=== PATIENT | female | born 1965 | race Two or more races ===

== ENCOUNTER 2016-05-13 09:02 | Emergency (ER) | payer OTHER, MEDICARE ==
[2016-05-13 09:14] VITALS: RESP 20; TEMP 97.5
[2016-05-13] MEDS ORDERED: diphenhydrAMINE 50 MG/ML 1 ML VIAL IVP STA (09:29)
[2016-05-13] MEDS ORDERED: PROMETHAZINE INJ 25 MG in SODIUM CHLORIDE 0.9% 50 ML IVPB STA (09:29)
[2016-05-13] MEDS ORDERED: HYDROmorphone 1 MG/ML 1 ML SYRINGE IVP STA ×2 (09:30→11:10)
--- NOTE | 2016-05-13 09:34 | ED ---
General Adult HPI - General Chief complaint: Headache Stated complaint: headache Time Seen by Provider: 05/13/16 09:16 Source: patient, RN notes reviewed Mode of arrival: ambulatory Limitations: no limitations - History of Present Illness Initial comments: 50-year-old female presents emergency Department chief complaint of bilateral flank pain, headache. Patient states that she started yesterday with some flank pain no chest progressed and does radiate into her abdomen. Patient states she originally thought she had a kidney stone so she started drinking more water. Patient states that now she feels that she cannot urinate. She did admit to being admitted over one week ago at [facility] or her neurologist is for MS. Patient states she was admitted for MS exacerbation. Patient states during her stay there she had to be cathed 3 times because of urinary retention. Her neurologist told her was secondary to her MS. Patient states she now has a headache and which she has chronic headaches secondary to her MS. Patient states her pain medication is not helping. Patient takes oxycodone. Patient states it's a diffuse headache with some photophobia. Patient denies any focal weakness. Patient denies any blurred vision, confusion. Patient states she's had headaches like this in the past. Patient denies any fever, chills, neck stiffness. - Related Data Home Medications Medication Instructions Recorded Confirmed Citalopram Hydrobromide [CeleXA] 60 mg PO HS 09/19/13 12/19/15 Gabapentin [Neurontin] 600 mg PO TID 09/19/13 12/19/15 Topiramate [Topamax] 100 mg PO TID 09/19/13 12/19/15 Diazepam [Valium] 10 mg PO HS 12/19/15 12/19/15 INSULIN LISPRO (HumaLOG) [HumaLOG] 1.7 units SQ CONTINUOUS 12/19/15 12/19/15 Ondansetron [Zofran] 4 mg PO Q8HR PRN 12/19/15 12/19/15 clonazePAM [KlonoPIN] 1 mg PO TID 12/19/15 12/19/15 oxyCODONE HCL [Oxyir] 5 mg PO Q4HR PRN 12/19/15 12/19/15 Previous Rx's Medication Instructions Recorded Ketorolac [Toradol] 10 mg PO Q6HR #6 tab 12/19/15 Allergies Allergy/AdvReac Type Severity Reaction Status Date / Time divalproex sodium Allergy Unknown Verified 05/13/16 09:14 [From Depakote] prochlorperazine edisylate Allergy Unknown Verified 05/13/16 09:14 [From Compazine] prochlorperazine maleate Allergy Unknown Verified 05/13/16 09:14 [From Compazine] vancomycin Allergy Unknown Verified 05/13/16 09:14 steroids AdvReac Confusion Uncoded 05/13/16 09:14 Review of Systems ROS Statement: Those systems with pertinent positive or pertinent negative responses have been documented in the HPI. ROS Other: All systems not noted in ROS Statement are negative. Past Medical History Past Medical History: Diabetes Mellitus, Seizure Disorder Additional Past Medical History / Comment(s): MS, uterine cancer, headaches History of Any Multi-Drug Resistant Organisms: None Reported Past Surgical History: Appendectomy, Cholecystectomy, Hysterectomy, Orthopedic Surgery Additional Past Surgical History / Comment(s): cervical surgery, right ear reconstruction from defect Past Anesthesia/Blood Transfusion Reactions: No Reported Reaction Past Psychological History: Depression Additional Psychological History / Comment(s): IN PAST HAVE HAD STEROID INDUCED PSYCHOSIS Smoking Status: Current every day smoker Past Alcohol Use History: None Reported Past Drug Use History: None Reported - Past Family History Mother Family Medical History: Diabetes Mellitus Brother(s) Family Medical History: Diabetes Mellitus General Exam Limitations: no limitations General appearance: alert, in no apparent distress Head exam: Present: atraumatic, normocephalic, normal inspection Eye exam: Present: normal appearance, PERRL, EOMI. Absent: scleral icterus, conjunctival injection, periorbital swelling Neck exam: Present: normal inspection, full ROM. Absent: tenderness, meningismus, lymphadenopathy Respiratory exam: Present: normal lung sounds bilaterally. Absent: respiratory distress, wheezes, rales, rhonchi, stridor Cardiovascular Exam: Present: regular rate, normal rhythm, normal heart sounds. Absent: systolic murmur, diastolic murmur, rubs, gallop, clicks GI/Abdominal exam: Present: soft, tenderness (Mild diffuse greatest in the suprapubic region), normal bowel sounds. Absent: distended, guarding, rebound, rigid Extremities exam: Present: normal inspection, full ROM, normal capillary refill. Absent: tenderness, pedal edema, joint swelling, calf tenderness Back exam: Present: full ROM, CVA tenderness (R), CVA tenderness (L). Absent: tenderness Neurological exam: Present: alert, oriented X3, CN II-XII intact, reflexes normal. Absent: motor sensory deficit Skin exam: Present: warm, dry, intact, normal color. Absent: rash Course Vital Signs 05/13/16 09:11 Temperature 97.5 F L Pulse Rate 90 Respiratory 20 Rate Blood Pressure 124/83 O2 Sat by Pulse 99 Oximetry Medical Decision Making - Medical Decision Making 50-year-old female presented emergency from for headache, flank pain. Patient' s urinalysis, all within normals. Patient states her headache is improving though she is requesting further medications. Patient we given additional medications and discharge. Patient headache consistent with her normal migraine headaches. Patient has no neurological deficits. Patient will be discharged with follow-up with her neurologist. Return parameters were discussed. Patient agrees plant AND answered. - Lab Data Result diagrams: 05/13/16 09:45 05/13/16 09:45 Lab Results 05/13/16 05/13/16 05/13/16 Range/Units 09:45 09:45 09:45 WBC 10.4 (3.8-10.6) k/uL RBC 4.30 (3.80-5.40) m/uL Hgb 12.5 (11.4-16.0) gm/dL Hct 38.7 (34.0-46.0) % MCV 90.0 (80.0-100.0) fL MCH 29.1 (25.0-35.0) pg MCHC 32.4 (31.0-37.0) g/dL RDW 14.1 (11.5-15.5) % Plt Count 232 (150-450) k/uL Neutrophils % 57 % Lymphocytes % 32 % Monocytes % 5 % Eosinophils % 2 % Basophils % 0 % Neutrophils # 6.0 (1.3-7.7) k/uL Lymphocytes # 3.3 (1.0-4.8) k/uL Monocytes # 0.6 (0-1.0) k/uL Eosinophils # 0.2 (0-0.7) k/uL Basophils # 0.0 (0-0.2) k/uL Sodium 136 L (137-145) mmol/L Potassium 4.9 (3.5-5.1) mmol/L Chloride 104 (98-107) mmol/L Carbon Dioxide 20 L (22-30) mmol/L Anion Gap 12 mmol/L BUN 20 H (7-17) mg/dL Creatinine 1.35 H (0.52-1.04) mg/dL Est GFR (MDRD) Af Amer 50 (>60 ml/min/1.73 sqM) Est GFR (MDRD) Non-Af 42 (>60 ml/min/1.73 sqM) Glucose 231 H (74-99) mg/dL Calcium 10.0 (8.4-10.2) mg/dL Total Bilirubin 0.4 (0.2-1.3) mg/dL AST 48 H (14-36) U/L ALT 78 H (9-52) U/L Alkaline Phosphatase 84 (38-126) U/L Total Protein 7.2 (6.3-8.2) g/dL Albumin 4.4 (3.5-5.0) g/dL Urine Color Light Yellow Urine Appearance Cloudy H (Clear) Urine pH 5.5 (5.0-8.0) Ur Specific [place] 1.004 (1.001-1.035) Urine Protein Negative (Negative) Urine Glucose (UA) Negative (Negative) Urine Ketones Negative (Negative) Urine Blood Negative (Negative) Urine Nitrate Negative (Negative) Urine Bilirubin Negative (Negative) Urine Urobilinogen <2.0 (<2.0) mg/dL Ur Leukocyte Esterase Moderate H (Negative) Urine RBC 2 (0-5) /hpf Urine WBC 7 H (0-5) /hpf Ur Squamous Epith Cells 10 H (0-4) /hpf Urine Bacteria Occasional H (None) /hpf Urine Mucus Rare H (None) /hpf Disposition Clinical Impression: Migraine, Flank pain Disposition: HOME SELF-CARE Condition: Stable Instructions: Acute Headache (ED) Additional Instructions: Please return to the Emergency Department if symptoms worsen or any other concerns. Time of Disposition: 11:11
[2016-05-13] MEDS ORDERED: ONDANSETRON 4 MG/2 ML VIAL IVP STA (09:44)
[2016-05-13 10:14] LABS: Basophils % (A) 0 %; CH 29.2; CHCM 32.6; Eosinophils # (A) 0.2 k/uL (0-0.7); Eosinophils % (A) 2 %; HCT 38.7 % (34.0-46.0); HDW 2.79; HGB 12.5 gm/dL (11.4-16.0); Luc # (Auto) 0.28; Luc % (Auto) 3; Lymphocytes # (A) 3.3 k/uL (1.0-4.8); Lymphocytes % (A) 32 %; MCH 29.1 pg (25.0-35.0); MCHC 32.4 g/dL (31.0-37.0); Mean Platelet Volume 7.4; Monocytes # (A) 0.6 k/uL (0-1.0); Monocytes % (A) 5 %; Neutrophils % (A) 57 %; RDW 14.1 % (11.5-15.5); WBC 10.4 k/uL (3.8-10.6); WBC (Perox) 11.17
[2016-05-13 10:25] LABS: Appearance,Urine Cloudy (Clear); Bacteria,Urine Occasional /hpf; Bilirubin,Urine Negative (Negative); Glucose,Urine (UA) Negative (Negative); Ketones,Urine Negative (Negative); Leukocyte Esterase,Urine Moderate (Negative); Mucus,Urine Rare /hpf; Nitrite,Urine Negative (Negative); PH, Urine 5.5 (5.0-8.0); Particle Count 3026; Protein,Urine Negative (Negative); RBC,Urine 2 /hpf (0-5); Specific Gravity,Urine 1.004 (1.001-1.035); Squamous Epithelial Cell,Urine 10 /hpf (0-4); UA Billing (MACRO vs. MICRO) MICRO; Urobilinogen,Urine <2.0 mg/dL (<2.0); WBC,Urine 7 /hpf (0-5)
[2016-05-13 10:28] LABS: Potassium 4.9 mmol/L (3.5-5.1); Total Bilirubin 0.4 mg/dL (0.2-1.3); Total Protein 7.2 g/dL (6.3-8.2)
[2016-05-13] MEDS ORDERED: KETOROLAC 30 MG/ML 1 ML VIAL IVP STA (10:35)
[2016-05-13 11:49] VITALS: BP 122/83; PULSE 100
== END 2016-05-13 11:49 | disposition home or self-care (01) ==
LOC: EC 09:02
DX: G43.909 Migraine, unspecified, not intractable, without status migrainosus (principal); R10.9 Unspecified abdominal pain; G35 Multiple sclerosis; G40.909 Epilepsy, unspecified, not intractable, without status epilepticus; E11.9 Type 2 diabetes mellitus without complications; Z85.42 Personal history of malignant neoplasm of other parts of uterus; F32.9 Major depressive disorder, single episode, unspecified; F17.200 Nicotine dependence, unspecified, uncomplicated; Z88.8 Allergy status to other drugs, medicaments and biological substances; Z79.4 Long term (current) use of insulin; Z79.899 Other long term (current) drug therapy; Z88.1 Allergy status to other antibiotic agents
CPT/HCPCS: 36415; 80053; 85025; 81001; 87040; 96374; 96375; 96376; 99284; J1200; J2405; J1885; J1170

== ENCOUNTER → 2017-04-08 | Outpatient (CLI) | payer OTHER, MEDICARE ==
[2017-04-08 12:30] LABS: ALT 36 U/L (9-52); AST 23 U/L (14-36); Albumin 4.1 g/dL (3.5-5.0); Alkaline Phosphatase 93 U/L (38-126); Anion Gap 10 mmol/L; Blood Urea Nitrogen 20 mg/dL (7-17); Calcium 9.4 mg/dL (8.4-10.2); Carbon Dioxide 28 mmol/L (22-30); Chloride 108 mmol/L (98-107); Glucose 139 mg/dL (74-99); Sodium 146 mmol/L (137-145); Total Bilirubin 0.3 mg/dL (0.2-1.3); Total Protein 7.2 g/dL (6.3-8.2)
[2017-04-08 12:35] LABS: Potassium 4.1 mmol/L (3.5-5.1)
--- NOTE | 2017-04-09 13:38 | MR ---
EXAMINATION TYPE: MR brain wo/w con DATE OF EXAM: 04/08/2017 COMPARISON: Prior MRI brain October 25, 2010. HISTORY: MS per order. Right-sided hearing loss with bilateral weakness and numbness per patient. TECHNIQUE: Multiplanar, multisequence images of the brain and brainstem is performed without and with IV contras t, utilizing 7.5 mL intravenous Gadavist gadolinium contrast is administered intravenously. Demyelin ating disease protocol with additional Sagittal Flair sequence performed. FINDINGS: Exam is suboptimal as there is significant motion artifact degradation T2 Lesions Present : Yes Approximate Number of Lesions: 1 Single left frontal 4 x 3 x 3 mm lesion axial image 21 and sagittal image 13 Enhancing Lesion(s) Present: No Change from Prior: Stable Diffusion weighted images demonstrate no evidence of a recent infarct or other diffusion abnormality. There is no worrisome extra-axial fluid collection. The ventricular system and cisternal spaces ar e normal in size and appearance. The brain volume is age appropriate. Midline structures demonstrate normal morphology. The craniocervical junction appears within normal limits. Post contrast images demonstrate no abnormal enhancement. Dominant left vertebral artery inc identally noted. The dural venous sinuses appear patent. The visualized sinuses are clear and the gl obes are intact. IMPRESSION: Suboptimal study. Single stable 3 mm left frontal white matter lesion. No new or enhancin g lesions are seen. No significant change from prior.
== END | disposition home or self-care (01) ==
LOC: RADMRIMAIN 11:47
PROVIDERS: ATTEND Psychiatry & Neurology Neurology with Special Qualifications in Child Neurology
DX: R90.82 White matter disease, unspecified (principal); G35 Multiple sclerosis
CPT/HCPCS: 80053; 70553; 36415; A9581

== ENCOUNTER 2017-05-27 17:15 | Emergency (ER) | payer OTHER, MEDICARE ==
[2017-05-27] MEDS ORDERED: ONDANSETRON 4 MG/2 ML VIAL IVP STA (17:37)
[2017-05-27] MEDS ORDERED: HYDROmorphone 0.5 MG/0.5 ML SYRINGE IVP STA ×2 (17:37→19:15)
[2017-05-27] MEDS ORDERED: SODIUM CHLORIDE 0.9% 1,000 ML IV STA (17:37)
[2017-05-27] MEDS ORDERED: KETOROLAC 30 MG/ML 1 ML VIAL IVP STA (17:37)
--- NOTE | 2017-05-27 18:03 | ED ---
Headache HPI - General Chief Complaint: Headache Stated Complaint: severe migraine; MS exacerbation Time Seen by Provider: 05/27/17 17:24 Source: RN notes reviewed Mode of arrival: wheelchair Limitations: no limitations - History of Present Illness Initial Comments: This is a 51-year-old female who presents to the emergency department with chief complaint of migraine. Patient states that this morning she developed a headache. At that time, she believed that it was a sinus headache so took Sudafed and nasal flushes. Patient states as the day progressed, her headache increased in intensity. She states that the headache is right-sided and is sharp and throbbing. She admits to associated nausea. She states she threw up 2 times today. Patient also reports photophobia. She states that she has a history of migraines and that this feels the same as her normal. She denies any recent injuries, falls or head trauma. She states she has a history of MS and believes that she may be having an MS exacerbation. She states that since Monday she has been experiencing insomnia and she is off balance. She states she sees Dr. Parrish out of [place]. She states her last flareup was 1 year ago. She states that she was diagnosed with MS in 9 years ago. She states she has a progressive type. Denies fever, chills, chest pain, shortness of breath, abdominal pain, nausea or vomiting, constipation or diarrhea, dysuria or hematuria, numbness or tingling, headache or vision changes. - Related Data Home Medications Medication Instructions Recorded Confirmed Citalopram Hydrobromide [CeleXA] 60 mg PO HS 09/19/13 05/27/17 Gabapentin [Neurontin] 600 mg PO Q6H 09/19/13 05/27/17 Topiramate [Topamax] 100 mg PO TID 09/19/13 05/27/17 Diazepam [Valium] 10 mg PO Q8H 12/19/15 05/27/17 INSULIN LISPRO (HumaLOG) [HumaLOG] See Protocol SQ CONTINUOUS 12/19/15 05/27/17 Ondansetron [Zofran] 4 mg PO Q6H PRN 12/19/15 05/27/17 clonazePAM [KlonoPIN] 1 mg PO HS 12/19/15 05/27/17 Amitriptyline HCl [Elavil] 25 mg PO HS 05/27/17 05/27/17 Baclofen 10 mg PO TID 05/27/17 05/27/17 Cholecalciferol [Vitamin D3] 5,000 unit PO DAILY 05/27/17 05/27/17 Dimethyl Fumarate [Tecfidera] 240 mg PO BID 05/27/17 05/27/17 Estrogens,Esterified [Menest] 1.25 mg PO DAILY 05/27/17 05/27/17 Modafinil [Provigil] 200 mg PO DAILY 05/27/17 05/27/17 Morphine Sulfate ER [Ms Contin 100 mg PO DAILY 05/27/17 05/27/17 100Mg] Omeprazole [PriLOSEC] 20 mg PO AC-BID 05/27/17 05/27/17 Allergies Allergy/AdvReac Type Severity Reaction Status Date / Time divalproex sodium Allergy Unknown Verified 05/27/17 17:38 [From Depakote] prochlorperazine edisylate Allergy Unknown Verified 05/27/17 17:38 [From Compazine] prochlorperazine maleate Allergy Unknown Verified 05/27/17 17:38 [From Compazine] vancomycin Allergy Unknown Verified 05/27/17 17:38 steroids AdvReac Confusion Uncoded 05/27/17 17:21 Review of Systems ROS Statement: Those systems with pertinent positive or pertinent negative responses have been documented in the HPI. ROS Other: All systems not noted in ROS Statement are negative. Past Medical History Past Medical History: Diabetes Mellitus, Seizure Disorder Additional Past Medical History / Comment(s): MS, uterine cancer, migraine headaches History of Any Multi-Drug Resistant Organisms: None Reported Past Surgical History: Appendectomy, Cholecystectomy, Hysterectomy, Orthopedic Surgery Additional Past Surgical History / Comment(s): cervical surgery, right ear reconstruction from defect Past Anesthesia/Blood Transfusion Reactions: No Reported Reaction Past Psychological History: Depression Smoking Status: Current every day smoker Past Alcohol Use History: None Reported Past Drug Use History: None Reported - Past Family History Mother Family Medical History: Diabetes Mellitus Brother(s) Family Medical History: Diabetes Mellitus General Exam - General Exam Comments Initial Comments: General: Awake and alert, well-developed; in no apparent distress. Patient sitting comfortably on ED stretcher, wearing sunglasses. HEENT: Head atraumatic, normocephalic. Pupils are equal, round and reactive to light. Extraocular movements intact. Oropharynx moist without erythema or exudate. Neck: Supple. Normal ROM. Cardiovascular: Regular rate and rhythm. No murmurs, rubs or gallops. Chest symmetrical. Respiratory: Lungs clear to auscultation bilaterally. No wheezes, rales or rhonchi. Normal respiratory effort with no use of accessory muscles. Musculoskeletal: Normal ROM, no tenderness bilateral upper and lower extremities. Ambulating normally. Skin: [place], warm and dry without rashes or lesions. Neurological: Alert and oriented x3. CN II-XII grossly intact. Speech is slow and slurred. Stutters occasionally. Symmetrical weakness, patient states that this is chronic and baseline for her. Psychiatric: Normal mood and affect. No overt signs of depression or anxiety noted. Limitations: no limitations Course Vital Signs 05/27/17 05/27/17 17:19 19:07 Temperature 97.3 F L Pulse Rate 108 H 87 Respiratory 20 18 Rate Blood Pressure 139/99 140/80 O2 Sat by Pulse 99 96 Oximetry - Reevaluation(s) Reevaluation #1: On reevaluation of patient, she states that her nausea has subsided and that her headache has improved. Patient requests a dose of Ativan to "take the edge off." I discussed discharge home and following up with her neurologist. Patient states that she is comfortable with this and is agreeable. 05/27/17 19:56 Medical Decision Making - Medical Decision Making This is a 51-year-old female who presents to the emergency department with chief complaint of migraine. Patient states migraine is right-sided and sharp and stabbing. She states this is like her normal migraines. Patient states she feels like she may be having a flareup of her MS. She states she feels off balance, her speech has changed and she has been suffering from insomnia. Patient was given medication in the emergency department. She states that her nausea has subsided and her migraine has improved. She states because of the pain she feels very worked up. She requested to have some Ativan. Patient was given 1 mg. Patient is in agreement for follow-up with her neurologist outpatient. Her vital signs are stable and she is in no acute distress. She will be discharged home at this time. She is in agreement and voices understanding. All questions were answered. Disposition Clinical Impression: Migraine Disposition: HOME SELF-CARE Condition: Good Instructions: Migraine Headache (ED) Additional Instructions: Please follow-up with your neurologist as soon as possible. Please follow up with primary care provider within 1-2 days. Return to emergency department if symptoms should worsen or any concerns arise. Referrals: Jm Torres MD [Primary Care Provider] - 1-2 days Time of Disposition: 20:10
[2017-05-27 19:09] VITALS: RESP 18
[2017-05-27] MEDS ORDERED: diphenhydrAMINE 50 MG/ML 1 ML VIAL IVP STA (19:15)
[2017-05-27] MEDS ORDERED: LORazepam 2 MG/ML INJ IV STA (20:07)
[2017-05-27 20:31] VITALS: BP 136/79; PULSE 93; TEMP 98
== END 2017-05-27 20:35 | disposition home or self-care (01) ==
LOC: EC 17:15
DX: G43.909 Migraine, unspecified, not intractable, without status migrainosus (principal); E11.9 Type 2 diabetes mellitus without complications; F32.9 Major depressive disorder, single episode, unspecified; G47.00 Insomnia, unspecified; F17.200 Nicotine dependence, unspecified, uncomplicated; Z86.69 Personal history of other diseases of the nervous system and sense organs; Z85.42 Personal history of malignant neoplasm of other parts of uterus; Z79.4 Long term (current) use of insulin; Z79.891 Long term (current) use of opiate analgesic; Z79.818 Long term (current) use of other agents affecting estrogen receptors and estrogen levels; Z79.899 Other long term (current) drug therapy; Z88.8 Allergy status to other drugs, medicaments and biological substances; Z88.1 Allergy status to other antibiotic agents
CPT/HCPCS: 99283; 96374; 96375 ×4; 96376; 96361 ×2; J2060; J1200; J2405; J1885; J1170

== ENCOUNTER 2017-06-22 03:03 | Inpatient (IN) | payer OTHER, MEDICARE ==
[2017-06-22] MEDS ORDERED: NALOXONE 0.4 MG/ML 1 ML VIAL IV STA (03:08)
[2017-06-22 03:13] LABS: Glucose,Whole Blood 139 mg/dL (75-99)
[2017-06-22 03:20] LABS: ABG Base Excess -9.8 mmol/L; ABG HCO3 18 mmol/L (21-25); ABG Oxygen Saturation 98.1 % (94-97); ABG PCO2 41 mmHg (35-45); ABG PH 7.24 (7.35-7.45); ABG PO2 96 mmHg (83-108); ABG TCO2 19 mmol/L (19-24)
[2017-06-22] MEDS ORDERED: SODIUM CHLORIDE 0.9% 1,000 ML IV STA ×2 (03:20→05:05)
[2017-06-22] MEDS ORDERED: MIDAZOLAM (PF) 1 MG/ML 5 ML VIAL IV STA (03:23)
[2017-06-22] MEDS ORDERED: SUCCINYLCHOLINE CHLORIDE VIAL 200 MG/10 ML VIAL IV STA (03:24)
[2017-06-22] MEDS ORDERED: fentaNYL (PF) 2,500 MCG in SODIUM CHLORIDE 0.9% 200 ML IV SCH (03:30)
[2017-06-22 03:38] LABS: Basophils # (A) 0.1 k/uL (0-0.2); Basophils % (A) 0 %; Eosinophils # (A) 0.1 k/uL (0-0.7); Eosinophils % (A) 1 %; HCT 40.5 % (34.0-46.0); HGB 13.1 gm/dL (11.4-16.0); Lymphocytes # (A) 1.8 k/uL (1.0-4.8); Lymphocytes % (A) 12 %; MCH 28.9 pg (25.0-35.0); MCHC 32.4 g/dL (31.0-37.0); MCV 89.1 fL (80.0-100.0); Mean Platelet Volume 8.5; Monocytes # (A) 0.4 k/uL (0-1.0); Monocytes % (A) 3 %; Neutrophils # (A) 12.2 k/uL (1.3-7.7); Neutrophils % (A) 82 %; Platelet Count 191 k/uL (150-450); RBC 4.54 m/uL (3.80-5.40); RDW 14.4 % (11.5-15.5); WBC 14.8 k/uL (3.8-10.6)
[2017-06-22] MEDS ORDERED: PROPOFOL 1,000 MG in EMPTY BAG 1 BAG IV ONE (03:41)
--- NOTE | 2017-06-22 03:48 | ED ---
General Adult HPI - General Chief complaint: Overdose Stated complaint: Overdose Time Seen by Provider: 06/22/17 03:28 Source: EMS Mode of arrival: EMS Limitations: altered mental status - History of Present Illness Initial comments: This is a 51-year-old female with a history of MS who presents emergency department for being unresponsive. Her reportedly found her in bed foaming at the mouth and not breathing very well. When he called an ambulance when they arrived she was noted to have agonal respirations. They assisted ventilation she did still have pulses when they arrived. They gave her a total of 6 mg of Narcan in route with minimal improvement in her status. They stated that her respirations seemed to improve however. The reportedly told EMS that this patient when she gets a lot of pain will take a lot of her medications and go lay down in bed until the pain subsides. He states is not uncommon for her to go lay down for multiple hours thus he did not suspect anything was wrong. Unfortunately the patient is unresponsive and unable to provide any history. is not currently at bedside. The patient has a GCS of 4 to 5 at this time. Was intubated on arrival for airway protection after a trial of 1 mg of Narcan IV.. - Related Data Home Medications Medication Instructions Recorded Confirmed Citalopram Hydrobromide [CeleXA] 60 mg PO HS 09/19/13 05/27/17 Gabapentin [Neurontin] 600 mg PO Q6H 09/19/13 05/27/17 Topiramate [Topamax] 100 mg PO TID 09/19/13 05/27/17 Diazepam [Valium] 10 mg PO Q8H 12/19/15 05/27/17 INSULIN LISPRO (HumaLOG) [HumaLOG] See Protocol SQ CONTINUOUS 12/19/15 05/27/17 Ondansetron [Zofran] 4 mg PO Q6H PRN 12/19/15 05/27/17 clonazePAM [KlonoPIN] 1 mg PO HS 12/19/15 05/27/17 Amitriptyline HCl [Elavil] 25 mg PO HS 05/27/17 05/27/17 Baclofen 10 mg PO TID 05/27/17 05/27/17 Cholecalciferol [Vitamin D3] 5,000 unit PO DAILY 05/27/17 05/27/17 Dimethyl Fumarate [Tecfidera] 240 mg PO BID 05/27/17 05/27/17 Estrogens,Esterified [Menest] 1.25 mg PO DAILY 05/27/17 05/27/17 Modafinil [Provigil] 200 mg PO DAILY 05/27/17 05/27/17 Morphine Sulfate ER [Ms Contin 100 mg PO DAILY 05/27/17 05/27/17 100Mg] Omeprazole [PriLOSEC] 20 mg PO AC-BID 05/27/17 05/27/17 Allergies Allergy/AdvReac Type Severity Reaction Status Date / Time divalproex sodium Allergy Unknown Verified 05/27/17 17:38 [From Depakote] prochlorperazine edisylate Allergy Unknown Verified 05/27/17 17:38 [From Compazine] prochlorperazine maleate Allergy Unknown Verified 05/27/17 17:38 [From Compazine] vancomycin Allergy Unknown Verified 05/27/17 17:38 steroids AdvReac Confusion Uncoded 05/27/17 17:21 Review of Systems ROS Statement: Those systems with pertinent positive or pertinent negative responses have been documented in the HPI. ROS Other: All systems not noted in ROS Statement are negative. Past Medical History Past Medical History: Diabetes Mellitus, Seizure Disorder Additional Past Medical History / Comment(s): MS, uterine cancer, migraine headaches History of Any Multi-Drug Resistant Organisms: None Reported Past Surgical History: Appendectomy, Cholecystectomy, Hysterectomy, Orthopedic Surgery Additional Past Surgical History / Comment(s): cervical surgery, right ear reconstruction from defect Past Anesthesia/Blood Transfusion Reactions: No Reported Reaction Past Psychological History: Depression Smoking Status: Current every day smoker Past Alcohol Use History: None Reported Past Drug Use History: None Reported - Past Family History Mother Family Medical History: Diabetes Mellitus Brother(s) Family Medical History: Diabetes Mellitus General Exam - General Exam Comments Initial Comments: Constitutional: Patient is somnolent and unresponsive, GCS of 4-5 Appears comfortable Head: Normocephalic atraumatic Eyes: no conjunctival injection No scleral icterus EOMI, pupils are 3 mm bilaterally. Right pupil is responsive, left pupil is sluggish Neck: No JVD Supple Heart: Tachycardia with regular rhythm normal S1-S2 no murmurs Lungs: Clear to auscultation bilaterally No wheezing No rales Abdomen: Soft nondistended nontender Extremities: Non edematous DP pulses intact Radial pulses intact Neuro: Patient is stuporous and unresponsive to painful stimuli or verbal stimuli. Did respond slightly when and nasopharyngeal airway was placed however did not wake up or respond No focal neurologic deficits Psych: Appropriate mood and affect Limitations: altered mental status Course Vital Signs 06/22/17 06/22/17 06/22/17 03:08 03:27 03:32 Temperature 99.4 F Pulse Rate 126 H 128 H 134 H Respiratory 20 Rate Blood Pressure 98/58 147/74 144/71 O2 Sat by Pulse 100 Oximetry 06/22/17 06/22/17 06/22/17 03:37 03:47 03:52 Temperature Pulse Rate 126 H 122 H 122 H Respiratory 20 Rate Blood Pressure 148/76 105/57 104/65 O2 Sat by Pulse 100 100 Oximetry 06/22/17 06/22/17 06/22/17 04:00 04:08 04:11 Temperature Pulse Rate 122 H 118 H 120 H Respiratory 20 20 20 Rate Blood Pressure 106/56 91/54 83/51 O2 Sat by Pulse 100 100 100 Oximetry 06/22/17 06/22/17 06/22/17 04:18 04:28 04:38 Temperature Pulse Rate 119 H 117 H 116 H Respiratory 20 20 20 Rate Blood Pressure 86/52 82/53 81/51 O2 Sat by Pulse 100 100 100 Oximetry 06/22/17 04:39 Temperature Pulse Rate Respiratory 20 Rate Blood Pressure O2 Sat by Pulse Oximetry EKG Findings - EKG Comments: EKG Findings:: EKG showing sinus tachycardia with a rate of 125. No abnormal ST segment changes or T-wave inversion. QTC is 496. Other intervals normal. No ectopy. Medical Decision Making - Medical Decision Making Physical 51-year-old female who came in for mental status changes and respiratory failure. Patient was intubated for airway protection on arrival. She did get proximally 6mg of Narcan in route without any change in mental status. Computed tomography scan of the brain was negative. Her blood work was reviewed and showed a significant acute kidney injury. UDS was positive for opiates and benzodiazepines. My suspicion is that patient took too much of her pain medications and that combined with her acute kidney injury lead to severe overdose. Of note her blood pressure has been on the lower side however I suspect this is from dehydration. We'll continue with IV fluids at this time. Lactic acid was unremarkable. Patient will be going to ICU. Dr. Huggins and Dr. Chavarria updated. - Lab Data Result diagrams: 06/22/17 03:14 06/22/17 03:14 Lab Results 06/22/17 06/22/17 06/22/17 Range/Units 03:11 03:14 03:14 WBC (3.8-10.6) k/uL RBC (3.80-5.40) m/uL Hgb (11.4-16.0) gm/dL Hct (34.0-46.0) % MCV (80.0-100.0) fL MCH (25.0-35.0) pg MCHC (31.0-37.0) g/dL RDW (11.5-15.5) % Plt Count (150-450) k/uL Neutrophils % % Lymphocytes % % Monocytes % % Eosinophils % % Basophils % % Neutrophils # (1.3-7.7) k/uL Lymphocytes # (1.0-4.8) k/uL Monocytes # (0-1.0) k/uL Eosinophils # (0-0.7) k/uL Basophils # (0-0.2) k/uL Sodium 143 (137-145) mmol/L Potassium 5.1 (3.5-5.1) mmol/L Chloride 112 H (98-107) mmol/L Carbon Dioxide 19 L (22-30) mmol/L Anion Gap 12 mmol/L BUN 48 H (7-17) mg/dL Creatinine 4.80 H (0.52-1.04) mg/dL Est GFR (CKD-EPI)AfAm 11 (>60 ml/min/1.73 sqM) Est GFR (CKD-EPI)NonAf 10 (>60 ml/min/1.73 sqM) Glucose 131 H (74-99) mg/dL POC Glucose (mg/dL) 139 H (75-99) mg/dL POC Glu Glazing Department Supervisor ID Ekaterina Solorzano Plasma Lactic Acid Arturo (0.7-2.0) mmol/L Calcium 8.4 (8.4-10.2) mg/dL Total Bilirubin 0.8 (0.2-1.3) mg/dL AST 136 H (14-36) U/L ALT 102 H (9-52) U/L Alkaline Phosphatase 118 (38-126) U/L Total Creatine Kinase 1106 H (30-135) U/L CK-MB (CK-2) 8.9 H* (0.0-2.4) ng/mL CK-MB (CK-2) Rel Index 0.8 Troponin I 0.081 H* (0.000-0.034) ng/mL Total Protein 6.1 L (6.3-8.2) g/dL Albumin 3.6 (3.5-5.0) g/dL Urine Color Urine Appearance (Clear) Urine pH (5.0-8.0) Ur Specific [place] (1.001-1.035) Urine Protein (Negative) Urine Glucose (UA) (Negative) Urine Ketones (Negative) Urine Blood (Negative) Urine Nitrite (Negative) Urine Bilirubin (Negative) Urine Urobilinogen (<2.0) mg/dL Ur Leukocyte Esterase (Negative) Urine RBC (0-5) /hpf Urine WBC (0-5) /hpf Ur Squamous Epith Cells (0-4) /hpf Urine Bacteria (None) /hpf Cellular Casts (0) /lpf Hyaline Casts (0-2) /lpf Urine Mucus (None) /hpf Urine HCG, Qual (Not Detectd) Salicylates <1.0 mg/dL Urine Opiates Screen (NotDetected) Ur Oxycodone Screen (NotDetected) Urine Methadone Screen (NotDetected) Ur Propoxyphene Screen (NotDetected) Acetaminophen <10.0 ug/mL Ur Barbiturates Screen (NotDetected) U Tricyclic Antidepress (NotDetected) Ur Phencyclidine Scrn (NotDetected) Ur Amphetamines Screen (NotDetected) U Methamphetamines Scrn (NotDetected) U Benzodiazepines Scrn (NotDetected) Urine Cocaine Screen (NotDetected) U Marijuana (THC) Screen (NotDetected) Serum Alcohol <10 mg/dL 06/22/17 06/22/17 06/22/17 Range/Units 03:14 03:14 03:44 WBC 14.8 H (3.8-10.6) k/uL RBC 4.54 (3.80-5.40) m/uL Hgb 13.1 (11.4-16.0) gm/dL Hct 40.5 (34.0-46.0) % MCV 89.1 (80.0-100.0) fL MCH 28.9 (25.0-35.0) pg MCHC 32.4 (31.0-37.0) g/dL RDW 14.4 (11.5-15.5) % Plt Count 191 (150-450) k/uL Neutrophils % 82 % Lymphocytes % 12 % Monocytes % 3 % Eosinophils % 1 % Basophils % 0 % Neutrophils # 12.2 H (1.3-7.7) k/uL Lymphocytes # 1.8 (1.0-4.8) k/uL Monocytes # 0.4 (0-1.0) k/uL Eosinophils # 0.1 (0-0.7) k/uL Basophils # 0.1 (0-0.2) k/uL Sodium (137-145) mmol/L Potassium (3.5-5.1) mmol/L Chloride (98-107) mmol/L Carbon Dioxide (22-30) mmol/L Anion Gap mmol/L BUN (7-17) mg/dL Creatinine (0.52-1.04) mg/dL Est GFR (CKD-EPI)AfAm (>60 ml/min/1.73 sqM) Est GFR (CKD-EPI)NonAf (>60 ml/min/1.73 sqM) Glucose (74-99) mg/dL POC Glucose (mg/dL) (75-99) mg/dL POC Glu Glazing Department Supervisor ID Plasma Lactic Acid Arturo 1.9 (0.7-2.0) mmol/L Calcium (8.4-10.2) mg/dL Total Bilirubin (0.2-1.3) mg/dL AST (14-36) U/L ALT (9-52) U/L Alkaline Phosphatase (38-126) U/L Total Creatine Kinase (30-135) U/L CK-MB (CK-2) (0.0-2.4) ng/mL CK-MB (CK-2) Rel Index Troponin I (0.000-0.034) ng/mL Total Protein (6.3-8.2) g/dL Albumin (3.5-5.0) g/dL Urine Color Yellow Urine Appearance Cloudy H (Clear) Urine pH 6.0 (5.0-8.0) Ur Specific [place] 1.011 (1.001-1.035) Urine Protein 1+ H (Negative) Urine Glucose (UA) 3+ H (Negative) Urine Ketones Negative (Negative) Urine Blood Moderate H (Negative) Urine Nitrite Negative (Negative) Urine Bilirubin Negative (Negative) Urine Urobilinogen <2.0 (<2.0) mg/dL Ur Leukocyte Esterase Small H (Negative) Urine RBC 3 (0-5) /hpf Urine WBC 6 H (0-5) /hpf Ur Squamous Epith Cells 1 (0-4) /hpf Urine Bacteria Occasional H (None) /hpf Cellular Casts 2 (0) /lpf Hyaline Casts 10 H (0-2) /lpf Urine Mucus Occasional H (None) /hpf Urine HCG, Qual (Not Detectd) Salicylates mg/dL Urine Opiates Screen (NotDetected) Ur Oxycodone Screen (NotDetected) Urine Methadone Screen (NotDetected) Ur Propoxyphene Screen (NotDetected) Acetaminophen ug/mL Ur Barbiturates Screen (NotDetected) U Tricyclic Antidepress (NotDetected) Ur Phencyclidine Scrn (NotDetected) Ur Amphetamines Screen (NotDetected) U Methamphetamines Scrn (NotDetected) U Benzodiazepines Scrn (NotDetected) Urine Cocaine Screen (NotDetected) U Marijuana (THC) Screen (NotDetected) Serum Alcohol mg/dL 06/22/17 06/22/17 Range/Units 03:44 03:44 WBC (3.8-10.6) k/uL RBC (3.80-5.40) m/uL Hgb (11.4-16.0) gm/dL Hct (34.0-46.0) % MCV (80.0-100.0) fL MCH (25.0-35.0) pg MCHC (31.0-37.0) g/dL RDW (11.5-15.5) % Plt Count (150-450) k/uL Neutrophils % % Lymphocytes % % Monocytes % % Eosinophils % % Basophils % % Neutrophils # (1.3-7.7) k/uL Lymphocytes # (1.0-4.8) k/uL Monocytes # (0-1.0) k/uL Eosinophils # (0-0.7) k/uL Basophils # (0-0.2) k/uL Sodium (137-145) mmol/L Potassium (3.5-5.1) mmol/L Chloride (98-107) mmol/L Carbon Dioxide (22-30) mmol/L Anion Gap mmol/L BUN (7-17) mg/dL Creatinine (0.52-1.04) mg/dL Est GFR (CKD-EPI)AfAm (>60 ml/min/1.73 sqM) Est GFR (CKD-EPI)NonAf (>60 ml/min/1.73 sqM) Glucose (74-99) mg/dL POC Glucose (mg/dL) (75-99) mg/dL POC Glu Glazing Department Supervisor ID Plasma Lactic Acid Arturo (0.7-2.0) mmol/L Calcium (8.4-10.2) mg/dL Total Bilirubin (0.2-1.3) mg/dL AST (14-36) U/L ALT (9-52) U/L Alkaline Phosphatase (38-126) U/L Total Creatine Kinase (30-135) U/L CK-MB (CK-2) (0.0-2.4) ng/mL CK-MB (CK-2) Rel Index Troponin I (0.000-0.034) ng/mL Total Protein (6.3-8.2) g/dL Albumin (3.5-5.0) g/dL Urine Color Urine Appearance (Clear) Urine pH (5.0-8.0) Ur Specific [place] (1.001-1.035) Urine Protein (Negative) Urine Glucose (UA) (Negative) Urine Ketones (Negative) Urine Blood (Negative) Urine Nitrite (Negative) Urine Bilirubin (Negative) Urine Urobilinogen (<2.0) mg/dL Ur Leukocyte Esterase (Negative) Urine RBC (0-5) /hpf Urine WBC (0-5) /hpf Ur Squamous Epith Cells (0-4) /hpf Urine Bacteria (None) /hpf Cellular Casts (0) /lpf Hyaline Casts (0-2) /lpf Urine Mucus (None) /hpf Urine HCG, Qual Not Detected (Not Detectd) Salicylates mg/dL Urine Opiates Screen Detected H (NotDetected) Ur Oxycodone Screen Detected H (NotDetected) Urine Methadone Screen Not Detected (NotDetected) Ur Propoxyphene Screen Not Detected (NotDetected) Acetaminophen ug/mL Ur Barbiturates Screen Not Detected (NotDetected) U Tricyclic Antidepress Not Detected (NotDetected) Ur Phencyclidine Scrn Not Detected (NotDetected) Ur Amphetamines Screen Not Detected (NotDetected) U Methamphetamines Scrn Not Detected (NotDetected) U Benzodiazepines Scrn Detected H (NotDetected) Urine Cocaine Screen Not Detected (NotDetected) U Marijuana (THC) Screen Not Detected (NotDetected) Serum Alcohol mg/dL Critical Care Time Critical Care Time: Yes Total Critical Care Time: 35 Critical Care Time: Critical care time spent obtaining history from someone other than the patient including EMS and the . Performing physical exam. Monitoring the patient's airway. Attempted tries at treatment to reverse her condition. Intubating the patient and managing her ventilator. Managing her sedation. Ordering lab tests and radiological studies. Interpreting those labs and radiologic studies. Review of the patient's charts. Disposition Clinical Impression: MACKENZIE (acute kidney injury), Respiratory failure, Encephalopathy Disposition: ADMITTED IP TO THIS [facility] Condition: Critical
[2017-06-22 03:49] LABS: ALT 102 U/L (9-52); AST 136 U/L (14-36); Acetaminophen <10.0 ug/mL; Albumin 3.6 g/dL (3.5-5.0); Alcohol <10 mg/dL; Alkaline Phosphatase 118 U/L (38-126); Anion Gap 12 mmol/L; Blood Urea Nitrogen 48 mg/dL (7-17); Calcium 8.4 mg/dL (8.4-10.2); Carbon Dioxide 19 mmol/L (22-30); Chloride 112 mmol/L (98-107); Glucose 131 mg/dL (74-99); Potassium 5.1 mmol/L (3.5-5.1); Salicylate <1.0 mg/dL; Sodium 143 mmol/L (137-145); Total Bilirubin 0.8 mg/dL (0.2-1.3); Total Protein 6.1 g/dL (6.3-8.2)
[2017-06-22 04:02] LABS: Appearance,Urine Cloudy (Clear); Bacteria,Urine Occasional /hpf; Bilirubin,Urine Negative (Negative); Blood,Urine Moderate (Negative); Cellular Casts,Urine 2 /lpf (0); Color,Urine Yellow; Glucose,Urine (UA) 3+ (Negative); Hyaline Casts,Urine 10 /lpf (0-2); Ketones,Urine Negative (Negative); Leukocyte Esterase,Urine Small (Negative); Mucus,Urine Occasional /hpf; Nitrite,Urine Negative (Negative); Protein,Urine 1+ (Negative); RBC,Urine 3 /hpf (0-5); Specific Gravity,Urine 1.011 (1.001-1.035); Squamous Epithelial Cell,Urine 1 /hpf (0-4); Urobilinogen,Urine <2.0 mg/dL (<2.0); WBC,Urine 6 /hpf (0-5)
--- NOTE | 2017-06-22 04:02 | XR ---
EXAM: XR Chest, 1 View CLINICAL HISTORY: XR Reason: overdose TECHNIQUE: Frontal view of the chest. COMPARISON: No relevant prior studies available. FINDINGS: Lungs: There are patchy to confluent opacities predominantly in the perihilar and midlung regions. Pleural space: Unremarkable. No pneumothorax. Heart: There is new cardiomegaly. Mediastinum: See above. The pulmonary vasculature is indistinct. Bones/joints: Unremarkable. Tubes, lines and devices: The endotracheal tube is identified with the tip approximately 3.2 cm from the tanika. Nasogastric tube traverses the mediastinum and extends into the superior abdomen. IMPRESSION: There are patchy to confluent opacities predominantly in the perihilar and midlung regions. This may represent aspiration or pulmonary edema. Please correlate clinically
[2017-06-22] MEDS ORDERED: PIPERACILLIN-TAZOBACTAM 3.375 GM in DEXTROSE/WATER 1 50ML.BAG IVPB STA (04:05)
[2017-06-22 04:14] LABS: Amphetamine Screen,Urine Not Detected (NotDetected); Barbiturate Screen,Urine Not Detected (NotDetected); Benzodiazepines Screen,Urine Detected (NotDetected); Cocaine Screen,Urine Not Detected (NotDetected); Methadone Screen, Urine Not Detected (NotDetected); Opiate Screen,Urine Detected (NotDetected); Oxycodone Screen, Urine Detected (NotDetected); Phencyclidine Screen,Urine Not Detected (NotDetected); Tricyclic Antidepressant,Urine Not Detected (NotDetected); Urn Cannabinoid Scrn Not Detected (NotDetected)
[2017-06-22] MEDS: SODIUM CHLORIDE 0.9% 1,000 ML IV ONE ×2 (04:17→04:21)
[2017-06-22 04:33] LABS: Creatine Kinase MB 8.9 ng/mL (0.0-2.4); Troponin I 0.081 ng/mL (0.000-0.034)
--- NOTE | 2017-06-22 04:40 | CT ---
EXAM: CT Head Without Intravenous Contrast CLINICAL HISTORY: CT Reason: MS change TECHNIQUE: Axial computed tomography images of the head/brain without intravenous contrast. CTDI is 57.4 mGy and DLP is 1040.40 mGy-cm. This CT exam was performed using one or more of the following dose reduction techniques: automated exposure control, adjustment of the mA and/or kV according to patient size, and/or use of iterative reconstruction technique. COMPARISON: 12/19/2015 FINDINGS: Brain: Unremarkable. No hemorrhage. No significant white matter disease. No edema. Ventricles: Unremarkable. No ventriculomegaly. Bones/joints: Unremarkable. No acute fracture. Soft tissues: Unremarkable. Sinuses: Unremarkable as visualized. No acute sinusitis. Mastoid air cells: Unremarkable as visualized. No mastoid effusion. Auditory system: Stable cerumen in the right external auditory canal. IMPRESSION: No acute intracranial process identified.
[2017-06-22] MEDS ORDERED: ACETAMINOPHEN SUPPOSITORY 650 MG SUPP RECTAL PRN (04:56)
[2017-06-22] MEDS ORDERED: NALOXONE 0.4 MG/ML 1 ML VIAL IV PRN (04:56)
[2017-06-22 05:04] LABS: ABG Base Excess -11.2 mmol/L; ABG HCO3 17 mmol/L (21-25); ABG Oxygen Saturation 99.5 % (94-97); ABG PCO2 44 mmHg (35-45); ABG PO2 185 mmHg (83-108); ABG TCO2 18 mmol/L (19-24)
[2017-06-22 05:11] LABS: ABG PH 7.19 (7.35-7.45)
[2017-06-22] MEDS ORDERED: NOREPINEPHRIN 4 MG-0.9% NS PMX 4 MG/250 ML ML IV SCH (05:30)
[2017-06-22 08:11] LABS: Glucose,Whole Blood 214 mg/dL (75-99)
[2017-06-22] MEDS ORDERED: SODIUM BICARB 8.4% 50 ML SYR (1 MEQ/ML) IV STA ×2 (09:27→10:31)
[2017-06-22] MEDS ORDERED: LACTATED RINGERS 1,000 ML IV ONE (09:30)
[2017-06-22] MEDS: DEXTROSE 5% IN WATER 1,000 ML with SODIUM BICARB (1 MEQ/ML) 50 ML IV SCH (10:20)
--- NOTE | 2017-06-22 10:46 | P.CNPUL ---
History of Present Illness Consult date: 06/22/17 Requesting physician: Joy Chavarria Reason for consult: other (Critical care management) Chief complaint: Altered mental status History of present illness: This is a 51-year-old female patient who follows with Dr. Torres as her primary care physician. She has a history of diabetes mellitus, seizure disorder, multiple sclerosis, uterine cancer status post surgery, migraines. He reported that she does have a lot of pain and takes pain medications and then goes and lays down. She was laying down for several hours prior to him checking on her. Yesterday she was found by her foaming at the mouth and not breathing well. EMS was called and upon their arrival she was having agonal respirations and was unresponsive. They did utilize Narcan with minimal improvement. Once brought here she was intubated in the emergency room. Urine drug screen was positive for opiates, oxycodone and benzodiazepines. Acetaminophen level less than 10, salicylates less than 1, serum alcohol less than 10. White count 14.8. Hemoglobin 13.1. Platelet count 191,000. Current vent settings are assist-control mode of 25, tidal volume 500, FiO2 65% and a PEEP of 5. Morning blood gases reveal a P O2 of 185, pCO2 44, pH 7.19. She is currently on a levophed drip at 5 mcg/m. 0.9 normal saline at 100 mL's per hour. Propofol has been off for approximately 1 hour without any significant response. She is grimacing. Not opening her eyes. Not following simple commands. Computed tomography scan of the brain was negative for acute abnormalities. Her chest x-ray does show patchy confluent opacities in the perihilar and mid lung regions. Most likely representing aspiration. Review of Systems ROS unobtainable: due to endotracheal tube Past Medical History Past Medical History: Diabetes Mellitus, Seizure Disorder Additional Past Medical History / Comment(s): MS, uterine cancer, migraine headaches History of Any Multi-Drug Resistant Organisms: None Reported Past Surgical History: Appendectomy, Cholecystectomy, Hysterectomy, Orthopedic Surgery Additional Past Surgical History / Comment(s): cervical surgery, right ear reconstruction from defect Past Anesthesia/Blood Transfusion Reactions: No Reported Reaction Past Psychological History: Depression Smoking Status: Current every day smoker Past Alcohol Use History: None Reported Past Drug Use History: None Reported - Past Family History Mother Family Medical History: Diabetes Mellitus Brother(s) Family Medical History: Diabetes Mellitus Medications and Allergies Home Medications Medication Instructions Recorded Confirmed Type Citalopram Hydrobromide [CeleXA] 60 mg PO HS 09/19/13 06/22/17 History Gabapentin [Neurontin] 600 mg PO Q6H 09/19/13 06/22/17 History Topiramate [Topamax] 100 mg PO TID 09/19/13 06/22/17 History Diazepam [Valium] 10 mg PO Q8H 12/19/15 06/22/17 History INSULIN LISPRO (HumaLOG) [HumaLOG] See Protocol SQ CONTINUOUS 12/19/15 06/22/17 History Ondansetron [Zofran] 4 mg PO Q6H PRN 12/19/15 06/22/17 History clonazePAM [KlonoPIN] 1 mg PO HS 12/19/15 06/22/17 History Baclofen 10 mg PO TID 05/27/17 06/22/17 History Cholecalciferol [Vitamin D3] 5,000 unit PO DAILY 05/27/17 06/22/17 History Dimethyl Fumarate [Tecfidera] 240 mg PO BID 05/27/17 06/22/17 History Modafinil [Provigil] 200 mg PO DAILY 05/27/17 06/22/17 History Omeprazole [PriLOSEC] 20 mg PO AC-BID 05/27/17 06/22/17 History Amitriptyline HCl [Elavil] 10 mg PO HS 06/22/17 06/22/17 History Estrogen,Becky/Me-Testosterone 1 tab PO DAILY 06/22/17 06/22/17 History [Estrogen-Methyltestos F.s. Tab] Morphine Sulfate ER [Ms Contin 60 mg PO Q8H 06/22/17 06/22/17 History 60Mg] Allergies Allergy/AdvReac Type Severity Reaction Status Date / Time divalproex sodium Allergy Unknown Verified 06/22/17 07:11 [From Depakote] prochlorperazine edisylate Allergy Unknown Verified 06/22/17 07:11 [From Compazine] prochlorperazine maleate Allergy Unknown Verified 06/22/17 07:11 [From Compazine] vancomycin Allergy Unknown Verified 06/22/17 07:11 steroids AdvReac Confusion Uncoded 05/27/17 17:21 Physical Exam Vitals: Vital Signs Temp Pulse Resp BP Pulse Ox 06/22/17 09:30 114 H 30 H 95/56 97 06/22/17 09:00 109 H 29 H 95/56 98 06/22/17 08:30 100.2 F H 110 H 25 H 91/52 99 06/22/17 07:28 110 H 20 95/63 100 06/22/17 07:16 111 H 20 92/66 100 06/22/17 06:40 112 H 20 88/66 99 06/22/17 06:23 110 H 20 91/66 99 06/22/17 06:13 111 H 20 88/66 99 06/22/17 06:03 112 H 20 89/65 98 06/22/17 05:48 112 H 20 96/63 98 06/22/17 05:38 113 H 20 94/61 99 06/22/17 05:23 112 H 20 81/59 99 06/22/17 05:13 111 H 20 76/52 100 06/22/17 04:58 113 H 20 81/51 100 06/22/17 04:48 114 H 20 82/52 100 06/22/17 04:39 20 06/22/17 04:38 116 H 20 81/51 100 06/22/17 04:28 117 H 20 82/53 100 06/22/17 04:18 119 H 20 86/52 100 06/22/17 04:11 120 H 20 83/51 100 06/22/17 04:08 118 H 20 91/54 100 06/22/17 04:00 122 H 20 106/56 100 06/22/17 03:52 122 H 20 104/65 100 06/22/17 03:47 122 H 105/57 100 06/22/17 03:37 126 H 148/76 06/22/17 03:32 134 H 144/71 06/22/17 03:27 128 H 147/74 06/22/17 03:08 99.4 F 126 H 20 98/58 100 Intake and Output 06/21/17 06/22/17 06/22/17 22:59 06:59 14:59 Intake Total 2.0 200 Output Total 250 90 Balance -248.0 110 Intake: IV 200 Lactated Ringers 1,000 ml 100 @ 100 mls/hr IV .Q10H ANIKA Rx#:[id number] Sodium Chloride 0.9% 1, 100 000 ml @ 100 mls/hr IV . Q10H STA Rx#:[id number] Intake, IV Titration 2.0 Amount Propofol 1,000 mg In 2.0 Empty Bag 1 bag @ Titrate IV .Q0M ONE Rx#: [id number] Output: Urine 250 90 Uretheral (Christy) 250 Other: Weight 90.083 kg GENERAL EXAM: Intubated, sedated, in no apparent distress. HEAD: Normocephalic. EYES: Normal reaction of pupils, equal size. NOSE: Clear with pink turbinates. THROAT: Oral endotracheal and gastric tube secured in place. No erythema or exudates. NECK: No masses, no JVD. CHEST: No chest wall deformity. LUNGS: Equal air entry with scattered rhonchi bilaterally.. CVS: S1 and S2 normal with no audible murmur, regular rhythm. ABDOMEN: No hepatosplenomegaly, normal bowel sounds, no guarding or rigidity. SPINE: No scoliosis or deformity SKIN: No rashes CENTRAL NERVOUS SYSTEM: Currently off sedation. Grimacing to painful stimuli. No response to verbal commands. Not opening her eyes. EXTREMITIES: There is no peripheral edema. No clubbing, no cyanosis. Peripheral pulses are intact. Results - Laboratory Findings CBC and BMP: 06/22/17 03:14 06/22/17 03:14 ABG ABG pH 7.19 (7.35-7.45) L* 06/22/17 04:57 ABG pCO2 44 mmHg (35-45) 06/22/17 04:57 ABG pO2 185 mmHg (83-108) H 06/22/17 04:57 ABG O2 Saturation 99.5 % (94-97) H 06/22/17 04:57 Abnormal lab findings: Abnormal Labs 06/22/17 06/22/17 06/22/17 03:11 03:14 03:14 WBC Neutrophils # ABG pH 7.24 L ABG pO2 ABG HCO3 18 L ABG Total CO2 ABG O2 Saturation 98.1 H Chloride 112 H Carbon Dioxide 19 L BUN 48 H Creatinine 4.80 H Glucose 131 H POC Glucose (mg/dL) 139 H AST 136 H ALT 102 H Total Creatine Kinase CK-MB (CK-2) Troponin I Total Protein 6.1 L Urine Appearance Urine Protein Urine Glucose (UA) Urine Blood Ur Leukocyte Esterase Urine WBC Urine Bacteria Hyaline Casts Urine Mucus Urine Opiates Screen Ur Oxycodone Screen U Benzodiazepines Scrn 06/22/17 06/22/17 06/22/17 03:14 03:14 03:44 WBC 14.8 H Neutrophils # 12.2 H ABG pH ABG pO2 ABG HCO3 ABG Total CO2 ABG O2 Saturation Chloride Carbon Dioxide BUN Creatinine Glucose POC Glucose (mg/dL) AST ALT Total Creatine Kinase 1106 H CK-MB (CK-2) 8.9 H* Troponin I 0.081 H* Total Protein Urine Appearance Cloudy H Urine Protein 1+ H Urine Glucose (UA) 3+ H Urine Blood Moderate H Ur Leukocyte Esterase Small H Urine WBC 6 H Urine Bacteria Occasional H Hyaline Casts 10 H Urine Mucus Occasional H Urine Opiates Screen Ur Oxycodone Screen U Benzodiazepines Scrn 06/22/17 06/22/17 06/22/17 03:44 04:57 08:05 WBC Neutrophils # ABG pH 7.19 L* ABG pO2 185 H ABG HCO3 17 L ABG Total CO2 18 L ABG O2 Saturation 99.5 H Chloride Carbon Dioxide BUN Creatinine Glucose POC Glucose (mg/dL) 214 H AST ALT Total Creatine Kinase CK-MB (CK-2) Troponin I Total Protein Urine Appearance Urine Protein Urine Glucose (UA) Urine Blood Ur Leukocyte Esterase Urine WBC Urine Bacteria Hyaline Casts Urine Mucus Urine Opiates Screen Detected H Ur Oxycodone Screen Detected H U Benzodiazepines Scrn Detected H - Diagnostic Findings Chest x-ray: image reviewed Assessment and Plan Assessment: Impression: #1 Acute hypoxic respiratory failure requiring intubation and mechanical ventilatory support secondary to multiple drug overdose. Urine drug screen positive for opiates, oxycodone, benzodiazepines. Suspect aspiration. #2 Acute renal failure, current creatinine 4.80. #3 Elevated liver enzymes. #4 Acute acidosis. #5 Hypotension. #6 Multiple sclerosis. #7 Diabetes mellitus. #8 History of seizure disorder. #9 History of migraine headaches. #10 History of uterine cancer with previous surgery. #11 Chronic and ongoing tobacco dependence. Plan: The patient was seen and evaluated by Dr. Burns. Her chest x-ray, ABGs and labs were all reviewed. We will add Zosyn for suspected aspiration. We have increased her assist-control rate to 30, decrease it had around 400, decrease the FiO2 to 45%. We'll add sodium bicarbonate. Give 1 L of fluid. Repeat ABGs in 2 hours. If the patient does not wake up in the next several hours off her sedation we will put in for a neurology consult and EEG. There is currently no family members present to obtain further information. We'll continue to follow make further recommendations based on her clinical status. I, the cosigning physician, performed a history & physical examination of the patient. Lungs sounds have bilateral rhonchi. Maintaining good O2 saturations in the 90s on 45% FiO2. I discussed the assessment and plan of care with my nurse practitioner, Flora Overton. I attest to the above note as dictated by her. Time with Patient: Greater than 30
[2017-06-22 11:00] LABS: ABG Base Excess -14.8 mmol/L; ABG HCO3 13 mmol/L (21-25); ABG Oxygen Saturation 98.3 % (94-97); ABG PCO2 31 mmHg (35-45); ABG PH 7.22 (7.35-7.45); ABG PO2 102 mmHg (83-108); ABG TCO2 14 mmol/L (19-24)
[2017-06-22] MEDS ORDERED: SODIUM BICARB 8.4% 50 ML SYR (1 MEQ/ML) ONE (11:30)
[2017-06-22] MEDS: LACTATED RINGERS 1,000 ML IV SCH ×2 (11:59→19:22)
[2017-06-22 13:11] LABS: Glucose,Whole Blood 271 mg/dL (75-99)
[2017-06-22] MEDS: INSULIN ASPART 100 UNIT/ML 1 ML 10 ML VIAL SQ SCH ×3 (13:12→23:54)
[2017-06-22 13:16] LABS: Potassium 4.3 mmol/L (3.5-5.1)
[2017-06-22] MEDS: IPRATROPIUM-ALBUTEROL 3 ML NEB INHALATION SCH ×4 (13:25→23:42)
[2017-06-22 15:54] LABS: Appearance,Urine Cloudy (Clear); Bacteria,Urine Rare /hpf; Bilirubin,Urine Negative (Negative); Blood,Urine Moderate (Negative); Budding Yeast,Urine Many /hpf; Color,Urine Yellow; Glucose,Urine (UA) 2+ (Negative); Granular Casts,Urine 24 /lpf (0); Ketones,Urine Negative (Negative); Leukocyte Esterase,Urine Trace (Negative); Mucus,Urine Rare /hpf; Nitrite,Urine Negative (Negative); PH, Urine 6.5 (5.0-8.0); Protein,Urine 1+ (Negative); RBC,Urine 5 /hpf (0-5); Specific Gravity,Urine 1.015 (1.001-1.035); Squamous Epithelial Cell,Urine 1 /hpf (0-4); Urobilinogen,Urine <2.0 mg/dL (<2.0); WBC,Urine 12 /hpf (0-5)
[2017-06-22] MEDS: HEPARIN SODIUM,PORCINE 5,000 UNIT/ML 1 ML VIAL SQ SCH ×2 (16:38→23:55)
[2017-06-22] MEDS: PIPERACILLIN-TAZOBACTAM 3.375 GM in DEXTROSE/WATER 1 50ML.BAG IVPB SCH (16:38)
[2017-06-22] MEDS: NICOTINE 21MG/24HR PATCH TRANSDERM SCH (18:11)
[2017-06-22 18:17] LABS: Glucose,Whole Blood 304 mg/dL (75-99)
[2017-06-22 18:17] LABS: Glucose,Whole Blood 284 mg/dL (75-99)
--- NOTE | 2017-06-22 18:22 | HP ---
HISTORY AND PHYSICAL DATE OF ADMISSION: 06/22/2017 PRESENT COMPLAINT: Decreased responsiveness. HISTORY OF PRESENTING COMPLAINT: This is a 51-year-old patient of Dr. Torres whose chronic stable medical conditions include depression, diabetes, chronic pain, multiple sclerosis, seizure disorders and has had a hysterectomy for uterine cancer. The patient is currently intubated in the ICU. History from the nurse and from the ER obtained is that the patient's found her in the bed, foaming at the mouth, not breathing well. He called the ambulance. They found her to have agonal respirations. She did have a pulse and they gave her a total of 6 mg of Narcan and had minimal response from her. The slight improvement in her respiration is stated. had told EMS that when the patient gets a lot of pain, she will take a lot of her medications and go lie down until the pain subsides and it is not uncommon for her to lie down for several hours; hence, he did not suspect anything was wrong. The patient had a Shirley Coma Scale of 4-5 per the ER documentation. The patient was intubated in the ER and given the 1 mg of Narcan. The patient is currently in the ICU. FiO2 45 and a PEEP of 5. The patient is getting lactated Ringer's IV and also did get Levophed and IV Zosyn. REVIEW OF SYSTEMS: Cannot be obtained. Patient is intubated. PAST MEDICAL HISTORY: Diabetes, depression, chronic pain syndrome, multiple sclerosis, seizure disorder, uterine cancer, hysterectomy. PAST SURGICAL HISTORY: Appendectomy, cholecystectomy, hysterectomy, cervical surgery, right ear reconstruction. SOCIAL HISTORY: Patient is a smoker, lives with her . FAMILY HISTORY: Diabetes. HOME MEDICATIONS: 1. Klonopin 1 mg p.o. q.h.s. 2. Topamax 100 mg p.o. t.i.d. 3. Zofran 4 mg every 6 hours p.r.n. 4. Prilosec 20 mg p.o. b.i.d. 5. MS Contin 60 mg q.8. 6. Provigil 200 mg p.o. daily. 7. Humalog, possibly pump. 8. Neurontin 600 mg every 6 hours. 9. Estrogen/testosterone tablet 1 tablet p.o. daily. 10.Tecfidera 240 mg p.o. b.i.d. 11.Valium 10 mg q.8. 12.Celexa 50 mg q.h.s. 13.Vitamin D3 5000 units p.o. daily. 14.Baclofen 10 mg p.o. t.i.d. 15.Elavil 10 mg p.o. q.h.s. ALLERGIES: DEPAKOTE, COMPAZINE VANCOMYCIN, STEROIDS. EXAMINATION: VITAL SIGNS: Initially ER was temperature 99.4, pulse 126, respiration 20, blood pressure 98/58, pulse ox 100% on 15L. Later, the patient did have a low-grade temperature of 100.2. GENERAL APPEARANCE: Well-built, BMI 31. Lying in bed, intubated. EYES: Pupil equal. Conjunctivae normal. HEENT: External nose and ears normal. Endotracheal tube in place. NECK: JVD unable to assess. Mass not palpable. RESPIRATORY: Effort normal. LUNGS: Slightly decreased breath sounds. CARDIOVASCULAR: First and second sounds normal. No edema. ABDOMEN: Soft, nontender. Liver and spleen not palpable. LYMPHATIC: No lymph node palpable in neck or axillae. PSYCHIATRY: Unable to assess. NEUROLOGICAL: Pupils are equal, reactive. Plantars are equivocal. No rigidity in the limbs. INVESTIGATIONS: White count 14.8, hemoglobin 19.1. Initial blood gas showed a pH of 7.24 and last set of blood gas showed a pH of 7.22, potassium 5.1, BUN 48, creatinine 4.80. Urine drug screen positive for oxycodone, opiates, benzodiazepine. Serum alcohol less than 10. Chest x-ray shows patchy infiltrate in the perihilar and mid lung regions. CT scan of the brain nil acute. ASSESSMENT: 1. This is a patient who was found rather unresponsive, though with a pulse and low breathing, respiratory compromise. The patient takes rather hefty pain medications and other antispasmodic that well could have compromised the patient's respiratory status, thereby resulting in acute respiratory failure and aspiration pneumonia. 2. Bilateral aspiration pneumonia from decreased responsiveness. 3. Acute metabolic encephalopathy, probably from multiple medications. 4. Depression, not otherwise specified. 5. Chronic pain syndrome. 6. Multiple sclerosis. 7. Acute respiratory failure secondary to aspiration pneumonia and also probably sedative effect from medications requiring ventilator assistance. 8. Acute renal failure. The patient's creatinine was 1 back on April of this year and Neurontin will definitely build up in the setting of acute renal failure. 9. Critical Care Dr. Burns was consulted, so will be Neurology. 10.Suspect both metabolic and respiratory acidosis. PLAN: At this point, patient's all sedative medications have been held. The patient is on IV Zosyn. The patient will be hydrated if possible. Patient could have also had a seizure. We will order EEG. Prognosis is guarded. No family is present. MMODL / IJN: [id number] /
[2017-06-22] MEDS ORDERED: levETIRAcetam IV 1,000 MG in SALINE 1 100ML.BAG IVPB STA (18:50)
--- NOTE | 2017-06-22 19:52 | EEG ---
ELECTROENCEPHALOGRAM REPORT DATE OF SERVICE: 06/22/2017 REASON FOR TESTING: Altered mental status, medication overdose. DESCRIPTION OF THE PROCEDURE: This EEG was performed using a 21-channel digital electroencephalograph, following international 10-20 system. DESCRIPTION OF THE RECORDING: From the beginning of the tracing, and with patient's eyes closed, the background rhythm was mostly consisting of 5 to 6 Hz theta frequency in the posterior occipital leads. No obvious asymmetry is seen. Recurrent dysregulation is seen with rare sharp and slow wave activity noticed, consistent with epileptiform discharges. Photic stimulation was performed with no driving response seen. Hyperventilation was not performed. Her EKG lead showed a regular rate and rhythm. INTERPRETATION: This EEG is abnormal due to the presence of recurrent dysregulation seen and occasional epileptic discharges noticed. Clinical correlation is recommended. TAYA / JACOB: [id number] /
--- NOTE | 2017-06-22 20:27 | CONS ---
CONSULTATION DATE OF CONSULTATION: 06/22/2017. CHIEF COMPLAINT: Overdose. HISTORY OF PRESENT ILLNESS: The patient is a 51-year-old female who is being evaluated by the neurology service per the request of Dr. Chavarria for an overdose. The patient was brought into [facility] Emergency Room after her found her unresponsive at home. The patient's breathing was very slow, according to him. The patient has history of chronic pain syndrome, but according to the , she had been out of her MS Contin for a couple of weeks due to a prior authorization not being completed for her insurance company. He states that she has chronic generalized pain. She also has history of seizure disorder and in reviewing her home medications, she is only on Topamax 100 mg b.i.d. for this. Her informs me that her last seizure was approximately 6 months ago. In the emergency room, the patient was found to have a very slow respiratory rate and she was intubated and sedated. According to the chart, the patient was given Narcan by EMS with minimal improvement in her mental status. A stat CT scan of the brain was done which showed no acute abnormalities. Her chest x-ray showed changes consistent with possible aspiration pneumonia. Her CBC showed leukocytosis at 14.8. Her comprehensive metabolic profile showed renal insufficiency with a BUN of 48 and creatinine of 4.8 and her liver enzymes were elevated with an AST of 136 and ALT of 102. Her cardiac enzymes showed significantly elevated CPK at 1106 and CK-MB at 8.9. Her troponin was slightly elevated at 0.081. Her urinalysis showed 6 WBCs with small leukocyte esterase. Her urine drug screen was positive for opiates, oxycodone and benzodiazepine. When discussed the urine drug screen results with her , he states that she may have gotten into his Percocet bottle, but he does not know where she had opiates from. At the time of my evaluation, to be unresponsive on mechanical ventilator. Her sedations have been held since this morning. I did review her EEG which showed occasional sharp wave activity and recurrent dysregulation. PAST MEDICAL HISTORY: Multiple sclerosis on Tecfidera, seizure disorder, chronic pain syndrome, diabetes, history of uterine cancer, migraine headaches, history of appendectomy, cholecystectomy, hysterectomy, orthopedic surgeries, spinal surgery, right ear surgery, history of depression. SOCIAL HISTORY: The patient is a current every day smoker. There is no history of any alcohol or IV drug use. FAMILY HISTORY: Positive for diabetes. HOME MEDICATIONS: Reviewed in the chart. ALLERGIES: DEPAKOTE, STEROIDS, VANCOMYCIN, COMPAZINE. REVIEW OF SYSTEMS: Unable to obtain, as the patient is intubated and unresponsive. PHYSICAL EXAM: Vital signs show a temperature of 98.1, pulse 86, respirations 30, blood pressure 96/56. GENERAL APPEARANCE: The patient is a well-developed female who is intubated. HEENT: Normocephalic, atraumatic. No obvious facial asymmetry is seen. Recurrent facial twitches are noticed. Neck is supple with no masses felt. CARDIOVASCULAR: Regular rate and rhythm. ABDOMEN: Nondistended. Extremities showed no edema or clubbing. NEUROLOGICAL: The patient is intubated. She does open her eyes with name calling. She does withdraw from painful stimuli. Recurrent facial twitches are seen. No obvious facial asymmetry is noticed. Brainstem reflexes are intact. IMPRESSION: 1. Altered mental status. 2. Multifactorial encephalopathy. 3. Medication overdose. 4. Seizure disorder. 5. Aspiration pneumonia. 6. Renal insufficiency. 7. Hepatic insufficiency. 8. Leukocytosis. 9. Urinary tract infection. 10.Rhabdomyolysis. RECOMMENDATION: The patient is felt to have a medication overdose, given her above-mentioned history and urine drug screen findings. She does have history of seizure disorder and likely has not taken her Topamax in awhile. Her EEG did show epileptic activity. I did give her a bolus of Keppra 1000 mg IV. I will keep her on Keppra 750 mg IV twice daily. Her CT scan of the brain showed no evidence of any acute abnormalities. Other than the toxic etiology for her encephalopathy, she likely has infectious encephalopathy given the pneumonia and metabolic encephalopathy given her hepatic and renal states. Continue your current management for this. I had a lengthy discussion with the patient's regarding the prognosis. If she remains off sedation and continues to be unresponsive and her renal function improves, there will be more concerns for anoxic brain injury. Prognosis is guarded. Continue antibiotic therapy. I will continue to follow with you. Further recommendations to follow. Thank you for allowing me to participate in the care of your patient. If you have any questions, please feel free to contact me. TAYA / MICHELEN: [id number] /
[2017-06-22 23:28] LABS: Glucose,Whole Blood 398 mg/dL (75-99)
[2017-06-23] MEDS: IPRATROPIUM-ALBUTEROL 3 ML NEB INHALATION SCH ×5 (03:36→19:06)
[2017-06-23] MEDS: PIPERACILLIN-TAZOBACTAM 3.375 GM in DEXTROSE/WATER 1 50ML.BAG IVPB SCH ×3 (04:09→23:38)
[2017-06-23 04:59] LABS: ABG Base Excess -4.2 mmol/L; ABG HCO3 21 mmol/L (21-25); ABG Oxygen Saturation 95.8 % (94-97); ABG PCO2 36 mmHg (35-45); ABG PH 7.37 (7.35-7.45); ABG PO2 79 mmHg (83-108); ABG TCO2 22 mmol/L (19-24)
[2017-06-23 05:11] LABS: Basophils % (A) 0 %; Eosinophils # (A) 0.1 k/uL (0-0.7); Eosinophils % (A) 1 %; HCT 34.1 % (34.0-46.0); HGB 10.7 gm/dL (11.4-16.0); Lymphocytes # (A) 1.4 k/uL (1.0-4.8); Lymphocytes % (A) 18 %; MCH 27.6 pg (25.0-35.0); MCHC 31.2 g/dL (31.0-37.0); MCV 88.5 fL (80.0-100.0); Mean Platelet Volume 8.4; Monocytes # (A) 0.3 k/uL (0-1.0); Monocytes % (A) 4 %; Neutrophils # (A) 5.5 k/uL (1.3-7.7); Neutrophils % (A) 74 %; Platelet Count 161 k/uL (150-450); RBC 3.86 m/uL (3.80-5.40); RDW 14.4 % (11.5-15.5); WBC 7.4 k/uL (3.8-10.6)
[2017-06-23 05:22] LABS: Albumin 2.5 g/dL (3.5-5.0); Calcium 7.9 mg/dL (8.4-10.2); Magnesium 1.9 mg/dL (1.6-2.3); Phosphorus 2.7 mg/dL (2.5-4.5); Potassium 3.6 mmol/L (3.5-5.1); Total Bilirubin 0.4 mg/dL (0.2-1.3); Total Protein 4.7 g/dL (6.3-8.2)
[2017-06-23] MEDS: INSULIN ASPART 100 UNIT/ML 1 ML 10 ML VIAL SQ SCH ×4 (05:32→23:39)
[2017-06-23 05:33] LABS: Glucose,Whole Blood 275 mg/dL (75-99)
[2017-06-23] MEDS ORDERED: POTASSIUM BICARBONATE/CIT AC 20 MEQ TABLET.EFF NG-TUBE SCH (06:00)
[2017-06-23] MEDS: MAGNESIUM SULFATE-D5W PMX 1 GM in DEXTROSE/WATER 1 100ML.BAG IVPB SCH ×2 (06:34→07:55)
[2017-06-23] MEDS: LACTATED RINGERS 1,000 ML IV SCH ×2 (06:47→17:00)
[2017-06-23] MEDS: DEXTROSE 5% IN WATER 1,000 ML with SODIUM BICARB (1 MEQ/ML) 50 ML IV SCH (07:55)
--- NOTE | 2017-06-23 08:05 | XR ---
EXAMINATION TYPE: XR chest 1V DATE OF EXAM: 06/23/2017 COMPARISON: Prior chest x-ray 06/22/2017 HISTORY: Intubated TECHNIQUE: Single frontal view of the chest is obtained. FINDINGS: Endotracheal and NG tube are overlying appropriate positions. Bilateral airspace disease i s present but may be improved. No pneumothorax or pleural effusion. Heart size is stable. Postop polanco ge noted to the cervical spine. There are overlying cardiac leads. IMPRESSION: Improvement in patient's airspace disease. Additional follow-up recommended.
--- NOTE | 2017-06-23 08:48 | P.PN ---
Subjective Progress Note Date: 06/23/17 Principal diagnosis: Hypoxemic respiratory failure with mental status changes Progress note dated 06/23/2017 This is a 51-year-old female sees with the family doctors in [place]. She has a history of diabetes seizure disorder multiple sclerosis uterine cancer status post surgery and migraine cephalgia. She takes a lot of pain medication for chronic pain. She apparently was brought into the emergency room after being found down by her foaming at the mouth and unresponsive. EMS was called. The patient agonal respirations and was unresponsive. They attempted to utilize Narcan to reverse the effects of narcotics but it only helped a bit. She was intubated in the emergency room by the ER doctor. Her drug screen was positive for opiates oxycodone benzodiazepines. Tylenol level was less than 10. Salicylates were less than 1 serum alcohol less than 10. She currently is on the ventilator here in the ICU. Yesterday his her mental status was poor. A computed tomography scan of the brain showed no acute abnormality. EEG was ordered. Those results are pending. Currently, she is on the assist control mode rate of 30 tidal volume of 400 FiO2 45% with a PEEP of 5. Arterial blood gases show a PaO2 of 78 PaCO2 36 and a pH of 7.37. She's getting lactated Ringer's at 100 mL an hour a D5W IV with 3 A of sodium bicarbonate at 50 mL an hour and norepinephrine at 1 jaxson per minute. She is also getting vital high protein at 46 with a goal of 46. We will attempt a spontaneous breathing trial on her today. She seems to be a bit more awake today. She may have sustained some anoxic or metabolic brain injury. Objective - Vital Signs Vital signs: Vital Signs Temp 98.3 F 06/23/17 04:00 Pulse 104 H 06/23/17 07:45 Resp 29 H 06/23/17 07:00 BP 118/64 06/23/17 07:00 Pulse Ox 96 06/23/17 07:00 Intake & Output 06/22/17 06/23/17 06/23/17 18:59 06:59 18:59 Intake Total 2625.938 2337.0 246 Output Total 590 1500 150 Balance 2035.938 837.0 96 Weight 84.6 kg Intake: IV 2350 1725.0 200 Dextrose 5% in Water 1, 450 600 50 000 ml @ 50 mls/hr IV . Q21H ANIKA with Sodium Bicarb (1 Meq/ml) 50 ml Rx#:[id number] Lactated Ringers 1,000 ml 800 1100 50 @ 100 mls/hr IV .Q10H ANIKA Rx#:[id number] Lactated Ringers 1,000 ml 1000 @ 999 mls/hr IV .Q1H1M ONE Rx#:[id number] Magnesium Sulfate-D5w Pmx 100 1 gm In Dextrose/Water 1 100ml.bag @ 100 mls/hr IVPB Q1H ANIKA Rx#: [id number] Piperacillin-Tazobactam 3 25.0 .375 gm In Dextrose/Water 1 50ml.bag @ 12.5 mls/hr IVPB ONCE STA Rx#: [id number] Sodium Chloride 0.9% 1, 100 000 ml @ 100 mls/hr IV . Q10H STA Rx#:[id number] Intake, IV Titration 105.938 0 Amount Norepinephrin 4 mg-0.9% 105.938 0 Ns Pmx 4 mg In 250 ml @ Titrate IV .Q0M ANIKA Rx#: [id number] Tube Feeding 140 522 46 Other 30 90 Output: Urine 590 1500 150 Other: Voiding Method Indwelling Catheter Indwelling Catheter - Exam No acute distress, the patient has a orally placed endotracheal tube and NG tube. She still responds poorly to verbal stimuli. HEENT examination is grossly unremarkable. Mucous membranes are moist. Neck supple. Full range of motion. No adenopathy thyromegaly or neck vein distention. Cardiovascular examination reveals regular rhythm rate. S1-S2 normal. No S3 or S4. No discernible murmur noted. Lungs reveal diffuse bilateral rhonchi. Breath sounds are equal. No wheezes or crackles. Abdomen soft bowel sounds are heard. No masses or tenderness. Extremities are intact. No cyanosis clubbing or edema. Skin is without rash or lesion. Neurologic examination could not be properly assessed. - Labs CBC & Chem 7: 06/23/17 04:44 06/23/17 04:44 Labs: Abnormal Lab Results - Last 24 Hours (Table) 06/22/17 06/22/17 06/22/17 Range/Units 10:51 12:41 13:10 Hgb (11.4-16.0) gm/dL ABG pH 7.22 L (7.35-7.45) ABG pCO2 31 L (35-45) mmHg ABG pO2 (83-108) mmHg ABG HCO3 13 L (21-25) mmol/L ABG Total CO2 14 L (19-24) mmol/L ABG O2 Saturation 98.3 H (94-97) % Chloride (98-107) mmol/L Carbon Dioxide (22-30) mmol/L BUN (7-17) mg/dL Creatinine (0.52-1.04) mg/dL Glucose (74-99) mg/dL POC Glucose (mg/dL) 271 H (75-99) mg/dL Calcium (8.4-10.2) mg/dL AST (14-36) U/L ALT (9-52) U/L Creatine Kinase 875 H (30-135) U/L Total Protein (6.3-8.2) g/dL Albumin (3.5-5.0) g/dL Urine Appearance (Clear) Urine Protein (Negative) Urine Glucose (UA) (Negative) Urine Blood (Negative) Ur Leukocyte Esterase (Negative) Urine WBC (0-5) /hpf Urine Bacteria (None) /hpf Urine Mucus (None) /hpf Urine Yeast (Budding) (None) /hpf 06/22/17 06/22/17 06/22/17 Range/Units 15:10 18:13 18:14 Hgb (11.4-16.0) gm/dL ABG pH (7.35-7.45) ABG pCO2 (35-45) mmHg ABG pO2 (83-108) mmHg ABG HCO3 (21-25) mmol/L ABG Total CO2 (19-24) mmol/L ABG O2 Saturation (94-97) % Chloride (98-107) mmol/L Carbon Dioxide (22-30) mmol/L BUN (7-17) mg/dL Creatinine (0.52-1.04) mg/dL Glucose (74-99) mg/dL POC Glucose (mg/dL) 304 H 284 H (75-99) mg/dL Calcium (8.4-10.2) mg/dL AST (14-36) U/L ALT (9-52) U/L Creatine Kinase (30-135) U/L Total Protein (6.3-8.2) g/dL Albumin (3.5-5.0) g/dL Urine Appearance Cloudy H (Clear) Urine Protein 1+ H (Negative) Urine Glucose (UA) 2+ H (Negative) Urine Blood Moderate H (Negative) Ur Leukocyte Esterase Trace H (Negative) Urine WBC 12 H (0-5) /hpf Urine Bacteria Rare H (None) /hpf Urine Mucus Rare H (None) /hpf Urine Yeast (Budding) Many H (None) /hpf 06/22/17 06/23/17 06/23/17 Range/Units 23:26 04:44 04:44 Hgb 10.7 L (11.4-16.0) gm/dL ABG pH (7.35-7.45) ABG pCO2 (35-45) mmHg ABG pO2 (83-108) mmHg ABG HCO3 (21-25) mmol/L ABG Total CO2 (19-24) mmol/L ABG O2 Saturation (94-97) % Chloride 112 H (98-107) mmol/L Carbon Dioxide 19 L (22-30) mmol/L BUN 44 H (7-17) mg/dL Creatinine 1.60 H (0.52-1.04) mg/dL Glucose 270 H (74-99) mg/dL POC Glucose (mg/dL) 398 H (75-99) mg/dL Calcium 7.9 L (8.4-10.2) mg/dL AST 45 H (14-36) U/L ALT 93 H (9-52) U/L Creatine Kinase (30-135) U/L Total Protein 4.7 L (6.3-8.2) g/dL Albumin 2.5 L (3.5-5.0) g/dL Urine Appearance (Clear) Urine Protein (Negative) Urine Glucose (UA) (Negative) Urine Blood (Negative) Ur Leukocyte Esterase (Negative) Urine WBC (0-5) /hpf Urine Bacteria (None) /hpf Urine Mucus (None) /hpf Urine Yeast (Budding) (None) /hpf 06/23/17 06/23/17 Range/Units 04:54 05:31 Hgb (11.4-16.0) gm/dL ABG pH (7.35-7.45) ABG pCO2 (35-45) mmHg ABG pO2 79 L (83-108) mmHg ABG HCO3 (21-25) mmol/L ABG Total CO2 (19-24) mmol/L ABG O2 Saturation (94-97) % Chloride (98-107) mmol/L Carbon Dioxide (22-30) mmol/L BUN (7-17) mg/dL Creatinine (0.52-1.04) mg/dL Glucose (74-99) mg/dL POC Glucose (mg/dL) 275 H (75-99) mg/dL Calcium (8.4-10.2) mg/dL AST (14-36) U/L ALT (9-52) U/L Creatine Kinase (30-135) U/L Total Protein (6.3-8.2) g/dL Albumin (3.5-5.0) g/dL Urine Appearance (Clear) Urine Protein (Negative) Urine Glucose (UA) (Negative) Urine Blood (Negative) Ur Leukocyte Esterase (Negative) Urine WBC (0-5) /hpf Urine Bacteria (None) /hpf Urine Mucus (None) /hpf Urine Yeast (Budding) (None) /hpf Microbiology - Last 24 Hours (Table) 06/22/17 03:14 Blood Culture - Preliminary Blood No Growth after 24 hours 06/22/17 03:40 Gram Stain - Preliminary Sputum Sputum Culture - Preliminary 06/22/17 15:10 Urine Culture - Preliminary Urine,Catheterized Assessment and Plan Assessment: Assessment Acute hypoxemic respiratory failure secondary to narcotic drug overdose. The patient required intubation and mechanical ventilation as her drug screen was positive for opiates oxycodone and benzodiazepines. Suspect aspiration pneumonia Acute kidney injury Shock liver. Metabolic acidosis Hypotension Multiple sclerosis Chronic pain syndrome Diabetes mellitus Brooke chronic seizure disorder History of migraine cephalgia History of uterine cancer with previous surgery. History of chronic and ongoing tobacco dependence Plan: Plan dated 06/23/2017 We will try a spontaneous breathing trial on her today. Computed tomography scan of the brain was negative. I suspect anoxic/metabolic encephalopathy. Await EEG results. Labs x-rays and medications are all reviewed. Additional recommendations and suggestions are forthcoming. Hopefully she'll show improvement in her neurologic status which is to be able to be successful with weaning and extubation. Critical care time 33 minutes Time with Patient: Greater than 30
[2017-06-23] MEDS: PANTOPRAZOLE 40 MG/10 ML VIAL IV SCH (09:03)
[2017-06-23] MEDS: levETIRAcetam IV 750 MG in SODIUM CHLORIDE 0.9% 100 ML IVPB SCH ×2 (09:04→21:45)
[2017-06-23] MEDS: NICOTINE 21MG/24HR PATCH TRANSDERM SCH (09:04)
[2017-06-23] MEDS: HEPARIN SODIUM,PORCINE 5,000 UNIT/ML 1 ML VIAL SQ SCH ×3 (09:04→23:38)
[2017-06-23 11:58] LABS: Glucose,Whole Blood 260 mg/dL (75-99)
[2017-06-23 14:34] LABS: Hemoglobin A1C 7.5 % (4.0-6.0)
--- NOTE | 2017-06-23 15:16 | P.PN ---
Subjective Progress Note Date: 06/23/17 Principal diagnosis: Unresponsiveness Is a 51-year-old female is continuing to be evaluated by the neurology service. She is currently in the ICU and was on a ventilator due to unresponsiveness from drug overdose. She has a history of chronic pain for which she takes narcotic pain medication. She also has a history of seizure disorder and had been out of her home medications reportedly. Initial CT of the brain showed no acute intracranial abnormalities. Chest x-ray showed possible aspiration pneumonia. Urine drug screen was positive for opiates, oxycodone and benzodiazepines. At the time my exam she is on mechanical ventilation. He will not open her eyes slightly 100 and was called. Otherwise I am unable to awaken her Christy. Her EEG did show occasional sharp wave activity and recurrent dysregulation. There have been no reported seizures since her admission. Objective - Vital Signs Vital signs: Vital Signs Temp 98.1 F 06/23/17 12:00 Pulse 110 H 06/23/17 14:00 Resp 16 06/23/17 14:00 BP 151/73 06/23/17 14:00 Pulse Ox 93 L 06/23/17 14:00 Intake & Output 06/22/17 06/23/17 06/23/17 18:59 06:59 18:59 Intake Total 2625.938 2337.0 1653.75 Output Total 590 1500 1205 Balance 2035.938 837.0 448.75 Weight 84.6 kg 84.6 kg Intake: IV 2350 1725.0 1300 Dextrose 5% in Water 1, 450 600 400 000 ml @ 50 mls/hr IV . Q21H ANIKA with Sodium Bicarb (1 Meq/ml) 50 ml Rx#:[id number] Lactated Ringers 1,000 ml 800 1100 700 @ 100 mls/hr IV .Q10H ANIKA Rx#:[id number] Lactated Ringers 1,000 ml 1000 @ 999 mls/hr IV .Q1H1M ONE Rx#:[id number] Magnesium Sulfate-D5w Pmx 200 1 gm In Dextrose/Water 1 100ml.bag @ 100 mls/hr IVPB Q1H ANIKA Rx#: [id number] Piperacillin-Tazobactam 3 25.0 .375 gm In Dextrose/Water 1 50ml.bag @ 12.5 mls/hr IVPB ONCE STA Rx#: [id number] Sodium Chloride 0.9% 1, 100 000 ml @ 100 mls/hr IV . Q10H STA Rx#:[id number] Intake, IV Titration 105.938 0 93.75 Amount Norepinephrin 4 mg-0.9% 105.938 0 93.75 Ns Pmx 4 mg In 250 ml @ Titrate IV .Q0M ANIKA Rx#: [id number] Tube Feeding 140 522 230 Other 30 90 30 Output: Urine 590 1500 1205 Other: Voiding Method Indwelling Catheter Indwelling Catheter Indwelling Catheter - Constitutional General appearance: Present: no acute distress - EENT Eyes: Present: PERRLA. Absent: abnormal pupil, ptosis - Neck Neck: Present: normal ROM. Absent: rigidity - Respiratory Respiratory: negative: prolonged expiration, prolonged inspiration - Cardiovascular Rhythm: regular - Gastrointestinal General gastrointestinal: Absent: distended, tenderness - Neurologic Neurologic Comment(s): The patient opens her eyes to call her name but no verbal response. There is no facial asymmetry. There is no lateralizing weakness seen. She responds to painful stimuli. Toes are downgoing bilaterally - Labs CBC & Chem 7: 06/23/17 04:44 06/23/17 04:44 Labs: Abnormal Lab Results - Last 24 Hours (Table) 06/22/17 06/22/17 06/22/17 Range/Units 15:10 18:13 18:14 Hgb (11.4-16.0) gm/dL ABG pO2 (83-108) mmHg Chloride (98-107) mmol/L Carbon Dioxide (22-30) mmol/L BUN (7-17) mg/dL Creatinine (0.52-1.04) mg/dL Glucose (74-99) mg/dL POC Glucose (mg/dL) 304 H 284 H (75-99) mg/dL Hemoglobin A1c (4.0-6.0) % Calcium (8.4-10.2) mg/dL AST (14-36) U/L ALT (9-52) U/L Total Protein (6.3-8.2) g/dL Albumin (3.5-5.0) g/dL Urine Appearance Cloudy H (Clear) Urine Protein 1+ H (Negative) Urine Glucose (UA) 2+ H (Negative) Urine Blood Moderate H (Negative) Ur Leukocyte Esterase Trace H (Negative) Urine WBC 12 H (0-5) /hpf Urine Bacteria Rare H (None) /hpf Urine Mucus Rare H (None) /hpf Urine Yeast (Budding) Many H (None) /hpf 06/22/17 06/23/17 06/23/17 Range/Units 23:26 04:44 04:44 Hgb 10.7 L (11.4-16.0) gm/dL ABG pO2 (83-108) mmHg Chloride 112 H (98-107) mmol/L Carbon Dioxide 19 L (22-30) mmol/L BUN 44 H (7-17) mg/dL Creatinine 1.60 H (0.52-1.04) mg/dL Glucose 270 H (74-99) mg/dL POC Glucose (mg/dL) 398 H (75-99) mg/dL Hemoglobin A1c (4.0-6.0) % Calcium 7.9 L (8.4-10.2) mg/dL AST 45 H (14-36) U/L ALT 93 H (9-52) U/L Total Protein 4.7 L (6.3-8.2) g/dL Albumin 2.5 L (3.5-5.0) g/dL Urine Appearance (Clear) Urine Protein (Negative) Urine Glucose (UA) (Negative) Urine Blood (Negative) Ur Leukocyte Esterase (Negative) Urine WBC (0-5) /hpf Urine Bacteria (None) /hpf Urine Mucus (None) /hpf Urine Yeast (Budding) (None) /hpf 06/23/17 06/23/17 06/23/17 Range/Units 04:44 04:54 05:31 Hgb (11.4-16.0) gm/dL ABG pO2 79 L (83-108) mmHg Chloride (98-107) mmol/L Carbon Dioxide (22-30) mmol/L BUN (7-17) mg/dL Creatinine (0.52-1.04) mg/dL Glucose (74-99) mg/dL POC Glucose (mg/dL) 275 H (75-99) mg/dL Hemoglobin A1c 7.5 H (4.0-6.0) % Calcium (8.4-10.2) mg/dL AST (14-36) U/L ALT (9-52) U/L Total Protein (6.3-8.2) g/dL Albumin (3.5-5.0) g/dL Urine Appearance (Clear) Urine Protein (Negative) Urine Glucose (UA) (Negative) Urine Blood (Negative) Ur Leukocyte Esterase (Negative) Urine WBC (0-5) /hpf Urine Bacteria (None) /hpf Urine Mucus (None) /hpf Urine Yeast (Budding) (None) /hpf 06/23/17 Range/Units 11:56 Hgb (11.4-16.0) gm/dL ABG pO2 (83-108) mmHg Chloride (98-107) mmol/L Carbon Dioxide (22-30) mmol/L BUN (7-17) mg/dL Creatinine (0.52-1.04) mg/dL Glucose (74-99) mg/dL POC Glucose (mg/dL) 260 H (75-99) mg/dL Hemoglobin A1c (4.0-6.0) % Calcium (8.4-10.2) mg/dL AST (14-36) U/L ALT (9-52) U/L Total Protein (6.3-8.2) g/dL Albumin (3.5-5.0) g/dL Urine Appearance (Clear) Urine Protein (Negative) Urine Glucose (UA) (Negative) Urine Blood (Negative) Ur Leukocyte Esterase (Negative) Urine WBC (0-5) /hpf Urine Bacteria (None) /hpf Urine Mucus (None) /hpf Urine Yeast (Budding) (None) /hpf Microbiology - Last 24 Hours (Table) 06/22/17 03:14 Blood Culture - Preliminary Blood No Growth after 24 hours 06/22/17 03:40 Gram Stain - Preliminary Sputum Sputum Culture - Preliminary 06/22/17 15:10 Urine Culture - Preliminary Urine,Catheterized Assessment and Plan (1) Medication overdose Current Visit: Yes Status: Suspected Code(s): T50.901A - POISONING BY UNSP DRUG/MEDS/BIOL SUBST, ACCIDENTAL, INIT SNOMED Code(s): 98089560 (2) Renal insufficiency Current Visit: Yes Status: Acute Code(s): N28.9 - DISORDER OF KIDNEY AND URETER, UNSPECIFIED SNOMED Code(s): 954076340 (3) Hepatic insufficiency Current Visit: Yes Status: Acute Code(s): K72.90 - HEPATIC FAILURE, UNSPECIFIED WITHOUT COMA SNOMED Code(s): 25524859 (4) UTI (urinary tract infection) Current Visit: Yes Status: Acute Code(s): N39.0 - URINARY TRACT INFECTION, SITE NOT SPECIFIED SNOMED Code(s): 64967221 (5) Rhabdomyolysis Current Visit: Yes Status: Acute Code(s): M62.82 - RHABDOMYOLYSIS SNOMED Code(s): 307488974 (6) Encephalopathy Current Visit: Yes Status: Acute Code(s): G93.40 - ENCEPHALOPATHY, UNSPECIFIED SNOMED Code(s): 91557546 (7) Respiratory failure Current Visit: Yes Status: Acute Code(s): J96.90 - RESPIRATORY FAILURE, UNSP , UNSP W HYPOXIA OR HYPERCAPNIA SNOMED Code(s): 553320397 (8) Altered mental status Current Visit: No Status: Acute Code(s): R41.82 - ALTERED MENTAL STATUS, UNSPECIFIED SNOMED Code(s): 274103667 (9) Seizure Current Visit: No Status: Chronic Code(s): R56.9 - UNSPECIFIED CONVULSIONS SNOMED Code(s): 30298103 (10) Multiple sclerosis Current Visit: Yes Status: Chronic Code(s): G35 - MULTIPLE SCLEROSIS SNOMED Code(s): 23173870 Plan: She will continue Keppra 750 mg IV twice daily. Continue supportive care in the ER. Continue seizure precautions. She likely has multifactorial encephalopathy. Continue to treat her infectious processes. Continue therapies to improve her hepatic and renal status. There are still concerns for anoxic brain injury. We will continue to follow and monitor her neurological status. I have performed a history and physical on the above patient. I have reviewed the above note, and agree.
[2017-06-23 15:46] LABS: Calcium 8.9 mg/dL (8.4-10.2)
[2017-06-23] MEDS ORDERED: cloNIDine 0.1 MG/24HR PATCH 1 PATCH PATCH TRANSDERM SCH (17:00)
[2017-06-23 18:20] LABS: Glucose,Whole Blood 365 mg/dL (75-99)
--- NOTE | 2017-06-23 18:32 | PN ---
PROGRESS NOTE DATE OF SERVICE: 06/23/17. PRESENTING COMPLAINT: Decreased responsiveness. INTERVAL HISTORY: This patient presented with being unresponsive, had to be intubated and extubated earlier today. Remains barely arousable. EEG did show seizure activity. The patient is given Keppra. The patient is not following commands, just barely arousable. REVIEW OF SYSTEMS: Cannot be obtained. CURRENT MEDICATIONS: Reviewed that include IV Keppra, IV Zosyn, DuoNeb. PHYSICAL EXAMINATION: Temperature 97.8 pulse 107, respiration 30, blood pressure 149/82, pulse ox 97% on 6 L. GENERAL APPEARANCE: Propped up, lethargic but arousable. EYES: Pupils equal. Conjunctivae normal. HEENT: External nose and ears normal. Oral cavity dry. NECK: JVD unable to assess. Mass not palpable. RESPIRATORY: Effort increased. Lungs, decreased breath sounds. CARDIOVASCULAR: First and second sounds normal. No edema. ABDOMEN: Soft, nontender. Liver and spleen not palpable. NEUROLOGICAL: Plantars are downgoing. Pupils are equal, reactive. The patient is lethargic, not answering questions. INVESTIGATIONS: White count 7.4, hemoglobin 10.7 potassium 3.6, BUN 44, creatinine 1.60, bicarb 19. EEG: Seizure activity. ASSESSMENT: 1. Aspiration pneumonia from decreased responsiveness causing acute respiratory failure status post ventilator assistance, still currently on high-flow, requiring 6 L of oxygen. 2. Bilateral aspiration pneumonia, decreased responsiveness. 3. Acute metabolic encephalopathy from multiple pain medications and sedatives. 4. Seizure disorder probably from not taking medication and also patient also taking multiple other medications. 5. Depression, not otherwise specified. 6. Chronic pain syndrome. 7. Multiple sclerosis. 8. Acute renal failure, prerenal, with significant improvement. 9. Metabolic and respiratory acidosis. PLAN: Continue patient on IV fluids, IV Keppra. Hold off all pain medications as before. Later, the nurse called me that patient's blood pressure had climbed up. This could be withdrawal likely from his medications. At this point, we will put the patient on a Catapres patch 0.1 mg. Blood pressure has been hovering around 160-170 systolic. Prognosis is guarded. MMODL / IJN: [id number] /
[2017-06-23 23:40] LABS: Glucose,Whole Blood 350 mg/dL (75-99)
[2017-06-24] MEDS: IPRATROPIUM-ALBUTEROL 3 ML NEB INHALATION SCH ×7 (00:07→23:41)
[2017-06-24 04:58] LABS: Basophils % (A) 0 %; Eosinophils % (A) 0 %; HGB 12.7 gm/dL (11.4-16.0); Lymphocytes # (A) 0.7 k/uL (1.0-4.8); Lymphocytes % (A) 7 %; MCH 28.9 pg (25.0-35.0); MCHC 33.5 g/dL (31.0-37.0); MCV 86.1 fL (80.0-100.0); Mean Platelet Volume 7.7; Monocytes # (A) 0.3 k/uL (0-1.0); Monocytes % (A) 3 %; Neutrophils # (A) 8.8 k/uL (1.3-7.7); Neutrophils % (A) 88 %; Platelet Count 187 k/uL (150-450); RBC 4.41 m/uL (3.80-5.40); RDW 13.9 % (11.5-15.5)
[2017-06-24] MEDS: DEXTROSE 5% IN WATER 1,000 ML with SODIUM BICARB (1 MEQ/ML) 50 ML IV SCH (05:25)
[2017-06-24] MEDS: LACTATED RINGERS 1,000 ML IV SCH ×2 (05:26→21:04)
[2017-06-24] MEDS: INSULIN ASPART 100 UNIT/ML 1 ML 10 ML VIAL SQ SCH ×3 (05:26→17:54)
[2017-06-24 05:27] LABS: Glucose,Whole Blood 336 mg/dL (75-99)
[2017-06-24 05:29] LABS: Calcium 9.5 mg/dL (8.4-10.2); Magnesium 1.7 mg/dL (1.6-2.3); Phosphorus 2.2 mg/dL (2.5-4.5); Potassium 3.6 mmol/L (3.5-5.1)
--- NOTE | 2017-06-24 06:49 | XR ---
EXAMINATION TYPE: XR chest 1V DATE OF EXAM: 06/24/2017 HISTORY: Chest congestions . REFERENCE: Previous study dated 06/23/2017. FINDINGS: There has been a previous ACDF of the lower cervical spine. The patient is ET tube and NG tube have been removed. There is worsening alveolar airspace disease pr esent bilaterally. Heart size upper limits of normal. Pulmonary vasculature is obscured. No definite pleural fluid is seen. IMPRESSION: FAIRLY MARKED WORSENING IN THE DEGREE OF ALVEOLAR AIRSPACE DISEASE. THIS MAY REPRESENT PULMONARY ANIVAL A OR WORSENING PNEUMONIA.
[2017-06-24] MEDS: MAGNESIUM SULFATE-D5W PMX 1 GM in DEXTROSE/WATER 1 100ML.BAG IVPB SCH ×2 (06:51→08:05)
[2017-06-24] MEDS: POTASSIUM CHLORIDE 10 MEQ in WATER FOR INJECTION 1 100ML.BAG IVPB SCH ×2 (06:51→08:05)
[2017-06-24] MEDS: PIPERACILLIN-TAZOBACTAM 3.375 GM in DEXTROSE/WATER 1 50ML.BAG IVPB SCH ×3 (08:59→23:12)
[2017-06-24] MEDS: HEPARIN SODIUM,PORCINE 5,000 UNIT/ML 1 ML VIAL SQ SCH ×3 (08:59→23:12)
[2017-06-24] MEDS: PANTOPRAZOLE 40 MG/10 ML VIAL IV SCH (08:59)
[2017-06-24] MEDS: NICOTINE 21MG/24HR PATCH TRANSDERM SCH (08:59)
[2017-06-24] MEDS ORDERED: FUROSEMIDE 10 MG/ML 4 ML VIAL IV STA (09:14)
--- NOTE | 2017-06-24 10:01 | P.PN ---
Subjective Progress Note Date: 06/24/17 Principal diagnosis: Acute hypoxic respiratory failure with mental status changes secondary to drug overdose. This is a 51-year-old female patient who follows with Dr. Torres as her primary care physician. She has a history of diabetes mellitus, seizure disorder, multiple sclerosis, uterine cancer status post surgery, migraines. He reported that she does have a lot of pain and takes pain medications and then goes and lays down. She was laying down for several hours prior to him checking on her. Yesterday she was found by her foaming at the mouth and not breathing well. EMS was called and upon their arrival she was having agonal respirations and was unresponsive. They did utilize Narcan with minimal improvement. Once brought here she was intubated in the emergency room. Urine drug screen was positive for opiates, oxycodone and benzodiazepines. Acetaminophen level less than 10, salicylates less than 1, serum alcohol less than 10. White count 14.8. Hemoglobin 13.1. Platelet count 191,000. Current vent settings are assist-control mode of 25, tidal volume 500, FiO2 65% and a PEEP of 5. Morning blood gases reveal a P O2 of 185, pCO2 44, pH 7.19. She is currently on a levophed drip at 5 mcg/m. 0.9 normal saline at 100 mL's per hour. Propofol has been off for approximately 1 hour without any significant response. She is grimacing. Not opening her eyes. Not following simple commands. Computed tomography scan of the brain was negative for acute abnormalities. Her chest x-ray does show patchy confluent opacities in the perihilar and mid lung regions. Most likely representing aspiration. The patient is seen again today 06/24/2017 in follow-up in the intensive care unit. She was successfully extubated yesterday. Unfortunately she is minimally responsive. She opens her eyes very slowly on command no eye contact. No following of simple commands. Neurology has been consulted. EEG did reveal some seizure activity and slowing. Computed tomography scan of the brain was negative. Chest x-ray shows diffuse bilateral infiltrates. She is continued on bronchodilators and Zosyn. Blood, urine and sputum cultures were negative. She is maintaining O2 saturations in the 90s on 12 L high flow nasal cannula. She has a lactated Ringer's at 100 mL per hour. D5W with 3 A of bicarb at 50 mL per hour. Current temp 99.1. She sinus tachycardic at 110. Not requiring any pressors. White count 10.0. Hemoglobin 12.7. Creatinine 1.00. Objective - Vital Signs Vital signs: Vital Signs Temp 99.1 F 06/24/17 08:00 Pulse 111 H 06/24/17 08:01 Resp 22 06/24/17 08:00 BP 145/85 06/24/17 08:00 Pulse Ox 100 06/24/17 08:00 Intake & Output 06/23/17 06/24/17 06/24/17 18:59 06:59 18:59 Intake Total 2403.75 1787.5 362.5 Output Total 2205 4290 350 Balance 198.75 -2502.5 12.5 Weight 85 kg Intake: IV 2050 1787.5 262.5 Dextrose 5% in Water 1, 650 600 50 000 ml @ 50 mls/hr IV . Q21H [facility] with Sodium Bicarb (1 Meq/ml) 50 ml Rx#:[id number] Lactated Ringers 1,000 ml 1200 950 100 @ 100 mls/hr IV .Q10H [facility] Rx#:[id number] Magnesium Sulfate-D5w Pmx 200 100 1 gm In Dextrose/Water 1 100ml.bag @ 100 mls/hr IVPB Q1H [facility] Rx#: [id number] Piperacillin-Tazobactam 3 37.5 12.5 .375 gm In Dextrose/Water 1 50ml.bag @ 12.5 mls/hr IVPB Q12H [facility] Rx#: [id number] Potassium Chloride 10 meq 100 100 In Water For Injection 1 100ml.bag @ 100 mls/hr IVPB Q1H [facility] Rx#: [id number] Intake, IV Titration 93.75 100 Amount Magnesium Sulfate-D5w Pmx 100 1 gm In Dextrose/Water 1 100ml.bag @ 100 mls/hr IVPB Q1H [facility] Rx#: [id number] Norepinephrin 4 mg-0.9% 93.75 Ns Pmx 4 mg In 250 ml @ Titrate IV .Q0M [facility] Rx#: [id number] Tube Feeding 230 Other 30 Output: Urine 2205 4290 350 Other: Voiding Method Indwelling Catheter Indwelling Catheter - Exam No acute distress, She still responds poorly to verbal stimuli. HEENT examination is grossly unremarkable. Mucous membranes are moist. Neck supple. Full range of motion. No adenopathy thyromegaly or neck vein distention. Cardiovascular examination reveals regular rhythm rate. S1-S2 normal. No S3 or S4. No discernible murmur noted. Lungs reveal diffuse bilateral rhonchi. Breath sounds are equal. No wheezes or crackles. Abdomen soft bowel sounds are heard. No masses or tenderness. Extremities are intact. No cyanosis clubbing or edema. Skin is without rash or lesion. Neurologic examination could not be properly assessed. - Labs CBC & Chem 7: 06/24/17 04:19 06/24/17 04:19 Labs: Abnormal Lab Results - Last 24 Hours (Table) 06/23/17 06/23/17 06/23/17 Range/Units 04:44 11:56 15:12 Neutrophils # (1.3-7.7) k/uL Lymphocytes # (1.0-4.8) k/uL Sodium 146 H (137-145) mmol/L Chloride 112 H (98-107) mmol/L BUN 34 H (7-17) mg/dL Creatinine 1.13 H (0.52-1.04) mg/dL Glucose 340 H (74-99) mg/dL POC Glucose (mg/dL) 260 H (75-99) mg/dL Hemoglobin A1c 7.5 H (4.0-6.0) % Phosphorus (2.5-4.5) mg/dL 06/23/17 06/23/17 06/24/17 Range/Units 18:08 23:39 04:19 Neutrophils # 8.8 H (1.3-7.7) k/uL Lymphocytes # 0.7 L (1.0-4.8) k/uL Sodium (137-145) mmol/L Chloride (98-107) mmol/L BUN (7-17) mg/dL Creatinine (0.52-1.04) mg/dL Glucose (74-99) mg/dL POC Glucose (mg/dL) 365 H 350 H (75-99) mg/dL Hemoglobin A1c (4.0-6.0) % Phosphorus (2.5-4.5) mg/dL 06/24/17 06/24/17 Range/Units 04:19 05:25 Neutrophils # (1.3-7.7) k/uL Lymphocytes # (1.0-4.8) k/uL Sodium (137-145) mmol/L Chloride 109 H (98-107) mmol/L BUN 26 H (7-17) mg/dL Creatinine (0.52-1.04) mg/dL Glucose 329 H (74-99) mg/dL POC Glucose (mg/dL) 336 H (75-99) mg/dL Hemoglobin A1c (4.0-6.0) % Phosphorus 2.2 L (2.5-4.5) mg/dL Microbiology - Last 24 Hours (Table) 06/22/17 03:40 Gram Stain - Final Sputum Sputum Culture - Final 06/22/17 03:14 Blood Culture - Preliminary Blood No Growth after 48 hours 06/22/17 15:10 Urine Culture - Final Urine,Catheterized 06/22/17 12:41 Blood Culture - Preliminary Blood No Growth after 24 hours Assessment and Plan Assessment: Impression: #1 Acute hypoxic respiratory failure requiring intubation and mechanical ventilatory support secondary to multiple drug overdose. Urine drug screen positive for opiates, oxycodone, benzodiazepines. Suspect aspiration. #2 Acute renal failure, recovered, current creatinine 1.00. #3 Elevated liver enzymes. #4 Acute acidosis. #5 Hypotension. #6 Multiple sclerosis. #7 Diabetes mellitus. #8 History of seizure disorder. #9 History of migraine headaches. #10 History of uterine cancer with previous surgery. #11 Chronic and ongoing tobacco dependence. Plan: The patient was seen and evaluated by Dr. Burns. Her chest x-ray and labs were all reviewed. Continue Zosyn for suspected aspiration. We'll give Lasix 40 mg IV push 1. Decreased lactated Ringer's to 50 mL per hour. Discontinue bicarbonate drip. Neurology is on the case. We'll continue to follow and make further recommendations based on her clinical status. Critical care time 38 minutes. I, the cosigning physician, performed a history & physical examination of the patient. Lungs sounds have bilateral rhonchi. Maintaining good O2 saturations in the 90s on 12 L high flow nasal cannula. I discussed the assessment and plan of care with my nurse practitioner, Flora Overton. I attest to the above note as dictated by her.
[2017-06-24] MEDS: levETIRAcetam IV 750 MG in SODIUM CHLORIDE 0.9% 100 ML IVPB SCH ×2 (10:25→21:03)
[2017-06-24 12:00] LABS: Glucose,Whole Blood 325 mg/dL (75-99)
--- NOTE | 2017-06-24 14:15 | P.PN ---
Subjective Progress Note Date: 06/24/17 Principal diagnosis: Unresponsiveness, seizures Is a 51-year-old female is continuing to be evaluated by the neurology service. She is currently in the ICU and was on a ventilator due to unresponsiveness from drug overdose. She has a history of chronic pain for which she takes narcotic pain medication. She also has a history of seizure disorder and had been out of her home medications reportedly. Initial CT of the brain showed no acute intracranial abnormalities. Chest x-ray showed possible aspiration pneumonia. Urine drug screen was positive for opiates, oxycodone and benzodiazepines. At the time my exam she is off mechanical ventilation. She is more awake and alert today. She responds verbally to simple questions. She follows simple commands. Her EEG did show occasional sharp wave activity and recurrent dysregulation. There have been no reported seizures since her admission. Objective - Vital Signs Vital signs: Vital Signs Temp 99.1 F 06/24/17 08:00 Pulse 112 H 06/24/17 11:31 Resp 21 06/24/17 11:00 BP 151/82 06/24/17 11:00 Pulse Ox 98 06/24/17 11:00 Intake & Output 06/23/17 06/24/17 06/24/17 18:59 06:59 18:59 Intake Total 2403.75 1787.5 650.0 Output Total 2205 4290 2450 Balance 198.75 -2502.5 -1800.0 Weight 85 kg Intake: IV 0 1787.5 450.0 Dextrose 5% in Water 1, 650 600 50 000 ml @ 50 mls/hr IV . Q21H [facility] with Sodium Bicarb (1 Meq/ml) 50 ml Rx#:[id number] Lactated Ringers 1,000 ml 1200 950 250 @ 50 mls/hr IV .Q20H [facility] Rx#:[id number] Magnesium Sulfate-D5w Pmx 200 100 1 gm In Dextrose/Water 1 100ml.bag @ 100 mls/hr IVPB Q1H [facility] Rx#: [id number] Piperacillin-Tazobactam 3 37.5 50.0 .375 gm In Dextrose/Water 1 50ml.bag @ 12.5 mls/hr IVPB Q12H [facility] Rx#: [id number] Potassium Chloride 10 meq 100 100 In Water For Injection 1 100ml.bag @ 100 mls/hr IVPB Q1H [facility] Rx#: [id number] Intake, IV Titration 93.75 200 Amount Magnesium Sulfate-D5w Pmx 100 1 gm In Dextrose/Water 1 100ml.bag @ 100 mls/hr IVPB Q1H [facility] Rx#: [id number] Norepinephrin 4 mg-0.9% 93.75 Ns Pmx 4 mg In 250 ml @ Titrate IV .Q0M [facility] Rx#: [id number] levETIRAcetam IV 750 mg 100 In Sodium Chloride 0.9% 100 ml @ 400 mls/hr IVPB Q12HR [facility] Rx#:[id number] Tube Feeding 230 Other 30 Output: Urine 2205 4290 2450 Other: Voiding Method Indwelling Catheter Indwelling Catheter Indwelling Catheter - Constitutional General appearance: Present: mild distress, obese - EENT Eyes: Present: EOMI, PERRLA. Absent: abnormal pupil, ptosis ENT: Present: hearing grossly normal - Neck Neck: Present: normal ROM. Absent: rigidity - Respiratory Respiratory: negative: prolonged expiration, prolonged inspiration - Cardiovascular Rhythm: regular - Gastrointestinal General gastrointestinal: Absent: distended, tenderness - Neurologic Neurologic Comment(s): The patient is asleep but able to be awoken. She responds to simple commands. Speech seems normal. There is no lateralizing weakness seen. She will squeeze hands bilaterally and move feet bilaterally. She responds to light touch in all 4 extremities. - Labs CBC & Chem 7: 06/24/17 04:19 06/24/17 04:19 Labs: Abnormal Lab Results - Last 24 Hours (Table) 06/23/17 06/23/17 06/23/17 Range/Units 04:44 15:12 18:08 Neutrophils # (1.3-7.7) k/uL Lymphocytes # (1.0-4.8) k/uL Sodium 146 H (137-145) mmol/L Chloride 112 H (98-107) mmol/L BUN 34 H (7-17) mg/dL Creatinine 1.13 H (0.52-1.04) mg/dL Glucose 340 H (74-99) mg/dL POC Glucose (mg/dL) 365 H (75-99) mg/dL Hemoglobin A1c 7.5 H (4.0-6.0) % Phosphorus (2.5-4.5) mg/dL 03/06/24/17 06/24/17 Range/Units 23:39 04:19 04:19 Neutrophils # 8.8 H (1.3-7.7) k/uL Lymphocytes # 0.7 L (1.0-4.8) k/uL Sodium (137-145) mmol/L Chloride 109 H (98-107) mmol/L BUN 26 H (7-17) mg/dL Creatinine (0.52-1.04) mg/dL Glucose 329 H (74-99) mg/dL POC Glucose (mg/dL) 350 H (75-99) mg/dL Hemoglobin A1c (4.0-6.0) % Phosphorus 2.2 L (2.5-4.5) mg/dL 06/24/17 06/24/17 Range/Units 05:25 11:58 Neutrophils # (1.3-7.7) k/uL Lymphocytes # (1.0-4.8) k/uL Sodium (137-145) mmol/L Chloride (98-107) mmol/L BUN (7-17) mg/dL Creatinine (0.52-1.04) mg/dL Glucose (74-99) mg/dL POC Glucose (mg/dL) 336 H 325 H (75-99) mg/dL Hemoglobin A1c (4.0-6.0) % Phosphorus (2.5-4.5) mg/dL Microbiology - Last 24 Hours (Table) 06/22/17 03:40 Gram Stain - Final Sputum Sputum Culture - Final 06/22/17 03:14 Blood Culture - Preliminary Blood No Growth after 48 hours 06/22/17 15:10 Urine Culture - Final Urine,Catheterized 06/22/17 12:41 Blood Culture - Preliminary Blood No Growth after 24 hours Assessment and Plan (1) Medication overdose Current Visit: Yes Status: Suspected Code(s): T50.901A - POISONING BY UNSP DRUG/MEDS/BIOL SUBST, ACCIDENTAL, INIT SNOMED Code(s): 08175948 (2) Renal insufficiency Current Visit: Yes Status: Acute Code(s): N28.9 - DISORDER OF KIDNEY AND URETER, UNSPECIFIED SNOMED Code(s): 307849146 (3) Hepatic insufficiency Current Visit: Yes Status: Acute Code(s): K72.90 - HEPATIC FAILURE, UNSPECIFIED WITHOUT COMA SNOMED Code(s): 65613173 (4) UTI (urinary tract infection) Current Visit: Yes Status: Acute Code(s): N39.0 - URINARY TRACT INFECTION, SITE NOT SPECIFIED SNOMED Code(s): 83906195 (5) Rhabdomyolysis Current Visit: Yes Status: Acute Code(s): M62.82 - RHABDOMYOLYSIS SNOMED Code(s): 266801657 (6) Encephalopathy Current Visit: Yes Status: Acute Code(s): G93.40 - ENCEPHALOPATHY, UNSPECIFIED SNOMED Code(s): 39281453 (7) Respiratory failure Current Visit: Yes Status: Acute Code(s): J96.90 - RESPIRATORY FAILURE, UNSP , UNSP W HYPOXIA OR HYPERCAPNIA SNOMED Code(s): 220588299 (8) Altered mental status Current Visit: No Status: Acute Code(s): R41.82 - ALTERED MENTAL STATUS, UNSPECIFIED SNOMED Code(s): 480650989 (9) Seizure Current Visit: No Status: Chronic Code(s): R56.9 - UNSPECIFIED CONVULSIONS SNOMED Code(s): 70352396 (10) Multiple sclerosis Current Visit: Yes Status: Chronic Code(s): G35 - MULTIPLE SCLEROSIS SNOMED Code(s): 47574429 Plan: She will continue Keppra 750 mg IV twice daily. Continue supportive care in the ER. Continue seizure precautions. She likely has multifactorial encephalopathy. Continue to treat her infectious processes. Continue therapies to improve her hepatic and renal status. There are still concerns for some degree of anoxic brain injury. We will continue to follow and monitor her neurological status. I have performed a history and physical on the above patient. I have reviewed the above note, and agree.
[2017-06-24 17:35] LABS: Glucose,Whole Blood 276 mg/dL (75-99)
[2017-06-24] MEDS ORDERED: INSULIN REGULAR BOLUS (FROM DRIP BAG) IV PRN (17:55)
[2017-06-24] MEDS ORDERED: Phosphorus Replacement Protoco 1 EACH MISC MISCELLANE PRN (17:57)
--- NOTE | 2017-06-24 18:00 | PN ---
PROGRESS NOTE DATE OF SERVICE: 06/24/2017 PRESENTING COMPLAINT: Decreased responsive. INTERVAL HISTORY: This patient presented with unresponsiveness from being on multiple medications and also having seizures. Patient was intubated. Patient is a bit more awake. I saw this morning, mumbling words, not opening her eyes to pain but sometimes moving ahead. Telemetry shows sinus rhythm. REVIEW OF SYSTEMS: Patient is not answering questions. CURRENT MEDICATIONS: Reviewed that include DuoNeb, Catapres patch, lactated Ringer's, IV Keppra, IV Zosyn. PHYSICAL EXAMINATION: Temperature 99.8, pulse 104, respiration 22, blood pressure 157/85, pulse ox 95% on oxygen. GENERAL APPEARANCE: Still lethargic, barely arousable. EYES: Pupils equal. Conjunctivae normal. HEENT: External appearance of nose and ears normal, oral cavity dry. NECK: JVD unable to assess. Mass not palpable. Respiratory effort increased. Lungs decreased breath sounds. CARDIOVASCULAR: First and second sounds normal, no edema. ABDOMEN: Soft, nontender. Liver and spleen not palpable. NEUROLOGICAL: Plantars are downgoing. Pupils are equal, reactive. Patient does not open her eyes to command, though slight response to painful stimuli. INVESTIGATIONS: White count 10, hemoglobin 12.7, potassium 3.6, BUN 26, creatinine 1.0. Accu-Cheks 336, 325, 325. ASSESSMENT: 1. Aspiration pneumonia from decreased responsiveness causing acute respiratory failure, status post ventilator assistance. Currently patient is on nasal cannula. 2. Bilateral aspiration pneumonia. 3. Acute metabolic encephalopathy from multiple pain medications, seizures, slow to respond. 4. Seizure disorder from patient's probably withdrawing from pain medications. 5. Depression, not otherwise specified. 6. Chronic pain syndrome. 7. Multiple sclerosis. 8. Acute renal failure, prerenal with significant improvement. 9. Metabolic and respiratory acidosis, improved. 10.Hyperglycemia, uncontrolled. 11.Hypophosphatemia. 12.Hyperglycemia, uncontrolled. PLAN: At this point, will start the patient on insulin drip. Replace the phosphorus for blood pressure. Yesterday, patient was started on Catapres patch to which patient is responding. Overall prognosis is guarded. Will follow. MMODL / IJN: [id number] /
[2017-06-24] MEDS: INSULIN REGULAR 100 UNIT in SODIUM CHLORIDE 0.9% 100 ML IV SCH (18:39)
[2017-06-24 18:40] LABS: Glucose,Whole Blood 252 mg/dL (75-99)
[2017-06-24] MEDS ORDERED: POTASSIUM PHOSPHATE 10 MMOL in SODIUM CHLORIDE 0.9% 250 ML IV ONE (19:00)
[2017-06-24 19:07] LABS: Glucose,Whole Blood 218 mg/dL (75-99)
[2017-06-24 19:52] LABS: Glucose,Whole Blood 199 mg/dL (75-99)
[2017-06-24 21:03] LABS: Glucose,Whole Blood 144 mg/dL (75-99)
[2017-06-24 21:55] LABS: Glucose,Whole Blood 158 mg/dL (75-99)
[2017-06-24 22:55] LABS: Glucose,Whole Blood 157 mg/dL (75-99)
[2017-06-24 23:56] LABS: Glucose,Whole Blood 191 mg/dL (75-99)
[2017-06-25 00:44] LABS: Glucose,Whole Blood 207 mg/dL (75-99)
[2017-06-25 01:58] LABS: Glucose,Whole Blood 188 mg/dL (75-99)
[2017-06-25 03:26] LABS: Glucose,Whole Blood 150 mg/dL (75-99)
[2017-06-25] MEDS: IPRATROPIUM-ALBUTEROL 3 ML NEB INHALATION SCH ×5 (03:48→20:06)
[2017-06-25 03:56] LABS: Glucose,Whole Blood 130 mg/dL (75-99)
[2017-06-25 05:10] LABS: Basophils % (A) 0 %; Eosinophils # (A) 0.2 k/uL (0-0.7); Eosinophils % (A) 2 %; HCT 33.7 % (34.0-46.0); HGB 11.1 gm/dL (11.4-16.0); Lymphocytes # (A) 1.3 k/uL (1.0-4.8); Lymphocytes % (A) 13 %; MCHC 32.9 g/dL (31.0-37.0); MCV 85.2 fL (80.0-100.0); Mean Platelet Volume 8.4; Monocytes # (A) 0.5 k/uL (0-1.0); Monocytes % (A) 5 %; Neutrophils # (A) 7.9 k/uL (1.3-7.7); Neutrophils % (A) 79 %; Platelet Count 130 k/uL (150-450); RBC 3.95 m/uL (3.80-5.40)
[2017-06-25 05:19] LABS: Glucose,Whole Blood 128 mg/dL (75-99)
[2017-06-25 05:35] LABS: Calcium 9.6 mg/dL (8.4-10.2); Magnesium 1.9 mg/dL (1.6-2.3); Phosphorus 2.7 mg/dL (2.5-4.5); Potassium 4.9 mmol/L (3.5-5.1)
[2017-06-25 06:03] LABS: Glucose,Whole Blood 136 mg/dL (75-99)
[2017-06-25 06:55] LABS: Glucose,Whole Blood 151 mg/dL (75-99)
--- NOTE | 2017-06-25 06:56 | XR ---
EXAMINATION TYPE: XR chest 1V DATE OF EXAM: 06/25/2017 HISTORY: Chest congestions . REFERENCE: Previous study dated 06/24/2017. FINDINGS: There has been a previous ACDF in the lower cervical spine. There continues to be diffuse, bilateral alveolar airspace disease. This is very similar in appearanc e to the previous study. The heart is mildly enlarged. No definite pleural fluid is seen. IMPRESSION: NO SIGNIFICANT INTERVAL CHANGE IN THE APPEARANCE OF THE CHEST.
--- NOTE | 2017-06-25 07:02 | P.PN ---
Subjective Progress Note Date: 06/25/17 Principal diagnosis: Hypoxemic respiratory failure with mental status changes Progress note dated 06/23/2017 This is a 51-year-old female sees with the family doctors in [place]. She has a history of diabetes seizure disorder multiple sclerosis uterine cancer status post surgery and migraine cephalgia. She takes a lot of pain medication for chronic pain. She apparently was brought into the emergency room after being found down by her foaming at the mouth and unresponsive. EMS was called. The patient agonal respirations and was unresponsive. They attempted to utilize Narcan to reverse the effects of narcotics but it only helped a bit. She was intubated in the emergency room by the ER doctor. Her drug screen was positive for opiates oxycodone benzodiazepines. Tylenol level was less than 10. Salicylates were less than 1 serum alcohol less than 10. She currently is on the ventilator here in the ICU. Yesterday his her mental status was poor. A computed tomography scan of the brain showed no acute abnormality. EEG was ordered. Those results are pending. Currently, she is on the assist control mode rate of 30 tidal volume of 400 FiO2 45% with a PEEP of 5. Arterial blood gases show a PaO2 of 78 PaCO2 36 and a pH of 7.37. She's getting lactated Ringer's at 100 mL an hour a D5W IV with 3 A of sodium bicarbonate at 50 mL an hour and norepinephrine at 1 jaxson per minute. She is also getting vital high protein at 46 with a goal of 46. We will attempt a spontaneous breathing trial on her today. She seems to be a bit more awake today. She may have sustained some anoxic or metabolic brain injury. Progress note dated 06/25/2017 51-year-old female with a history of acute hypoxemic respiratory failure. Patient has a history of diabetes seizure disorder multiple sclerosis uterine cancer status post surgery and migraine cephalgia. The patient takes a lot of pain medication for chronic pain and apparently was brought into the emergency room after being found by her foaming at the mouth and unresponsive. EMS was called. The patient was agonal and had a very poor respirations and was unresponsive. They attempted Narcan for reversal but it did not seem to really help. He ended up being intubated in the emergency room by the ER doctor. She was positive for opiates oxycodone benzodiazepines. Tylenol was less than 10 salicylates were less than 1. Serum alcohol was less than 10. Her mental status has been very poor but today she really doesn't quite wide awake. She is alert and oriented. She knows where she is at. She feeling much better. The patient's chest x-ray shows diffuse bilateral infiltrates. Yesterday we thought some of that related to fluid and may give her some diuretics. Today her chest x-ray doesn't look much better. Currently, she is on O2 at 12 L high flow, also receiving an IV of lactated Ringer's at 50 mL an hour. Insulin drip is currently off. Again chest x-ray looks about the same or slightly worse in yesterday's chest x-ray with diffuse bilateral infiltrates. Clinically, she looks good. Objective - Vital Signs Vital signs: Vital Signs Temp 98 F 06/25/17 04:00 Pulse 96 06/25/17 06:00 Resp 27 H 06/25/17 06:00 BP 150/85 06/25/17 06:00 Pulse Ox 96 06/25/17 06:00 Intake & Output 06/24/17 06/24/17 06/25/17 06:59 18:59 06:59 Intake Total 1787.5 1300.0 831.667 Output Total 4290 5500 950 Balance -2502.5 -4200.0 -118.333 Weight 83.7 kg Intake: IV 1787.5 800.0 800 Dextrose 5% in Water 1, 600 50 50 000 ml @ 50 mls/hr IV . Q21H [facility] with Sodium Bicarb (1 Meq/ml) 50 ml Rx#:[id number] Lactated Ringers 1,000 ml 950 600 500 @ 50 mls/hr IV .Q20H [facility] Rx#:[id number] Magnesium Sulfate-D5w Pmx 100 1 gm In Dextrose/Water 1 100ml.bag @ 100 mls/hr IVPB Q1H [facility] Rx#: [id number] Piperacillin-Tazobactam 3 37.5 50.0 .375 gm In Dextrose/Water 1 50ml.bag @ 12.5 mls/hr IVPB Q12H [facility] Rx#: [id number] Potassium Chloride 10 meq 100 100 In Water For Injection 1 100ml.bag @ 100 mls/hr IVPB Q1H [facility] Rx#: [id number] Potassium Phosphate 10 250 mmol In Sodium Chloride 0 .9% 250 ml @ 125 mls/hr IV ONCE ONE Rx#:[id number] Intake, IV Titration 500 31.667 Amount Insulin Regular 100 unit 31.667 In Sodium Chloride 0.9% 100 ml @ Per Protocol IV .Q0M [facility] Rx#:[id number] Magnesium Sulfate-D5w Pmx 100 1 gm In Dextrose/Water 1 100ml.bag @ 100 mls/hr IVPB Q1H [facility] Rx#: [id number] Piperacillin-Tazobactam 3 50 .375 gm In Dextrose/Water 1 50ml.bag @ 12.5 mls/hr IVPB Q8HR [facility] Rx#: [id number] Potassium Phosphate 10 250 mmol In Sodium Chloride 0 .9% 250 ml @ 125 mls/hr IV ONCE ONE Rx#:[id number] levETIRAcetam IV 750 mg 100 In Sodium Chloride 0.9% 100 ml @ 400 mls/hr IVPB Q12HR [facility] Rx#:[id number] Output: Urine 4290 5500 950 Other: Voiding Method Indwelling Catheter Indwelling Catheter Indwelling Catheter - Exam No acute distress, much more awake and alert. The patient is actually oriented to person place and time. Does not appear to have any distress at all.. HEENT examination is grossly unremarkable. Mucous membranes are moist. Neck supple. Full range of motion. No adenopathy thyromegaly or neck vein distention. Cardiovascular examination reveals regular rhythm rate. S1-S2 normal. No S3 or S4. No discernible murmur noted. Lungs reveal diffuse bilateral rhonchi. Breath sounds are equal. No wheezes or crackles. Abdomen soft bowel sounds are heard. No masses or tenderness. Extremities are intact. No cyanosis clubbing or edema. Skin is without rash or lesion. Neurologic examination is brief but nonfocal. - Labs CBC & Chem 7: 06/25/17 04:42 06/25/17 04:42 Labs: Abnormal Lab Results - Last 24 Hours (Table) 06/24/17 06/24/17 06/24/17 Range/Units 11:58 17:31 18:38 Hgb (11.4-16.0) gm/dL Hct (34.0-46.0) % Plt Count (150-450) k/uL Neutrophils # (1.3-7.7) k/uL Sodium (137-145) mmol/L Chloride (98-107) mmol/L BUN (7-17) mg/dL Glucose (74-99) mg/dL POC Glucose (mg/dL) 325 H 276 H 252 H (75-99) mg/dL 06/24/17 06/24/17 06/24/17 Range/Units 19:05 19:50 21:01 Hgb (11.4-16.0) gm/dL Hct (34.0-46.0) % Plt Count (150-450) k/uL Neutrophils # (1.3-7.7) k/uL Sodium (137-145) mmol/L Chloride (98-107) mmol/L BUN (7-17) mg/dL Glucose (74-99) mg/dL POC Glucose (mg/dL) 218 H 199 H 144 H (75-99) mg/dL 06/24/17 06/24/17 06/24/17 Range/Units 21:53 22:53 23:55 Hgb (11.4-16.0) gm/dL Hct (34.0-46.0) % Plt Count (150-450) k/uL Neutrophils # (1.3-7.7) k/uL Sodium (137-145) mmol/L Chloride (98-107) mmol/L BUN (7-17) mg/dL Glucose (74-99) mg/dL POC Glucose (mg/dL) 158 H 157 H 191 H (75-99) mg/dL 06/25/17 06/25/17 06/25/17 Range/Units 00:42 01:55 03:24 Hgb (11.4-16.0) gm/dL Hct (34.0-46.0) % Plt Count (150-450) k/uL Neutrophils # (1.3-7.7) k/uL Sodium (137-145) mmol/L Chloride (98-107) mmol/L BUN (7-17) mg/dL Glucose (74-99) mg/dL POC Glucose (mg/dL) 207 H 188 H 150 H (75-99) mg/dL 06/25/17 06/25/17 06/25/17 Range/Units 03:54 04:42 04:42 Hgb 11.1 L (11.4-16.0) gm/dL Hct 33.7 L (34.0-46.0) % Plt Count 130 L (150-450) k/uL Neutrophils # 7.9 H (1.3-7.7) k/uL Sodium 151 H (137-145) mmol/L Chloride 115 H (98-107) mmol/L BUN 30 H (7-17) mg/dL Glucose 125 H (74-99) mg/dL POC Glucose (mg/dL) 130 H (75-99) mg/dL 06/25/17 06/25/17 06/25/17 Range/Units 05:18 06:02 06:54 Hgb (11.4-16.0) gm/dL Hct (34.0-46.0) % Plt Count (150-450) k/uL Neutrophils # (1.3-7.7) k/uL Sodium (137-145) mmol/L Chloride (98-107) mmol/L BUN (7-17) mg/dL Glucose (74-99) mg/dL POC Glucose (mg/dL) 128 H 136 H 151 H (75-99) mg/dL Microbiology - Last 24 Hours (Table) 06/22/17 03:14 Blood Culture - Preliminary Blood No Growth after 72 hours 06/22/17 12:41 Blood Culture - Preliminary Blood No Growth after 48 hours 06/22/17 03:40 Gram Stain - Final Sputum Sputum Culture - Final Assessment and Plan Assessment: Assessment Acute hypoxemic respiratory failure secondary to narcotic drug overdose. The patient required intubation and mechanical ventilation as her drug screen was positive for opiates oxycodone and benzodiazepines. Suspect aspiration pneumonia Acute kidney injury Shock liver. Metabolic acidosis Hypotension Multiple sclerosis Chronic pain syndrome Diabetes mellitus Brooke chronic seizure disorder History of migraine cephalgia History of uterine cancer with previous surgery. History of chronic and ongoing tobacco dependence Plan: Plan dated 06/23/2017 We will try a spontaneous breathing trial on her today. Computed tomography scan of the brain was negative. I suspect anoxic/metabolic encephalopathy. Await EEG results. Labs x-rays and medications are all reviewed. Additional recommendations and suggestions are forthcoming. Hopefully she'll show improvement in her neurologic status which is to be able to be successful with weaning and extubation. Critical care time 33 minutes Plan dated 06/25/2009. The patient seemed to be much more awake currently. She is receiving 12 L high flow and her chest x-ray still still does show diffuse bilateral infiltrates. She's receiving lactated Ringer's at 50 mL an hour and her insulin drip is currently off. Laboratory data reviewed. White count is 10 hematoma 0.1 hematocrit 33.7 and platelet count 130,000. Sodium 151 potassium 4.9 chloride is 1:15 CO2 23 anion gap is 13. BUN and creatinine are 30 and 0.9. Chest x- ray shows diffuse bilateral infiltrates. Medications are reviewed. Microbiology currently is negative. Critical care time 32 minutes. Time with Patient: Greater than 30
[2017-06-25] MEDS ORDERED: DEXTROSE 5%-0.2% NACL 1,000 ML IV SCH (07:15)
[2017-06-25 08:06] LABS: Glucose,Whole Blood 169 mg/dL (75-99)
[2017-06-25] MEDS: ONDANSETRON 4 MG/2 ML VIAL IVP PRN ×2 (08:10→21:13)
[2017-06-25] MEDS: levETIRAcetam IV 750 MG in SODIUM CHLORIDE 0.9% 100 ML IVPB SCH ×2 (08:12→21:29)
[2017-06-25] MEDS: HEPARIN SODIUM,PORCINE 5,000 UNIT/ML 1 ML VIAL SQ SCH ×2 (08:13→16:18)
[2017-06-25] MEDS: PIPERACILLIN-TAZOBACTAM 3.375 GM in DEXTROSE/WATER 1 50ML.BAG IVPB SCH ×2 (08:13→16:19)
[2017-06-25] MEDS: NICOTINE 21MG/24HR PATCH TRANSDERM SCH (08:13)
[2017-06-25] MEDS: PANTOPRAZOLE 40 MG/10 ML VIAL IV SCH (08:14)
[2017-06-25] MEDS ORDERED: DEXTROSE 5% IN WATER 1,000 ML IV SCH (08:15)
[2017-06-25 09:06] LABS: Glucose,Whole Blood 212 mg/dL (75-99)
[2017-06-25 10:06] LABS: Glucose,Whole Blood 232 mg/dL (75-99)
[2017-06-25] MEDS ORDERED: IPRATROPIUM-ALBUTEROL 3 ML NEB INHALATION PRN (11:12)
[2017-06-25] MEDS: TECFIDERA 240 MG PO SCH ×2 (11:52→21:58)
[2017-06-25 11:55] LABS: Glucose,Whole Blood 209 mg/dL (75-99)
[2017-06-25 13:07] LABS: Glucose,Whole Blood 152 mg/dL (75-99)
--- NOTE | 2017-06-25 13:26 | P.PN ---
Subjective Progress Note Date: 06/25/17 Principal diagnosis: Unresponsiveness, seizures Is a 51-year-old female is continuing to be evaluated by the neurology service. She is currently in the ICU and was on a ventilator due to unresponsiveness from drug overdose. She has a history of chronic pain for which she takes narcotic pain medication. She also has a history of seizure disorder and had been out of her home medications reportedly. Initial CT of the brain showed no acute intracranial abnormalities. Chest x-ray showed possible aspiration pneumonia. Urine drug screen was positive for opiates, oxycodone and benzodiazepines. At the time my exam she is off mechanical ventilation. She is more awake and alert today. She responds verbally to simple questions. She follows simple commands. Her EEG did show occasional sharp wave activity and recurrent dysregulation. There have been no reported seizures since her admission. 06/25/2017 the patient is alert awake and oriented today. Again no seizure activity has been reported since her admission. She seems to be tolerating Keppra well. Recommend limited dosing after release of her opiates including oxycodone, and her benzodiazepines. When able she can switch to a by mouth dose of Keppra continued its current dosing. She will also continue Topamax at her current dose, which she takes for migraine prophylaxis. No further neurological workup is needed at this time. She will need physical and occupational therapy due to her weakness associated with known multiple sclerosis. He may be consult on as-needed basis for any changes in her neurological status. I have performed a history and physical on the above patient. I have reviewed the above note, and agree. Objective - Vital Signs Vital signs: Vital Signs Temp 98.6 F 06/25/17 12:00 Pulse 109 H 06/25/17 12:00 Resp 22 06/25/17 12:00 BP 146/80 06/25/17 12:00 Pulse Ox 95 06/25/17 12:00 Intake & Output 06/24/17 06/25/17 06/25/17 18:59 06:59 18:59 Intake Total 1300.0 831.667 645.395 Output Total 5500 950 450 Balance -4200.0 -118.333 195.395 Weight 83.7 kg Intake: IV 800.0 800 Dextrose 5% in Water 1, 50 50 000 ml @ 50 mls/hr IV . Q21H [facility] with Sodium Bicarb (1 Meq/ml) 50 ml Rx#:[id number] Lactated Ringers 1,000 ml 600 500 @ 50 mls/hr IV .Q20H [facility] Rx#:[id number] Piperacillin-Tazobactam 3 50.0 .375 gm In Dextrose/Water 1 50ml.bag @ 12.5 mls/hr IVPB Q12H [facility] Rx#: [id number] Potassium Chloride 10 meq 100 In Water For Injection 1 100ml.bag @ 100 mls/hr IVPB Q1H [facility] Rx#: [id number] Potassium Phosphate 10 250 mmol In Sodium Chloride 0 .9% 250 ml @ 125 mls/hr IV ONCE ONE Rx#:[id number] Intake, IV Titration 500 31.667 525.395 Amount Dextrose 5% in Water 1, 375 000 ml @ 75 mls/hr IV . [id number] [facility] Rx#:[id number] Insulin Regular 100 unit 31.667 25.395 In Sodium Chloride 0.9% 100 ml @ Per Protocol IV .Q0M [facility] Rx#:[id number] Magnesium Sulfate-D5w Pmx 100 1 gm In Dextrose/Water 1 100ml.bag @ 100 mls/hr IVPB Q1H [facility] Rx#: [id number] Piperacillin-Tazobactam 3 50 25.0 .375 gm In Dextrose/Water 1 50ml.bag @ 12.5 mls/hr IVPB Q8HR [facility] Rx#: [id number] Potassium Phosphate 10 250 mmol In Sodium Chloride 0 .9% 250 ml @ 125 mls/hr IV ONCE ONE Rx#:[id number] levETIRAcetam IV 750 mg 100 100 In Sodium Chloride 0.9% 100 ml @ 400 mls/hr IVPB Q12HR [facility] Rx#:[id number] Oral 120 Output: Urine 5500 950 450 Other: Voiding Method Indwelling Catheter Indwelling Catheter Indwelling Catheter - Constitutional General appearance: Present: no acute distress, obese - EENT Eyes: Present: EOMI, PERRLA. Absent: abnormal pupil, ptosis ENT: Present: hearing grossly normal - Neck Neck: Present: normal ROM. Absent: rigidity - Respiratory Respiratory: negative: prolonged expiration, prolonged inspiration - Cardiovascular Rhythm: regular - Gastrointestinal General gastrointestinal: Absent: distended, tenderness - Neurologic Neurologic Comment(s): Patient is alert awake and oriented 3. Speech and language are normal. Her right lower lip is swollen from an aphthous ulcer. This gives the appearance of some possible facial asymmetry. However, there is no lateralizing weakness of the face. she does have long-standing sensory deficit to the entire face which is been associated with her multiple sclerosis. Strength is 5 out of 5 in bilateral upper extremities 5 minus out of 5 in bilateral lower extremities sensory exam shows significant sensory deficit to bilateral lower extremities, which is not a new finding and is associated with her multiple sclerosis. No tremors or seizure-like activities are seen. - Labs CBC & Chem 7: 06/25/17 04:42 06/25/17 04:42 Labs: Abnormal Lab Results - Last 24 Hours (Table) 06/24/17 06/24/17 06/24/17 Range/Units 17:31 18:38 19:05 Hgb (11.4-16.0) gm/dL Hct (34.0-46.0) % Plt Count (150-450) k/uL Neutrophils # (1.3-7.7) k/uL Sodium (137-145) mmol/L Chloride (98-107) mmol/L BUN (7-17) mg/dL Glucose (74-99) mg/dL POC Glucose (mg/dL) 276 H 252 H 218 H (75-99) mg/dL 06/24/17 06/24/17 06/24/17 Range/Units 19:50 21:01 21:53 Hgb (11.4-16.0) gm/dL Hct (34.0-46.0) % Plt Count (150-450) k/uL Neutrophils # (1.3-7.7) k/uL Sodium (137-145) mmol/L Chloride (98-107) mmol/L BUN (7-17) mg/dL Glucose (74-99) mg/dL POC Glucose (mg/dL) 199 H 144 H 158 H (75-99) mg/dL 06/24/17 06/24/17 06/25/17 Range/Units 22:53 23:55 00:42 Hgb (11.4-16.0) gm/dL Hct (34.0-46.0) % Plt Count (150-450) k/uL Neutrophils # (1.3-7.7) k/uL Sodium (137-145) mmol/L Chloride (98-107) mmol/L BUN (7-17) mg/dL Glucose (74-99) mg/dL POC Glucose (mg/dL) 157 H 191 H 207 H (75-99) mg/dL 06/25/17 06/25/17 06/25/17 Range/Units 01:55 03:24 03:54 Hgb (11.4-16.0) gm/dL Hct (34.0-46.0) % Plt Count (150-450) k/uL Neutrophils # (1.3-7.7) k/uL Sodium (137-145) mmol/L Chloride (98-107) mmol/L BUN (7-17) mg/dL Glucose (74-99) mg/dL POC Glucose (mg/dL) 188 H 150 H 130 H (75-99) mg/dL 06/25/17 06/25/17 06/25/17 Range/Units 04:42 04:42 05:18 Hgb 11.1 L (11.4-16.0) gm/dL Hct 33.7 L (34.0-46.0) % Plt Count 130 L (150-450) k/uL Neutrophils # 7.9 H (1.3-7.7) k/uL Sodium 151 H (137-145) mmol/L Chloride 115 H (98-107) mmol/L BUN 30 H (7-17) mg/dL Glucose 125 H (74-99) mg/dL POC Glucose (mg/dL) 128 H (75-99) mg/dL 06/25/17 06/25/17 06/25/17 Range/Units 06:02 06:54 08:04 Hgb (11.4-16.0) gm/dL Hct (34.0-46.0) % Plt Count (150-450) k/uL Neutrophils # (1.3-7.7) k/uL Sodium (137-145) mmol/L Chloride (98-107) mmol/L BUN (7-17) mg/dL Glucose (74-99) mg/dL POC Glucose (mg/dL) 136 H 151 H 169 H (75-99) mg/dL 06/25/17 06/25/17 06/25/17 Range/Units 09:04 10:04 11:54 Hgb (11.4-16.0) gm/dL Hct (34.0-46.0) % Plt Count (150-450) k/uL Neutrophils # (1.3-7.7) k/uL Sodium (137-145) mmol/L Chloride (98-107) mmol/L BUN (7-17) mg/dL Glucose (74-99) mg/dL POC Glucose (mg/dL) 212 H 232 H 209 H (75-99) mg/dL 06/25/17 Range/Units 13:05 Hgb (11.4-16.0) gm/dL Hct (34.0-46.0) % Plt Count (150-450) k/uL Neutrophils # (1.3-7.7) k/uL Sodium (137-145) mmol/L Chloride (98-107) mmol/L BUN (7-17) mg/dL Glucose (74-99) mg/dL POC Glucose (mg/dL) 152 H (75-99) mg/dL Microbiology - Last 24 Hours (Table) 06/22/17 03:14 Blood Culture - Preliminary Blood No Growth after 72 hours 06/22/17 12:41 Blood Culture - Preliminary Blood No Growth after 48 hours 06/22/17 03:40 Gram Stain - Final Sputum Sputum Culture - Final Assessment and Plan (1) Medication overdose Current Visit: Yes Status: Suspected Code(s): T50.901A - POISONING BY UNSP DRUG/MEDS/BIOL SUBST, ACCIDENTAL, INIT SNOMED Code(s): 10015486 (2) Renal insufficiency Current Visit: Yes Status: Acute Code(s): N28.9 - DISORDER OF KIDNEY AND URETER, UNSPECIFIED SNOMED Code(s): 952828774 (3) Hepatic insufficiency Current Visit: Yes Status: Acute Code(s): K72.90 - HEPATIC FAILURE, UNSPECIFIED WITHOUT COMA SNOMED Code(s): 03835875 (4) UTI (urinary tract infection) Current Visit: Yes Status: Acute Code(s): N39.0 - URINARY TRACT INFECTION, SITE NOT SPECIFIED SNOMED Code(s): 19912927 (5) Rhabdomyolysis Current Visit: Yes Status: Acute Code(s): M62.82 - RHABDOMYOLYSIS SNOMED Code(s): 447301931 (6) Encephalopathy Current Visit: Yes Status: Acute Code(s): G93.40 - ENCEPHALOPATHY, UNSPECIFIED SNOMED Code(s): 20318189 (7) Respiratory failure Current Visit: Yes Status: Acute Code(s): J96.90 - RESPIRATORY FAILURE, UNSP , UNSP W HYPOXIA OR HYPERCAPNIA SNOMED Code(s): 550942241 (8) Altered mental status Current Visit: No Status: Acute Code(s): R41.82 - ALTERED MENTAL STATUS, UNSPECIFIED SNOMED Code(s): 185581753 (9) Seizure Current Visit: No Status: Chronic Code(s): R56.9 - UNSPECIFIED CONVULSIONS SNOMED Code(s): 06826542 (10) Multiple sclerosis Current Visit: Yes Status: Chronic Code(s): G35 - MULTIPLE SCLEROSIS SNOMED Code(s): 44581835 Plan: She will continue Keppra 750 mg IV twice daily. Again this can be switched to by mouth dosing when able. She will also continue Topamax 50 mg twice a day. She takes is her migraine prophylaxis but will also help for seizures. Continue seizure precautions. She has multifactorial encephalopathy, which is much improved. Continue Tecfidera for her multiple sclerosis, and follow-up with her neurologist. No further neurological workup is warranted. We can be called on as-needed basis for any changes in her neurological status . I have performed a history and physical on the above patient. I have reviewed the above note, and agree.
[2017-06-25 14:11] LABS: Glucose,Whole Blood 133 mg/dL (75-99)
[2017-06-25 15:16] LABS: Glucose,Whole Blood 191 mg/dL (75-99)
[2017-06-25] MEDS: INSULIN REGULAR 100 UNIT in SODIUM CHLORIDE 0.9% 100 ML IV SCH (16:19)
[2017-06-25 16:20] LABS: Glucose,Whole Blood 221 mg/dL (75-99)
[2017-06-25 17:10] LABS: Glucose,Whole Blood 214 mg/dL (75-99)
[2017-06-25] MEDS ORDERED: TOPIRAMATE 100 MG TAB PO SCH (17:15)
[2017-06-25] MEDS: BACLOFEN 10 MG TAB PO SCH ×2 (17:39→21:06)
[2017-06-25] MEDS: GABAPENTIN 100 MG CAP PO SCH ×2 (17:39→21:06)
[2017-06-25 18:14] LABS: Glucose,Whole Blood 154 mg/dL (75-99)
[2017-06-25 18:57] LABS: Glucose,Whole Blood 139 mg/dL (75-99)
[2017-06-25 20:01] LABS: Glucose,Whole Blood 156 mg/dL (75-99)
[2017-06-25] MEDS: SODIUM CHLORIDE 0.45% 1,000 ML IV SCH (20:37)
--- NOTE | 2017-06-25 20:43 | PN ---
PROGRESS NOTE DATE OF SERVICE: June 25, 2017. PRESENTING COMPLAINT: Tired. INTERVAL HISTORY: This is a patient presented with unresponsiveness, was on the ventilator. Also had seizures. The patient is more awake today, following commands. at the bedside, barely taking anything orally, on sinus rhythm. REVIEW OF SYSTEMS: The patient answering minimally answering questions, following commands. CURRENT MEDICATIONS: Reviewed that include DuoNeb, IV Keppra and IV Zosyn. PHYSICAL EXAMINATION: Temperature 98.6, pulse 78, respiration 20, blood pressure 132/73, pulse ox 99% on 10 L high-flow. GENERAL APPEARANCE: More awake, following commands, less lethargic. Eyes pupils are equal. Conjunctivae normal. HEENT external appearance of nose and ears normal. Oral cavity dry. Neck JVD unable to assess. Mass not palpable. Respiratory effort increased. Lungs decreased breath sounds. Cardiovascular 1st and 2nd sounds normal. No edema. ABDOMEN: Soft, nontender. Liver and spleen palpable. Psychiatry more awake, answers simple questions. Neurological awake, following commands. Generalized weakness in all the limbs though moving them. INVESTIGATIONS: White count 10, hemoglobin 11.1, sodium 151, potassium 4.9, BUN 30, creatinine 0.90. Chest x-ray, diffuse infiltrates. ASSESSMENT: 1. Severe bilateral aspiration pneumonia from decreased responsiveness causing acute respiratory failure status post ventilator assistance, slow to respond still. Patient is on 10 L of oxygen/slow to respond. 2. Acute hypoxic respiratory failure from above. 3. Acute metabolic encephalopathy from multiple pain medications, seizures, improving. 4. Seizure disorder. 5. Depression, not otherwise specified. 6. Chronic pain syndrome. 7. Multiple sclerosis. 8. Acute renal failure likely prerenal with resolution. 9. Metabolic and respiratory acidosis improved. 10.Hyperglycemia, uncontrolled. 11.Hypernatremia-new from free water deficit. The patient is on D5W. PLAN: The patient is overall doing better. We will reduce some of the patient's medications at a much lower dose, put the patient on Elavil at night, baclofen 5 mg t.i.d., Celexa, Klonopin at night, MS Contin at a much reduced dose and Tecfidera and Topamax. We will be also put on the lower dose. Care was discussed with at the bedside. Questions were answered. MMODL / IJN: [id number] /
[2017-06-25] MEDS ORDERED: Dimethyl Fumarate [Tecfidera] 240 MG PO SCH (21:00)
[2017-06-25 21:05] LABS: Glucose,Whole Blood 209 mg/dL (75-99)
[2017-06-25] MEDS: LISINOPRIL-HCTZ 10-12.5 MG 1 EACH TAB PO SCH (21:05)
[2017-06-25] MEDS: INSULIN DETEMIR 100 UNIT/ML 10 ML VIAL SQ SCH (21:05)
[2017-06-25] MEDS: CITALOPRAM HYDROBROMIDE 20 MG TAB PO SCH (21:05)
[2017-06-25] MEDS: TOPIRAMATE 25 MG TAB PO SCH (21:06)
[2017-06-25] MEDS: clonazePAM 1 MG TAB PO SCH (21:53)
[2017-06-25 22:58] LABS: Glucose,Whole Blood 214 mg/dL (75-99)
[2017-06-26] MEDS: AMITRIPTYLINE HCL 10 MG TAB PO SCH ×2 (00:05→20:59)
[2017-06-26] MEDS: HEPARIN SODIUM,PORCINE 5,000 UNIT/ML 1 ML VIAL SQ SCH ×3 (00:05→16:21)
[2017-06-26] MEDS: MORPHINE SULFATE ER 15 MG TABLET PO SCH ×3 (00:05→21:09)
[2017-06-26] MEDS: PIPERACILLIN-TAZOBACTAM 3.375 GM in DEXTROSE/WATER 1 50ML.BAG IVPB SCH ×3 (00:06→16:21)
[2017-06-26 02:14] LABS: Glucose,Whole Blood 164 mg/dL (75-99)
[2017-06-26] MEDS: INSULIN ASPART 100 UNIT/ML 1 ML 10 ML VIAL SQ SCH ×5 (03:15→21:09)
[2017-06-26 03:47] LABS: Glucose,Whole Blood 156 mg/dL (75-99)
[2017-06-26 04:45] LABS: Basophils % (A) 0 %; Eosinophils # (A) 0.4 k/uL (0-0.7); Eosinophils % (A) 3 %; HCT 36.1 % (34.0-46.0); HGB 11.4 gm/dL (11.4-16.0); Lymphocytes # (A) 2.1 k/uL (1.0-4.8); Lymphocytes % (A) 20 %; MCH 27.4 pg (25.0-35.0); MCHC 31.7 g/dL (31.0-37.0); MCV 86.6 fL (80.0-100.0); Mean Platelet Volume 7.6; Monocytes # (A) 0.5 k/uL (0-1.0); Monocytes % (A) 5 %; Neutrophils # (A) 7.7 k/uL (1.3-7.7); Neutrophils % (A) 71 %; Platelet Count 179 k/uL (150-450); RBC 4.17 m/uL (3.80-5.40); RDW 13.9 % (11.5-15.5)
[2017-06-26 05:01] LABS: Calcium 9.3 mg/dL (8.4-10.2); Magnesium 1.7 mg/dL (1.6-2.3); Phosphorus 3.1 mg/dL (2.5-4.5)
[2017-06-26 05:08] LABS: Potassium 2.9 mmol/L (3.5-5.1)
[2017-06-26] MEDS ORDERED: Potassium Replacement Protocol 1 EACH MISC MISCELLANE PRN ×2 (05:12→17:31)
[2017-06-26] MEDS ORDERED: Magnesium Replacement Protocol 1 EACH MISC MISCELLANE PRN (05:17)
[2017-06-26] MEDS: ONDANSETRON 4 MG/2 ML VIAL IVP PRN ×3 (05:46→18:21)
[2017-06-26] MEDS: POTASSIUM CHLORIDE ER 20 MEQ TAB.ER PO SCH ×7 (05:47→19:02)
[2017-06-26] MEDS: MAGNESIUM SULFATE-D5W PMX 1 GM in DEXTROSE/WATER 1 100ML.BAG IVPB SCH ×2 (05:47→07:15)
[2017-06-26] MEDS: SODIUM CHLORIDE 0.45% 1,000 ML IV SCH ×2 (07:15→21:13)
--- NOTE | 2017-06-26 07:15 | XR ---
EXAMINATION TYPE: XR chest 1V DATE OF EXAM: 06/26/2017 CLINICAL HISTORY: Difficulty breathing progress study. TECHNIQUE: Single AP portable upright view of the chest is obtained. COMPARISON: Chest x-ray from one day earlier and older studies. FINDINGS: Diffuse bilateral opacities remain present. No large pleural effusions or pneumothorax is seen bilaterally. Cardiac silhouette size is stable and mildly enlarged. Postsurgical changes lower c ervical spine is partially imaged. Metallic anchor left humeral head level is again seen. Surgical re section distal left clavicle is again seen. IMPRESSION: Mild cardiomegaly with diffuse bilateral alveolar edema and/or infiltrates all redemonstr ated. No significant change from one day earlier.
[2017-06-26] MEDS: IPRATROPIUM-ALBUTEROL 3 ML NEB INHALATION SCH ×3 (07:23→19:22)
[2017-06-26] MEDS ORDERED: INSULIN ASPART 100 UNIT/ML 1 ML 10 ML VIAL SQ SCH (07:30)
[2017-06-26 07:35] LABS: Glucose,Whole Blood 102 mg/dL (75-99)
[2017-06-26] MEDS: BACLOFEN 10 MG TAB PO SCH ×3 (08:04→21:00)
[2017-06-26] MEDS: levETIRAcetam IV 750 MG in SODIUM CHLORIDE 0.9% 100 ML IVPB SCH ×2 (08:05→21:13)
[2017-06-26] MEDS: GABAPENTIN 100 MG CAP PO SCH ×3 (08:05→20:59)
[2017-06-26] MEDS: LISINOPRIL-HCTZ 10-12.5 MG 1 EACH TAB PO SCH ×2 (08:05→21:04)
[2017-06-26] MEDS: NICOTINE 21MG/24HR PATCH TRANSDERM SCH (08:06)
[2017-06-26] MEDS: TOPIRAMATE 25 MG TAB PO SCH ×3 (08:06→20:58)
[2017-06-26] MEDS: TECFIDERA 240 MG PO SCH ×2 (08:06→21:00)
[2017-06-26] MEDS: PANTOPRAZOLE 40 MG/10 ML VIAL IV SCH (08:06)
[2017-06-26] MEDS: TESTOSTERONE PO SCH (09:18)
[2017-06-26] MEDS: ESTROGEN ESTER PO SCH (09:18)
--- NOTE | 2017-06-26 10:44 | P.PN ---
Subjective Progress Note Date: 06/26/17 A 51-year-old female patient with MS, and previous history of diabetes, seizure disorder, uterine cancer status post hysterectomy and previous history of migraine. The patient also suffers from chronic pain. The patient has presented to the hospital because of diminished level of consciousness and unresponsiveness. I talked to the states that the patient could've aspirated during this episode. In any rate the patient took a combination of pills and this was an accidental ingestion to treat her pain than a suicidal attempt. The patient categorically denies taking medication to harm herself. She has taken a combination of opiates, Percocets, Elavil and baclofen and Klonopin. She would've also taken Valium. She took some of her medication and her 's medication. She initially presented to the hospital on the 2017 and this morning she looks alert and awake and communicating and she has no specific complaints other than feeling fatigued. Her chest x-ray showed diffuse but the pulmonary infiltrate consistent with edema yet underlying noncardiogenic pulmonary edema and very much likely knowing that the patient has possibly aspirated and she could've been in acute lung injury/ARDS-type of picture. She is currently on 2 L of oxygen by nasal cannula. She is producing around 100 mL an hour of urine output. She is on IV Zosyn. She is back on her MS Contin at her routine dose of 50 mg twice a day. She is also on baclofen, clonidine, Celexa, Elavil as usual doses. She is asking for her walker to be brought in from 1. I think she is a bit weak and she will need some more physical therapy. PTOT is on the case. The potassium from this morning is a placed from a baseline of 2.9. Objective - Vital Signs Vital signs: Vital Signs Temp 98.0 F 06/26/17 08:00 Pulse 90 06/26/17 09:00 Resp 25 H 06/26/17 09:00 BP 121/63 06/26/17 09:00 Pulse Ox 95 06/26/17 09:00 Intake & Output 06/25/17 06/26/17 06/26/17 18:59 06:59 18:59 Intake Total 2848.061 5135 550 Output Total 1200 2050 360 Balance 166.120 70 190 Weight 85.1 kg Intake: IV 1325 300 Dextrose 5% in Water 1, 225 000 ml @ 75 mls/hr IV . [id number] ANIKA Rx#:[id number] Sodium Chloride 0.45% 1, 1100 300 000 ml @ 100 mls/hr IV . Q10H ANIKA Rx#:[id number] Intake, IV Titration 1046.120 75 Amount Dextrose 5% in Water 1, 825 75 000 ml @ 75 mls/hr IV . [id number] ANIKA Rx#:[id number] Insulin Regular 100 unit 46.120 In Sodium Chloride 0.9% 100 ml @ Per Protocol IV .Q0M ANIKA Rx#:[id number] Piperacillin-Tazobactam 3 75.0 .375 gm In Dextrose/Water 1 50ml.bag @ 12.5 mls/hr IVPB Q8HR ANIKA Rx#: [id number] levETIRAcetam IV 750 mg 100 In Sodium Chloride 0.9% 100 ml @ 400 mls/hr IVPB Q12HR ANIKA Rx#:[id number] Oral 320 720 250 Output: Urine 1200 2050 360 Other: Voiding Method Indwelling Catheter Indwelling Catheter Indwelling Catheter # Bowel Movements 1 - Exam No acute distress, much more awake and alert. The patient is actually oriented to person place and time. Does not appear to have any distress at all.. HEENT examination is grossly unremarkable. Mucous membranes are moist. Neck supple. Full range of motion. No adenopathy thyromegaly or neck vein distention. Cardiovascular examination reveals regular rhythm rate. S1-S2 normal. No S3 or S4. No discernible murmur noted. Lungs reveal diffuse bilateral rhonchi. Breath sounds are equal. No wheezes but there is extensive crackles in the lungs heard anteriorly and posteriorly. Abdomen soft bowel sounds are heard. No masses or tenderness. Extremities are intact. No cyanosis clubbing or edema. Skin is without rash or lesion. Neurologic examination is brief but nonfocal. The patient is following commands and answering questions. Cranial nerves are intact. She has decent cough. There is obvious motor weakness in all 4 extremities. Gait was not assessed. - Labs CBC & Chem 7: 06/26/17 04:08 06/26/17 04:08 Labs: Abnormal Lab Results - Last 24 Hours (Table) 06/25/17 06/25/17 06/25/17 Range/Units 11:54 13:05 14:10 WBC (3.8-10.6) k/uL Potassium (3.5-5.1) mmol/L BUN (7-17) mg/dL Glucose (74-99) mg/dL POC Glucose (mg/dL) 209 H 152 H 133 H (75-99) mg/dL 06/25/17 06/25/17 06/25/17 Range/Units 15:14 16:18 17:08 WBC (3.8-10.6) k/uL Potassium (3.5-5.1) mmol/L BUN (7-17) mg/dL Glucose (74-99) mg/dL POC Glucose (mg/dL) 191 H 221 H 214 H (75-99) mg/dL 06/25/17 06/25/17 06/25/17 Range/Units 18:10 18:55 19:59 WBC (3.8-10.6) k/uL Potassium (3.5-5.1) mmol/L BUN (7-17) mg/dL Glucose (74-99) mg/dL POC Glucose (mg/dL) 154 H 139 H 156 H (75-99) mg/dL 06/25/17 06/25/17 06/26/17 Range/Units 21:03 22:56 02:09 WBC (3.8-10.6) k/uL Potassium (3.5-5.1) mmol/L BUN (7-17) mg/dL Glucose (74-99) mg/dL POC Glucose (mg/dL) 209 H 214 H 164 H (75-99) mg/dL 06/26/17 06/26/17 06/26/17 Range/Units 03:14 04:08 04:08 WBC 11.0 H (3.8-10.6) k/uL Potassium 2.9 L* (3.5-5.1) mmol/L BUN 21 H (7-17) mg/dL Glucose 129 H (74-99) mg/dL POC Glucose (mg/dL) 156 H (75-99) mg/dL 06/26/17 Range/Units 07:33 WBC (3.8-10.6) k/uL Potassium (3.5-5.1) mmol/L BUN (7-17) mg/dL Glucose (74-99) mg/dL POC Glucose (mg/dL) 102 H (75-99) mg/dL Microbiology - Last 24 Hours (Table) 06/22/17 03:14 Blood Culture - Preliminary Blood No Growth after 96 hours 06/22/17 12:41 Blood Culture - Preliminary Blood No Growth after 72 hours Assessment and Plan Plan: -Acute hypoxemic respiratory failure secondary to narcotic drug overdose. The patient required intubation and mechanical ventilation as her drug screen was positive for opiates oxycodone and benzodiazepines. The patient has been extubated and currently she is on 2 L of oxygen nasal cannula. She has diffuse but the pulmonary infiltrates. Rule out aspiration-induced acute lung injury/ ARDS. Cardiogenic pulmonary edema is felt to be less likely. -Suspect aspiration pneumonia, currently on IV Zosyn -Acute kidney injury him a recovered and the patient's creatinine normalized -Shock liver, recovered -Metabolic acidosis, recovered -Hypotension, recovered -Multiple sclerosis -Chronic pain syndrome -Diabetes mellitus -chronic seizure disorder -History of migraine cephalgia -History of uterine cancer with previous surgery. -History of chronic and ongoing tobacco dependence Plan We'll transfer this patient to [facility] floor with a sitter. A sitter will be needed till the patient is cleared from psychiatric standpoint in regards to possibility of suicide. She may have an underlying depression addition. I personally don't think that she is suicidal however I think she may need better coverage on her depression treatment. Meanwhile, she has diffuse but the pulmonary infiltrates patient on 2 L of oxygen nasal cannula. Kept on IV fluids to KVO. Obtain echocardiogram. Replace the potassium. Replace the magnesium. Involve physical therapy. Continued IV Zosyn. Repeat chest x-ray in the morning. Continue the rest of the medication and the patient will be transferred to telemetry with a sitter.
[2017-06-26 11:33] LABS: Magnesium 2.1 mg/dL (1.6-2.3)
[2017-06-26 12:05] LABS: Glucose,Whole Blood 177 mg/dL (75-99)
--- NOTE | 2017-06-26 12:47 | ECHOF ---
Referral Reason:assess LV function MEASUREMENTS -------- HEIGHT: 165.1 cm WEIGHT: 84.8 kg BP: 131/64 IVSd: 1.2 cm (0.6 - 1.1) LVIDd: 3.7 cm (3.9 - 5.3) LVPWd: 1.3 cm (0.6 - 1.1) IVSs: 2.1 cm LVIDs: 1.7 cm LVPWs: 1.8 cm Ao Diam: 3.2 cm (2.0 - 3.7) AV Cusp: 1.5 cm (1.5 - 2.6) LA Diam: 2.8 cm (2.7 - 3.8) MV EXCURSION: 15.965 mm (> 18.000) MV EF SLOPE: 99 mm/s (70 - 150) EPSS: 0.5 cm MV E Porfirio: 0.91 m/s MV DecT: 201 ms MV A Porfirio: 0.85 m/s MV E/A Ratio: 1.07 RAP: 5.00 mmHg RVSP: 11.68 mmHg FINDINGS -------- Sinus rhythm. This was a technically good study. The left ventricular size is normal. There is mild concentric left ventricular hypertrophy. Overa ll left ventricular systolic function is normal with, an EF between 55 - 60 %. The right ventricle is normal in size and function. The left atrium is normal in size. The right atrium is normal in size. The aortic valve is trileaflet, and appears structurally normal. No aortic stenosis or regurgitation. The mitral valve leaflets are mildly thickened. There is trace mitral regurgitation. Trace tricuspid regurgitation present. The right ventricular systolic pressure, as measured by Dopp ler, is 11.68mmHg. Pulmonic valve appears structurally normal. The aortic root size is normal. Normal inferior vena cava with normal inspiratory collapse consistent with estimated right atrial pre ssure of 5 mmHg. The pericardium is normal. CONCLUSIONS -------- 1. Sinus rhythm. 2. This was a technically good study. 3. The left ventricular size is normal. 4. There is mild concentric left ventricular hypertrophy. 5. Overall left ventricular systolic function is normal with, an EF between 55 - 60 %. 6. The right ventricle is normal in size and function. 7. The left atrium is normal in size. 8. The right atrium is normal in size. 9. The aortic valve is trileaflet, and appears structurally normal. No aortic stenosis or regurgitati on. 10. The mitral valve leaflets are mildly thickened. 11. There is trace mitral regurgitation. 12. Trace tricuspid regurgitation present. 13. The right ventricular systolic pressure, as measured by Doppler, is 11.68mmHg. 14. Pulmonic valve appears structurally normal. 15. The aortic root size is normal. 16. Normal inferior vena cava with normal inspiratory collapse consistent with estimated right atrial pressure of 5 mmHg. 17. The pericardium is normal. [employer] WORKER: Rosita Hu RDCS
[2017-06-26 17:37] LABS: Glucose,Whole Blood 301 mg/dL (75-99)
[2017-06-26 20:10] LABS: Glucose,Whole Blood 245 mg/dL (75-99)
[2017-06-26] MEDS: CITALOPRAM HYDROBROMIDE 20 MG TAB PO SCH (20:57)
[2017-06-26] MEDS: AMOXIC-POT CLAV 875-125MG 1 EACH TAB PO SCH (20:58)
[2017-06-26] MEDS: INSULIN DETEMIR 100 UNIT/ML 10 ML VIAL SQ SCH (21:04)
[2017-06-26] MEDS: clonazePAM 1 MG TAB PO SCH (21:09)
--- NOTE | 2017-06-26 22:11 | PN ---
PROGRESS NOTE DATE OF SERVICE: 06/26/2017. PRESENTING COMPLAINT: Tired. INTERVAL HISTORY: This patient presented with unresponsive status post being on the ventilator. Also had seizures. A lot of the patient's pain medication had to be scaled back. Far more awake today, actually talking. Did eat some for breakfast. Far more communicative. REVIEW OF SYSTEMS: Done for constitutional, cardiovascular, GI, pulmonary; relevant findings as above. CURRENT MEDICATIONS: Reviewed that include DuoNeb, Elavil, baclofen, Celexa, Klonopin, Neurontin, Levemir, IV Keppra, Zestoretic, MS Contin, IV Zosyn. PHYSICAL EXAMINATION: Temperature 98.2 pulse 82, respiration 25, blood pressure 130/64, pulse ox 95% on 2 L. General appearance awake, slightly tired-appearing, answering questions. Eyes pupils are equal. Conjunctivae normal. HEENT external appearance of nose and ears normal. Oral cavity normal. Neck JVD unable to assess. Mass not palpable. Respiratory effort increased. Lungs improved air entry. Cardiovascular 1st and 2nd sounds normal. No edema. ABDOMEN: Soft, nontender. Liver and spleen not palpable. Psychiatry: Alert and oriented x3. Mood and affect slightly low appearing. Neurological: Pupils equal. No facial asymmetry. Moving all 4 limbs, though still slight weakness in the limbs. INVESTIGATIONS: White count 11, hemoglobin 11.4, potassium 2.9. Chest x-ray him improved with infiltrates. ASSESSMENT: 1. Severe bilateral aspiration pneumonia from decreased responsiveness causing acute hypoxic respiratory failure, status post being on the ventilator, clinically improving. The patient's oxygen now down to 2 L. 2. Acute hypoxic respiratory failure, improving down to 2 L of oxygen. 3. Acute metabolic encephalopathy, multiple pain medications, seizures, greatly improved. 4. Seizure disorder. 5. Depression, not otherwise specified. 6. Chronic pain syndrome. 7. Multiple sclerosis. 8. Acute renal failure prerenal with resolution. 9. Metabolic respiratory acidosis much improved. 10.Diabetes mellitus type 2, uncontrolled with hypoglycemia. 11.Hypernatremia from free water deficit improved. 12.Significant hypokalemia. PLAN: Care was discussed with the patient. Potassium is being replaced. The patient should be stable to be moved out of the ICU and encourage patient to be out of the bed with support. The patient remains on IV Zosyn. We will switch the patient over to p.o. Augmentin. MMROSENDAL / IJN: [id number] /
[2017-06-27] MEDS: HEPARIN SODIUM,PORCINE 5,000 UNIT/ML 1 ML VIAL SQ SCH ×3 (00:07→17:46)
[2017-06-27] MEDS: POTASSIUM CHLORIDE ER 20 MEQ TAB.ER PO SCH ×2 (01:09→02:39)
[2017-06-27] MEDS: ONDANSETRON 4 MG/2 ML VIAL IVP PRN ×3 (01:09→17:05)
[2017-06-27 02:13] LABS: Glucose,Whole Blood 124 mg/dL (75-99)
[2017-06-27] MEDS: INSULIN ASPART 100 UNIT/ML 1 ML 10 ML VIAL SQ SCH ×5 (02:40→21:33)
[2017-06-27 05:41] LABS: Basophils % (A) 1 %; Eosinophils # (A) 0.3 k/uL (0-0.7); Eosinophils % (A) 3 %; HGB 11.6 gm/dL (11.4-16.0); Lymphocytes # (A) 2.4 k/uL (1.0-4.8); Lymphocytes % (A) 27 %; MCH 28.6 pg (25.0-35.0); MCHC 33.1 g/dL (31.0-37.0); MCV 86.3 fL (80.0-100.0); Mean Platelet Volume 7.6; Monocytes # (A) 0.6 k/uL (0-1.0); Monocytes % (A) 6 %; Neutrophils # (A) 5.3 k/uL (1.3-7.7); Neutrophils % (A) 61 %; Platelet Count 173 k/uL (150-450); RBC 4.06 m/uL (3.80-5.40); RDW 13.9 % (11.5-15.5); WBC 8.8 k/uL (3.8-10.6)
[2017-06-27 05:52] LABS: Calcium 9.2 mg/dL (8.4-10.2); Magnesium 1.7 mg/dL (1.6-2.3); Potassium 3.6 mmol/L (3.5-5.1)
[2017-06-27] MEDS ORDERED: ACETAMINOPHEN TAB 325 MG TAB PO PRN (07:01)
[2017-06-27 07:07] LABS: Glucose,Whole Blood 104 mg/dL (75-99)
[2017-06-27] MEDS: IPRATROPIUM-ALBUTEROL 3 ML NEB INHALATION SCH ×3 (07:36→20:42)
[2017-06-27] MEDS: MAGNESIUM SULFATE-D5W PMX 1 GM in DEXTROSE/WATER 1 100ML.BAG IVPB SCH ×2 (07:45→12:01)
[2017-06-27] MEDS ORDERED: POTASSIUM CHLORIDE ER 20 MEQ TAB.ER PO SCH (08:00)
--- NOTE | 2017-06-27 08:31 | XR ---
EXAMINATION TYPE: XR chest 1V DATE OF EXAM: 06/27/2017 COMPARISON: Prior chest x-ray 06/26/2017 HISTORY: Chest congestion, abnormal chest x-ray TECHNIQUE: Single frontal view of the chest is obtained. FINDINGS: Bilateral groundglass opacities present within the lungs similar to prior exam. There may be some improvement in aeration. No pneumothorax or pleural effusion evident. Heart size is stable, t here are overlying cardiac leads. IMPRESSION: Suspect some slight interval improvement in aeration.
[2017-06-27] MEDS: AMOXIC-POT CLAV 875-125MG 1 EACH TAB PO SCH ×2 (08:36→21:30)
[2017-06-27] MEDS: BACLOFEN 10 MG TAB PO SCH ×3 (08:36→21:32)
[2017-06-27] MEDS: GABAPENTIN 100 MG CAP PO SCH ×3 (08:37→21:33)
[2017-06-27] MEDS: PANTOPRAZOLE 40 MG/10 ML VIAL IV SCH (08:37)
[2017-06-27] MEDS: NICOTINE 21MG/24HR PATCH TRANSDERM SCH (08:38)
[2017-06-27] MEDS: TOPIRAMATE 25 MG TAB PO SCH ×3 (08:38→21:33)
[2017-06-27] MEDS: TESTOSTERONE PO SCH (08:41)
[2017-06-27] MEDS: ESTROGEN ESTER PO SCH (08:41)
[2017-06-27] MEDS: MORPHINE SULFATE ER 15 MG TABLET PO SCH ×2 (08:42→21:31)
[2017-06-27] MEDS: levETIRAcetam IV 750 MG in SODIUM CHLORIDE 0.9% 100 ML IVPB SCH (08:45)
[2017-06-27] MEDS: TECFIDERA 240 MG PO SCH ×2 (08:45→21:34)
[2017-06-27] MEDS: LISINOPRIL-HCTZ 10-12.5 MG 1 EACH TAB PO SCH (08:45)
--- NOTE | 2017-06-27 09:44 | P.CN ---
Psychiatric Consult - . Consult date: 06/27/17 Consult:: 06/27/17 09:28 Patient was seen for a psych consult regarding possible intentional overdose. Patient reports that she took some of her husbands narcotics since her insurance refused to pay for her prescribed MS Contin. It is not clear how many narcotics she took. But she insists that it was only because to control the pain and had no intention of suicide and never even thought about it. She said they had just returned from [place] about hour and half before this happened, was tired and probably she took more pills than she should have. She insists that it was an accident and nothing more to it. Patient is on multiple medications some of them are in the same class, some of them are about recommended dose and some are subtherapeutic doses, some are used for the side effects of other medications yesterday of lowering the dose or changing the offending drug etc. she is on Celexa 60 mg a day and the maximum recommended dose is only 40 mg a day. She is also on Elavil which is very subtherapeutic, she is on Neurontin 100 mg a day which is also extremely subtherapeutic either for seizures or chronic pain, she is on Klonopin 1 mg at bedtime while she is still on Valium 10 mg every 8 hours, she is on modafinil 200 mg a day apparently to keep herself alert while she is on multiple medications with sedative side effects. As we all know, narcotics are not recommended for chronic pain, unless it is terminal and she is on MS Contin 100 mg a day. She is also on baclofen 5 mg 3 times a day which will have additional sedative effect on her central nervous system. Apparently she was admitted for respiratory failure and is still getting narcotics which have adverse effects on the respiratory center. This is a female who was seen in her bed. She is polite friendly and cooperative. She does not show any psychomotor agitation or retardation. Her speech is spontaneous relevant and goal-directed. Her mood is euthymic and affect is appropriate. She denies hallucinations and delusional thinking. She insists that she is not suicidal and never thought about killing herself. She denies homicidal thoughts. She said today is 06/28/2017. She knows the name of this place. Other aspects of cognitive functions are intact. Assessment: She does not appear to be in any suicide risk at this point. She insists that she did not take too many narcotics to kill herself. Suggestions: She is on major polypharmacy with quite a bit of sedative effect on central nervous system. If she takes more [employer] sedating drugs it is very likely that she will pass out, becomes unconscious and may have respiratory failure and even . Patient was advised to discuss with her primary care doctor and the neurologist to streamline her medications, discontinue drugs with the same effects, reduce the dose or change of medications instead of adding another drug for side effects and take medications only as recommended by FDA and research data to improve her health and possibly avoid accidental overdose and .
[2017-06-27 10:09] VITALS: BMI 30.7
--- NOTE | 2017-06-27 11:19 | P.PN ---
Subjective Progress Note Date: 06/27/17 A 51-year-old female patient with MS, and previous history of diabetes, seizure disorder, uterine cancer status post hysterectomy and previous history of migraine. The patient also suffers from chronic pain. The patient has presented to the hospital because of diminished level of consciousness and unresponsiveness. I talked to the states that the patient could've aspirated during this episode. In any rate the patient took a combination of pills and this was an accidental ingestion to treat her pain than a suicidal attempt. The patient categorically denies taking medication to harm herself. She has taken a combination of opiates, Percocets, Elavil and baclofen and Klonopin. She would've also taken Valium. She took some of her medication and her 's medication. She initially presented to the hospital on the 2017 and this morning she looks alert and awake and communicating and she has no specific complaints other than feeling fatigued. Her chest x-ray showed diffuse but the pulmonary infiltrate consistent with edema yet underlying noncardiogenic pulmonary edema and very much likely knowing that the patient has possibly aspirated and she could've been in acute lung injury/ARDS-type of picture. She is currently on 2 L of oxygen by nasal cannula. She is producing around 100 mL an hour of urine output. She is on IV Zosyn. She is back on her MS Contin at her routine dose of 50 mg twice a day. She is also on baclofen, clonidine, Celexa, Elavil as usual doses. She is asking for her walker to be brought in from 1. I think she is a bit weak and she will need some more physical therapy. PTOT is on the case. The potassium from this morning is a placed from a baseline of 2.9. On 06/28/2007 and I'm seeing this patient for a follow-up. The patient was seen much better compared to yesterday. She is less short of breath. Chest x- ray showing improvement in the aeration of both lungs. She is producing adequate amount of urine output and she is a negative fluid balance. She is tolerating her diet. No suicidal ideation. Psychiatry evaluated this patient and the patient is obviously not suicidal. I took her off Zosyn and put her on oral Augmentin. She is on 2 L of oxygen by nasal cannula and pulse ox 97%. The echocardiogram was done and showed a normal LV function with an ejection fraction of 60% and no evidence of any pulmonary hypertension or valvular heart disease. Objective - Vital Signs Vital signs: Vital Signs Temp 98.2 F 06/27/17 08:00 Pulse 91 06/27/17 10:00 Resp 14 06/27/17 10:00 BP 122/70 06/27/17 10:00 Pulse Ox 95 06/27/17 10:00 Intake & Output 06/26/17 06/27/17 06/27/17 18:59 06:59 18:59 Intake Total 1595.0 352.5 500 Output Total 211 1900 285 Balance -515.0 -1547.5 215 Weight 85.1 kg 83.6 kg 83.6 kg Intake: IV 520 240 60 Sodium Chloride 0.45% 1, 520 240 60 000 ml @ 20 mls/hr IV . Q24H ANIKA Rx#:[id number] Intake, IV Titration 25.0 112.5 200 Amount Magnesium Sulfate-D5w Pmx 100 1 gm In Dextrose/Water 1 100ml.bag @ 100 mls/hr IVPB Q1H ANIKA Rx#: [id number] Piperacillin-Tazobactam 3 25.0 12.5 .375 gm In Dextrose/Water 1 50ml.bag @ 12.5 mls/hr IVPB Q8HR ANIKA Rx#: [id number] levETIRAcetam IV 750 mg 100 100 In Sodium Chloride 0.9% 100 ml @ 400 mls/hr IVPB Q12HR ANIKA Rx#:[id number] Oral 1050 240 Output: Urine 2109 1899 285 Other: Voiding Method Indwelling Catheter Indwelling Catheter Indwelling Catheter # Bowel Movements 1 - Exam No acute distress, much more awake and alert. The patient is actually oriented to person place and time. Does not appear to have any distress at all.. HEENT examination is grossly unremarkable. Mucous membranes are moist. Neck supple. Full range of motion. No adenopathy thyromegaly or neck vein distention. Cardiovascular examination reveals regular rhythm rate. S1-S2 normal. No S3 or S4. No discernible murmur noted. Lungs reveal diffuse bilateral rhonchi. Breath sounds are equal. No wheezes but there is extensive crackles in the lungs heard anteriorly and posteriorly. Abdomen soft bowel sounds are heard. No masses or tenderness. Extremities are intact. No cyanosis clubbing or edema. Skin is without rash or lesion. Neurologic examination is brief but nonfocal. The patient is following commands and answering questions. Cranial nerves are intact. She has decent cough. There is obvious motor weakness in all 4 extremities. Gait was not assessed. - Labs CBC & Chem 7: 06/27/17 05:01 06/27/17 05:01 Labs: Abnormal Lab Results - Last 24 Hours (Table) 06/26/17 06/26/17 06/26/17 Range/Units 10:56 12:03 16:48 Potassium 3.0 L* 3.4 L (3.5-5.1) mmol/L Chloride (98-107) mmol/L BUN (7-17) mg/dL Glucose (74-99) mg/dL POC Glucose (mg/dL) 177 H (75-99) mg/dL 06/26/17 06/26/17 06/26/17 Range/Units 17:20 20:08 21:24 Potassium 3.4 L (3.5-5.1) mmol/L Chloride (98-107) mmol/L BUN (7-17) mg/dL Glucose (74-99) mg/dL POC Glucose (mg/dL) 301 H 245 H (75-99) mg/dL 06/27/17 06/27/17 06/27/17 Range/Units 02:11 05:01 07:05 Potassium (3.5-5.1) mmol/L Chloride 110 H (98-107) mmol/L BUN 18 H (7-17) mg/dL Glucose 102 H (74-99) mg/dL POC Glucose (mg/dL) 124 H 104 H (75-99) mg/dL Microbiology - Last 24 Hours (Table) 06/22/17 03:14 Blood Culture - Preliminary Blood No Growth after 120 hours 06/22/17 12:41 Blood Culture - Preliminary Blood No Growth after 96 hours Assessment and Plan Plan: -Acute hypoxemic respiratory failure secondary to narcotic drug overdose. The patient required intubation and mechanical ventilation as her drug screen was positive for opiates oxycodone and benzodiazepines. The patient has been extubated and currently she is on 2 L of oxygen nasal cannula. She has diffuse but the pulmonary infiltrates. Rule out aspiration-induced acute lung injury/ ARDS. Cardiogenic pulmonary edema is felt to be less likely. On 06/27/2017 the patient's chest x-ray shows improvement of the right the pulmonary infiltrates and lung examination and echocardiogram showed preserved LV function with an ejection fraction of 60%. The patient has diuresed well and she is a negative fluid balance. -Suspect aspiration pneumonia, currently on IV Zosyn -Acute kidney injury him a recovered and the patient's creatinine normalized -Shock liver, recovered -Metabolic acidosis, recovered -Hypotension, recovered -Multiple sclerosis -Chronic pain syndrome -Diabetes mellitus -chronic seizure disorder -History of migraine cephalgia -History of uterine cancer with previous surgery. -History of chronic and ongoing tobacco dependence Plan We'll transfer this patient to [facility] floor . Continue Augmentin. Repeat chest x-ray within next 24-48 hours. Psychiatry evaluation was done and the patient is nonsuicidal. The patient has polypharmacy and she needs to be followed up by psychiatry on outpatient basis.
[2017-06-27 12:41] LABS: Glucose,Whole Blood 168 mg/dL (75-99)
--- NOTE | 2017-06-27 16:04 | PN ---
PROGRESS NOTE DATE OF SERVICE: 06/27/17. PRESENT COMPLAINT: Tired. INTERVAL HISTORY: Patient presented with unresponsiveness being on multiple neuro sedative medications. The patient is on the ventilator. Patient also had seizures. The patient continues to improve. Did eat much better, did sit up in the bed. REVIEW OF SYSTEMS: Done for constitutional, cardiovascular, GI, pulmonary, neuro; relevant findings as above. The patient denies any pain. PHYSICAL EXAMINATION: Temperature 98, pulse 78, respiration 20, blood pressure 103/72, pulse ox 96% on 2 L. GENERAL APPEARANCE: Sitting up, awake. EYES: Pupils equal. Conjunctivae normal. HEENT: External appearance of nose and ears normal. Oral cavity normal. NECK: JVD not raised. Mass not palpable. RESPIRATORY: Effort, lungs decreased breath sounds. CARDIOVASCULAR: First and second sounds, no edema. ABDOMEN: Soft, nontender. Liver and spleen not palpable. PSYCHIATRY: Awake, answering questions appropriately. INVESTIGATIONS: White count 8.8, hemoglobin 11.6, potassium 3.63. Accu-Cheks 104, 168. ASSESSMENT: 1. Severe bilateral aspiration pneumonia from decreased responsiveness causing acute hypoxic respiratory failure requiring patient to be on a ventilator, now doing much better. The patient's oxygen has come down to 1-2 L. 2. Acute hypoxic respiratory failure, much improved. 3. Acute metabolic encephalopathy, multifactorial, including pain medication, seizure, greatly improved. 4. Seizure disorder. 5. Depression, not otherwise specified. 6. Chronic pain syndrome. 7. Multiple sclerosis. 8. Acute renal failure prerenal with near resolution. 9. Metabolic and respiratory acidosis greatly improved. 10.Diabetes mellitus type 2 initially uncontrolled. 11.Hypernatremia from free water deficit, improved. PLAN: As blood pressure is running on the lower side, will DC patient's Zestoretic and switch to lisinopril 10 mg in the morning and chlorthalidone in the morning. We will also cut back on patient's Levemir to 18 units at night and start the patient on metformin 500 mg twice a day. We will also patient's amitriptyline at night. We will also send off a HbA1c. MMODL / IJN: [id number] /
[2017-06-27] MEDS: metFORMIN 500 MG TAB PO SCH (17:05)
[2017-06-27 17:29] LABS: Glucose,Whole Blood 156 mg/dL (75-99)
[2017-06-27 20:37] LABS: Glucose,Whole Blood 170 mg/dL (75-99)
[2017-06-27] MEDS ORDERED: INSULIN DETEMIR 100 UNIT/ML 10 ML VIAL SQ SCH (21:00)
[2017-06-27] MEDS: clonazePAM 1 MG TAB PO SCH (21:31)
[2017-06-27] MEDS: CITALOPRAM HYDROBROMIDE 20 MG TAB PO SCH (21:32)
[2017-06-27 23:20] VITALS: RESP 16
[2017-06-28] MEDS: ONDANSETRON 4 MG/2 ML VIAL IVP PRN ×2 (00:21→09:05)
[2017-06-28] MEDS: HEPARIN SODIUM,PORCINE 5,000 UNIT/ML 1 ML VIAL SQ SCH ×2 (00:21→08:19)
[2017-06-28] MEDS: SODIUM CHLORIDE 0.45% 1,000 ML IV SCH (00:21)
[2017-06-28] MEDS: INSULIN ASPART 100 UNIT/ML 1 ML 10 ML VIAL SQ SCH ×3 (05:59→13:03)
[2017-06-28 07:04] LABS: Glucose,Whole Blood 118 mg/dL (75-99)
[2017-06-28] MEDS: IPRATROPIUM-ALBUTEROL 3 ML NEB INHALATION SCH ×2 (07:07→15:38)
[2017-06-28 07:48] VITALS: BP 96/60; TEMP 98.6
[2017-06-28] MEDS: MORPHINE SULFATE ER 15 MG TABLET PO SCH (08:17)
[2017-06-28] MEDS: metFORMIN 500 MG TAB PO SCH (08:19)
[2017-06-28] MEDS: NICOTINE 21MG/24HR PATCH TRANSDERM SCH (08:19)
[2017-06-28] MEDS: AMOXIC-POT CLAV 875-125MG 1 EACH TAB PO SCH (08:20)
[2017-06-28] MEDS: BACLOFEN 10 MG TAB PO SCH (08:20)
[2017-06-28] MEDS: TESTOSTERONE PO SCH (08:21)
[2017-06-28] MEDS: ESTROGEN ESTER PO SCH (08:21)
[2017-06-28] MEDS: GABAPENTIN 100 MG CAP PO SCH (08:22)
[2017-06-28] MEDS: TECFIDERA 240 MG PO SCH (08:23)
[2017-06-28] MEDS: TOPIRAMATE 25 MG TAB PO SCH (08:24)
[2017-06-28] MEDS ORDERED: LISINOPRIL 10 MG TAB PO SCH (09:00)
[2017-06-28] MEDS ORDERED: CHLORTHALIDONE 25 MG TAB PO SCH (09:00)
[2017-06-28 11:36] LABS: Glucose,Whole Blood 137 mg/dL (75-99)
--- NOTE | 2017-06-28 11:49 | P.CONS ---
History of Present Illness - Chief Complaint Walking difficulty - History of Present Illness I had the op to see patient for inpatient rehab consultation with regard to walking difficulty. She was admitted to [facility] June 22 with mental status change. Seen by psychiatry for possible drug overdose. Seen by Dr. Burns who notes acute hypoxic respiratory failure. Chest x-rays followed and demonstrated resolving bilateral groundglass appearance. Head CT negative. PT reports minimal assistance bed mobility, transfers, gait 40 feet with roller walker. OT prescribed. Previous functional history as elicited patient: 51-year-old right-handed female who is lives in one floor home with . 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 Note functionality related to MS 15 years duration. Independent with standing shower gait with standard cane. History smoking doesn 't smoke or drink currently. Dr. Torres is regular doctor. Family history father of NM. Review of Systems Review of systems: ENT: Denies sneezes or discharge. Eyes: Denies discharge or photophobia. Cardiac: Denies chest pain or palpitation. Pulmonary: Denies cough or shortness of breath. Breast: Denies discharge or lumps. Gastrointestinal: Denies nausea, emesis, constipation, diarrhea. Genitourinary: Denies discharge or frequency. Musculoskeletal: Chronic generalized aches. Neurologic: Weakness, especially legs. Endocrine: Denies shakes or sweats. Oncology: Denies cancers. Dermatologic: Denies rash, itching, pruritus. ALLERGY/immunology: Denies sneezes, rashes. Past Medical History Past Medical History: Diabetes Mellitus, Seizure Disorder Additional Past Medical History / Comment(s): MS, uterine cancer, migraine headaches History of Any Multi-Drug Resistant Organisms: None Reported Past Surgical History: Appendectomy, Cholecystectomy, Hysterectomy, Orthopedic Surgery Additional Past Surgical History / Comment(s): cervical surgery, right ear reconstruction from defect Past Anesthesia/Blood Transfusion Reactions: No Reported Reaction Past Psychological History: Depression Smoking Status: Current every day smoker Past Alcohol Use History: None Reported Past Drug Use History: None Reported - Past Family History Mother Family Medical History: Diabetes Mellitus Brother(s) Family Medical History: Diabetes Mellitus Medications and Allergies Home Medications Medication Instructions Recorded Confirmed Type Citalopram Hydrobromide [CeleXA] 60 mg PO HS 09/19/13 06/22/17 History Gabapentin [Neurontin] 600 mg PO Q6H 09/19/13 06/22/17 History Topiramate [Topamax] 100 mg PO TID 09/19/13 06/22/17 History Diazepam [Valium] 10 mg PO Q8H 12/19/15 06/22/17 History INSULIN LISPRO (HumaLOG) [HumaLOG] See Protocol SQ CONTINUOUS 12/19/15 06/22/17 History Ondansetron [Zofran] 4 mg PO Q6H PRN 12/19/15 06/22/17 History clonazePAM [KlonoPIN] 1 mg PO HS 12/19/15 06/22/17 History Baclofen 10 mg PO TID 05/27/17 06/22/17 History Cholecalciferol [Vitamin D3] 5,000 unit PO DAILY 05/27/17 06/22/17 History Dimethyl Fumarate [Tecfidera] 240 mg PO BID 05/27/17 06/22/17 History Modafinil [Provigil] 200 mg PO DAILY 05/27/17 06/22/17 History Omeprazole [PriLOSEC] 20 mg PO AC-BID 05/27/17 06/22/17 History Amitriptyline HCl [Elavil] 10 mg PO HS 06/22/17 06/22/17 History Estrogen,Becky/Me-Testosterone 1 tab PO DAILY 06/22/17 06/22/17 History [Estrogen-Methyltestos F.s. Tab] Morphine Sulfate ER [Ms Contin 60 mg PO Q8H 06/22/17 06/22/17 History 60Mg] Allergies Allergy/AdvReac Type Severity Reaction Status Date / Time divalproex sodium Allergy Unknown Verified 06/22/17 07:11 [From Depakote] prochlorperazine edisylate Allergy Unknown Verified 06/22/17 07:11 [From Compazine] prochlorperazine maleate Allergy Unknown Verified 06/22/17 07:11 [From Compazine] vancomycin Allergy Unknown Verified 06/22/17 07:11 steroids AdvReac Confusion Uncoded 05/27/17 17:21 Physical Exam Vitals: Vital Signs Temp Pulse Pulse Pulse Resp BP BP 06/28/17 10:07 16 06/28/17 07:19 88 06/28/17 07:10 88 06/28/17 07:00 98.6 F 89 97 16 96/60 06/27/17 23:00 98.5 F 95 16 134/74 06/27/17 20:58 90 06/27/17 20:43 89 06/27/17 15:00 98.2 F 85 18 06/27/17 14:00 72 20 107/66 06/27/17 12:00 98 F 78 20 103/72 BP Pulse Ox 06/28/17 10:07 06/28/17 07:19 06/28/17 07:10 06/28/17 07:00 97 06/27/17 23:00 92 L 06/27/17 20:58 06/27/17 20:43 06/27/17 15:00 103/70 95 06/27/17 14:00 97 06/27/17 12:00 96 Intake and Output 06/27/17 06/28/17 06/28/17 22:59 06:59 14:59 Intake Total 160 160 Output Total 2 Balance 160 158 Intake: IV 160 160 Sodium Chloride 0.45% 1, 160 160 000 ml @ 20 mls/hr IV . Q24H [facility] Rx#:[id number] Output: Urine 2 Other: Voiding Method Toilet # Voids 2 Weight 84.2 kg Skin: Good color, texture, turgor. General: Medium build and comfortable appearance. Head: Normocephalic, atraumatic. Eyes: Symmetric. Pupils equal round. Ears: Symmetric. Hearing within normal limits. Mouth: Clear. Neck: Supple. Carotid without bruit. Cardiac: Regular rate and rhythm. Lungs: Clear anteriorly and posteriorly. Abdomen: Soft active nontender. Extremities: Normal tone. Neurological: Mental status: Alert, cooperative, pleasant. Cranial nerves: Symmetric facial tone and trapezius. Motor: Active movement all 4 limbs, proximally and distally. Sensation: Intact throughout. DTRs: Symmetric and equal throughout. Mobility: Reports up in room and going to bathroom on own. Results CBC & Chem 7: 06/27/17 05:01 06/27/17 05:01 Labs: Abnormal Lab Results - Last 24 Hours (Table) 06/27/17 06/27/17 06/27/17 Range/Units 12:19 17:09 20:27 POC Glucose (mg/dL) 168 H 156 H 170 H (75-99) mg/dL 06/28/17 06/28/17 Range/Units 07:03 11:35 POC Glucose (mg/dL) 118 H 137 H (75-99) mg/dL Microbiology - Last 24 Hours (Table) 06/22/17 03:14 Blood Culture - Final Blood No Growth after 144 hours 06/22/17 12:41 Blood Culture - Preliminary Blood No Growth after 120 hours Chest x-ray: report reviewed (Chest x-rays followed for bilateral groundglass appearance which is resolving.) MRI - head: report reviewed (No active disease.) Assessment and Plan (1) Encephalopathy Current Visit: Yes Status: Acute Code(s): G93.40 - ENCEPHALOPATHY, UNSPECIFIED SNOMED Code(s): 58514886 Plan: Impression: 1. Walking going. 2. Mental status change. 3. Possible overdose. 4. MS 15 years duration. 5. Diabetes. 6. History of seizure. Comments and plan: PT ongoing and OT prescribed. Patient reports doing well and anticipate good support from . Also prefers [facility] physical therapy or rehab. I'll follow with yourself for possible need of inpatient rehab.
--- NOTE | 2017-06-28 15:28 | P.PN ---
Subjective Progress Note Date: 06/28/17 Principal diagnosis: Acute hypoxemic respiratory failure secondary to narcotic drug overdose and aspiration-induced acute lung injury/ARDS A 51-year-old female patient with MS, and previous history of diabetes, seizure disorder, uterine cancer status post hysterectomy and previous history of migraine. The patient also suffers from chronic pain. The patient has presented to the hospital because of diminished level of consciousness and unresponsiveness. I talked to the states that the patient could've aspirated during this episode. In any rate the patient took a combination of pills and this was an accidental ingestion to treat her pain than a suicidal attempt. The patient categorically denies taking medication to harm herself. She has taken a combination of opiates, Percocets, Elavil and baclofen and Klonopin. She would've also taken Valium. She took some of her medication and her 's medication. She initially presented to the hospital on the 2017 and this morning she looks alert and awake and communicating and she has no specific complaints other than feeling fatigued. Her chest x-ray showed diffuse but the pulmonary infiltrate consistent with edema yet underlying noncardiogenic pulmonary edema and very much likely knowing that the patient has possibly aspirated and she could've been in acute lung injury/ARDS-type of picture. She is currently on 2 L of oxygen by nasal cannula. She is producing around 100 mL an hour of urine output. She is on IV Zosyn. She is back on her MS Contin at her routine dose of 50 mg twice a day. She is also on baclofen, clonidine, Celexa, Elavil as usual doses. She is asking for her walker to be brought in from 1. I think she is a bit weak and she will need some more physical therapy. PTOT is on the case. The potassium from this morning is a placed from a baseline of 2.9. On 06/28/2007 and I'm seeing this patient for a follow-up. The patient was seen much better compared to yesterday. She is less short of breath. Chest x- ray showing improvement in the aeration of both lungs. She is producing adequate amount of urine output and she is a negative fluid balance. She is tolerating her diet. No suicidal ideation. Psychiatry evaluated this patient and the patient is obviously not suicidal. I took her off Zosyn and put her on oral Augmentin. She is on 2 L of oxygen by nasal cannula and pulse ox 97%. The echocardiogram was done and showed a normal LV function with an ejection fraction of 60% and no evidence of any pulmonary hypertension or valvular heart disease. On 06/28/2017 patient is seen in follow-up on medical surgical floor. She is resting in bed, on room air, denies any acute distress. Sputum, blood and urine cultures remain negative. Patient has been on oral Augmentin. Vital signs remain stable, patient has been afebrile. Patient is being evaluated for possible inpatient rehab. From pulmonary/critical care standpoint patient remained stable. No acute events overnight, continue current treatment. Objective - Vital Signs Vital signs: Vital Signs Temp 98.6 F 06/28/17 07:00 Pulse 88 06/28/17 07:19 Resp 16 06/28/17 10:07 BP 96/60 06/28/17 07:00 Pulse Ox 97 06/28/17 07:00 Intake & Output 06/27/17 06/28/17 06/28/17 18:59 06:59 18:59 Intake Total 680 320 Output Total 1035 2 Balance -355 318 Weight 83.6 kg 84.2 kg Intake: IV 140 320 Sodium Chloride 0.45% 1, 140 320 000 ml @ 20 mls/hr IV . Q24H [facility] Rx#:[id number] Intake, IV Titration 300 Amount Magnesium Sulfate-D5w Pmx 200 1 gm In Dextrose/Water 1 100ml.bag @ 100 mls/hr IVPB Q1H [facility] Rx#: [id number] levETIRAcetam IV 750 mg 100 In Sodium Chloride 0.9% 100 ml @ 400 mls/hr IVPB Q12HR [facility] Rx#:[id number] Oral 240 Output: Urine 1035 2 Other: Voiding Method Indwelling Catheter Toilet # Voids 2 - Exam No acute distress, much more awake and alert. The patient is actually oriented to person place and time. Does not appear to have any distress at all.. HEENT examination is grossly unremarkable. Mucous membranes are moist. Neck supple. Full range of motion. No adenopathy thyromegaly or neck vein distention. Cardiovascular examination reveals regular rhythm rate. S1-S2 normal. No S3 or S4. No discernible murmur noted. Lungs reveal equal air entry bilaterally. No wheezes, no rhonchi or rales noted on today's exam. Abdomen soft bowel sounds are heard. No masses or tenderness. Extremities are intact. No cyanosis clubbing or edema. Skin is without rash or lesion. Neurologic examination is brief but nonfocal. The patient is following commands and answering questions. Cranial nerves are intact. She has decent cough. There is obvious motor weakness in all 4 extremities. Gait was not assessed. - Labs CBC & Chem 7: 06/27/17 05:01 06/27/17 05:01 Labs: Abnormal Lab Results - Last 24 Hours (Table) 06/27/17 06/27/17 06/28/17 Range/Units 17:09 20:27 07:03 POC Glucose (mg/dL) 156 H 170 H 118 H (75-99) mg/dL 06/28/17 Range/Units 11:35 POC Glucose (mg/dL) 137 H (75-99) mg/dL Microbiology - Last 24 Hours (Table) 06/22/17 03:14 Blood Culture - Final Blood No Growth after 144 hours 06/22/17 12:41 Blood Culture - Preliminary Blood No Growth after 120 hours Assessment and Plan Plan: Assessment: -Acute hypoxemic respiratory failure secondary to narcotic drug overdose. The patient required intubation and mechanical ventilation as her drug screen was positive for opiates oxycodone and benzodiazepines. The patient has been extubated and currently she is on 2 L of oxygen nasal cannula. She has diffuse but the pulmonary infiltrates. Rule out aspiration-induced acute lung injury/ ARDS. Cardiogenic pulmonary edema is felt to be less likely. On 06/27/2017 the patient's chest x-ray shows improvement of the right the pulmonary infiltrates and lung examination and echocardiogram showed preserved LV function with an ejection fraction of 60%. The patient has diuresed well and she is a negative fluid balance. On 06/20/2017 patient was reevaluated on medical surgical floor. She remains stable, denies any worsening dyspnea, denies any fever, chills or chest congestion. Lung sounds are clear to auscultation, no rhonchi or rales or wheezes noted. She continues on Augmentin, sputum, urine and blood cultures remain negative so far. No febrile episodes. Increase activity as tolerated, continue current medical treatment, she is being evaluated for possible inpatient rehabilitation. -Suspect aspiration pneumonia, currently on IV Zosyn -Acute kidney injury him a recovered and the patient's creatinine normalized -Shock liver, recovered -Metabolic acidosis, recovered -Hypotension, recovered -Multiple sclerosis -Chronic pain syndrome -Diabetes mellitus -chronic seizure disorder -History of migraine cephalgia -History of uterine cancer with previous surgery. -History of chronic and ongoing tobacco dependence Plan Patient remains stable, denies any worsening dyspnea, lung sounds are clear to auscultation. Continue with oral Augmentin, continue nebulized treatments. No fever, no chills, no chest congestion. From pulmonary/critical care standpoint. Patient remains stable, and could be considered for discharge. Patient is being evaluated for possible inpatient rehab placement. I performed a history & physical examination of the patient and discussed their management with my nurse practitioner, Diana Dawkins. I reviewed the nurse practitioner's note and agree with the documented findings and plan of care. Lung sounds are clear to auscultation. The findings and the impression was discussed with the patient. I attest to the documentation by the nurse practitioner. Time with Patient: Less than 30
[2017-06-28 15:50] VITALS: PULSE 88
--- NOTE | 2017-06-29 03:59 | DS ---
DISCHARGE SUMMARY DATE OF ADMISSION: 06/22/17 DATE OF DISCHARGE: 06/28/17 FINAL DIAGNOSES: 1. Severe bilateral aspiration pneumonia from decreased responsiveness causing acute hypoxic respiratory failure requiring patient to be on ventilator support. 2. Acute severe metabolic encephalopathy multifactorial including pain medication and seizures. 3. Seizure disorder. 4. Depression not otherwise specified. 5. Chronic pain syndrome. 6. Multiple sclerosis. 7. Acute renal failure, mostly prerenal, complete resolution. 8. Metabolic and respiratory acidosis on presentation. 9. Diabetes mellitus type 2 initially uncontrolled with hyperglycemia. 10.Hypernatremia from free water deficit. 11.Suspect diabetes mellitus type 2. CONSULTATION: Dr. Burns from Critical Care, Dr. Esposito from Neurology, Dr. Ricci from Psychiatry. HOSPITAL COURSE: This is a patient who has been taking excessive pain medications, became unresponsive at home. Went into respiratory compromise and had to be intubated. The patient also had bilateral aspiration pneumonia from the same with severe metabolic encephalopathy. The patient went into acute renal failure with creatinine being up to 4.8. By the time of discharge, creatinine had come down to 0.9. The patient had severe bilateral aspiration pneumonia and by the time of discharge was pulse oxing well on room air. Today I had a lengthy discussion yet again with the patient, her and the son about multiple issues including the importance of keeping the pain medications down. The patient dose of Topamax was cut back, the dose of Neurontin was cut back. Valium was discontinued, baclofen dose was halved, the Elavil was discontinued. MS Contin dose was cut back. The patient had no pain with the Concerta medications. He was seen by Psychiatry who recommended the same. PHYSICAL EXAMINATION: On exam lungs improved air entry. Cardiovascular 1st and 2nd sounds normal. Psych AO x3. Smoking cessation counseling was done especially with the patient and the and several aspects of this was discussed. More than 3 minutes were spent on this. DISCHARGE MEDICATIONS: 1. Celexa 60 mg q.h.s. 2. Zofran 4 mg q.6h p.r.n. 3. Klonopin 1 mg p.o. q.h.s. 4. Vitamin D3 5000 units p.o. daily. 5. Tecfidera 240 mg p.o. b.i.d. 6. Provigil 200 mg p.o. daily. 7. Prilosec 20 mg b.i.d. 8. Estrogen methyltestosterone 1 tab p.o. daily. 9. Augmentin 875 1 tab q.12h 7 days. 10.Baclofen 5 mg p.o. t.i.d. p.r.n., new dose. 11.Neurontin 300 mg q.h.s. new dose. 12.DuoNeb q.i.d. p.r.n. 13.Zestril 5 mg q.h.s. new medication. 14.MS Contin 50 mg q.12 14 tablets new dose. 15.Nicotine patch 21. 16.Topamax 50 mg p.o. t.i.d. new dose. 17.Keppra 750 mg p.o. q.12 new medications. 18.Glucophage 1000 mg p.o. b.i.d. FOLLOW UP: With Dr. Burns on 07/06/17, follow Dr. Esposito in 1 week. Follow up with Dr. Torres 07/04/17. The patient told not to drive until further notice. Accu-Cheks q.a.c. and q.h.s. keep a log. Discharge planning more than [address] Torres. MMROSENDAL / MICHELEN: [id number] /
== END 2017-06-28 16:10 | disposition home or self-care (01) | DRG 917 ==
LOC: EC 03:03 → 6ICU 04:57 → 5MS5E 06-27 14:28
PROVIDERS: ADMIT Hospitalist; ATTEND Hospitalist
PROC: 5A1945Z Respiratory Ventilation, 24-96 Consecutive Hours (ICD-10-PCS; principal; 2017-06-22)
PROC: 0BH18EZ Insertion of Endotracheal Airway into Trachea, Via Natural or Artificial Opening Endoscopic (ICD-10-PCS; principal; 2017-06-22)
DX: T40.601A Poisoning by unspecified narcotics, accidental (unintentional), initial encounter (principal); J96.01 Acute respiratory failure with hypoxia; K72.00 Acute and subacute hepatic failure without coma; J69.0 Pneumonitis due to inhalation of food and vomit; G93.41 Metabolic encephalopathy; E87.4 Mixed disorder of acid-base balance; E83.39 Other disorders of phosphorus metabolism; M62.82 Rhabdomyolysis; E87.0 Hyperosmolality and hypernatremia; N17.9 Acute kidney failure, unspecified; N39.0 Urinary tract infection, site not specified; E11.65 Type 2 diabetes mellitus with hyperglycemia; E87.6 Hypokalemia; F17.200 Nicotine dependence, unspecified, uncomplicated; F32.9 Major depressive disorder, single episode, unspecified; G35 Multiple sclerosis; G40.909 Epilepsy, unspecified, not intractable, without status epilepticus; G89.4 Chronic pain syndrome; Z79.899 Other long term (current) drug therapy; Z82.49 Family history of ischemic heart disease and other diseases of the circulatory system; Z83.3 Family history of diabetes mellitus; Z85.42 Personal history of malignant neoplasm of other parts of uterus; Z90.49 Acquired absence of other specified parts of digestive tract; Z90.710 Acquired absence of both cervix and uterus; R40.2432 Glasgow coma scale score 3-8, at arrival to emergency department; Z79.4 Long term (current) use of insulin; Z79.891 Long term (current) use of opiate analgesic; Z88.1 Allergy status to other antibiotic agents; Z88.8 Allergy status to other drugs, medicaments and biological substances; Z71.6 Tobacco abuse counseling
CPT/HCPCS: 36415; 36600; 70450; 71045; 80048; 80053; 80306; 80320; 81001; 81025; 82550; 82553; 82805; 83036; 83520; 83605; 83735; 84100; 84132; 84484; 85025; 87040; 87070; 87086; 87205; 93005; 93306; 94002; 94003; 94640; 95816; 96365; 96366; 96375; 99291

== ENCOUNTER 2017-11-29 12:23 | Inpatient (IN) | payer OTHER, MEDICARE ==
[2017-11-29 12:34] LABS: Glucose,Whole Blood 125 mg/dL (75-99)
[2017-11-29] MEDS ORDERED: SODIUM CHLORIDE 0.9% 1,000 ML IV ONE ×5 (12:42→20:18)
[2017-11-29] MEDS ORDERED: ACETAMINOPHEN IV (For NPO) 1,000 MG in EMPTY BAG 1 BAG IVPB STA (12:43)
--- NOTE | 2017-11-29 12:47 | ED ---
General Adult HPI - General Chief complaint: Altered Mental Status Stated complaint: Cannot Urinate, dehydrated Time Seen by Provider: 11/29/17 12:25 Source: family, RN notes reviewed Mode of arrival: wheelchair Limitations: no limitations - History of Present Illness Initial comments: This a 52-year-old female with past medical history significant for multiple sclerosis and diabetes. According to the the patient has been having vomiting and diarrhea for the last 4 days and hasn't been drinking or eating. He states last night she was very lethargic but she was still able to sit up with assistance and did not seem to be altered mentally at that time. According to today she is barely arousable when she does open her eyes and looks at him she's not responding to his basic requests and does not even seem to recognize him at times. Patient is unable to give us any history at this time. The history comes from the . states she has had no cough she had no complaints of headache no complaints of chest pain just the diarrhea and vomiting. He now brings her in because of the altered mental status - Related Data Home Medications Medication Instructions Recorded Confirmed Citalopram Hydrobromide [CeleXA] 60 mg PO HS 09/19/13 11/29/17 Dimethyl Fumarate [Tecfidera] 240 mg PO BID 05/27/17 11/29/17 Modafinil [Provigil] 200 mg PO DAILY 05/27/17 11/29/17 Omeprazole [PriLOSEC] 20 mg PO AC-BID 05/27/17 11/29/17 Estrogen,Becky/Me-Testosterone 1 tab PO DAILY 06/22/17 11/29/17 [Estrogen-Methyltestos F.s. Tab] Baclofen [Lioresal] 10 mg PO TID 11/29/17 11/29/17 Gabapentin 600 mg PO HS 11/29/17 11/29/17 Gabapentin [Neurontin] 300 mg PO QAM 11/29/17 11/29/17 INSULIN LISPRO (For Pump) [humaLOG 0.01 units SQ-PUMP CONTINUOUS 11/29/17 (For Pump)] Lisinopril [Zestril] 5 mg PO DAILY 11/29/17 11/29/17 Magnesium Oxide [Mag-Ox] 400 mg PO BID 11/29/17 11/29/17 Morphine Sulfate [Ms Contin] 60 mg PO Q12HR 11/29/17 11/29/17 clonazePAM [Clonazepam] 1 mg PO HS 11/29/17 11/29/17 levETIRAcetam [Keppra] 1,000 mg PO BID 11/29/17 11/29/17 Previous Rx's Medication Instructions Recorded Ipratropium-Albuterol Nebulize 3 ml INHALATION QID PRN 30 Days #3 06/28/17 [Duoneb 0.5 mg-3 mg/3 ml Soln] box Topiramate [Topamax] 50 mg PO TID #60 tab 06/28/17 Allergies Allergy/AdvReac Type Severity Reaction Status Date / Time divalproex sodium Allergy Unknown Verified 11/29/17 14:11 [From Depakote] prochlorperazine edisylate Allergy Unknown Verified 11/29/17 14:11 [From Compazine] prochlorperazine maleate Allergy Unknown Verified 11/29/17 14:11 [From Compazine] vancomycin Allergy Unknown Verified 11/29/17 14:11 steroids AdvReac Confusion Uncoded 05/27/17 17:21 Review of Systems ROS Statement: Those systems with pertinent positive or pertinent negative responses have been documented in the HPI. ROS Other: All systems not noted in ROS Statement are negative. Past Medical History Past Medical History: Diabetes Mellitus, Seizure Disorder Additional Past Medical History / Comment(s): MS, uterine cancer, migraine headaches History of Any Multi-Drug Resistant Organisms: None Reported Past Surgical History: Appendectomy, Cholecystectomy, Hysterectomy, Orthopedic Surgery Additional Past Surgical History / Comment(s): cervical surgery, right ear reconstruction from defect Past Anesthesia/Blood Transfusion Reactions: No Reported Reaction Past Psychological History: Depression Smoking Status: Current every day smoker Past Alcohol Use History: None Reported Past Drug Use History: None Reported - Past Family History Mother Family Medical History: Diabetes Mellitus Brother(s) Family Medical History: Diabetes Mellitus General Exam - General Exam Comments Initial Comments: GENERAL: Patient is well-developed and well-nourished. Patient does not verbally respond to any of my commands and she is opening her eyes and looking around but not responding to her environment at all ENT: Neck is soft and supple. No significant lymphadenopathy is noted. Oropharynx is clear. Dry mucous membranes EYES: The sclera were anicteric and conjunctiva were pink and moist. Extraocular movements were intact and pupils were equal round and reactive to light. Eyelids were unremarkable. PULMONARY: Unlabored respirations. Good breath sounds bilaterally. No audible rales rhonchi or wheezing was noted. CARDIOVASCULAR: Patient is tachycardic at 120 beats a minute. ABDOMEN: Soft and nontender with normal bowel sounds. No palpable organomegaly was noted. There is no palpable pulsatile mass. SKIN: Skin is clear with no lesions or rashes and otherwise unremarkable. NEUROLOGIC: Patient is alert and oriented 0 MUSCULOSKELETAL: Unable to assess LYMPHATICS: No significant lymphadenopathy is noted PSYCHIATRIC: Unable to assess Limitations: no limitations Course Vital Signs 11/29/17 11/29/17 11/29/17 12:29 12:52 12:59 Temperature 100.4 F H Pulse Rate 120 H 108 H 104 H Respiratory 16 16 14 Rate Blood Pressure 80/50 86/52 77/48 O2 Sat by Pulse 89 L 95 Oximetry 11/29/17 11/29/17 11/29/17 13:25 13:34 14:13 Temperature Pulse Rate 117 H 113 H Respiratory 16 28 H 18 Rate Blood Pressure 114/55 121/62 O2 Sat by Pulse 100 100 Oximetry 11/29/17 11/29/17 11/29/17 15:28 15:33 15:42 Temperature Pulse Rate 105 H 120 H Respiratory 10 L 10 L 28 H Rate Blood Pressure 82/43 119/67 O2 Sat by Pulse 100 100 Oximetry Medical Decision Making - Medical Decision Making EKG shows undetermined rhythm at 120 bpm MN interval is 118 QRS is 92 QT interval 356 QTC is 503. Patient's EKG shows no ST segment elevation or depression or T wave abnormalities are noted Patient was given Narcan and her pressure came up immediately and she became more arousable but agitated I spoke with Dr. Milan he wanted the patient dialyzed I spoke with Dr. Gonzalez he will come into the hospital to put a appropriate catheter in place. I spoke with Dr. Garcia and he accepted the patient to the ICU. I started the patient on IV D5W drip with 3 A of bicarb. This was after 2 L of normal saline. - Lab Data Result diagrams: 11/29/17 12:37 11/29/17 12:37 Lab Results 08/29/18 08/29/18 08/29/18 Range/Units 12:30 12:37 12:37 WBC (3.8-10.6) k/uL RBC (3.80-5.40) m/uL Hgb (11.4-16.0) gm/dL Hct (34.0-46.0) % MCV (80.0-100.0) fL MCH (25.0-35.0) pg MCHC (31.0-37.0) g/dL RDW (11.5-15.5) % Plt Count (150-450) k/uL Neutrophils % % Lymphocytes % % Monocytes % % Eosinophils % % Basophils % % Neutrophils # (1.3-7.7) k/uL Lymphocytes # (1.0-4.8) k/uL Monocytes # (0-1.0) k/uL Eosinophils # (0-0.7) k/uL Basophils # (0-0.2) k/uL Manual Slide Review Toxic Granulation RBC Morphology PT (9.0-12.0) sec INR (<1.2) APTT (22.0-30.0) sec Sodium (137-145) mmol/L Potassium (3.5-5.1) mmol/L Chloride (98-107) mmol/L Carbon Dioxide (22-30) mmol/L Anion Gap mmol/L BUN (7-17) mg/dL Creatinine (0.52-1.04) mg/dL Est GFR (CKD-EPI)AfAm (>60 ml/min/1.73 sqM) Est GFR (CKD-EPI)NonAf (>60 ml/min/1.73 sqM) Glucose (74-99) mg/dL POC Glucose (mg/dL) 125 H (75-99) mg/dL POC Glu Billing Specialist ID Jose Sigala Plasma Lactic Acid Arturo 0.9 (0.7-2.0) mmol/L Calcium (8.4-10.2) mg/dL Total Bilirubin (0.2-1.3) mg/dL AST (14-36) U/L ALT (9-52) U/L Alkaline Phosphatase (38-126) U/L Ammonia 40 H (<30) umol/L Total Creatine Kinase 94006 H (30-135) U/L CK-MB (CK-2) 64.9 H* (0.0-2.4) ng/mL CK-MB (CK-2) Rel Index Troponin I <0.012 (0.000-0.034) ng/mL Total Protein (6.3-8.2) g/dL Albumin (3.5-5.0) g/dL Urine Color Urine Appearance (Clear) Urine pH (5.0-8.0) Ur Specific [place] (1.001-1.035) Urine Protein (Negative) Urine Glucose (UA) (Negative) Urine Ketones (Negative) Urine Blood (Negative) Urine Nitrite (Negative) Urine Bilirubin (Negative) Urine Urobilinogen (<2.0) mg/dL Ur Leukocyte Esterase (Negative) Urine RBC (0-5) /hpf Urine WBC (0-5) /hpf Urine Mucus (None) /hpf Urine Opiates Screen (NotDetected) Ur Oxycodone Screen (NotDetected) Urine Methadone Screen (NotDetected) Ur Propoxyphene Screen (NotDetected) Ur Barbiturates Screen (NotDetected) U Tricyclic Antidepress (NotDetected) Ur Phencyclidine Scrn (NotDetected) Ur Amphetamines Screen (NotDetected) U Methamphetamines Scrn (NotDetected) U Benzodiazepines Scrn (NotDetected) Urine Cocaine Screen (NotDetected) U Marijuana (THC) Screen (NotDetected) 11/29/17 11/29/17 11/29/17 Range/Units 12:37 12:37 12:37 WBC 25.3 H* (3.8-10.6) k/uL RBC 3.98 (3.80-5.40) m/uL Hgb 11.6 (11.4-16.0) gm/dL Hct 35.9 (34.0-46.0) % MCV 90.2 (80.0-100.0) fL MCH 29.1 (25.0-35.0) pg MCHC 32.3 (31.0-37.0) g/dL RDW 14.1 (11.5-15.5) % Plt Count 250 (150-450) k/uL Neutrophils % 86 % Lymphocytes % 8 % Monocytes % 3 % Eosinophils % 1 % Basophils % 0 % Neutrophils # 21.8 H (1.3-7.7) k/uL Lymphocytes # 1.9 (1.0-4.8) k/uL Monocytes # 0.8 (0-1.0) k/uL Eosinophils # 0.3 (0-0.7) k/uL Basophils # 0.1 (0-0.2) k/uL Manual Slide Review Performed Toxic Granulation Present RBC Morphology Normal PT 9.3 (9.0-12.0) sec INR 0.9 (<1.2) APTT 24.6 (22.0-30.0) sec Sodium 132 L (137-145) mmol/L Potassium 4.6 (3.5-5.1) mmol/L Chloride 94 L (98-107) mmol/L Carbon Dioxide 15 L (22-30) mmol/L Anion Gap 23 mmol/L BUN 88 H* (7-17) mg/dL Creatinine 9.75 H* (0.52-1.04) mg/dL Est GFR (CKD-EPI)AfAm 5 (>60 ml/min/1.73 sqM) Est GFR (CKD-EPI)NonAf 4 (>60 ml/min/1.73 sqM) Glucose 110 H (74-99) mg/dL POC Glucose (mg/dL) (75-99) mg/dL POC Glu Billing Specialist ID Plasma Lactic Acid Arturo (0.7-2.0) mmol/L Calcium 8.2 L (8.4-10.2) mg/dL Total Bilirubin 0.8 (0.2-1.3) mg/dL AST 205 H (14-36) U/L ALT 92 H (9-52) U/L Alkaline Phosphatase 93 (38-126) U/L Ammonia (<30) umol/L Total Creatine Kinase (30-135) U/L CK-MB (CK-2) (0.0-2.4) ng/mL CK-MB (CK-2) Rel Index Troponin I (0.000-0.034) ng/mL Total Protein 6.6 (6.3-8.2) g/dL Albumin 3.8 (3.5-5.0) g/dL Urine Color Urine Appearance (Clear) Urine pH (5.0-8.0) Ur Specific [place] (1.001-1.035) Urine Protein (Negative) Urine Glucose (UA) (Negative) Urine Ketones (Negative) Urine Blood (Negative) Urine Nitrite (Negative) Urine Bilirubin (Negative) Urine Urobilinogen (<2.0) mg/dL Ur Leukocyte Esterase (Negative) Urine RBC (0-5) /hpf Urine WBC (0-5) /hpf Urine Mucus (None) /hpf Urine Opiates Screen (NotDetected) Ur Oxycodone Screen (NotDetected) Urine Methadone Screen (NotDetected) Ur Propoxyphene Screen (NotDetected) Ur Barbiturates Screen (NotDetected) U Tricyclic Antidepress (NotDetected) Ur Phencyclidine Scrn (NotDetected) Ur Amphetamines Screen (NotDetected) U Methamphetamines Scrn (NotDetected) U Benzodiazepines Scrn (NotDetected) Urine Cocaine Screen (NotDetected) U Marijuana (THC) Screen (NotDetected) 11/29/17 Range/Units 12:56 WBC (3.8-10.6) k/uL RBC (3.80-5.40) m/uL Hgb (11.4-16.0) gm/dL Hct (34.0-46.0) % MCV (80.0-100.0) fL MCH (25.0-35.0) pg MCHC (31.0-37.0) g/dL RDW (11.5-15.5) % Plt Count (150-450) k/uL Neutrophils % % Lymphocytes % % Monocytes % % Eosinophils % % Basophils % % Neutrophils # (1.3-7.7) k/uL Lymphocytes # (1.0-4.8) k/uL Monocytes # (0-1.0) k/uL Eosinophils # (0-0.7) k/uL Basophils # (0-0.2) k/uL Manual Slide Review Toxic Granulation RBC Morphology PT (9.0-12.0) sec INR (<1.2) APTT (22.0-30.0) sec Sodium (137-145) mmol/L Potassium (3.5-5.1) mmol/L Chloride (98-107) mmol/L Carbon Dioxide (22-30) mmol/L Anion Gap mmol/L BUN (7-17) mg/dL Creatinine (0.52-1.04) mg/dL Est GFR (CKD-EPI)AfAm (>60 ml/min/1.73 sqM) Est GFR (CKD-EPI)NonAf (>60 ml/min/1.73 sqM) Glucose (74-99) mg/dL POC Glucose (mg/dL) (75-99) mg/dL POC Glu Billing Specialist ID Plasma Lactic Acid Arturo (0.7-2.0) mmol/L Calcium (8.4-10.2) mg/dL Total Bilirubin (0.2-1.3) mg/dL AST (14-36) U/L ALT (9-52) U/L Alkaline Phosphatase (38-126) U/L Ammonia (<30) umol/L Total Creatine Kinase (30-135) U/L CK-MB (CK-2) (0.0-2.4) ng/mL CK-MB (CK-2) Rel Index Troponin I (0.000-0.034) ng/mL Total Protein (6.3-8.2) g/dL Albumin (3.5-5.0) g/dL Urine Color Yellow Urine Appearance Clear (Clear) Urine pH 5.0 (5.0-8.0) Ur Specific [place] 1.014 (1.001-1.035) Urine Protein Trace H (Negative) Urine Glucose (UA) Negative (Negative) Urine Ketones Negative (Negative) Urine Blood Negative (Negative) Urine Nitrite Negative (Negative) Urine Bilirubin Negative (Negative) Urine Urobilinogen <2.0 (<2.0) mg/dL Ur Leukocyte Esterase Small H (Negative) Urine RBC <1 (0-5) /hpf Urine WBC 3 (0-5) /hpf Urine Mucus Rare H (None) /hpf Urine Opiates Screen Detected H (NotDetected) Ur Oxycodone Screen Not Detected (NotDetected) Urine Methadone Screen Not Detected (NotDetected) Ur Propoxyphene Screen Not Detected (NotDetected) Ur Barbiturates Screen Not Detected (NotDetected) U Tricyclic Antidepress Not Detected (NotDetected) Ur Phencyclidine Scrn Not Detected (NotDetected) Ur Amphetamines Screen Not Detected (NotDetected) U Methamphetamines Scrn Not Detected (NotDetected) U Benzodiazepines Scrn Detected H (NotDetected) Urine Cocaine Screen Not Detected (NotDetected) U Marijuana (THC) Screen Not Detected (NotDetected) Critical Care Time Critical Care Time: Yes Total Critical Care Time: 35 Disposition Clinical Impression: Gastroenteritis, Acute renal failure, Rhabdomyolysis, Altered mental status, Fever Disposition: ADMITTED IP TO THIS [facility] Time of Disposition: 14:27
[2017-11-29 12:59] LABS: Basophils # (A) 0.1 k/uL (0-0.2); Basophils % (A) 0 %; Eosinophils # (A) 0.3 k/uL (0-0.7); Eosinophils % (A) 1 %; HCT 35.9 % (34.0-46.0); HGB 11.6 gm/dL (11.4-16.0); Lymphocytes # (A) 1.9 k/uL (1.0-4.8); Lymphocytes % (A) 8 %; MCH 29.1 pg (25.0-35.0); MCHC 32.3 g/dL (31.0-37.0); MCV 90.2 fL (80.0-100.0); Monocytes # (A) 0.8 k/uL (0-1.0); Monocytes % (A) 3 %; Neutrophils # (A) 21.8 k/uL (1.3-7.7); Neutrophils % (A) 86 %; Platelet Count 250 k/uL (150-450); RBC 3.98 m/uL (3.80-5.40); RDW 14.1 % (11.5-15.5)
[2017-11-29 13:05] LABS: Appearance,Urine Clear (Clear); Bilirubin,Urine Negative (Negative); Blood,Urine Negative (Negative); Color,Urine Yellow; Glucose,Urine (UA) Negative (Negative); Ketones,Urine Negative (Negative); Leukocyte Esterase,Urine Small (Negative); Mucus,Urine Rare /hpf; Nitrite,Urine Negative (Negative); Protein,Urine Trace (Negative); RBC,Urine <1 /hpf (0-5); Specific Gravity,Urine 1.014 (1.001-1.035); Urobilinogen,Urine <2.0 mg/dL (<2.0); WBC,Urine 3 /hpf (0-5)
[2017-11-29 13:08] LABS: INR 0.9 (<1.2); Partial Thromboplastin Time 24.6 sec (22.0-30.0); Prothrombin Time 9.3 sec (9.0-12.0)
[2017-11-29 13:10] LABS: Lactic Acid, Venous 0.9 mmol/L (0.7-2.0)
[2017-11-29 13:12] LABS: Albumin 3.8 g/dL (3.5-5.0); Calcium 8.2 mg/dL (8.4-10.2); Potassium 4.6 mmol/L (3.5-5.1); Total Bilirubin 0.8 mg/dL (0.2-1.3); Total Protein 6.6 g/dL (6.3-8.2)
[2017-11-29 13:14] LABS: Amphetamine Screen,Urine Not Detected (NotDetected); Barbiturate Screen,Urine Not Detected (NotDetected); Benzodiazepines Screen,Urine Detected (NotDetected); Cocaine Screen,Urine Not Detected (NotDetected); Methadone Screen, Urine Not Detected (NotDetected); Opiate Screen,Urine Detected (NotDetected); Oxycodone Screen, Urine Not Detected (NotDetected); Phencyclidine Screen,Urine Not Detected (NotDetected); Tricyclic Antidepressant,Urine Not Detected (NotDetected); Urn Cannabinoid Scrn Not Detected (NotDetected)
[2017-11-29 13:22] LABS: Toxic Granulation Present
[2017-11-29 13:25] LABS: WBC 25.3 k/uL (3.8-10.6)
[2017-11-29] MEDS: NALOXONE 0.4 MG/ML 10 ML VIAL IVP STA ×2 (13:25→15:32)
--- NOTE | 2017-11-29 13:29 | XR ---
EXAMINATION TYPE: XR chest 1V portable DATE OF EXAM: 11/29/2017 HISTORY: Shortness of breath. COMPARISON: 06/27/2017 TECHNIQUE: Single view of the chest is submitted. FINDINGS: Demonstrated are scattered senescent parenchymal change. There appears to be chronic pulmonary venous decompensation without overt failure. The heart is stable. Hilar and mediastinal structures are within normal limits. Degenerative changes are seen of the dorsal spine. IMPRESSION: 1. There appears to be chronic pulmonary venous decompensation without overt failure.
[2017-11-29 13:32] LABS: Troponin I <0.012 ng/mL (0.000-0.034)
[2017-11-29] MEDS ORDERED: cefTRIAXone 2,000 MG in SODIUM CHLORIDE 0.9% 100 ML IVPB STA (13:40)
[2017-11-29] MEDS ORDERED: cefTRIAXone IN SWFI 2,000 MG/20 ML SYRINGE IVP STA (13:43)
[2017-11-29 13:59] LABS: Creatine Kinase 10512 U/L (30-135)
[2017-11-29 14:07] LABS: Creatine Kinase MB 64.9 ng/mL (0.0-2.4)
[2017-11-29] MEDS ORDERED: SODIUM BICARB IV ONE (14:20)
[2017-11-29] MEDS ORDERED: DEXTROSE 5% IV ONE (14:20)
[2017-11-29] MEDS ORDERED: WATER IV ONE (14:20)
--- NOTE | 2017-11-29 14:28 | CT ---
EXAMINATION TYPE: CT brain wo con DATE OF EXAM: 11/29/2017 COMPARISON: 06/22/2017 HISTORY: Altered mental status. CT DLP: [address] of the brain was performed. The ventricles, basal cisterns and sulci overlying the cerebral convexities demonstrate mild enlargem ent. There is no evidence for intracranial hemorrhage or sulcal effacement. There is decreased attenuation about the periventricular white matter and deep white matter of both c erebral hemispheres, compatible with chronic small vessel ischemia. Differential diagnosis does inclu de demyelination. No mass effects are seen.No midline shift. Osseous calvarium is intact. If symptoms persist consider MRI. IMPRESSION: 1. Age related atrophic and chronic small vessel ischemic change without acute intracranial process s een at this time.
[2017-11-29] MEDS ORDERED: NALOXONE 0.4 MG/ML 1 ML VIAL IV PRN (14:31)
[2017-11-29] MEDS ORDERED: NALOXONE 0.4 MG/ML 10 ML VIAL IVP STA (15:45)
[2017-11-29 16:11] LABS: Glucose,Whole Blood 173 mg/dL (75-99)
[2017-11-29 16:34] LABS: ABG Base Excess -8.5 mmol/L; ABG HCO3 19 mmol/L (21-25); ABG Oxygen Saturation 99.6 % (94-97); ABG PCO2 43 mmHg (35-45); ABG PH 7.25 (7.35-7.45); ABG PO2 165 mmHg (83-108); ABG TCO2 20 mmol/L (19-24)
--- NOTE | 2017-11-29 16:38 | P.CNPUL ---
History of Present Illness Consult date: 11/29/17 Requesting physician: Ant Lacey Reason for consult: other (Critical care management) Chief complaint: Altered mental status History of present illness: This is a 52-year-old female patient who follows with Dr. Torres as her primary care physician. She has a history of diabetes mellitus, seizure disorder, multiple sclerosis, uterine cancer status post surgery, migraines. She also has a history of acute hypoxic respiratory failure requiring intubation and mechanical ventilatory support secondary to drug overdose. At that time her urine was positive for opiates, oxycodone and benzodiazepines. She was seen by our group at that time in June 2017. The last 3 or 4 days the patient's states she had been having vomiting and diarrhea and poor appetite. This morning her found her to be barely arousable, opening her eyes but not looking directly at him and not responding to his questions. She was brought here to the emergency room for the same. Computed tomography scan of the brain revealed age-related atrophic and chronic vessel ischemic changes without acute intracranial process. Chest x-ray reveals some chronic pulmonary venous decompensation without acute failure. Lab results reveal a white count of 25.3. Hemoglobin 11.6. Sodium 132, potassium 4.6, chloride 94, bicarb 15. BUN of 88 and a creatinine of 9.75. CPK level 10,512, MB 64.9, ammonia 40. Urine drug screen positive for opiates and benzodiazepines. She is seen on arrival to the intensive care unit. She is currently awake and alert. Answering questions appropriately. Somewhat slow to respond. She is denying any pain currently. No shortness of breath. She is maintaining good O2 saturations up to 100% on 2 L/m per nasal cannula. He did have 2 L of fluid resuscitation. Currently receiving a bicarb drip at 100 ML's per hour. Somewhat tachycardic. A Christy catheter was inserted with immediate 900 mL returned. Review of Systems Constitutional: Reports malaise, Reports poor appetite, Reports weakness Eyes: denies blurred vision, denies decreased vision Ears: deny: decreased hearing Ears, nose, mouth and throat: Denies headache, Denies sore throat Cardiovascular: Denies chest pain, Denies shortness of breath Respiratory: Denies cough Gastrointestinal: Denies abdominal pain, Denies diarrhea, Denies nausea, Denies vomiting Genitourinary: Reports difficulty voiding Musculoskeletal: Denies myalgias Integumentary: Denies pruritus, Denies rash Neurological: Denies numbness, Denies weakness Psychiatric: Reports anxiety Endocrine: Denies fatigue, Denies weight change Hematologic/Lymphatic: Reports as per HPI Allergic/Immunologic: Reports as per HPI Past Medical History Past Medical History: Diabetes Mellitus, Seizure Disorder Additional Past Medical History / Comment(s): MS, uterine cancer, migraine headaches History of Any Multi-Drug Resistant Organisms: None Reported Past Surgical History: Appendectomy, Cholecystectomy, Hysterectomy, Orthopedic Surgery Additional Past Surgical History / Comment(s): cervical surgery, right ear reconstruction from defect Past Anesthesia/Blood Transfusion Reactions: No Reported Reaction Past Psychological History: Depression Smoking Status: Current every day smoker Past Alcohol Use History: None Reported Past Drug Use History: None Reported - Past Family History Mother Family Medical History: Diabetes Mellitus Brother(s) Family Medical History: Diabetes Mellitus Medications and Allergies Home Medications Medication Instructions Recorded Confirmed Type Citalopram Hydrobromide [CeleXA] 60 mg PO HS 09/19/13 11/29/17 History Dimethyl Fumarate [Tecfidera] 240 mg PO BID 05/27/17 11/29/17 History Modafinil [Provigil] 200 mg PO DAILY 05/27/17 11/29/17 History Omeprazole [PriLOSEC] 20 mg PO AC-BID 05/27/17 11/29/17 History Estrogen,Becky/Me-Testosterone 1 tab PO DAILY 06/22/17 11/29/17 History [Estrogen-Methyltestos F.s. Tab] Ipratropium-Albuterol Nebulize 3 ml INHALATION QID PRN 30 Days #3 06/28/1711/29 Rx [Duoneb 0.5 mg-3 mg/3 ml Soln] box Topiramate [Topamax] 50 mg PO TID #60 tab 06/28/17 11/29/17 Rx Baclofen [Lioresal] 10 mg PO TID 11/29/17 11/29/17 History Gabapentin 600 mg PO HS 11/29/17 11/29/17 History Gabapentin [Neurontin] 300 mg PO QAM 11/29/17 11/29/17 History INSULIN LISPRO (For Pump) [humaLOG 0.01 units SQ-PUMP CONTINUOUS 11/29/17 History (For Pump)] Lisinopril [Zestril] 5 mg PO DAILY 11/29/17 11/29/17 History Magnesium Oxide [Mag-Ox] 400 mg PO BID 11/29/17 11/29/17 History Morphine Sulfate [Ms Contin] 60 mg PO Q12HR 11/29/17 11/29/17 History clonazePAM [Clonazepam] 1 mg PO HS 11/29/17 11/29/17 History levETIRAcetam [Keppra] 1,000 mg PO BID 11/29/17 11/29/17 History Allergies Allergy/AdvReac Type Severity Reaction Status Date / Time divalproex sodium Allergy Unknown Verified 11/29/17 14:11 [From Depakote] prochlorperazine edisylate Allergy Unknown Verified 11/29/17 14:11 [From Compazine] prochlorperazine maleate Allergy Unknown Verified 11/29/17 14:11 [From Compazine] vancomycin Allergy Unknown Verified 11/29/17 14:11 steroids AdvReac Confusion Uncoded 05/27/17 17:21 Physical Exam Vitals: Vital Signs Temp Pulse Resp BP Pulse Ox 11/29/17 15:42 120 H 28 H 119/67 100 11/29/17 15:33 10 L 11/29/17 15:28 105 H 10 L 82/43 100 11/29/17 14:13 113 H 18 121/62 100 11/29/17 13:34 117 H 28 H 114/55 100 11/29/17 13:25 16 11/29/17 12:59 104 H 14 77/48 95 11/29/17 12:52 108 H 16 86/52 89 L 11/29/17 12:29 100.4 F H 120 H 16 80/50 Intake and Output 11/29/17 11/29/17 11/29/17 06:59 14:59 22:59 Other: Weight 99.79 kg 87 kg Results - Laboratory Findings CBC and BMP: 11/29/17 12:37 11/29/17 12:37 PT/INR, D-dimer PT 9.3 sec (9.0-12.0) 11/29/17 12:37 INR 0.9 (<1.2) 11/29/17 12:37 Abnormal lab findings: Abnormal Labs 11/29/17 11/29/17 11/29/17 12:30 12:37 12:37 WBC Neutrophils # Sodium Chloride Carbon Dioxide BUN Creatinine Glucose POC Glucose (mg/dL) 125 H Calcium AST ALT Ammonia 40 H Total Creatine Kinase 50936 H CK-MB (CK-2) 64.9 H* Urine Protein Ur Leukocyte Esterase Urine Mucus Urine Opiates Screen U Benzodiazepines Scrn 11/29/17 11/29/17 11/29/17 12:37 12:37 12:56 WBC 25.3 H* Neutrophils # 21.8 H Sodium 132 L Chloride 94 L Carbon Dioxide 15 L BUN 88 H* Creatinine 9.75 H* Glucose 110 H POC Glucose (mg/dL) Calcium 8.2 L AST 205 H ALT 92 H Ammonia Total Creatine Kinase CK-MB (CK-2) Urine Protein Trace H Ur Leukocyte Esterase Small H Urine Mucus Rare H Urine Opiates Screen Detected H U Benzodiazepines Scrn Detected H 11/29/17 16:09 WBC Neutrophils # Sodium Chloride Carbon Dioxide BUN Creatinine Glucose POC Glucose (mg/dL) 173 H Calcium AST ALT Ammonia Total Creatine Kinase CK-MB (CK-2) Urine Protein Ur Leukocyte Esterase Urine Mucus Urine Opiates Screen U Benzodiazepines Scrn - Diagnostic Findings Chest x-ray: image reviewed Assessment and Plan Assessment: Impression: #1 Altered mental status of unclear etiology suspect secondary to narcotic overdose including opiates and benzodiazepines. #2 Acute renal failure with presenting creatinine of 9.75. #3 Acute rhabdomyolysis secondary to above. #4 Acute metabolic acidosis acidosis #5 Acute leukocytosis. #6 Elevated LFTs. #7 Elevated ammonia level. #8 Multiple sclerosis. #9 Chronic pain syndrome. #10 Diabetes mellitus. #11 History of seizures. #12 History of migraines. #13 History of uterine cancer with previous surgery. #14 History of chronic tobacco dependence. Plan: The patient was seen and evaluated by Dr. Garcia. The plan is for urgent hemodialysis catheter insertion followed by hemodialysis. Continue bicarb drip at 100 ML's per hour. Obtain arterial blood gases. Initiate heparin for DVT prophylaxis. Protonix for GI prophylaxis. We'll continue to monitor her here closely in the intensive care unit. We will continue to follow and make further recommendations based on her clinical status. I, the cosigning physician, performed a history & physical examination of the patient. Lungs sounds with few scattered rhonchi. Maintaining good O2 saturations in the 90s on 2 L/m per nasal cannula. I discussed the assessment and plan of care with my nurse practitioner, Flora Overton. I attest to the above note as dictated by her. Time with Patient: Greater than 30
[2017-11-29] MEDS: PANTOPRAZOLE 40 MG/10 ML VIAL IVP SCH (18:17)
--- NOTE | 2017-11-29 18:30 | OP ---
OPERATIVE REPORT PREOPERATIVE DIAGNOSIS: Acute renal failure. PROCEDURE: Placement of a dialysis catheter, right femoral approach. The patient was seen in the intensive care unit. Right groin was prepped and draped in usual sterile manner. Lidocaine 1% was infiltrated in the right groin. Micropuncture in right common femoral vein and micropuncture guide was passed and 4-Swedish dilator was advanced on top of the guidewire. After that we passed a regular guidewire and then we passed a dilator. Then we placed a dialysis catheter on top of the guidewire. There was a good flow noted in both venous and arterial sides of the catheter. Flushed with heparin saline and hep-locked. Secured with 3-0 Vicryl dressing applied. Patient tolerated the procedure well. MMODL / IJN: [id number] /
[2017-11-29] MEDS ORDERED: NOREPINEPHRINE 4 MG in SODIUM CHLORIDE 0.9% 250 ML IV SCH (19:00)
[2017-11-29 19:25] LABS: Calcium 7.3 mg/dL (8.4-10.2); Potassium 4.3 mmol/L (3.5-5.1)
[2017-11-29 19:36] LABS: Glucose,Whole Blood 232 mg/dL (75-99)
[2017-11-29] MEDS: INSULIN ASPART 100 UNIT/ML 1 ML 10 ML VIAL SQ SCH (19:36)
[2017-11-29] MEDS ORDERED: IPRATROPIUM-ALBUTEROL 3 ML NEB INHALATION PRN (20:18)
[2017-11-29] MEDS ORDERED: INSULIN LISPRO (For Pump) 100 UNIT/ML VIAL SQ-PUMP SCH (20:30)
[2017-11-29] MEDS ORDERED: levETIRAcetam 500 MG TAB PO SCH (21:00)
--- NOTE | 2017-11-29 21:18 | HP ---
HISTORY AND PHYSICAL DATE OF ADMISSION: 11/29/2017. DATE OF SERVICE: 11/29/2017 PRESENTING COMPLAINT: Lethargic. HISTORY OF PRESENTING COMPLAINT: This is a 52-year-old patient whose chronic stable medical conditions include seizure disorder, depression, chronic pain syndrome, multiple sclerosis, diabetes mellitus type 2. The patient lives with her . The patient follows with Dr. Torres. The patient was here in June of this year when she was intubated. At that time, she had bilateral aspiration pneumonia and marked metabolic encephalopathy from multiple medications for the last 3 days. The patient is becoming gradually more and more lethargic, also having multiple nausea and vomiting. The patient's is the one who provides the history at the bedside. He states he keeps medications under lock and vicente and is the one who gives the pain medications to the patient. The patient's BUN/creatinine was 88/9.75 on presentation. The patient's renal function was normal when she had left from here in June last year. The patient was started on a bicarbonate drip and also Levophed. There were no fever or chills reported at home. The patient was given Narcan in the ER and is just about arousable, but really cannot talk. REVIEW OF SYSTEMS: See above. Patient not able to communicate. At home, the patient does use a cane to get about and like stated, was having severe nausea, vomiting and diarrhea at home. PAST MEDICAL HISTORY: Diabetes mellitus type 2, seizure disorder, MS, uterine cancer, migraine headaches, chronic pain syndrome. PAST SURGICAL HISTORY: Appendectomy, cholecystectomy, hysterectomy, cervical surgery, right ear reconstruction from defect. SOCIAL HISTORY: , smoking half a pack a day for many years. No alcohol. FAMILY HISTORY: Diabetes. HOME MEDICATIONS: 1. Potassium 99 mEq p.o. daily. 2. Celexa 60 mg p.o. daily. 3. Keppra 1000 mg p.o. b.i.d. 4. Clonazepam 1 mg at bedtime. 5. Topamax 50 mg p.o. t.i.d. 6. Prilosec 20 mg p.o. b.i.d. 7. MS Contin 60 mg p.o. q.12. 8. Provigil 200 mg p.o. daily. 9. Magnesium oxide 400 mg p.o. b.i.d. 10.Zestril 5 mg p.o. daily. 11.DuoNeb 3 mL q.i.d. p.r.n. 12.Insulin pump. 13.Neurontin 300 mg p.o. daily. 14.Gabapentin 600 mg q.h.s. 15.Tecfidera 240 mg b.i.d. 16.Baclofen 10 mg p.o. t.i.d. ALLERGIES: To DEPAKOTE, COMPAZINE VANCOMYCIN STEROIDS. EXAMINATION: VITAL SIGNS: On presentation, temperature 100.4, pulse 120, respirations 16, blood pressure 80/58, pulse ox 89% on 2L. GENERAL APPEARANCE: Well-built, BMI 34. Lying in bed; lethargic, but arousable. EYES: Pupils equal. Conjunctivae normal. Reported to be pinpoint in the ER. HEENT: External nose and ears normal. Oral cavity dry. NECK: JVD unable to assess. Mass not palpable. RESPIRATORY: Effort decreased. LUNGS: Diminished breath sounds. CARDIOVASCULAR: First and second sounds normal. No edema. ABDOMEN: Soft, nontender. Liver and spleen not palpable. LYMPHATIC: No lymph node palpable in neck or axillae. PSYCHIATRY: Unable to assess. NEUROLOGICAL: Patient is arousable, but dozes off. No facial asymmetry. Plantars are downgoing. INVESTIGATIONS: White count 25.3, hemoglobin 11.6. Blood gas showed pH of 7.25 and PO2 165. Potassium 4.6, BUN 88, creatinine 9.75. AST 205, ALT 92. CPK 10,512. Urine drug screen positive for opiates and benzodiazepine. EKG shows sinus tachycardia. Chest x-ray film interpreted by me shows possible patchy infiltrate. CT scan of the brain unremarkable. ASSESSMENT: 1. Acute bilateral aspiration pneumonia due to altered mental status, could be chemical pneumonitis. 2. Acute severe metabolic encephalopathy from multiple medications, including pain medications and also the patient being on Neurontin in the setting of renal failure. 3. Acute severe renal failure, could be combination of acute tubular necrosis and prerenal from severe nausea, vomiting, diarrhea and patient being on angiotensin- converting enzyme inhibitor. 4. Chronic pain syndrome. Patient is on multiple pain medications. 5. Multiple sclerosis. Patient at baseline uses a cane. 6. Acute rhabdomyolysis. 7. Acute possibly metabolic and respiratory acidosis. 8. Acute ischemic hepatitis. 9. Depression, not otherwise specified. 10.Hypotensive shock, probably from severe volume depletion, requiring pressure support. PLAN: The patient is on a bicarbonate drip at 150 mL an hour, also on a Levophed drip. The patient's Topamax and Keppra have been resumed. Will hold off the other medications, including clonazepam, MS Contin, Provigil, Zestril, Neurontin and the baclofen. DVT prophylaxis will be carried on. Dr. Garcia was consulted from critical care and Dr. Gonzalez was consulted for dialysis catheter placement for emergent dialysis. Will add Zosyn for the aspiration pneumonia. Care was discussed with the at the bedside. MMODL / IJN: [id number] /
[2017-11-29] MEDS ORDERED: TOPIRAMATE 25 MG TAB PO SCH (22:00)
[2017-11-29] MEDS: PIPERACILLIN-TAZOBACTAM 3.375 GM in DEXTROSE/WATER 1 50ML.BAG IVPB SCH (22:10)
[2017-11-29] MEDS: TOPIRAMATE 25 MG TAB PO SCH (22:12)
[2017-11-29] MEDS: Dimethyl Fumarate [Tecfidera] 240 MG PO SCH (22:12)
[2017-11-29] MEDS: levETIRAcetam 500 MG TAB PO SCH (22:15)
[2017-11-30 00:07] LABS: Glucose,Whole Blood 178 mg/dL (75-99)
[2017-11-30] MEDS: HEPARIN SODIUM,PORCINE 5,000 UNIT/ML 1 ML VIAL SQ SCH ×4 (02:48→23:12)
[2017-11-30 02:56] LABS: Glucose,Whole Blood 235 mg/dL (75-99)
[2017-11-30] MEDS: INSULIN ASPART 100 UNIT/ML 1 ML 10 ML VIAL SQ SCH ×5 (03:09→23:12)
[2017-11-30 03:44] LABS: Hemoglobin A1C 6.1 % (4.0-6.0)
[2017-11-30 05:18] LABS: Hepatitis B Core IgM Non-Reactive (Non-Reactive)
[2017-11-30 07:13] LABS: Glucose,Whole Blood 260 mg/dL (75-99)
[2017-11-30 07:28] LABS: Albumin 2.7 g/dL (3.5-5.0); Calcium 8.1 mg/dL (8.4-10.2); Magnesium 1.8 mg/dL (1.6-2.3); Phosphorus 2.4 mg/dL (2.5-4.5); Potassium 3.8 mmol/L (3.5-5.1); Total Bilirubin 0.7 mg/dL (0.2-1.3); Total Protein 5.2 g/dL (6.3-8.2)
[2017-11-30 07:30] LABS: Basophils % (A) 0 %; Eosinophils % (A) 0 %; HCT 31.6 % (34.0-46.0); HGB 10.2 gm/dL (11.4-16.0); Lymphocytes # (A) 0.7 k/uL (1.0-4.8); Lymphocytes % (A) 7 %; MCH 29.3 pg (25.0-35.0); MCHC 32.4 g/dL (31.0-37.0); MCV 90.5 fL (80.0-100.0); Monocytes # (A) 0.4 k/uL (0-1.0); Monocytes % (A) 5 %; Neutrophils # (A) 8.1 k/uL (1.3-7.7); Neutrophils % (A) 86 %; Platelet Count 165 k/uL (150-450); RBC 3.49 m/uL (3.80-5.40); WBC 9.5 k/uL (3.8-10.6)
[2017-11-30] MEDS ORDERED: NON-FORMULARY DRUG (Omeprazole 20 MG) PO SCH (07:30)
[2017-11-30] MEDS: PIPERACILLIN-TAZOBACTAM 3.375 GM in DEXTROSE/WATER 1 50ML.BAG IVPB SCH ×2 (08:04→21:18)
[2017-11-30] MEDS: PANTOPRAZOLE 40 MG/10 ML VIAL IVP SCH (08:04)
[2017-11-30] MEDS: levETIRAcetam 500 MG TAB PO SCH ×2 (08:04→21:30)
[2017-11-30] MEDS: TOPIRAMATE 25 MG TAB PO SCH ×3 (08:05→21:18)
[2017-11-30] MEDS: Dimethyl Fumarate [Tecfidera] 240 MG PO SCH ×2 (08:07→21:14)
[2017-11-30] MEDS: SODIUM CHLORIDE 0.9% 1,000 ML IV SCH (09:30)
--- NOTE | 2017-11-30 09:32 | P.NPCON ---
History of Present Illness - Reason for Consult acute renal failure - History of Present Illness Reason for consultation: Acute kidney injury History of present illness: Patient is a 52-year-old female seen in renal consultation for acute kidney injury. Her baseline creatinine is 1 and was elevated at 9.25 on admission. Patient's blood pressure was in the systolic 70s on admission. She did receive 5 L of normal saline bolus in the ER and her blood pressure this morning is in the systolic 130s. She is nonoliguric. Patient presented to hospital with nausea and vomiting along with diarrhea going on for the last 4 days. Her oral intake was poor and she was unable to keep anything down. Patient is not a very reliable historian at this time. I don't see any nonsteroidals and her home medications but she was on lisinopril which is currently held. Vomiting and diarrhea seems to have resolved. Hemodynamically she stable. She does have history of diabetes mellitus as well as multiple sclerosis. Brain CT was negative for any acute changes. Vital signs are stable. General: The patient appeared well nourished and normally developed. HEENT: Head exam is unremarkable. Neck is without jugular venous distension. LUNGS: Lungs are clear to auscultation and percussion. Breath sounds decreased. HEART: Rate and Rhythm are regular. First and second heart sounds normal. No murmurs, rubs or gallops. ABDOMEN: Abdominal exam reveals normal bowel sounds. Non-tender and non- distended. No evidence of peritonitis. EXTREMITITES: No clubbing, cyanosis, or edema. Past Medical History Past Medical History: Diabetes Mellitus, Seizure Disorder Additional Past Medical History / Comment(s): MS, uterine cancer, migraine headaches History of Any Multi-Drug Resistant Organisms: None Reported Past Surgical History: Appendectomy, Cholecystectomy, Hysterectomy, Orthopedic Surgery Additional Past Surgical History / Comment(s): cervical surgery, right ear reconstruction from defect Past Anesthesia/Blood Transfusion Reactions: No Reported Reaction Past Psychological History: Depression Smoking Status: Current every day smoker Past Alcohol Use History: None Reported Past Drug Use History: None Reported - Past Family History Mother Family Medical History: Diabetes Mellitus Brother(s) Family Medical History: Diabetes Mellitus Medications and Allergies Home Medications Medication Instructions Recorded Confirmed Type Citalopram Hydrobromide [CeleXA] 60 mg PO AC-BRKFST 09/19/13 11/29/17 History Dimethyl Fumarate [Tecfidera] 240 mg PO BID 05/27/17 11/29/17 History Modafinil [Provigil] 200 mg PO DAILY 05/27/17 11/29/17 History Omeprazole [PriLOSEC] 20 mg PO AC-BID 05/27/17 11/29/17 History Ipratropium-Albuterol Nebulize 3 ml INHALATION QID PRN 30 Days #3 06/28/1711/29 Rx [Duoneb 0.5 mg-3 mg/3 ml Soln] box Topiramate [Topamax] 50 mg PO TID #60 tab 06/28/17 11/29/17 Rx Baclofen [Lioresal] 10 mg PO TID 11/29/17 11/29/17 History Gabapentin 600 mg PO HS 11/29/17 11/29/17 History Gabapentin [Neurontin] 300 mg PO QAM 11/29/17 11/29/17 History INSULIN LISPRO (For Pump) [humaLOG 0.01 units SQ-PUMP CONTINUOUS 11/29/17 History (For Pump)] Lisinopril [Zestril] 5 mg PO DAILY 11/29/17 11/29/17 History Magnesium Oxide [Mag-Ox] 400 mg PO BID 11/29/17 11/29/17 History Morphine Sulfate [Ms Contin] 60 mg PO Q12HR 11/29/17 11/29/17 History Potassium 99 mg PO DAILY 11/29/17 11/29/17 History clonazePAM [Clonazepam] 1 mg PO HS 11/29/17 11/29/17 History levETIRAcetam [Keppra] 1,000 mg PO BID 11/29/17 11/29/17 History Allergies Allergy/AdvReac Type Severity Reaction Status Date / Time divalproex sodium Allergy Unknown Verified 11/29/17 14:11 [From Depakote] prochlorperazine edisylate Allergy Unknown Verified 11/29/17 14:11 [From Compazine] prochlorperazine maleate Allergy Unknown Verified 11/29/17 14:11 [From Compazine] vancomycin Allergy Unknown Verified 11/29/17 14:11 steroids AdvReac Confusion Uncoded 05/27/17 17:21 Physical Exam Vitals: Vital Signs Temp Pulse Resp BP Pulse Ox 11/30/17 07:31 108 H 10 L 11/30/17 07:21 103 H 10 L 11/30/17 07:00 103 H 11 L 139/69 97 11/30/17 06:30 100 10 L 136/73 98 11/30/17 06:00 103 H 11 L 137/84 97 11/30/17 05:30 100 10 L 134/74 97 11/30/17 05:00 97 12 122/69 98 11/30/17 04:30 98.9 F 97 11 L 113/74 98 11/30/17 04:00 103 H 11 L 121/72 97 11/30/17 03:30 103 H 12 127/63 96 11/30/17 03:00 108 H 10 L 135/70 95 11/30/17 02:30 102 H 11 L 105/67 97 11/30/17 02:00 102 H 10 L 126/60 97 11/30/17 01:30 104 H 11 L 124/65 97 11/30/17 01:00 101 H 11 L 107/65 96 11/30/17 00:30 98.9 F 101 H 10 L 120/62 95 11/30/17 00:00 100 12 114/64 96 11/29/17 23:30 98 10 L 99/59 95 11/29/17 23:23 98 15 99/59 96 11/29/17 23:00 99 10 L 112/68 95 11/29/17 22:30 97 10 L 127/71 93 L 11/29/17 22:00 92 15 102/66 99 11/29/17 21:30 97 16 106/62 100 11/29/17 21:00 93 14 105/61 98 11/29/17 20:45 93 7 L 106/63 99 11/29/17 20:30 97 12 107/59 97 11/29/17 20:15 97.5 F L 94 10 L 92/58 98 11/29/17 20:00 95 15 90/50 99 11/29/17 19:45 96 10 L 90/58 99 11/29/17 19:30 92 17 100/57 98 11/29/17 19:15 95 12 91/48 98 11/29/17 19:00 98 12 79/46 100 11/29/17 18:45 98 11 L 98 11/29/17 18:30 100 11 L 82/48 98 11/29/17 18:15 105 H 10 L 86/49 95 11/29/17 18:00 100 17 71/47 98 11/29/17 17:45 106 H 20 70/41 97 11/29/17 17:30 105 H 20 89/48 97 11/29/17 17:15 107 H 22 86/51 94 L 11/29/17 17:00 110 H 13 94/54 95 11/29/17 16:45 113 H 22 107/58 95 11/29/17 16:30 115 H 25 H 113/54 97 11/29/17 16:15 98.6 F 116 H 27 H 98/58 96 11/29/17 16:10 13 95 11/29/17 15:42 120 H 28 H 119/67 100 11/29/17 15:33 10 L 11/29/17 15:28 105 H 10 L 82/43 100 11/29/17 14:13 113 H 18 121/62 100 11/29/17 13:34 117 H 28 H 114/55 100 11/29/17 13:25 16 11/29/17 12:59 104 H 14 77/48 95 11/29/17 12:52 108 H 16 86/52 89 L 11/29/17 12:29 100.4 F H 120 H 16 80/50 Intake and Output 11/29/17 11/30/17 11/30/17 22:59 06:59 14:59 Intake Total 5950 1500.0 150 Output Total 2780 2340 125 Balance 3170 -840 25 Intake: IV 5950 1250.0 150 Dextrose 5% in Water 1, 950 1200 150 000 ml Sodium Bicarb (1 Meq/ml) 150 ml @ 150 mls/ hr IV .Q7H40M ONE Rx#: [id number] Piperacillin-Tazobactam 3 50.0 .375 gm In Dextrose/Water 1 50ml.bag @ 12.5 mls/hr IVPB Q12HR [facility] Rx#: [id number] Sodium Chloride 0.9% 1, 5000 000 ml @ 999 mls/hr IV . Q1H1M ONE Rx#:[id number] Oral 250 Output: Urine 2780 2340 125 Other: Voiding Method Indwelling Catheter Indwelling Catheter Weight 87 kg 88.1 kg Results - Lab Results Most recent lab results ABG pH 7.25 (7.35-7.45) L 11/29/17 16:32 ABG pCO2 43 mmHg (35-45) 11/29/17 16:32 ABG pO2 165 mmHg (83-108) H 11/29/17 16:32 ABG HCO3 19 mmol/L (21-25) L 11/29/17 16:32 ABG O2 Saturation 99.6 % (94-97) H 11/29/17 16:32 Calcium 8.1 mg/dL (8.4-10.2) L 11/30/17 07:05 Phosphorus 2.4 mg/dL (2.5-4.5) L 11/30/17 07:05 Magnesium 1.8 mg/dL (1.6-2.3) 11/30/17 07:05 11/30/17 07:05 11/30/17 07:05 Assessment and Plan Plan: Assessment: 1. Nonoliguric acute kidney injury mostly prerenal secondary to hypotension. Creatinine was greater than 9 on admission and is down to 1.29 today. 2. Hypotension secondary to severe intravascular volume depletion from vomiting and diarrhea and from the use of antihypertensives. Improved. 3. Diabetes mellitus. 4. Multiple sclerosis. 5. Metabolic acidosis secondary to acute kidney injury and diarrhea. Resolved. 6. Hypovolemic hyponatremia improved with IV hydration. Plan: Start normal saline at 50 mL an hour for maintenance fluids. Encourage oral intake. Continue to hold lisinopril for now. Discontinue Christy catheter and monitor for urinary retention. Repeat electrolytes in the morning. Thank you for the consultation. I will continue to follow the patient with you during her hospital stay.
--- NOTE | 2017-11-30 09:50 | XR ---
EXAMINATION TYPE: XR chest 1V portable DATE OF EXAM: 11/30/2017 HISTORY: Shortness of breath. COMPARISON: 11/29/2017 TECHNIQUE: Single view of the chest is submitted. FINDINGS: Demonstrated are scattered senescent parenchymal change. There is patchy infiltrate left suprahilar region and right medial lung base. Correlate for underlyin g pneumonia. The heart is stable. Hilar and mediastinal structures are within normal limits. Degenerative changes are seen of the dorsal spine. IMPRESSION: 1. There is patchy infiltrate left suprahilar region and right medial lung base. Correlate for under lying pneumonia.
[2017-11-30 11:16] LABS: Glucose,Whole Blood 283 mg/dL (75-99)
--- NOTE | 2017-11-30 14:08 | P.PN ---
Subjective Progress Note Date: 11/30/17 Principal diagnosis: Altered mental status secondary to metabolic encephalopathy. This is a 52-year-old female patient who follows with Dr. Torres as her primary care physician. She has a history of diabetes mellitus, seizure disorder, multiple sclerosis, uterine cancer status post surgery, migraines. She also has a history of acute hypoxic respiratory failure requiring intubation and mechanical ventilatory support secondary to drug overdose. At that time her urine was positive for opiates, oxycodone and benzodiazepines. She was seen by our group at that time in June 2017. The last 3 or 4 days the patient's states she had been having vomiting and diarrhea and poor appetite. This morning her found her to be barely arousable, opening her eyes but not looking directly at him and not responding to his questions. She was brought here to the emergency room for the same. Computed tomography scan of the brain revealed age-related atrophic and chronic vessel ischemic changes without acute intracranial process. Chest x-ray reveals some chronic pulmonary venous decompensation without acute failure. Lab results reveal a white count of 25.3. Hemoglobin 11.6. Sodium 132, potassium 4.6, chloride 94, bicarb 15. BUN of 88 and a creatinine of 9.75. CPK level 10,512, MB 64.9, ammonia 40. Urine drug screen positive for opiates and benzodiazepines. She is seen on arrival to the intensive care unit. She is currently awake and alert. Answering questions appropriately. Somewhat slow to respond. She is denying any pain currently. No shortness of breath. She is maintaining good O2 saturations up to 100% on 2 L/m per nasal cannula. He did have 2 L of fluid resuscitation. Currently receiving a bicarb drip at 100 ML's per hour. Somewhat tachycardic. A Christy catheter was inserted with immediate 900 mL returned. Reevaluated today on , patient is basically about the same as far as her mental status is concerned. Seems to be confused and slow, but dramatic improvement was noted metabolically with significant improvement of her renal profile, and her other labs. Chest x-ray continues to show some evidence of interstitial edema, underlying pneumonia is not entirely ruled out could be aspiration related if any. Patient had a significant amount of urine output yesterday after she arrived to the ICU, and she clearly has a nonoliguric acute kidney injury. Underwent dialysis yesterday, and her creatinine today is down to 1.29, and it was above 9 on presentation. As a matter fact patient is not going for any dialysis at this point but she did have one hemodialysis yesterday. CBC is relatively normal hemoglobin is 10.2. He lacks lites are normal. Bicarb is 29. BUN is 31 creatinine is 1.29. Chest x-ray is still concerning for interstitial edema or possibly aspiration pneumonia. Patient is empirically on Zosyn. Overnight the patient was given fluids for low blood pressure and for significant urine output. Objective - Vital Signs Vital signs: Vital Signs Temp 98.7 F 11/30/17 12:00 Pulse 83 11/30/17 13:30 Resp 13 11/30/17 13:30 BP 120/64 11/30/17 13:30 Pulse Ox 97 11/30/17 13:30 Intake & Output 11/29/17 11/30/17 11/30/17 18:59 06:59 18:59 Intake Total 1350 6100.0 200.0 Output Total 1400 3720 1080 Balance -50 2380.0 -880.0 Weight 87 kg 88.1 kg 88.1 kg Intake: IV 1350 5850.0 200.0 Dextrose 5% in Water 1, 350 1800 150 000 ml Sodium Bicarb (1 Meq/ml) 150 ml @ 150 mls/ hr IV .Q7H40M [facility] Rx#: [id number] Piperacillin-Tazobactam 3 50.0 50.0 .375 gm In Dextrose/Water 1 50ml.bag @ 12.5 mls/hr IVPB Q12HR [facility] Rx#: [id number] Sodium Chloride 0.9% 1, 1000 4000 000 ml @ 999 mls/hr IV . Q1H1M ONE Rx#:[id number] Oral 250 Output: Urine 1400 3720 1080 Other: Voiding Method Indwelling Catheter Indwelling Catheter Indwelling Catheter - Exam Physical Exam: Revealed a 52-year-old female, in no distress, but noted to be confused and disoriented to time place and person. Head: Atraumatic, normocephalic. HEENT:[Neck is supple.] [No neck masses.] [No thyromegaly.] [No JVD.] Chest: [Crackles at the bases, no rhonchi and no wheezes, symmetrical chest expansion noted.] Cardiac Exam: [Normal S1 and S2, no S3 gallop, no murmur.] Abdomen: [Obese, Soft, nontender, no megaly, no rebound, no guarding, normal bowel sounds.] Extremities: [No clubbing, trace of edema edema, no cyanosis.] Neurological Exam: Awake, follows instructions, but confused. Moves all extremities without any limitation. Psychiatric: Blunted affect, depressed mood, poor mental judgment. - Labs CBC & Chem 7: 11/30/17 07:05 11/30/17 07:05 Labs: Abnormal Lab Results - Last 24 Hours (Table) 11/29/17 11/29/17 11/29/17 Range/Units 12:37 12:37 16:09 RBC (3.80-5.40) m/uL Hgb (11.4-16.0) gm/dL Hct (34.0-46.0) % Neutrophils # (1.3-7.7) k/uL Lymphocytes # (1.0-4.8) k/uL ABG pH (7.35-7.45) ABG pO2 (83-108) mmHg ABG HCO3 (21-25) mmol/L ABG O2 Saturation (94-97) % Sodium (137-145) mmol/L Carbon Dioxide (22-30) mmol/L BUN (7-17) mg/dL Creatinine (0.52-1.04) mg/dL Glucose (74-99) mg/dL POC Glucose (mg/dL) 173 H (75-99) mg/dL Hemoglobin A1c 6.1 H (4.0-6.0) % Calcium (8.4-10.2) mg/dL Phosphorus (2.5-4.5) mg/dL AST (14-36) U/L ALT (9-52) U/L Total Creatine Kinase 02649 H (30-135) U/L CK-MB (CK-2) 64.9 H* (0.0-2.4) ng/mL Total Protein (6.3-8.2) g/dL Albumin (3.5-5.0) g/dL 11/29/17 11/29/17 11/29/17 Range/Units 16:32 18:36 19:35 RBC (3.80-5.40) m/uL Hgb (11.4-16.0) gm/dL Hct (34.0-46.0) % Neutrophils # (1.3-7.7) k/uL Lymphocytes # (1.0-4.8) k/uL ABG pH 7.25 L (7.35-7.45) ABG pO2 165 H (83-108) mmHg ABG HCO3 19 L (21-25) mmol/L ABG O2 Saturation 99.6 H (94-97) % Sodium 136 L (137-145) mmol/L Carbon Dioxide 20 L (22-30) mmol/L BUN 76 H (7-17) mg/dL Creatinine 5.60 H* (0.52-1.04) mg/dL Glucose 205 H (74-99) mg/dL POC Glucose (mg/dL) 232 H (75-99) mg/dL Hemoglobin A1c (4.0-6.0) % Calcium 7.3 L (8.4-10.2) mg/dL Phosphorus (2.5-4.5) mg/dL AST (14-36) U/L ALT (9-52) U/L Total Creatine Kinase (30-135) U/L CK-MB (CK-2) (0.0-2.4) ng/mL Total Protein (6.3-8.2) g/dL Albumin (3.5-5.0) g/dL 11/30/17 11/30/17 11/30/17 Range/Units 00:05 02:54 07:05 RBC 3.49 L (3.80-5.40) m/uL Hgb 10.2 L (11.4-16.0) gm/dL Hct 31.6 L (34.0-46.0) % Neutrophils # 8.1 H (1.3-7.7) k/uL Lymphocytes # 0.7 L (1.0-4.8) k/uL ABG pH (7.35-7.45) ABG pO2 (83-108) mmHg ABG HCO3 (21-25) mmol/L ABG O2 Saturation (94-97) % Sodium (137-145) mmol/L Carbon Dioxide (22-30) mmol/L BUN (7-17) mg/dL Creatinine (0.52-1.04) mg/dL Glucose (74-99) mg/dL POC Glucose (mg/dL) 178 H 235 H (75-99) mg/dL Hemoglobin A1c (4.0-6.0) % Calcium (8.4-10.2) mg/dL Phosphorus (2.5-4.5) mg/dL AST (14-36) U/L ALT (9-52) U/L Total Creatine Kinase (30-135) U/L CK-MB (CK-2) (0.0-2.4) ng/mL Total Protein (6.3-8.2) g/dL Albumin (3.5-5.0) g/dL 11/30/17 11/30/17 11/30/17 Range/Units 07:05 07:12 11:14 RBC (3.80-5.40) m/uL Hgb (11.4-16.0) gm/dL Hct (34.0-46.0) % Neutrophils # (1.3-7.7) k/uL Lymphocytes # (1.0-4.8) k/uL ABG pH (7.35-7.45) ABG pO2 (83-108) mmHg ABG HCO3 (21-25) mmol/L ABG O2 Saturation (94-97) % Sodium (137-145) mmol/L Carbon Dioxide (22-30) mmol/L BUN 31 H (7-17) mg/dL Creatinine 1.29 H (0.52-1.04) mg/dL Glucose 256 H (74-99) mg/dL POC Glucose (mg/dL) 260 H 283 H (75-99) mg/dL Hemoglobin A1c (4.0-6.0) % Calcium 8.1 L (8.4-10.2) mg/dL Phosphorus 2.4 L (2.5-4.5) mg/dL AST 162 H (14-36) U/L ALT 93 H (9-52) U/L Total Creatine Kinase (30-135) U/L CK-MB (CK-2) (0.0-2.4) ng/mL Total Protein 5.2 L (6.3-8.2) g/dL Albumin 2.7 L (3.5-5.0) g/dL Microbiology - Last 24 Hours (Table) 11/29/17 16:18 Urine Culture - Preliminary Urine,Catheterized Assessment and Plan Assessment: #1 Altered mental status and metabolic encephalopathy, multifactorial. #2 Acute nonoliguric kidney injury improving, however the patient had 1 hemodialysis. Further hemodialysis is presently on hold. #3 Acute rhabdomyolysis secondary to above. CPK was over 10,007 admission, today CPK is pending. #4 Acute metabolic acidosis acidosis #5 Acute leukocytosis. #6 Elevated LFTs. #7 Elevated ammonia level. #8 Multiple sclerosis. #9 Chronic pain syndrome. #10 Diabetes mellitus. #11 History of seizures. #12 History of migraines. #13 History of uterine cancer with previous surgery. #14 History of chronic tobacco dependence. #15 abnormal chest x-ray with significant interstitial edema, however the possibility of aspiration pneumonia is not entirely ruled out, and the patient is empirically on Zosyn. Recommendation: Continue present supportive care measures continue to monitor in the intensive care unit. GI and DVT prophylaxis, antibiotics, bronchodilators, monitor his CPK, and continue to monitor renal profile daily. Her doses remains guarded, patient remains critically ill, we will continue to monitor in the ICU. Critical care time is 35 minutes. Time with Patient: Greater than 30
[2017-11-30 17:29] LABS: Glucose,Whole Blood 252 mg/dL (75-99)
[2017-11-30] MEDS ORDERED: Dimethyl Fumarate [Tecfidera] 240 MG PO SCH (19:57)
[2017-11-30 21:15] LABS: Glucose,Whole Blood 198 mg/dL (75-99)
[2017-11-30 23:09] LABS: Glucose,Whole Blood 210 mg/dL (75-99)
[2017-11-30] MEDS: INSULIN DETEMIR 100 UNIT/ML 10 ML VIAL SQ SCH (23:12)
[2017-11-30 23:49] LABS: Glucose,Whole Blood 196 mg/dL (75-99)
[2017-12-01 05:21] LABS: Basophils % (A) 0 %; Eosinophils % (A) 0 %; HCT 30.3 % (34.0-46.0); HGB 9.9 gm/dL (11.4-16.0); Lymphocytes # (A) 1.1 k/uL (1.0-4.8); Lymphocytes % (A) 12 %; MCH 29.9 pg (25.0-35.0); MCHC 32.6 g/dL (31.0-37.0); MCV 91.5 fL (80.0-100.0); Mean Platelet Volume 7.1; Monocytes # (A) 0.5 k/uL (0-1.0); Monocytes % (A) 5 %; Neutrophils # (A) 7.1 k/uL (1.3-7.7); Neutrophils % (A) 80 %; Platelet Count 182 k/uL (150-450); RBC 3.31 m/uL (3.80-5.40); RDW 13.9 % (11.5-15.5); WBC 8.9 k/uL (3.8-10.6)
[2017-12-01 05:39] LABS: ALT 103 U/L (9-52); AST 126 U/L (14-36); Albumin 3.1 g/dL (3.5-5.0); Alkaline Phosphatase 91 U/L (38-126); Anion Gap 6 mmol/L; Blood Urea Nitrogen 23 mg/dL (7-17); Calcium 9.1 mg/dL (8.4-10.2); Carbon Dioxide 30 mmol/L (22-30); Chloride 107 mmol/L (98-107); Glucose 138 mg/dL (74-99); Magnesium 1.7 mg/dL (1.6-2.3); Phosphorus 1.4 mg/dL (2.5-4.5); Potassium 3.5 mmol/L (3.5-5.1); Sodium 143 mmol/L (137-145); Total Bilirubin 0.6 mg/dL (0.2-1.3); Total Protein 5.5 g/dL (6.3-8.2)
[2017-12-01 05:45] LABS: Glucose,Whole Blood 139 mg/dL (75-99)
[2017-12-01] MEDS ORDERED: MAGNESIUM SULFATE-D5W PMX 1 GM in DEXTROSE/WATER 1 100ML.BAG IVPB ONE (07:00)
[2017-12-01] MEDS ORDERED: POTASSIUM CHLORIDE ER 20 MEQ TAB.ER PO STA (07:02)
--- NOTE | 2017-12-01 07:08 | PN ---
PROGRESS NOTE DATE OF SERVICE: 11/30/2017 PRESENTING COMPLAINT: Lethargic. INTERVAL HISTORY: This is a patient who presented with severe metabolic encephalopathy and acute severe renal failure. Patient did have a dialysis catheter placed and dialyzed yesterday once. Patient is a bit less lethargic today, but still dozes off easily. Patient has an insulin pump at home. Sugars are being monitored. Patient remains in the ICU. REVIEW OF SYSTEMS: Attempted after talking to the to the nurse, but the patient keeps currently dozing off. CURRENT MEDICATIONS: Reviewed that include Tecfidera, Levemir being started tonight 20 units, Keppra, IV fluids, IV Zosyn. PHYSICAL EXAMINATION: Temperature 99, pulse 99, respiration 18, blood pressure 117/71, pulse ox 94% on 2 L. GENERAL APPEARANCE: Lethargic but arousable. EYES: Pupils equal, conjunctivae are normal. HEENT: External appearance of nose and ear normal, oral cavity dry. NECK: JVD unable to assess, mass not palpable. RESPIRATORY: Effort normal. LUNGS: Diminished breath sounds. CARDIOVASCULAR: First and second sounds normal, no edema. ABDOMEN: Soft. Liver and spleen not palpable. NEUROLOGICAL: Patient is arousable. Continues to doze off. INVESTIGATIONS: White count 9.5, hemoglobin 10.2, potassium 3.8, BUN 31, creatinine 1.29. Accu-Cheks 260, 283. CPK is 5772. Chest x-ray film interpreted by me shows patchy infiltrates. ASSESSMENT: 1. Acute bilateral aspiration pneumonia due to altered mental status, could be chemical pneumonitis causing acute hypoxic respiratory failure. 2. Acute severe metabolic encephalopathy from multiple medications including pain medication Neurontin in setting of renal failure. 3. Acute severe renal failure, combination of acute tubular necrosis and prerenal from severe nausea, vomiting, diarrhea, and patient being on ALBERTO inhibitor, patient got dialyzed x1. 4. Chronic pain syndrome for patient is on multiple medical pain medications. 5. Multiple sclerosis. Patient at baseline, uses a cane. 6. Acute rhabdomyolysis, improving. 7. Metabolic and respiratory acidosis upon presentation. 8. Acute ischemic hepatitis, improving. 9. Depression, not otherwise specified. 10.Hypotensive shock from severe volume depletion requiring pressure support. PLAN: Continue current medication and treatment plan including bicarbonate drip. Continue with antiseizure medications. Continue to hold off for pain medication, sedatives. Patient is to be closely followed. No further dialysis as per Nephrology. Renal function is improving. Continue to hydrate. Patient continued to be monitored closely. MMODL / IJN: [id number] /
[2017-12-01] MEDS: SODIUM CHLORIDE 0.9% 1,000 ML IV SCH (07:48)
[2017-12-01] MEDS: HEPARIN SODIUM,PORCINE 5,000 UNIT/ML 1 ML VIAL SQ SCH ×3 (07:49→23:53)
[2017-12-01] MEDS: PANTOPRAZOLE 40 MG/10 ML VIAL IVP SCH (07:51)
[2017-12-01] MEDS: CITALOPRAM HYDROBROMIDE 20 MG TAB PO SCH (07:57)
[2017-12-01] MEDS: INSULIN ASPART 100 UNIT/ML 1 ML 10 ML VIAL SQ SCH ×3 (07:57→17:25)
[2017-12-01] MEDS: POTASSIUM CHLORIDE ER 20 MEQ TAB.ER PO SCH ×2 (07:58→08:55)
[2017-12-01] MEDS: Dimethyl Fumarate [Tecfidera] 240 MG PO SCH ×2 (08:00→20:53)
[2017-12-01] MEDS: levETIRAcetam 500 MG TAB PO SCH ×2 (08:01→20:54)
[2017-12-01] MEDS: TOPIRAMATE 25 MG TAB PO SCH ×3 (08:01→20:53)
[2017-12-01] MEDS: PIPERACILLIN-TAZOBACTAM 3.375 GM in DEXTROSE/WATER 1 50ML.BAG IVPB SCH ×2 (08:03→22:07)
--- NOTE | 2017-12-01 08:22 | P.PN ---
Subjective Patient is seen in follow-up for acute kidney injury. Patient presented to the hospital with nausea and vomiting along with weakness. Her creatinine was greater than 9 and she had severe metabolic acidosis. Patient underwent 1 treatment of hemodialysis on November 29. She is now nonoliguric. Creatinine is around 0.8. Oral intake is improving. No further vomiting or diarrhea. Vital signs are stable. General: The patient appeared well nourished and normally developed. HEENT: Head exam is unremarkable. Neck is without jugular venous distension. LUNGS: Lungs are clear to auscultation and percussion. Breath sounds decreased. HEART: Rate and Rhythm are regular. First and second heart sounds normal. No murmurs, rubs or gallops. ABDOMEN: Abdominal exam reveals normal bowel sounds. Non-tender and non- distended. No evidence of peritonitis. EXTREMITITES: No clubbing, cyanosis, or edema. Objective - Vital Signs Vital signs: Vital Signs Temp 98.1 F 12/01/17 04:00 Pulse 100 12/01/17 07:00 Resp 23 12/01/17 07:00 BP 142/73 12/01/17 07:00 Pulse Ox 100 12/01/17 07:00 Intake & Output 11/30/17 12/01/17 12/01/17 18:59 06:59 18:59 Intake Total 200.0 840 100 Output Total 1500 975 275 Balance -1300.0 -135 -175 Weight 88.1 kg 86.4 kg Intake: IV 200.0 600 100 Dextrose 5% in Water 1, 150 000 ml Sodium Bicarb (1 Meq/ml) 150 ml @ 150 mls/ hr IV .Q7H40M [facility] Rx#: [id number] Piperacillin-Tazobactam 3 50.0 50 .375 gm In Dextrose/Water 1 50ml.bag @ 12.5 mls/hr IVPB Q12HR [facility] Rx#: [id number] Sodium Chloride 0.9% 1, 550 100 000 ml @ 50 mls/hr IV . Q20H [facility] Rx#:[id number] Oral 240 Output: Urine 1500 975 275 Other: Voiding Method Indwelling Catheter Indwelling Catheter - Labs CBC & Chem 7: 12/01/17 05:07 12/01/17 05:07 Labs: Abnormal Lab Results - Last 24 Hours (Table) 11/30/17 11/30/1718 Range/Units 07:05 11:14 17:27 RBC (3.80-5.40) m/uL Hgb (11.4-16.0) gm/dL Hct (34.0-46.0) % BUN (7-17) mg/dL Glucose (74-99) mg/dL POC Glucose (mg/dL) 283 H 252 H (75-99) mg/dL Phosphorus (2.5-4.5) mg/dL AST (14-36) U/L ALT (9-52) U/L Creatine Kinase 5772 H (30-135) U/L Total Protein (6.3-8.2) g/dL Albumin (3.5-5.0) g/dL 11/30/17 11/30/17 11/30/17 Range/Units 21:13 23:07 23:48 RBC (3.80-5.40) m/uL Hgb (11.4-16.0) gm/dL Hct (34.0-46.0) % BUN (7-17) mg/dL Glucose (74-99) mg/dL POC Glucose (mg/dL) 198 H 210 H 196 H (75-99) mg/dL Phosphorus (2.5-4.5) mg/dL AST (14-36) U/L ALT (9-52) U/L Creatine Kinase (30-135) U/L Total Protein (6.3-8.2) g/dL Albumin (3.5-5.0) g/dL 12/01/17 12/01/17 12/01/17 Range/Units 05:07 05:07 05:44 RBC 3.31 L (3.80-5.40) m/uL Hgb 9.9 L (11.4-16.0) gm/dL Hct 30.3 L (34.0-46.0) % BUN 23 H (7-17) mg/dL Glucose 138 H (74-99) mg/dL POC Glucose (mg/dL) 139 H (75-99) mg/dL Phosphorus 1.4 L (2.5-4.5) mg/dL AST 126 H (14-36) U/L ALT 103 H (9-52) U/L Creatine Kinase (30-135) U/L Total Protein 5.5 L (6.3-8.2) g/dL Albumin 3.1 L (3.5-5.0) g/dL Microbiology - Last 24 Hours (Table) 11/29/17 16:18 Urine Culture - Final Urine,Catheterized 11/29/17 12:37 Blood Culture - Preliminary Blood No Growth after 24 hours Assessment and Plan Plan: Assessment: 1. Nonoliguric acute kidney injury mostly prerenal secondary to hypotension and intravascular volume depletion from vomiting and diarrhea. Creatinine was greater than 9 on admission and is down to 0.8 today. Patient underwent 1 treatment of hemodialysis on the day of admission. 2. Hypotension secondary to severe intravascular volume depletion from vomiting and diarrhea and from the use of antihypertensives. Improved. 3. Diabetes mellitus. 4. Multiple sclerosis. 5. Metabolic acidosis secondary to acute kidney injury and diarrhea. Resolved. 6. Hypovolemic hyponatremia improved with IV hydration. 7. Hypokalemia secondary to diuresis and poor oral intake. Plan: Continue normal saline at 50 mL an hour for maintenance fluids. Encourage oral intake. Replace potassium. 40 mEq today. 1 g of IV magnesium today. No further need for renal replacement therapy. Discontinue dialysis catheter.
[2017-12-01 13:13] LABS: Glucose,Whole Blood 162 mg/dL (75-99)
--- NOTE | 2017-12-01 14:01 | P.PN ---
Subjective Progress Note Date: 12/01/17 Principal diagnosis: Altered mental status secondary to metabolic encephalopathy. This is a 52-year-old female patient who follows with Dr. Torres as her primary care physician. She has a history of diabetes mellitus, seizure disorder, multiple sclerosis, uterine cancer status post surgery, migraines. She also has a history of acute hypoxic respiratory failure requiring intubation and mechanical ventilatory support secondary to drug overdose. At that time her urine was positive for opiates, oxycodone and benzodiazepines. She was seen by our group at that time in June 2017. The last 3 or 4 days the patient's states she had been having vomiting and diarrhea and poor appetite. This morning her found her to be barely arousable, opening her eyes but not looking directly at him and not responding to his questions. She was brought here to the emergency room for the same. Computed tomography scan of the brain revealed age-related atrophic and chronic vessel ischemic changes without acute intracranial process. Chest x-ray reveals some chronic pulmonary venous decompensation without acute failure. Lab results reveal a white count of 25.3. Hemoglobin 11.6. Sodium 132, potassium 4.6, chloride 94, bicarb 15. BUN of 88 and a creatinine of 9.75. CPK level 10,512, MB 64.9, ammonia 40. Urine drug screen positive for opiates and benzodiazepines. She is seen on arrival to the intensive care unit. She is currently awake and alert. Answering questions appropriately. Somewhat slow to respond. She is denying any pain currently. No shortness of breath. She is maintaining good O2 saturations up to 100% on 2 L/m per nasal cannula. He did have 2 L of fluid resuscitation. Currently receiving a bicarb drip at 100 ML's per hour. Somewhat tachycardic. A Christy catheter was inserted with immediate 900 mL returned. Reevaluated today on 11/30/2017, patient is basically about the same as far as her mental status is concerned. Seems to be confused and slow, but dramatic improvement was noted metabolically with significant improvement of her renal profile, and her other labs. Chest x-ray continues to show some evidence of interstitial edema, underlying pneumonia is not entirely ruled out could be aspiration related if any. Patient had a significant amount of urine output yesterday after she arrived to the ICU, and she clearly has a nonoliguric acute kidney injury. Underwent dialysis yesterday, and her creatinine today is down to 1.29, and it was above 9 on presentation. As a matter fact patient is not going for any dialysis at this point but she did have one hemodialysis yesterday. CBC is relatively normal hemoglobin is 10.2. He lacks lites are normal. Bicarb is 29. BUN is 31 creatinine is 1.29. Chest x-ray is still concerning for interstitial edema or possibly aspiration pneumonia. Patient is empirically on Zosyn. Overnight the patient was given fluids for low blood pressure and for significant urine output. Reevaluated today on 12/01/2017, patient is doing much better, mentation seems to be much better, patient is more awake, more oriented. Her labs were reviewed , and she has made a significant improvement in all her labs, no further hemodialysis is required. CPK is trending down significantly. And her renal functioning is back to normal. Patient remains hemodynamically stable. Electrolytes are noted to be normal. CBC is relatively normal except for hemoglobin of 9.9. Objective - Vital Signs Vital signs: Vital Signs Temp 98.2 F 12/01/17 08:00 Pulse 80 12/01/17 11:00 Resp 13 12/01/17 11:00 BP 134/75 12/01/17 11:00 Pulse Ox 98 12/01/17 11:00 Intake & Output 11/30/17 12/01/17 12/01/17 18:59 06:59 18:59 Intake Total 200.0 840 245.0 Output Total 1500 975 490 Balance -1300.0 -135 -245.0 Weight 88.1 kg 86.4 kg Intake: IV 200.0 600 245.0 Dextrose 5% in Water 1, 150 000 ml Sodium Bicarb (1 Meq/ml) 150 ml @ 150 mls/ hr IV .Q7H40M [facility] Rx#: [id number] Magnesium Sulfate-D5w Pmx 100 1 gm In Dextrose/Water 1 100ml.bag @ 100 mls/hr IVPB [facility]CE [facility] Rx#: [id number] Piperacillin-Tazobactam 3 50.0 50 25.0 .375 gm In Dextrose/Water 1 50ml.bag @ 12.5 mls/hr IVPB Q12HR [facility] Rx#: [id number] Sodium Chloride 0.9% 1, 550 120 000 ml @ 50 mls/hr IV . Q20H [facility] Rx#:[id number] Oral 240 Output: Urine 1500 975 490 Other: Voiding Method Indwelling Catheter Indwelling Catheter Indwelling Catheter - Exam Physical Exam: Revealed a 52-year-old female, in no distress, alert oriented 3 today. Head: Atraumatic, normocephalic. HEENT:[Neck is supple.] [No neck masses.] [No thyromegaly.] [No JVD.] Chest: [Crackles at the bases, no rhonchi and no wheezes, symmetrical chest expansion noted.] Cardiac Exam: [Normal S1 and S2, no S3 gallop, no murmur.] Abdomen: [Obese, Soft, nontender, no megaly, no rebound, no guarding, normal bowel sounds.] Extremities: [No clubbing, trace of edema edema, no cyanosis.] Neurological Exam: Awake, follows instructions, and significantly more neurologically improved today compared to yesterday. Alert oriented 3. Psychiatric: Blunted affect, normal mood, normal mental status examination. - Labs CBC & Chem 7: 12/01/17 05:07 12/01/17 05:07 Labs: Abnormal Lab Results - Last 24 Hours (Table) 11/30/17 11/30/17 11/30/17 Range/Units 07:05 17:27 21:13 RBC (3.80-5.40) m/uL Hgb (11.4-16.0) gm/dL Hct (34.0-46.0) % BUN (7-17) mg/dL Glucose (74-99) mg/dL POC Glucose (mg/dL) 252 H 198 H (75-99) mg/dL Phosphorus (2.5-4.5) mg/dL AST (14-36) U/L ALT (9-52) U/L Creatine Kinase 5772 H (30-135) U/L Total Protein (6.3-8.2) g/dL Albumin (3.5-5.0) g/dL 11/30/17 11/30/17 12/01/17 Range/Units 23:07 23:48 05:07 RBC 3.31 L (3.80-5.40) m/uL Hgb 9.9 L (11.4-16.0) gm/dL Hct 30.3 L (34.0-46.0) % BUN (7-17) mg/dL Glucose (74-99) mg/dL POC Glucose (mg/dL) 210 H 196 H (75-99) mg/dL Phosphorus (2.5-4.5) mg/dL AST (14-36) U/L ALT (9-52) U/L Creatine Kinase (30-135) U/L Total Protein (6.3-8.2) g/dL Albumin (3.5-5.0) g/dL 12/01/17 12/01/17 12/01/17 Range/Units 05:07 05:44 13:12 RBC (3.80-5.40) m/uL Hgb (11.4-16.0) gm/dL Hct (34.0-46.0) % BUN 23 H (7-17) mg/dL Glucose 138 H (74-99) mg/dL POC Glucose (mg/dL) 139 H 162 H (75-99) mg/dL Phosphorus 1.4 L (2.5-4.5) mg/dL AST 126 H (14-36) U/L ALT 103 H (9-52) U/L Creatine Kinase (30-135) U/L Total Protein 5.5 L (6.3-8.2) g/dL Albumin 3.1 L (3.5-5.0) g/dL Microbiology - Last 24 Hours (Table) 11/29/17 16:18 Urine Culture - Final Urine,Catheterized 11/29/17 12:37 Blood Culture - Preliminary Blood No Growth after 24 hours Assessment and Plan Assessment: #1 Altered mental status and metabolic encephalopathy, multifactorial. #2 Acute nonoliguric kidney injury improving, however the patient had 1 hemodialysis. Further hemodialysis is presently on hold. #3 Acute rhabdomyolysis secondary to above. CPK was over 10,007 admission, improved yesterday significantly better. #4 Acute metabolic acidosis acidosis, resolved #5 Acute leukocytosis. Significantly improved #6 Elevated LFTs. #7 Elevated ammonia level. #8 Multiple sclerosis. #9 Chronic pain syndrome. #10 Diabetes mellitus. #11 History of seizures. #12 History of migraines. #13 History of uterine cancer with previous surgery. #14 History of chronic tobacco dependence. #15 abnormal chest x-ray with significant interstitial edema, however the possibility of aspiration pneumonia is not entirely ruled out, and the patient is empirically on Zosyn. Recommendation: Continue present supportive care measures could be transferred to a regular medical floor today, we'll continue to follow. Time with Patient: Less than 30
[2017-12-01 14:40] LABS: Glucose,Whole Blood 191 mg/dL (75-99)
[2017-12-01] MEDS ORDERED: HYDROmorphone 1 MG/ML 1 ML SYRINGE IVP STA (14:44)
[2017-12-01] MEDS ORDERED: HYDROmorphone 1 MG/ML 1 ML SYRINGE ONE (14:45)
[2017-12-01 15:05] LABS: Basophils % (A) 0 %; Eosinophils % (A) 0 %; HCT 30.8 % (34.0-46.0); Lymphocytes % (A) 11 %; MCH 29.5 pg (25.0-35.0); MCHC 32.3 g/dL (31.0-37.0); MCV 91.4 fL (80.0-100.0); Mean Platelet Volume 7.4; Monocytes # (A) 0.3 k/uL (0-1.0); Monocytes % (A) 3 %; Neutrophils # (A) 7.7 k/uL (1.3-7.7); Neutrophils % (A) 84 %; Platelet Count 189 k/uL (150-450); RBC 3.38 m/uL (3.80-5.40); WBC 9.1 k/uL (3.8-10.6)
[2017-12-01 16:14] LABS: Hepatitis A Antibody IgM Negative
--- NOTE | 2017-12-01 16:30 | P.CONS ---
History of Present Illness - Reason for Consult Consult date: 12/01/17 Altered mental status - Chief Complaint Mental status - History of Present Illness Is a 52-year-old female being evaluated by the neurology service for altered mental status. She has a significant history for diabetes, seizures, multiple sclerosis, uterine cancer. At a recent admission in June 2017 for acute hypoxic respiratory failure requiring intubation. Receiving this admission she was found by her almost unarousable. She was brought to the emergency room and initial CT of the brain showed no acute intracranial abnormalities. It did show chronic small vessel ischemic changes and age- related atrophy. She has just been transferred out of the ICU at the time of my evaluation. Femoral Angiocath is just been removed which she had placed for dialysis for her acute renal failure. She also had some rhabdomyolysis. She was presenting is quite encephalopathic and this is improving with correction of her metabolic abnormalities and with holding her sedating medication. No seizure-like activity has been reported during this episode. She has been on Keppra 1000 mg twice a day for some time now and does not remember the last time she had a seizure. At the time of my exam she is resting comfortably in bed in no acute distress. Review of Systems All systems: negative Constitutional: Reports as per HPI Past Medical History Past Medical History: Diabetes Mellitus, Seizure Disorder Additional Past Medical History / Comment(s): MS, uterine cancer, migraine headaches History of Any Multi-Drug Resistant Organisms: None Reported Past Surgical History: Appendectomy, Cholecystectomy, Hysterectomy, Orthopedic Surgery Additional Past Surgical History / Comment(s): cervical surgery, right ear reconstruction from defect Past Anesthesia/Blood Transfusion Reactions: No Reported Reaction Past Psychological History: Depression Smoking Status: Current every day smoker Past Alcohol Use History: None Reported Past Drug Use History: None Reported - Past Family History Mother Family Medical History: Diabetes Mellitus Brother(s) Family Medical History: Diabetes Mellitus Medications and Allergies Home Medications Medication Instructions Recorded Confirmed Type Citalopram Hydrobromide [CeleXA] 60 mg PO AC-BRKFST 09/19/13 11/29/17 History Dimethyl Fumarate [Tecfidera] 240 mg PO BID 05/27/17 11/29/17 History Modafinil [Provigil] 200 mg PO DAILY 05/27/17 11/29/17 History Omeprazole [PriLOSEC] 20 mg PO AC-BID 05/27/17 11/29/17 History Ipratropium-Albuterol Nebulize 3 ml INHALATION QID PRN 30 Days #3 06/28/1711/29 Rx [Duoneb 0.5 mg-3 mg/3 ml Soln] box Topiramate [Topamax] 50 mg PO TID #60 tab 06/28/17 11/29/17 Rx Baclofen [Lioresal] 10 mg PO TID 11/29/17 11/29/17 History Gabapentin 600 mg PO HS 11/29/17 11/29/17 History Gabapentin [Neurontin] 300 mg PO QAM 11/29/17 11/29/17 History INSULIN LISPRO (For Pump) [humaLOG 0.01 units SQ-PUMP CONTINUOUS 11/29/17 History (For Pump)] Lisinopril [Zestril] 5 mg PO DAILY 11/29/17 11/29/17 History Magnesium Oxide [Mag-Ox] 400 mg PO BID 11/29/17 11/29/17 History Morphine Sulfate [Ms Contin] 60 mg PO Q12HR 11/29/17 11/29/17 History Potassium 99 mg PO DAILY 11/29/17 11/29/17 History clonazePAM [Clonazepam] 1 mg PO HS 11/29/17 11/29/17 History levETIRAcetam [Keppra] 1,000 mg PO BID 11/29/17 11/29/17 History Allergies Allergy/AdvReac Type Severity Reaction Status Date / Time divalproex sodium Allergy Unknown Verified 11/29/17 14:11 [From Depakote] prochlorperazine edisylate Allergy Unknown Verified 11/29/17 14:11 [From Compazine] prochlorperazine maleate Allergy Unknown Verified 11/29/17 14:11 [From Compazine] vancomycin Allergy Unknown Verified 11/29/17 14:11 steroids AdvReac Confusion Uncoded 05/27/17 17:21 Physical Exam Vitals: Vital Signs Temp Pulse Pulse Resp BP BP Pulse Ox 12/01/17 16:00 78 131/72 12/01/17 15:00 78 133/72 12/01/17 14:50 78 135/72 12/01/17 14:45 90 146/71 12/01/17 14:39 86 137/75 12/01/17 11:00 80 13 134/75 98 12/01/17 10:00 91 15 150/81 97 12/01/17 09:00 66 15 157/79 95 12/01/17 08:00 98.2 F 83 15 136/57 98 12/01/17 07:00 100 23 142/73 100 12/01/17 06:00 72 16 135/75 98 12/01/17 05:00 79 11 L 141/81 97 12/01/17 04:00 98.1 F 66 12 131/83 95 12/01/17 03:00 75 13 133/78 96 12/01/17 02:00 70 17 115/69 92 L 12/01/17 01:00 92 18 143/80 95 12/01/17 00:00 98.3 F 72 14 130/78 97 11/30/17 23:00 99 30 H 128/77 94 L 11/30/17 22:27 75 15 140/77 97 11/30/17 22:00 74 12 140/77 97 11/30/17 21:00 77 17 129/66 97 11/30/17 20:00 99.1 F 72 14 129/77 94 L 11/30/17 19:30 73 14 151/78 11/30/17 19:00 115 H 16 151/78 96 11/30/17 18:30 111 H 16 151/87 99 11/30/17 18:00 102 H 15 151/87 98 11/30/17 17:30 100 19 146/76 99 11/30/17 17:00 82 14 146/76 95 11/30/17 16:30 95 25 H 117/71 97 Intake and Output 12/01/17 12/01/17 12/01/17 06:59 14:59 22:59 Intake Total 400 295.0 Output Total 525 490 Balance -125 -195.0 Intake: IV 400 245.0 Magnesium Sulfate-D5w Pmx 100 1 gm In Dextrose/Water 1 100ml.bag @ 100 mls/hr IVPB [facility]CE [facility] Rx#: [id number] Piperacillin-Tazobactam 3 25.0 .375 gm In Dextrose/Water 1 50ml.bag @ 12.5 mls/hr IVPB Q12HR [facility] Rx#: [id number] Sodium Chloride 0.9% 1, 400 120 000 ml @ 50 mls/hr IV . Q20H [facility] Rx#:[id number] Intake, IV Titration 50 Amount Sodium Chloride 0.9% 1, 50 000 ml @ 50 mls/hr IV . Q20H [facility] Rx#:[id number] Output: Urine 525 490 Other: Voiding Method Indwelling Catheter Indwelling Catheter Weight 86.4 kg - Constitutional General appearance: cooperative, no acute distress - EENT Eyes: no abnormal pupil, PERRLA, no ptosis ENT: hearing grossly normal - Neck Neck: normal ROM, no rigidity - Respiratory Respiratory: negative: prolonged expiration, prolonged inspiration - Cardiovascular Rhythm: regular - Gastrointestinal General gastrointestinal: no distended, no tenderness - Neurologic Patient is alert awake she is oriented to person place and partially to time. She thought the year was 2013. Speech and language are normal. There is no lateralizing weakness. No tremors or seizure-like activities are seen. Strength testing is limited because she is been asked not to move her lower extremities in order that the groin site can heel. Results CBC & Chem 7: 12/01/17 14:49 12/01/17 14:45 Labs: Abnormal Lab Results - Last 24 Hours (Table) 11/30/17 11/30/17 11/30/17 Range/Units 17:27 21:13 23:07 RBC (3.80-5.40) m/uL Hgb (11.4-16.0) gm/dL Hct (34.0-46.0) % BUN (7-17) mg/dL Glucose (74-99) mg/dL POC Glucose (mg/dL) 252 H 198 H 210 H (75-99) mg/dL Phosphorus (2.5-4.5) mg/dL AST (14-36) U/L ALT (9-52) U/L Total Protein (6.3-8.2) g/dL Albumin (3.5-5.0) g/dL 11/30/17 12/01/17 12/01/17 Range/Units 23:48 05:07 05:07 RBC 3.31 L (3.80-5.40) m/uL Hgb 9.9 L (11.4-16.0) gm/dL Hct 30.3 L (34.0-46.0) % BUN 23 H (7-17) mg/dL Glucose 138 H (74-99) mg/dL POC Glucose (mg/dL) 196 H (75-99) mg/dL Phosphorus 1.4 L (2.5-4.5) mg/dL AST 126 H (14-36) U/L ALT 103 H (9-52) U/L Total Protein 5.5 L (6.3-8.2) g/dL Albumin 3.1 L (3.5-5.0) g/dL 12/01/17 12/01/17 12/01/17 Range/Units 05:44 13:12 14:38 RBC (3.80-5.40) m/uL Hgb (11.4-16.0) gm/dL Hct (34.0-46.0) % BUN (7-17) mg/dL Glucose (74-99) mg/dL POC Glucose (mg/dL) 139 H 162 H 191 H (75-99) mg/dL Phosphorus (2.5-4.5) mg/dL AST (14-36) U/L ALT (9-52) U/L Total Protein (6.3-8.2) g/dL Albumin (3.5-5.0) g/dL 12/01/17 Range/Units 14:49 RBC 3.38 L (3.80-5.40) m/uL Hgb 10.0 L (11.4-16.0) gm/dL Hct 30.8 L (34.0-46.0) % BUN (7-17) mg/dL Glucose (74-99) mg/dL POC Glucose (mg/dL) (75-99) mg/dL Phosphorus (2.5-4.5) mg/dL AST (14-36) U/L ALT (9-52) U/L Total Protein (6.3-8.2) g/dL Albumin (3.5-5.0) g/dL Microbiology - Last 24 Hours (Table) 11/29/17 12:37 Blood Culture - Preliminary Blood No Growth after 48 hours 11/29/17 16:18 Urine Culture - Final Urine,Catheterized Assessment and Plan (1) Acute renal failure Current Visit: Yes Status: Acute Code(s): N17.9 - ACUTE KIDNEY FAILURE, UNSPECIFIED SNOMED Code(s): 86001268 (2) Altered mental status Current Visit: Yes Status: Acute Code(s): R41.82 - ALTERED MENTAL STATUS, UNSPECIFIED SNOMED Code(s): 446396636 (3) Rhabdomyolysis Current Visit: Yes Status: Acute Code(s): M62.82 - RHABDOMYOLYSIS SNOMED Code(s): 232420622 (4) Encephalopathy Current Visit: No Status: Acute Code(s): G93.40 - ENCEPHALOPATHY, UNSPECIFIED SNOMED Code(s): 56502542 (5) Multiple sclerosis Current Visit: No Status: Chronic Code(s): G35 - MULTIPLE SCLEROSIS SNOMED Code(s): 93986983 (6) Seizure Current Visit: No Status: Chronic Code(s): R56.9 - UNSPECIFIED CONVULSIONS SNOMED Code(s): 42297179 Plan: The patient is still somewhat encephalopathic. This is multifactorial from her metabolic processes and possibly her sedating medications. Her mental status is improving. I will order an EEG to rule out any underlying dysregulation or seizure disorder. Continue treating her underlying metabolic issues and monitoring her progress. She will follow up in outpatient setting with her neurologist for her multiple sclerosis and seizures. She has no focal neurological symptoms. Continue neurological checks. We will continue to follow and make recommendations based on the above study. I have performed a history and physical on the above patient. I have reviewed the above note, and agree.
[2017-12-01 16:47] LABS: Glucose,Whole Blood 193 mg/dL (75-99)
--- NOTE | 2017-12-01 18:29 | OP ---
OPERATIVE REPORT PROCEDURE: Removal of dialysis catheter, right femoral approach. INDICATIONS: This patient came with acute kidney failure. We placed a dialysis catheter. The patient improved. DESCRIPTION OF PROCEDURE: The patient was seen in her room and the right groin was prepped. Stitches were removed, catheter removed. Pressure was held. It took a long time to control the bleeding. Then we put a FemoStop for a few hours. We deflated the FemoStop. The patient has no evidence of bleeding. Dorsal pedis palpable. PLAN: We will keep her on bedrest tonight and recheck in the morning. MMODL / IJN: [id number] /
[2017-12-01] MEDS: INSULIN DETEMIR 100 UNIT/ML 10 ML VIAL SQ SCH (20:56)
[2017-12-01 21:02] LABS: Glucose,Whole Blood 162 mg/dL (75-99)
[2017-12-01] MEDS: MORPHINE SULFATE ER 30 MG TABLET PO SCH (22:45)
--- NOTE | 2017-12-01 23:08 | P.PN ---
Progress Note - Text Progress Note Date: 12/01/17 Date of service-12/01/2017 Presenting complaint: Lethargic Interval history: This patient presented with severe metabolic encephalopathy and severe renal failure. Patient did have a dialysis catheter that was removed today. Some bleeding at the catheter site. Patient is awake today. Patient has a insulin pump at home. Patient was put on Lantus. Started to tolerate her diet. Not much of an appetite. Patient is moved out of the ICU. Patient is more awake today. Answering questions. Did not complain of any pain today, earlier in the day. Review of systems: Was done for constitutional, cardiovascular, GI, pulmonary. Neurological relevant finding as above On examination: VITAL SIGNS: 98.6, 77, 20, 117/59, 96% room air GENERAL APPEARANCE: Laying in bed, awake talking HEENT: Normal external appearance of nose and ear. Oral cavity with dry EYES: Pupils equal. Conjunctiva normal. NECK: JVD not raised. Mass not palpable. RESPIRATORY: Respiratory effort normal. Lungs diminished breath sounds. CARDIOVASCULAR: First and second sounds normal. No edema. ABDOMEN: Soft. Liver and spleen not palpable. No tenderness. No mass palpable. Pressure application at the right groin at the catheter site PSYCHIATRY: Alert and oriented x3. Mood and affect normal. Investigations: White count 9.1, BUN 23, creatinine 0.8, AST 126, AST 103 Accu-Cheks and noted-139, 162, 191, Hemoglobin 9.9 Assessment: -Acute bilateral aspiration pneumonia due to altered mental status could be chemical pneumonitis causing acute hypoxic is pretty failure on presentation -Acute severe metabolic encephalopathy from multiple medications including pain medications including Neurontin the setting of renal failure -Acute severe renal failure combination of ATN and prerenal from severe nausea vomiting diarrhea and patient being on ALBERTO inhibitor. Patient did get dialyzed 1. -Chronic pain syndrome for which patient is on multiple pain medications. -Multiple sclerosis patient at baseline uses a cane -Acute rhabdomyolysis, improving -Metabolic and respiratory acidosis upon presentation -Acute Ischemic hepatitis improving Depression otherwise specified hypotensive shock from severe volume depression requiring pressure support upon presentation -Dialysis catheter that was placed in his right groin was removed today on December 01 Plan: Patient does evening was asking for pain medications. MS Contin resumed at half the dose of 30 mg every 12. Patient will hold off patient Neurontin totally. Also baclofen for right now. Hemoglobin rechecked again tomorrow. Insulin pump may be resumed tomorrow as patient is awake now.
[2017-12-02] MEDS: SODIUM CHLORIDE 0.9% 1,000 ML IV SCH (01:05)
[2017-12-02 06:23] VITALS: PULSE 85
[2017-12-02 07:13] LABS: Glucose,Whole Blood 126 mg/dL (75-99)
[2017-12-02] MEDS: INSULIN ASPART 100 UNIT/ML 1 ML 10 ML VIAL SQ SCH ×2 (07:14→12:36)
[2017-12-02] MEDS: HEPARIN SODIUM,PORCINE 5,000 UNIT/ML 1 ML VIAL SQ SCH (07:19)
[2017-12-02 07:20] LABS: Basophils % (A) 0 %; Eosinophils # (A) 0.1 k/uL (0-0.7); Eosinophils % (A) 1 %; HCT 29.4 % (34.0-46.0); HGB 9.5 gm/dL (11.4-16.0); Lymphocytes # (A) 1.4 k/uL (1.0-4.8); Lymphocytes % (A) 17 %; MCH 29.6 pg (25.0-35.0); MCHC 32.4 g/dL (31.0-37.0); MCV 91.3 fL (80.0-100.0); Mean Platelet Volume 7.2; Monocytes # (A) 0.4 k/uL (0-1.0); Monocytes % (A) 5 %; Neutrophils # (A) 6.2 k/uL (1.3-7.7); Neutrophils % (A) 75 %; Platelet Count 193 k/uL (150-450); RBC 3.22 m/uL (3.80-5.40); RDW 13.8 % (11.5-15.5); WBC 8.3 k/uL (3.8-10.6)
[2017-12-02 07:37] LABS: ALT 100 U/L (9-52); AST 79 U/L (14-36); Alkaline Phosphatase 85 U/L (38-126); Anion Gap 8 mmol/L; Blood Urea Nitrogen 16 mg/dL (7-17); Carbon Dioxide 25 mmol/L (22-30); Chloride 110 mmol/L (98-107); Glucose 117 mg/dL (74-99); Magnesium 1.5 mg/dL (1.6-2.3); Phosphorus 1.9 mg/dL (2.5-4.5); Potassium 3.2 mmol/L (3.5-5.1); Sodium 143 mmol/L (137-145); Total Bilirubin 0.7 mg/dL (0.2-1.3); Total Protein 5.4 g/dL (6.3-8.2)
[2017-12-02] MEDS: CITALOPRAM HYDROBROMIDE 20 MG TAB PO SCH (07:55)
[2017-12-02] MEDS ORDERED: POTASSIUM CHLORIDE ER 20 MEQ TAB.ER PO STA (08:21)
[2017-12-02] MEDS ORDERED: Phosphorus Replacement Protoco 1 EACH MISC MISCELLANE PRN (08:56)
[2017-12-02] MEDS: MORPHINE SULFATE ER 30 MG TABLET PO SCH (09:00)
[2017-12-02] MEDS ORDERED: AMOXIC-POT CLAV 875-125MG 1 EACH TAB PO SCH (09:00)
--- NOTE | 2017-12-02 09:00 | P.PN ---
Subjective Patient is seen in follow-up for acute kidney injury. Patient presented to the hospital with nausea and vomiting along with weakness. Her creatinine was greater than 9 and she had severe metabolic acidosis. Patient underwent 1 treatment of hemodialysis on November 29. She is now nonoliguric. Creatinine is down to 0.72. Oral intake is improving. No further vomiting or diarrhea. Dialysis catheter has been discontinued. Vital signs are stable. General: The patient appeared well nourished and normally developed. HEENT: Head exam is unremarkable. Neck is without jugular venous distension. LUNGS: Lungs are clear to auscultation and percussion. Breath sounds decreased. HEART: Rate and Rhythm are regular. First and second heart sounds normal. No murmurs, rubs or gallops. ABDOMEN: Abdominal exam reveals normal bowel sounds. Non-tender and non- distended. No evidence of peritonitis. EXTREMITITES: No clubbing, cyanosis, or edema. Objective - Vital Signs Vital signs: Vital Signs Temp 98.5 F 12/02/17 05:00 Pulse 85 12/02/17 05:00 Resp 18 12/02/17 05:00 BP 133/59 12/02/17 05:00 Pulse Ox 97 12/02/17 05:00 Intake & Output 12/01/17 12/02/17 12/02/17 18:59 06:59 18:59 Intake Total 295.0 750 100 Output Total 490 Balance -195.0 750 100 Intake: IV 245.0 750 Magnesium Sulfate-D5w Pmx 100 1 gm In Dextrose/Water 1 100ml.bag @ 100 mls/hr IVPB ONCE ONE Rx#: [id number] Piperacillin-Tazobactam 3 25.0 50 .375 gm In Dextrose/Water 1 50ml.bag @ 12.5 mls/hr IVPB Q12HR [facility] Rx#: [id number] Sodium Chloride 0.9% 1, 120 700 000 ml @ 50 mls/hr IV . Q20H [facility] Rx#:[id number] Intake, IV Titration 50 Amount Sodium Chloride 0.9% 1, 50 000 ml @ 50 mls/hr IV . Q20H [facility] Rx#:[id number] Oral 100 Output: Urine 490 Other: Voiding Method Toilet Bedpan # Voids 3 - Labs CBC & Chem 7: 12/02/17 06:58 12/02/17 06:58 Labs: Abnormal Lab Results - Last 24 Hours (Table) 12/01/17 12/01/17 12/01/17 Range/Units 13:12 14:38 14:49 RBC 3.38 L (3.80-5.40) m/uL Hgb 10.0 L (11.4-16.0) gm/dL Hct 30.8 L (34.0-46.0) % Potassium (3.5-5.1) mmol/L Chloride (98-107) mmol/L Glucose (74-99) mg/dL POC Glucose (mg/dL) 162 H 191 H (75-99) mg/dL Phosphorus (2.5-4.5) mg/dL Magnesium (1.6-2.3) mg/dL AST (14-36) U/L ALT (9-52) U/L Total Protein (6.3-8.2) g/dL Albumin (3.5-5.0) g/dL 12/01/17 12/01/17 12/02/17 Range/Units 16:45 20:51 06:58 RBC 3.22 L (3.80-5.40) m/uL Hgb 9.5 L (11.4-16.0) gm/dL Hct 29.4 L (34.0-46.0) % Potassium (3.5-5.1) mmol/L Chloride (98-107) mmol/L Glucose (74-99) mg/dL POC Glucose (mg/dL) 193 H 162 H (75-99) mg/dL Phosphorus (2.5-4.5) mg/dL Magnesium (1.6-2.3) mg/dL AST (14-36) U/L ALT (9-52) U/L Total Protein (6.3-8.2) g/dL Albumin (3.5-5.0) g/dL 12/02/17 12/02/17 Range/Units 06:58 07:12 RBC (3.80-5.40) m/uL Hgb (11.4-16.0) gm/dL Hct (34.0-46.0) % Potassium 3.2 L (3.5-5.1) mmol/L Chloride 110 H (98-107) mmol/L Glucose 117 H (74-99) mg/dL POC Glucose (mg/dL) 126 H (75-99) mg/dL Phosphorus 1.9 L (2.5-4.5) mg/dL Magnesium 1.5 L (1.6-2.3) mg/dL AST 79 H (14-36) U/L ALT 100 H (9-52) U/L Total Protein 5.4 L (6.3-8.2) g/dL Albumin 3.0 L (3.5-5.0) g/dL Microbiology - Last 24 Hours (Table) 11/29/17 12:37 Blood Culture - Preliminary Blood No Growth after 48 hours Assessment and Plan Plan: Assessment: 1. Nonoliguric acute kidney injury mostly prerenal secondary to hypotension and intravascular volume depletion from vomiting and diarrhea. Creatinine was greater than 9 on admission and is down to 0.72 today. Patient underwent 1 treatment of hemodialysis on the day of admission. 2. Hypotension secondary to severe intravascular volume depletion from vomiting and diarrhea and from the use of antihypertensives. Improved. 3. Diabetes mellitus. 4. Multiple sclerosis. 5. Metabolic acidosis secondary to acute kidney injury and diarrhea. Resolved. 6. Hypovolemic hyponatremia improved with IV hydration. 7. Hypokalemia secondary to diuresis and poor oral intake. 8. Hypomagnesemia from poor oral intake. 9. Hypophosphatemia from poor oral intake. Plan: Continue normal saline at 50 mL an hour for maintenance fluids. Encourage oral intake. Replace potassium. 40 mEq today. 2 g of IV magnesium today. 20 mmol of potassium phosphate IV today. No further need for renal replacement therapy. Dialysis catheter discontinued.
[2017-12-02] MEDS: Dimethyl Fumarate [Tecfidera] 240 MG PO SCH (09:01)
[2017-12-02] MEDS: TOPIRAMATE 25 MG TAB PO SCH (09:02)
[2017-12-02] MEDS: levETIRAcetam 500 MG TAB PO SCH (09:02)
[2017-12-02] MEDS: MAGNESIUM SULFATE-D5W PMX 1 GM in DEXTROSE/WATER 1 100ML.BAG IVPB SCH ×2 (09:03→10:18)
--- NOTE | 2017-12-02 11:08 | US ---
EXAMINATION TYPE: US lower ext pseudo artery RT DATE OF EXAM: 12/02/2017 COMPARISON: NONE CLINICAL HISTORY: 52-year-old female post cath removal with bleeding, r/o pseudo aneurysm. EXAM PERFORMED: Grayscale and color Doppler duplex imaging performed of the right groin, post hemodia lysis access removal. SIDE PERFORMED: right groin FINDINGS: Color and Waveform Doppler performed to assess for the presence of pseudoaneurysm; Is there ultrasound evidence of a pseudoaneurysm: no Is there evidence of AV shunting: no Is there a fluid collection present: no prominent fluid collection seen IMPRESSION: Targeted right groin scan. No evidence for pseudoaneurysm, abnormal fluid collection/hematoma, or AV fistula.
[2017-12-02] MEDS: POTASSIUM PHOSPHATE 10 MMOL in SODIUM CHLORIDE 0.9% 250 ML IV SCH ×2 (11:22→13:59)
--- NOTE | 2017-12-02 11:27 | PN ---
PROGRESS NOTE Manuela came with a history of acute chronic failure. We placed a right femoral catheter. I was called in for removal of the catheter. After removing the catheter, she had extensive bleeding. We had to hold the pressure for a long time. Today we did ultrasound. Femoral vein and popliteal vein is patent. No pseudoaneurysm noted. Small hematoma. Femoral pulses, dorsal pedis pulses present. Right groin is soft. PLAN: The patient is stable from a vascular point of view. MMODL / IJN: [id number] /
[2017-12-02 11:39] LABS: Glucose,Whole Blood 227 mg/dL (75-99)
--- NOTE | 2017-12-02 13:48 | P.PN ---
Subjective Progress Note Date: 12/02/17 Principal diagnosis: Altered mental status This is a 52-year-old female being evaluated by the neurology service for altered mental status. Her metabolic encephalopathy continues to improve with correction of her underlying processes. She has exhibited no seizure-like activity since admission. At the time my exam she is resting comfortably in bed in no acute distress. Objective - Vital Signs Vital signs: Vital Signs Temp 98.5 F 12/02/17 05:00 Pulse 85 12/02/17 08:00 Resp 18 12/02/17 08:00 BP 133/59 12/02/17 05:00 Pulse Ox 97 12/02/17 05:00 Intake & Output 12/01/17 12/02/17 12/02/17 18:59 06:59 18:59 Intake Total 295.0 750 100 Output Total 490 Balance -195.0 750 100 Intake: IV 245.0 750 Magnesium Sulfate-D5w Pmx 100 1 gm In Dextrose/Water 1 100ml.bag @ 100 mls/hr IVPB ONCE ONE Rx#: [id number] Piperacillin-Tazobactam 3 25.0 50 .375 gm In Dextrose/Water 1 50ml.bag @ 12.5 mls/hr IVPB Q12HR [facility] Rx#: [id number] Sodium Chloride 0.9% 1, 120 700 000 ml @ 50 mls/hr IV . Q20H [facility] Rx#:[id number] Intake, IV Titration 50 Amount Sodium Chloride 0.9% 1, 50 000 ml @ 50 mls/hr IV . Q20H [facility] Rx#:[id number] Oral 100 Output: Urine 490 Other: Voiding Method Toilet Bedpan Bedpan # Voids 3 - Constitutional General appearance: Present: cooperative, no acute distress - EENT Eyes: Present: EOMI, PERRLA. Absent: abnormal pupil, ptosis ENT: Present: hearing grossly normal - Neck Neck: Present: normal ROM. Absent: rigidity - Respiratory Respiratory: negative: prolonged expiration, prolonged inspiration - Gastrointestinal General gastrointestinal: Absent: distended - Neurologic Neurologic Comment(s): The patient is alert awake and oriented 3. Speech and language are normal. There is no facial asymmetry. Strength is 5 minus out of 5 in bilateral upper and lower extremities. There is no sensory deficit. No tremors or seizures are seen. Cranial nerves II through XII are intact globally. - Labs CBC & Chem 7: 12/02/17 06:58 12/02/17 06:58 Labs: Abnormal Lab Results - Last 24 Hours (Table) 12/01/17 12/01/17 12/01/17 Range/Units 14:38 14:49 16:45 RBC 3.38 L (3.80-5.40) m/uL Hgb 10.0 L (11.4-16.0) gm/dL Hct 30.8 L (34.0-46.0) % Potassium (3.5-5.1) mmol/L Chloride (98-107) mmol/L Glucose (74-99) mg/dL POC Glucose (mg/dL) 191 H 193 H (75-99) mg/dL Phosphorus (2.5-4.5) mg/dL Magnesium (1.6-2.3) mg/dL AST (14-36) U/L ALT (9-52) U/L Total Protein (6.3-8.2) g/dL Albumin (3.5-5.0) g/dL 12/01/17 12/02/17 12/02/17 Range/Units 20:51 06:58 06:58 RBC 3.22 L (3.80-5.40) m/uL Hgb 9.5 L (11.4-16.0) gm/dL Hct 29.4 L (34.0-46.0) % Potassium 3.2 L (3.5-5.1) mmol/L Chloride 110 H (98-107) mmol/L Glucose 117 H (74-99) mg/dL POC Glucose (mg/dL) 162 H (75-99) mg/dL Phosphorus 1.9 L (2.5-4.5) mg/dL Magnesium 1.5 L (1.6-2.3) mg/dL AST 79 H (14-36) U/L ALT 100 H (9-52) U/L Total Protein 5.4 L (6.3-8.2) g/dL Albumin 3.0 L (3.5-5.0) g/dL 12/02/17 12/02/17 Range/Units 07:12 11:37 RBC (3.80-5.40) m/uL Hgb (11.4-16.0) gm/dL Hct (34.0-46.0) % Potassium (3.5-5.1) mmol/L Chloride (98-107) mmol/L Glucose (74-99) mg/dL POC Glucose (mg/dL) 126 H 227 H (75-99) mg/dL Phosphorus (2.5-4.5) mg/dL Magnesium (1.6-2.3) mg/dL AST (14-36) U/L ALT (9-52) U/L Total Protein (6.3-8.2) g/dL Albumin (3.5-5.0) g/dL Microbiology - Last 24 Hours (Table) 11/29/17 12:37 Blood Culture - Preliminary Blood No Growth after 48 hours Assessment and Plan (1) Acute renal failure Current Visit: Yes Status: Acute Code(s): N17.9 - ACUTE KIDNEY FAILURE, UNSPECIFIED SNOMED Code(s): 96751584 (2) Altered mental status Current Visit: Yes Status: Resolved Code(s): R41.82 - ALTERED MENTAL STATUS , UNSPECIFIED SNOMED Code(s): 693218583 (3) Rhabdomyolysis Current Visit: Yes Status: Resolved Code(s): M62.82 - RHABDOMYOLYSIS SNOMED Code(s): 459617438 (4) Encephalopathy Current Visit: No Status: Resolved Code(s): G93.40 - ENCEPHALOPATHY, UNSPECIFIED SNOMED Code(s): 74469412 (5) Multiple sclerosis Current Visit: No Status: Chronic Code(s): G35 - MULTIPLE SCLEROSIS SNOMED Code(s): 69502686 (6) Seizure Current Visit: No Status: Chronic Code(s): R56.9 - UNSPECIFIED CONVULSIONS SNOMED Code(s): 53717673 Plan: The patient is much more alert today and is reportedly back to baseline. This was multifactorial from her metabolic processes and possibly her sedating medications. An EEG was not able to be performed. She is being processed for discharge. If her neurologist deems necessary an EEG can be performed on an outpatient setting. She will follow up in outpatient setting with her neurologist for her multiple sclerosis and seizures. She has no focal neurological symptoms. Continue neurological checks. She is cleared from a neurological standpoint. I have performed a history and physical on the above patient. I have reviewed the above note, and agree.
[2017-12-02 15:00] VITALS: BP 126/67; RESP 16; TEMP 98.1
--- NOTE | 2017-12-02 15:58 | P.DS ---
Providers Date of admission: 11/29/17 14:31 Expected date of discharge: 12/02/17 Attending physician: Ant Lacey Consults: 11/29/17 14:31 Consult Physician Urgent Consulting Provider: Mushtaq Garcia Consult Reason/Comments: Acute care management Do you want consulting provider notified?: Yes Consult Physician Urgent Consulting Provider: Sivakumar Gonzalez Consult Reason/Comments: Dialysis catheter Do you want consulting provider notified?: Yes Consult Physician Urgent Consulting Provider: Magi Milan Consult Reason/Comments: Acute renal failure Do you want consulting provider notified?: Yes 11/30/17 09:17 Consult Physician Urgent Consulting Provider: Sav Esposito Consult Reason/Comments: AMS Do you want consulting provider notified?: Already Contacted Primary care physician: Jm Torres [facility] Hospital Course: Final diagnosis: -Acute bilateral aspiration pneumonia due to altered mental status could be chemical pneumonitis causing acute hypoxic respiratory failure on presentation -Acute severe metabolic encephalopathy from multiple medications including pain medications including Neurontin the setting of renal failure -Acute severe renal failure combination of ATN and prerenal from severe nausea vomiting diarrhea and patient being on ALBERTO inhibitor. Patient did get dialyzed 1. -Chronic pain syndrome for which patient is on multiple pain medications. -Multiple sclerosis patient at baseline uses a cane -Acute rhabdomyolysis, improving -Metabolic and respiratory acidosis upon presentation -Acute Ischemic hepatitis improving Depression otherwise specified - hypotensive shock from severe volume depression requiring pressure support upon presentation -Dialysis catheter that was placed in his right groin was removed today on December 01 Hospital course: Patient presented with lethargic becoming gradually with nausea vomiting found to be in acute severe renal failure. Severe metabolic acidosis. Was admitted to the ICU. Was put on a bicarbonate drip and Levophed. Patient was given dialyzed 1. Initial crit was 9.75. By the time of discharge down to 0.7. Patient at home uses insulin pump. That'll be started at home. Patient's covered by Lovenox today. Today the very long long talk with the patient and his mother and . Does of pain medications being cut back. Flexeril will be cut back in half. Neurontin will be cut back also. Discussion discharge planning more than 35 minutes On examination: 98.1, 85, 16, 126/67, 97% Psych-aortic 3 Lungs-clear Groin-no bruit Labs: Hemoglobin 9.5 Machine Set Up Technician consults: Dr. Esposito from neurology Dr. Lora from vascular surgery Dr. Fields from nephrology Dr. Garcia from critical care Patient Condition at Discharge: Stable Plan - Discharge Summary Discharge Rx Participant: No New Discharge Prescriptions: New Amoxic-Pot Clav 875-125Mg [Augmentin 875-125] 1 each PO Q12HR #6 tab Morphine Sulfate ER [Ms Contin] 30 mg PO Q12HR 3 Days #6 tab Continue Citalopram Hydrobromide [CeleXA] 60 mg PO AC-BRKFST Omeprazole [PriLOSEC] 20 mg PO AC-BID Modafinil [Provigil] 200 mg PO DAILY Dimethyl Fumarate [Tecfidera] 240 mg PO BID Ipratropium-Albuterol Nebulize [Duoneb 0.5 mg-3 mg/3 ml Soln] 3 ml INHALATION QID PRN 30 Days #3 box PRN Reason: shortness of breath Topiramate [Topamax] 50 mg PO TID #60 tab levETIRAcetam [Keppra] 1,000 mg PO BID INSULIN LISPRO (For Pump) [humaLOG (For Pump)] 0.01 units SQ-PUMP CONTINUOUS Lisinopril [Zestril] 5 mg PO DAILY Potassium 99 mg PO DAILY Changed Baclofen [Lioresal] 5 mg PO TID PRN #0 PRN Reason: Muscle Spasm Gabapentin 600 mg PO BID #0 Discontinued Magnesium Oxide [Mag-Ox] 400 mg PO BID clonazePAM [Clonazepam] 1 mg PO HS Gabapentin [Neurontin] 300 mg PO QAM Morphine Sulfate [Ms Contin] 60 mg PO Q12HR Discharge Medication List Citalopram Hydrobromide [CeleXA] 60 mg PO AC-BRKFST 09/19/13 [History] Dimethyl Fumarate [Tecfidera] 240 mg PO BID 05/27/17 [History] Modafinil [Provigil] 200 mg PO DAILY 05/27/17 [History] Omeprazole [PriLOSEC] 20 mg PO AC-BID 05/27/17 [History] Ipratropium-Albuterol Nebulize [Duoneb 0.5 mg-3 mg/3 ml Soln] 3 ml INHALATION QID PRN 30 Days #3 box 06/28/17 [Rx] Topiramate [Topamax] 50 mg PO TID #60 tab 06/28/17 [Rx] INSULIN LISPRO (For Pump) [humaLOG (For Pump)] 0.01 units SQ-PUMP CONTINUOUS [History] Lisinopril [Zestril] 5 mg PO DAILY 11/29/17 [History] Potassium 99 mg PO DAILY 11/29/17 [History] levETIRAcetam [Keppra] 1,000 mg PO BID 11/29/17 [History] Amoxic-Pot Clav 875-125Mg [Augmentin 875-125] 1 each PO Q12HR #6 tab 12/02/17 [ Rx] Baclofen [Lioresal] 5 mg PO TID PRN #0 12/02/17 [Rx] Gabapentin 600 mg PO BID #0 12/02/17 [Rx] Morphine Sulfate ER [Ms Contin] 30 mg PO Q12HR 3 Days #6 tab 12/02/17 [Rx] Follow up Appointment(s)/Referral(s): Jm Torres MD [Primary Care Provider] - 3 Days
== END 2017-12-02 16:20 | disposition home or self-care (01) | DRG 177 ==
LOC: EC 12:23 → 6ICU 14:31 → 5MS5E 12-01 11:57
PROVIDERS: ADMIT Hospitalist; ATTEND Hospitalist
PROC: 5A1D70Z Performance of Urinary Filtration, Intermittent, Less than 6 Hours Per Day (ICD-10-PCS; principal; 2017-11-29)
PROC: 06HY33Z Insertion of Infusion Device into Lower Vein, Percutaneous Approach (ICD-10-PCS; 2017-11-29)
PROC: 06PY33Z Removal of Infusion Device from Lower Vein, Percutaneous Approach (ICD-10-PCS; 2017-12-01)
DX: J69.0 Pneumonitis due to inhalation of food and vomit (principal); N17.0 Acute kidney failure with tubular necrosis; G92 Toxic encephalopathy; J96.01 Acute respiratory failure with hypoxia; E87.1 Hypo-osmolality and hyponatremia; E87.4 Mixed disorder of acid-base balance; M62.82 Rhabdomyolysis; R57.9 Shock, unspecified; E11.9 Type 2 diabetes mellitus without complications; E83.39 Other disorders of phosphorus metabolism; E83.42 Hypomagnesemia; E86.9 Volume depletion, unspecified; E87.6 Hypokalemia; F17.210 Nicotine dependence, cigarettes, uncomplicated; F32.9 Major depressive disorder, single episode, unspecified; G35 Multiple sclerosis; G40.909 Epilepsy, unspecified, not intractable, without status epilepticus; G89.4 Chronic pain syndrome; K52.9 Noninfective gastroenteritis and colitis, unspecified; K75.89 Other specified inflammatory liver diseases; T50.2X5A Adverse effect of carbonic-anhydrase inhibitors, benzothiadiazides and other diuretics, initial encounter; G43.909 Migraine, unspecified, not intractable, without status migrainosus; E86.0 Dehydration; D72.829 Elevated white blood cell count, unspecified; T42.6X5A Adverse effect of other antiepileptic and sedative-hypnotic drugs, initial encounter; T40.605A Adverse effect of unspecified narcotics, initial encounter; Z79.4 Long term (current) use of insulin; Z79.899 Other long term (current) drug therapy; Z88.8 Allergy status to other drugs, medicaments and biological substances; Z96.41 Presence of insulin pump (external) (internal); Z90.710 Acquired absence of both cervix and uterus; Z85.42 Personal history of malignant neoplasm of other parts of uterus; Z90.49 Acquired absence of other specified parts of digestive tract; Y92.009 Unspecified place in unspecified non-institutional (private) residence as the place of occurrence of the external cause
CPT/HCPCS: 36415; 36600; 70450; 71045; 80048; 80053; 80074; 80306; 81001; 82140; 82550; 82553; 82805; 83036; 83605; 83735; 84100; 84132; 84484; 85025; 85610; 85730; 87040; 87086; 90935; 93005; 93975; 94640; 96361; 96365; 96374; 96375; 96376; 99291

== ENCOUNTER → 2018-06-27 | Outpatient (CLI) | payer OTHER, MEDICARE ==
--- NOTE | 2018-06-27 13:20 | MR ---
EXAMINATION TYPE: MR brain wo/w con DATE OF EXAM: 06/27/2018 COMPARISON: 04/08/2017 HISTORY: multiple sclerosis TECHNIQUE: Multiplanar, multisequence images of the brain and brainstem is performed without and with IV contras t, utilizing 7.5 mL intravenous Gadavist . FINDINGS: Diffusion weighted images demonstrate no evidence of a recent infarct or other diffusion ab normality. The brain volume is age appropriate. Signal within the joyce is retrospectively stable and nonspecific. Areas of low signal within the basal ganglia bilaterally could represent prominent Virc how-Aquilino spaces or tiny remote lacunar infarctions. Midline structures demonstrate normal morphology. The craniocervical junction appears within normal limits. Post contrast images demonstrate no abnormal enhancement. The dural venous sinuses appear pa tent. There is a partially empty sella turcica. There is a trace amount fluid surrounding the optic n erves. White matter: T2 Lesions Present : Yes Approximate Number of Lesions: 1 Single left frontal 4 x 3 x 3 mm lesion Enhancing Lesion(s) Present: No Change from Prior: Stable IMPRESSION: 1. Stable nonspecific left frontal lobe white matter lesion too small to characterize. Findings could been the basis of migraine headaches, hypertension, remote focal area of microvascular ischemia. Dem yelinating process not excluded. 2. There is a partially empty sella turcica trace amount of fluid surrounding the optic nerves bilate rally which can occasionally be associated with papilledema or benign increased intracranial hyperten elsy. Correlate clinically.
== END | disposition home or self-care (01) ==
LOC: RADMRIMAIN 11:49
PROVIDERS: ATTEND Psychiatry & Neurology Neurology
DX: R90.82 White matter disease, unspecified (principal); G35 Multiple sclerosis
CPT/HCPCS: 70553; A9585

== ENCOUNTER → 2019-03-07 | Outpatient (CLI) | payer OTHER, MEDICARE ==
[2019-03-07 16:30] LABS: Luteinizing Hormone 0.6 mIU/mL; Prolactin 13.9 ng/mL (2.8-29.2)
[2019-03-07 16:31] LABS: Follicle Stimulating Hormone 5.9 mIU/mL
== END | disposition home or self-care (01) ==
LOC: LABWHC1 10:52
PROVIDERS: ATTEND Obstetrics & Gynecology
DX: N95.1 Menopausal and female climacteric states (principal)
CPT/HCPCS: 36415; 82670; 83001; 83002; 84144; 84146; 84403

== ENCOUNTER → 2019-03-12 | Outpatient (CLI) | payer OTHER, MEDICARE ==
--- NOTE | 2019-03-12 12:33 | MR ---
EXAMINATION TYPE: MR brain wo/w con DATE OF EXAM: 03/12/2019 COMPARISON: 06/27/2018 HISTORY: Weakness, MS TECHNIQUE: Multiplanar, multisequence images of the brain and brainstem is performed without and with IV contras t, utilizing 7.5 mL intravenous Gadavist . FINDINGS: Exam limited by motion artifact. Diffusion weighted images demonstrate no evidence of a recent infarct or other diffusion abnormality. The ventricular system and cisternal spaces are normal in size and appearance. The brain volume is age appropriate. There is a stable tiny areas of abnormal signal in the joyce too small to characterize unchanged from the prior exam. Areas of abnormal signal involving the basal ganglia most typical prominent Virchow-R obin spaces Midline structures demonstrate normal morphology. The craniocervical junction appears within normal limits. Post contrast images demonstrate no abnormal enhancement. The dural venous sinuses appear pa tent. Partially empty sella turcica noted. Changes of chronic sinusitis noted. Nasal septal deviation noted. Trace amount fluid surrounding the optic nerves. White matter: T2 Lesions Present : Yes Approximate Number of Lesions: 1 Single left frontal 4 x 3 x 3 mm lesion Enhancing Lesion(s) Present: No Change from Prior: Stable IMPRESSION: 1. Stable nonspecific left frontal lobe white matter lesion too small to characterize. Findings could be on the basis of migraine headaches, hypertension, remote focal area of microvascular ischemia. De myelinating process not excluded. 2. There is a partially empty sella turcica trace amount of fluid s urrounding the optic nerves bilaterally which can occasionally be associated with papilledema or macy gn increased intracranial hypertension. Correlate clinically. 3. Stable tiny areas of abnormal signal the joyce too small to characterize. Could been the basis of r emote microvascular ischemia. Demyelinating process not excluded
== END | disposition home or self-care (01) ==
LOC: RADMRIMAIN 11:24
PROVIDERS: ATTEND Psychiatry & Neurology Neurology
DX: G35 Multiple sclerosis (principal); I10 Essential (primary) hypertension
CPT/HCPCS: 70553; A9585

== ENCOUNTER 2019-04-13 12:49 | Inpatient (IN) | payer OTHER, MEDICARE ==
[2019-04-13] MEDS ORDERED: NALOXONE 0.4 MG/ML 1 ML VIAL IM STA (12:58)
[2019-04-13] MEDS ORDERED: SODIUM CHLORIDE 0.9% 1,000 ML IV ONE ×2 (12:58)
[2019-04-13 13:06] LABS: Glucose,Whole Blood 103 mg/dL (75-99)
[2019-04-13] MEDS ORDERED: NALOXONE 0.4 MG/ML 10 ML VIAL IVP STA ×2 (13:08→14:55)
--- NOTE | 2019-04-13 13:08 | ED ---
Neuro HPI - General Chief Complaint: Neuro Symptoms/Deficit Stated Complaint: Poss CVA Time Seen by Provider: 04/13/19 12:49 Source: EMS, RN notes reviewed, old records reviewed Mode of arrival: EMS Limitations: altered mental status - History of Present Illness Is the patient presenting with stroke symptoms?: No Initial Comments: This a 53-year-old female history of MS, diabetes, acute renal failure with rhabdomyolysis in the past who was last seen in her usual state last evening at some time who is brought in by EMS today because of altered mental status. She response to pain she did have a blood glucose was adequate per paramedics. Her blood pressure remained about 79/47 and route to. Of note she did fall about a week ago sustaining a fracture to her right lower extremity. Is unknown where she was treated. No known history of head neck or back pain at that time. No new trauma reported. No recent fevers chills nausea vomiting sweats or other symptoms. The patient herself is not responsive for communication. - Related Data Home Medications: Home Medications Medication Instructions Recorded Confirmed Citalopram Hydrobromide [CeleXA] 60 mg PO AC-BRKFST 09/19/13 11/29/17 Dimethyl Fumarate [Tecfidera] 240 mg PO BID 05/27/17 11/29/17 Modafinil [Provigil] 200 mg PO DAILY 05/27/17 11/29/17 Omeprazole [PriLOSEC] 20 mg PO AC-BID 05/27/17 11/29/17 INSULIN LISPRO (For Pump) [humaLOG 0.01 units SQ-PUMP CONTINUOUS 11/29/17 11/29/17 (For Pump)] Lisinopril [Zestril] 5 mg PO DAILY 11/29/17 11/29/17 Potassium 99 mg PO DAILY 11/29/17 11/29/17 levETIRAcetam [Keppra] 1,000 mg PO BID 11/29/17 11/29/17 Previous Rx's Medication Instructions Recorded Ipratropium-Albuterol Nebulize 3 ml INHALATION QID PRN 30 Days #3 06/28/17 [Duoneb 0.5 mg-3 mg/3 ml Soln] box Topiramate [Topamax] 50 mg PO TID #60 tab 06/28/17 Amoxic-Pot Clav 875-125Mg 1 each PO Q12HR #6 tab 12/02/17 [Augmentin 875-125] Baclofen [Lioresal] 5 mg PO TID PRN #0 12/02/17 Gabapentin 300 mg PO BID #0 12/02/17 Morphine Sulfate ER [Ms Contin] 30 mg PO Q12HR 3 Days #6 tab 12/02/17 Allergies/Adverse Reactions: Allergies Allergy/AdvReac Type Severity Reaction Status Date / Time divalproex sodium Allergy Unknown Verified 11/29/17 14:11 [From Depakote] prochlorperazine edisylate Allergy Unknown Verified 11/29/17 14:11 [From Compazine] prochlorperazine maleate Allergy Unknown Verified 11/29/17 14:11 [From Compazine] vancomycin Allergy Unknown Verified 11/29/17 14:11 steroids AdvReac Confusion Uncoded 05/27/17 17:21 Review of Systems ROS Statement: Those systems with pertinent positive or pertinent negative responses have been documented in the HPI. ROS Other: All systems not noted in ROS Statement are negative. Limitations: ROS unobtainable due to patients medical condition General Exam - General Exam Comments Initial Comments: This is a well-developed well-nourished unresponsive female she does respond to physical stimulus and sternal rubbing. Limitations: altered mental status, physical limitation General appearance: obtunded Head exam: Present: atraumatic, normocephalic, normal inspection Eye exam: Present: normal appearance, PERRL, EOMI. Absent: scleral icterus, conjunctival injection, periorbital swelling ENT exam: Present: mucous membranes dry Neck exam: Present: normal inspection (Stridor JVD or bruits), other Respiratory exam: Present: normal lung sounds bilaterally. Absent: respiratory distress, wheezes, rales, rhonchi, stridor Cardiovascular Exam: Present: regular rate, normal rhythm, normal heart sounds. Absent: systolic murmur, diastolic murmur, rubs, gallop, clicks GI/Abdominal exam: Absent: bruit, pulsatile mass Rectal exam: Present: deferred Extremities exam: Present: normal capillary refill, other (There is a short leg cast in the right lower extremity with good neurovascular examination) Back exam: Present: normal inspection Neurological exam: Present: altered Psychiatric exam: Present: other (Able to evaluate) Skin exam: Present: warm, dry, intact, normal color. Absent: rash Stroke MDM - Lab Data Result diagrams: 04/13/19 13:00 04/13/19 13:00 Lab Results 04/13/19 04/13/19 04/13/19 Range/Units 12:55 13:00 13:00 WBC 10.9 H (3.8-10.6) k/uL RBC 3.64 L (3.80-5.40) m/uL Hgb 10.9 L (11.4-16.0) gm/dL Hct 34.2 (34.0-46.0) % MCV 94.1 (80.0-100.0) fL MCH 30.0 (25.0-35.0) pg MCHC 31.9 (31.0-37.0) g/dL RDW 13.4 (11.5-15.5) % Plt Count 209 (150-450) k/uL Neutrophils % 81 % Lymphocytes % 10 % Monocytes % 6 % Eosinophils % 2 % Basophils % 1 % Neutrophils # 8.8 H (1.3-7.7) k/uL Lymphocytes # 1.1 (1.0-4.8) k/uL Monocytes # 0.6 (0-1.0) k/uL Eosinophils # 0.2 (0-0.7) k/uL Basophils # 0.1 (0-0.2) k/uL PT (9.0-12.0) sec INR (<1.2) APTT (22.0-30.0) sec Sodium (137-145) mmol/L Potassium (3.5-5.1) mmol/L Chloride (98-107) mmol/L Carbon Dioxide (22-30) mmol/L Anion Gap mmol/L BUN (7-17) mg/dL Creatinine (0.52-1.04) mg/dL Est GFR (CKD-EPI)AfAm (>60 ml/min/1.73 sqM) Est GFR (CKD-EPI)NonAf (>60 ml/min/1.73 sqM) Glucose (74-99) mg/dL POC Glucose (mg/dL) 103 H (75-99) mg/dL POC Glu Crop Supervisor ID Caroline Tello Plasma Lactic Acid Arturo 0.7 (0.7-2.0) mmol/L Calcium (8.4-10.2) mg/dL Magnesium (1.6-2.3) mg/dL Total Bilirubin (0.2-1.3) mg/dL AST (14-36) U/L ALT (4-34) U/L Alkaline Phosphatase (38-126) U/L Ammonia <9 (<30) umol/L Creatine Kinase (30-135) U/L Troponin I (0.000-0.034) ng/mL Total Protein (6.3-8.2) g/dL Albumin (3.5-5.0) g/dL Urine Color Urine Appearance (Clear) Urine pH (5.0-8.0) Ur Specific [place] (1.001-1.035) Urine Protein (Negative) Urine Glucose (UA) (Negative) Urine Ketones (Negative) Urine Blood (Negative) Urine Nitrite (Negative) Urine Bilirubin (Negative) Urine Urobilinogen (<2.0) mg/dL Ur Leukocyte Esterase (Negative) Urine WBC (0-5) /hpf Ur Squamous Epith Cells (0-4) /hpf Amorphous Sediment (None) /hpf Urine Bacteria (None) /hpf Hyaline Casts (0-2) /lpf Urine Mucus (None) /hpf Urine Opiates Screen (NotDetected) Ur Oxycodone Screen (NotDetected) Urine Methadone Screen (NotDetected) Ur Propoxyphene Screen (NotDetected) Ur Barbiturates Screen (NotDetected) U Tricyclic Antidepress (NotDetected) Ur Phencyclidine Scrn (NotDetected) Ur Amphetamines Screen (NotDetected) U Methamphetamines Scrn (NotDetected) U Benzodiazepines Scrn (NotDetected) Urine Cocaine Screen (NotDetected) U Marijuana (THC) Screen (NotDetected) 04/13/19 04/13/19 04/13/19 Range/Units 13:00 13:00 13:00 WBC (3.8-10.6) k/uL RBC (3.80-5.40) m/uL Hgb (11.4-16.0) gm/dL Hct (34.0-46.0) % MCV (80.0-100.0) fL MCH (25.0-35.0) pg MCHC (31.0-37.0) g/dL RDW (11.5-15.5) % Plt Count (150-450) k/uL Neutrophils % % Lymphocytes % % Monocytes % % Eosinophils % % Basophils % % Neutrophils # (1.3-7.7) k/uL Lymphocytes # (1.0-4.8) k/uL Monocytes # (0-1.0) k/uL Eosinophils # (0-0.7) k/uL Basophils # (0-0.2) k/uL PT 9.8 (9.0-12.0) sec INR 0.9 (<1.2) APTT 25.9 (22.0-30.0) sec Sodium 140 (137-145) mmol/L Potassium 5.1 (3.5-5.1) mmol/L Chloride 110 H (98-107) mmol/L Carbon Dioxide 21 L (22-30) mmol/L Anion Gap 9 mmol/L BUN 69 H (7-17) mg/dL Creatinine 3.34 H (0.52-1.04) mg/dL Est GFR (CKD-EPI)AfAm 17 (>60 ml/min/1.73 sqM) Est GFR (CKD-EPI)NonAf 15 (>60 ml/min/1.73 sqM) Glucose 100 H (74-99) mg/dL POC Glucose (mg/dL) (75-99) mg/dL POC Glu Crop Supervisor ID Plasma Lactic Acid Arturo (0.7-2.0) mmol/L Calcium 8.3 L (8.4-10.2) mg/dL Magnesium 2.1 (1.6-2.3) mg/dL Total Bilirubin 0.4 (0.2-1.3) mg/dL AST 24 (14-36) U/L ALT 23 (4-34) U/L Alkaline Phosphatase 80 (38-126) U/L Ammonia (<30) umol/L Creatine Kinase 114 (30-135) U/L Troponin I <0.012 (0.000-0.034) ng/mL Total Protein 6.1 L (6.3-8.2) g/dL Albumin 3.7 (3.5-5.0) g/dL Urine Color Urine Appearance (Clear) Urine pH (5.0-8.0) Ur Specific [place] (1.001-1.035) Urine Protein (Negative) Urine Glucose (UA) (Negative) Urine Ketones (Negative) Urine Blood (Negative) Urine Nitrite (Negative) Urine Bilirubin (Negative) Urine Urobilinogen (<2.0) mg/dL Ur Leukocyte Esterase (Negative) Urine WBC (0-5) /hpf Ur Squamous Epith Cells (0-4) /hpf Amorphous Sediment (None) /hpf Urine Bacteria (None) /hpf Hyaline Casts (0-2) /lpf Urine Mucus (None) /hpf Urine Opiates Screen (NotDetected) Ur Oxycodone Screen (NotDetected) Urine Methadone Screen (NotDetected) Ur Propoxyphene Screen (NotDetected) Ur Barbiturates Screen (NotDetected) U Tricyclic Antidepress (NotDetected) Ur Phencyclidine Scrn (NotDetected) Ur Amphetamines Screen (NotDetected) U Methamphetamines Scrn (NotDetected) U Benzodiazepines Scrn (NotDetected) Urine Cocaine Screen (NotDetected) U Marijuana (THC) Screen (NotDetected) 04/13/19 Range/Units 13:59 WBC (3.8-10.6) k/uL RBC (3.80-5.40) m/uL Hgb (11.4-16.0) gm/dL Hct (34.0-46.0) % MCV (80.0-100.0) fL MCH (25.0-35.0) pg MCHC (31.0-37.0) g/dL RDW (11.5-15.5) % Plt Count (150-450) k/uL Neutrophils % % Lymphocytes % % Monocytes % % Eosinophils % % Basophils % % Neutrophils # (1.3-7.7) k/uL Lymphocytes # (1.0-4.8) k/uL Monocytes # (0-1.0) k/uL Eosinophils # (0-0.7) k/uL Basophils # (0-0.2) k/uL PT (9.0-12.0) sec INR (<1.2) APTT (22.0-30.0) sec Sodium (137-145) mmol/L Potassium (3.5-5.1) mmol/L Chloride (98-107) mmol/L Carbon Dioxide (22-30) mmol/L Anion Gap mmol/L BUN (7-17) mg/dL Creatinine (0.52-1.04) mg/dL Est GFR (CKD-EPI)AfAm (>60 ml/min/1.73 sqM) Est GFR (CKD-EPI)NonAf (>60 ml/min/1.73 sqM) Glucose (74-99) mg/dL POC Glucose (mg/dL) (75-99) mg/dL POC Glu Crop Supervisor ID Plasma Lactic Acid Arturo (0.7-2.0) mmol/L Calcium (8.4-10.2) mg/dL Magnesium (1.6-2.3) mg/dL Total Bilirubin (0.2-1.3) mg/dL AST (14-36) U/L ALT (4-34) U/L Alkaline Phosphatase (38-126) U/L Ammonia (<30) umol/L Creatine Kinase (30-135) U/L Troponin I (0.000-0.034) ng/mL Total Protein (6.3-8.2) g/dL Albumin (3.5-5.0) g/dL Urine Color Yellow Urine Appearance Cloudy H (Clear) Urine pH 5.0 (5.0-8.0) Ur Specific [place] 1.015 (1.001-1.035) Urine Protein Trace H (Negative) Urine Glucose (UA) Negative (Negative) Urine Ketones Negative (Negative) Urine Blood Negative (Negative) Urine Nitrite Negative (Negative) Urine Bilirubin Negative (Negative) Urine Urobilinogen <2.0 (<2.0) mg/dL Ur Leukocyte Esterase Small H (Negative) Urine WBC 3 (0-5) /hpf Ur Squamous Epith Cells 19 H (0-4) /hpf Amorphous Sediment Rare H (None) /hpf Urine Bacteria Many H (None) /hpf Hyaline Casts 4 H (0-2) /lpf Urine Mucus Occasional H (None) /hpf Urine Opiates Screen Detected H (NotDetected) Ur Oxycodone Screen Not Detected (NotDetected) Urine Methadone Screen Not Detected (NotDetected) Ur Propoxyphene Screen Not Detected (NotDetected) Ur Barbiturates Screen Not Detected (NotDetected) U Tricyclic Antidepress Not Detected (NotDetected) Ur Phencyclidine Scrn Not Detected (NotDetected) Ur Amphetamines Screen Not Detected (NotDetected) U Methamphetamines Scrn Not Detected (NotDetected) U Benzodiazepines Scrn Not Detected (NotDetected) Urine Cocaine Screen Not Detected (NotDetected) U Marijuana (THC) Screen Detected H (NotDetected) - EKG Data -: EKG Interpreted by Me EKG shows normal: sinus rhythm (Sinus rhythm 87. Interval 122 QRS 80 QT since QTC 406/48 nonspecific inferior configuration) Past Medical History Past Medical History: Diabetes Mellitus, Seizure Disorder Additional Past Medical History / Comment(s): MS, uterine cancer, migraine headaches History of Any Multi-Drug Resistant Organisms: None Reported Past Surgical History: Appendectomy, Cholecystectomy, Hysterectomy, Orthopedic Surgery Additional Past Surgical History / Comment(s): cervical surgery, right ear reconstruction from defect Past Anesthesia/Blood Transfusion Reactions: No Reported Reaction Past Psychological History: Depression Smoking Status: Current every day smoker Past Alcohol Use History: None Reported Past Drug Use History: None Reported - Past Family History Mother Family Medical History: Diabetes Mellitus Brother(s) Family Medical History: Diabetes Mellitus Course Vital Signs 04/13/19 04/13/19 04/13/19 12:52 13:01 13:23 Temperature 98.3 F Pulse Rate 87 98 Respiratory 16 12 Rate Blood Pressure 85/60 100/69 126/78 O2 Sat by Pulse 94 L 98 Oximetry 04/13/19 04/13/19 04/13/19 13:31 13:35 13:47 Temperature Pulse Rate 98 101 H Respiratory 13 12 12 Rate Blood Pressure 121/73 123/75 O2 Sat by Pulse 100 98 Oximetry 04/13/19 04/13/19 15:12 15:17 Temperature Pulse Rate 102 H Respiratory 12 18 Rate Blood Pressure O2 Sat by Pulse Oximetry - Reevaluation(s) Reevaluation #1: 04/13/19 14:03 The patient did respond to Narcan administration and did become more condescending and awake. Reevaluation #2: 04/13/19 14:56 Age and did become Manolo again her blood pressure did initially respond to fluids but she is a systolic of 90. She'll get more Narcan as well as more IV fluids. I did discuss the presentation with the patient's she did recently just get out of [facility] with a similar presenta tion. Reevaluation #3: 04/13/19 15:43 Reassessment of the patient revealed pink improved cognition after repeat Narcan. Also improve blood pressure after IV fluids she will be admitted did discuss case with her and her family as well as with Dr. Krystal Lacey Critical Care Time Critical Care Time: Yes Critical Care Time: 37 minutes of critical care time which includes initial presentation with hi story physical labs x-rays multiple reevaluation the patient multiple discussions with the patient's family discussed with the admitting physician review of old charting was available admission orders and documentation of the above Disposition Clinical Impression: MACKENZIE (acute kidney injury), Altered mental status, Dehydration, Hypotensive episode, Narcotic dependence Disposition: ADMITTED IP TO THIS [facility] Condition: Fair Referrals: Nonstaff,Physician [REFERRING] - 1-2 days
[2019-04-13 13:26] LABS: Basophils # (A) 0.1 k/uL (0-0.2); Basophils % (A) 1 %; Eosinophils # (A) 0.2 k/uL (0-0.7); Eosinophils % (A) 2 %; HCT 34.2 % (34.0-46.0); HGB 10.9 gm/dL (11.4-16.0); Lymphocytes # (A) 1.1 k/uL (1.0-4.8); Lymphocytes % (A) 10 %; MCHC 31.9 g/dL (31.0-37.0); MCV 94.1 fL (80.0-100.0); Mean Platelet Volume 8.1; Monocytes # (A) 0.6 k/uL (0-1.0); Monocytes % (A) 6 %; Neutrophils # (A) 8.8 k/uL (1.3-7.7); Neutrophils % (A) 81 %; Platelet Count 209 k/uL (150-450); RBC 3.64 m/uL (3.80-5.40); RDW 13.4 % (11.5-15.5); WBC 10.9 k/uL (3.8-10.6)
--- NOTE | 2019-04-13 13:34 | XR ---
EXAMINATION TYPE: XR chest 1V portable DATE OF EXAM: 04/13/2019 HISTORY: Altered mental status. REFERENCE: Previous study dated 11/30/2017. FINDINGS: There has been a previous ACDF in the lower cervical spine. Heart size upper limits of normal. There is vascular congestion without ad edema. Pleural spaces a re clear. IMPRESSION: BORDERLINE CARDIOMEGALY AND VASCULAR CONGESTION WITHOUT AD EDEMA.
[2019-04-13 13:37] LABS: Ammonia <9 umol/L (<30); Lactic Acid, Venous 0.7 mmol/L (0.7-2.0)
[2019-04-13 13:38] LABS: Albumin 3.7 g/dL (3.5-5.0); Calcium 8.3 mg/dL (8.4-10.2); Magnesium 2.1 mg/dL (1.6-2.3); Potassium 5.1 mmol/L (3.5-5.1); Total Bilirubin 0.4 mg/dL (0.2-1.3); Total Protein 6.1 g/dL (6.3-8.2)
[2019-04-13 13:47] LABS: INR 0.9 (<1.2); Partial Thromboplastin Time 25.9 sec (22.0-30.0); Prothrombin Time 9.8 sec (9.0-12.0)
--- NOTE | 2019-04-13 13:54 | CT ---
EXAMINATION TYPE: CT brain wo con DATE OF EXAM: 04/13/2019 COMPARISON: Previous study dated 11/29/2017 HISTORY: Mental status changes CT DLP: 1084.4 mGycm Automated exposure control for dose reduction was used. FINDINGS: Central structures are midline. There is no evidence of hydrocephalus. No acute focal lesion, mass ef fect or midline shift is seen. I do not see evidence of intracranial blood. There is been a Orellana Nam procedure on the right. There is been a mastoidectomy bilaterally. The m astoids are clear. The bony calvarium is intact. IMPRESSION: 1. NO ACUTE INTRACRANIAL ABNORMALITY. 2. POSTSURGICAL CHANGE.
[2019-04-13 14:29] LABS: Amorphous Sediment,Urine Rare /hpf; Appearance,Urine Cloudy (Clear); Bacteria,Urine Many /hpf; Bilirubin,Urine Negative (Negative); Blood,Urine Negative (Negative); Color,Urine Yellow; Glucose,Urine (UA) Negative (Negative); Hyaline Casts,Urine 4 /lpf (0-2); Ketones,Urine Negative (Negative); Leukocyte Esterase,Urine Small (Negative); Mucus,Urine Occasional /hpf; Nitrite,Urine Negative (Negative); Protein,Urine Trace (Negative); Specific Gravity,Urine 1.015 (1.001-1.035); Squamous Epithelial Cell,Urine 19 /hpf (0-4); Urobilinogen,Urine <2.0 mg/dL (<2.0); WBC,Urine 3 /hpf (0-5)
[2019-04-13 14:38] LABS: Amphetamine Screen,Urine Not Detected (NotDetected); Barbiturate Screen,Urine Not Detected (NotDetected); Benzodiazepines Screen,Urine Not Detected (NotDetected); Cocaine Screen,Urine Not Detected (NotDetected); Methadone Screen, Urine Not Detected (NotDetected); Opiate Screen,Urine Detected (NotDetected); Oxycodone Screen, Urine Not Detected (NotDetected); Phencyclidine Screen,Urine Not Detected (NotDetected); Tricyclic Antidepressant,Urine Not Detected (NotDetected); Urn Cannabinoid Scrn Detected (NotDetected)
[2019-04-13] MEDS ORDERED: SODIUM CHLORIDE 0.9% 1,000 ML IV STA (14:56)
[2019-04-13] MEDS ORDERED: NALOXONE 0.4 MG/ML 1 ML VIAL IV PRN (15:45)
[2019-04-13] MEDS ORDERED: IPRATROPIUM-ALBUTEROL 3 ML NEB INHALATION PRN (15:48)
[2019-04-13] MEDS ORDERED: BACLOFEN 10 MG TAB PO PRN (15:48)
[2019-04-13] MEDS ORDERED: TOPIRAMATE 25 MG TAB PO SCH (16:00)
[2019-04-13] MEDS: SODIUM CHLORIDE 0.9% 1,000 ML IV SCH ×2 (16:56→22:08)
[2019-04-13] MEDS: HEPARIN SODIUM,PORCINE 5,000 UNIT/ML 1 ML VIAL SQ SCH ×2 (16:58→23:10)
[2019-04-13] MEDS ORDERED: MELATONIN 3 MG TABLET PO PRN (17:32)
[2019-04-13] MEDS ORDERED: ACETAMINOPHEN TAB 325 MG TAB PO PRN (17:32)
[2019-04-13] MEDS ORDERED: HYOSCYAMINE ORAL DROPS 1.875 MG/15 ML BOTTLE SUBLINGUAL PRN (17:34)
--- NOTE | 2019-04-13 17:37 | P.HPIM ---
History of Present Illness H&P Date: 04/13/19 Chief Complaint: altered mentation Patient is a 53-year-old female with a past medical history of multiple sclerosis on Tecfidera and baclofen, diabetes mellitus type 2 requiring an insulin pump, chronic pain, and seizure disorder who presented to the emergency department via EMS for altered mentation. On arrival to the emergency department she was somewhat hypotensive with blood pressure 85/60. Initial laboratory analysis showed slightly elevated white blood cell count at 10.9, hemoglobin 10.9, BUN of 69, creatinine 3.34, glucose 100, calcium 8.3, urinalysis did not show any definitive signs of infection. Urine drug screen is positive for opiates and THC. She underwent a chest x-ray which showed some cardiomegaly and venous stasis changes but no acute pneumonia. CT of the brain demonstrated post surgical changes but no acute process. She was given narcan in the emergency department with improvement in her mentation. Arrangement were made for admission due to altered mentation and MACKENZIE. Patient seen and examined in the emergency department with her present. She is very sleepy and gives most of history. She was discharged from [facility] approximately one week ago after suffering a fall with a resultant right foot fracture. At that point in time she was apparently diagnosed with acute renal failure. She was discharged home and was doing well. This morning he found her altered. He took her blood sugar which was normal at 120 and her blood pressure which was slightly low at 70/40. He then activated EMS. They report no increase in her opiate pain medications. He does keep all of her medications locked up and his gun And she does not have access to them. She reports that she did not take an increase in her medications. She has been using Toradol for pain after discharge. She currently denies any cough, cold, fever, flu, chest pain, shortness of breath, headache, nausea, or vomiting. She is very lethargic but arouses easily to touch. Thorough record review was done of her most recent hospital stay in 2018. Past medical history is gathered from chart and talking with . Review of Systems Unable to obtain full review of systems secondary to altered mental status, as able to obtain in HPI Past Medical History Past Medical History: Diabetes Mellitus, Seizure Disorder Additional Past Medical History / Comment(s): MS, uterine cancer, migraine headaches History of Any Multi-Drug Resistant Organisms: None Reported Past Surgical History: Appendectomy, Cholecystectomy, Hysterectomy, Orthopedic Surgery Additional Past Surgical History / Comment(s): cervical surgery, right ear reconstruction from defect Past Anesthesia/Blood Transfusion Reactions: No Reported Reaction Past Psychological History: Depression Smoking Status: Current every day smoker Past Alcohol Use History: None Reported Past Drug Use History: Marijuana Additional History: Lives with her - Past Family History Mother Family Medical History: Diabetes Mellitus Brother(s) Family Medical History: Diabetes Mellitus Medications and Allergies Home Medications Medication Instructions Recorded Confirmed Type Citalopram Hydrobromide [CeleXA] 60 mg PO [id number] 09/19/13 11/29/17 History Dimethyl Fumarate [Tecfidera] 240 mg PO BID 05/27/17 11/29/17 History Modafinil [Provigil] 200 mg PO DAILY 05/27/17 11/29/17 History Omeprazole [PriLOSEC] 20 mg PO AC-BID 05/27/17 11/29/17 History Ipratropium-Albuterol Nebulize 3 ml INHALATION QID PRN 30 Days #3 06/28/17 11/29/17 Rx [Duoneb 0.5 mg-3 mg/3 ml Soln] box Topiramate [Topamax] 50 mg PO TID #60 tab 06/28/17 11/29/17 Rx INSULIN LISPRO (For Pump) [humaLOG 0.01 units SQ-PUMP CONTINUOUS 11/29/17 11/29/17 History (For Pump)] Lisinopril [Zestril] 5 mg PO DAILY 11/29/17 11/29/17 History Potassium 99 mg PO DAILY 11/29/17 11/29/17 History levETIRAcetam [Keppra] 1,000 mg PO BID 11/29/17 11/29/17 History Amoxic-Pot Clav 875-125Mg 1 each PO Q12HR #6 tab 12/02/17 Rx [Augmentin 875-125] Baclofen [Lioresal] 5 mg PO TID PRN #0 12/02/17 11/29/17 Rx Gabapentin 300 mg PO BID #0 12/02/17 11/29/17 Rx Morphine Sulfate ER [Ms Contin] 30 mg PO Q12HR 3 Days #6 tab 12/02/17 Rx Allergies Allergy/AdvReac Type Severity Reaction Status Date / Time divalproex sodium Allergy Unknown Verified 11/29/17 14:11 [From Depakote] prochlorperazine edisylate Allergy Unknown Verified 11/29/17 14:11 [From Compazine] prochlorperazine maleate Allergy Unknown Verified 11/29/17 14:11 [From Compazine] vancomycin Allergy Unknown Verified 11/29/17 14:11 steroids AdvReac Confusion Uncoded 05/27/17 17:21 Physical Exam Osteopathic Statement: *. No significant issues noted on an osteopathic structural exam other than those noted in the History and Physical/Consult. Vitals: Vital Signs Temp Pulse Resp BP Pulse Ox 04/13/19 16:00 91 13 123/76 97 04/13/19 15:30 98 12 99 04/13/19 15:17 102 H 18 04/13/19 15:12 12 04/13/19 15:00 101 H 13 95 04/13/19 14:30 93 12 107/64 98 04/13/19 14:00 110 H 13 122/71 99 04/13/19 13:47 12 04/13/19 13:35 101 H 12 123/75 98 04/13/19 13:31 98 13 121/73 100 04/13/19 13:30 108 H 13 125/76 99 04/13/19 13:23 98 12 126/78 98 04/13/19 13:01 100/69 04/13/19 13:00 85 8 L 85/60 100 04/13/19 12:55 87 13 04/13/19 12:52 98.3 F 87 16 85/60 94 L Intake and Output 04/13/19 04/13/19 04/13/19 06:59 14:59 22:59 Other: Weight 84.822 kg General: non toxic, mild distress, appears at stated age, Obese Derm: no unusual rashes/lesions, multiple bruises on her abdomen due to recent heparin injections, warm, dry Head: atraumatic, normocephalic, symmetric Eyes: EOMI, no lid lag, anicteric sclera, pupils equal round reactive to light ENT: Nose and ears atraumatic, no thrush, no pharyngeal erythema Neck: No thyromegaly, no cervical lymphadenopathy, trachea midline, supple Mouth: no lip lesion, mucus membranes moist Cardiovascular: S1S2 reg, no murmur, positive posterior tibial pulse bilateral, no edema, capillary refill less than 2 seconds Lungs: decreased bs bilateral, no rhonchi, no rales , no accessory muscle use Abdominal: soft, nontender to palpation, no guarding, no appreciable organomegaly, normal bowel sounds Ext: no gross muscle atrophy, muscle strength 3 out of 5 b/l lower extremities, 4 out of 5 in bilateral upper extremities grossly, no contractures, Neuro: CN II-XI grossly intact, light touch intact all 4 extremities, finger to nose within normal limits, Psych: Alert, oriented, appropriate affect Results CBC & Chem 7: 04/13/19 13:00 04/13/19 13:00 Labs: Abnormal Lab Results - Last 24 Hours (Table) 04/13/19 04/13/19 04/13/19 Range/Units 12:55 13:00 13:00 WBC 10.9 H (3.8-10.6) k/uL RBC 3.64 L (3.80-5.40) m/uL Hgb 10.9 L (11.4-16.0) gm/dL Neutrophils # 8.8 H (1.3-7.7) k/uL Chloride 110 H (98-107) mmol/L Carbon Dioxide 21 L (22-30) mmol/L BUN 69 H (7-17) mg/dL Creatinine 3.34 H (0.52-1.04) mg/dL Glucose 100 H (74-99) mg/dL POC Glucose (mg/dL) 103 H (75-99) mg/dL Calcium 8.3 L (8.4-10.2) mg/dL Total Protein 6.1 L (6.3-8.2) g/dL Urine Appearance (Clear) Urine Protein (Negative) Ur Leukocyte Esterase (Negative) Ur Squamous Epith Cells (0-4) /hpf Amorphous Sediment (None) /hpf Urine Bacteria (None) /hpf Hyaline Casts (0-2) /lpf Urine Mucus (None) /hpf Urine Opiates Screen (NotDetected) U Marijuana (THC) Screen (NotDetected) 04/13/19 Range/Units 13:59 WBC (3.8-10.6) k/uL RBC (3.80-5.40) m/uL Hgb (11.4-16.0) gm/dL Neutrophils # (1.3-7.7) k/uL Chloride (98-107) mmol/L Carbon Dioxide (22-30) mmol/L BUN (7-17) mg/dL Creatinine (0.52-1.04) mg/dL Glucose (74-99) mg/dL POC Glucose (mg/dL) (75-99) mg/dL Calcium (8.4-10.2) mg/dL Total Protein (6.3-8.2) g/dL Urine Appearance Cloudy H (Clear) Urine Protein Trace H (Negative) Ur Leukocyte Esterase Small H (Negative) Ur Squamous Epith Cells 19 H (0-4) /hpf Amorphous Sediment Rare H (None) /hpf Urine Bacteria Many H (None) /hpf Hyaline Casts 4 H (0-2) /lpf Urine Mucus Occasional H (None) /hpf Urine Opiates Screen Detected H (NotDetected) U Marijuana (THC) Screen Detected H (NotDetected) Chest x-ray: report reviewed CT Scan - head: report reviewed Thrombosis Risk Factor Assmnt - DVT/VTE Prophylaxis DVT/VTE Prophylaxis: Low risk, early ambulation encouraged Assessment and Plan Assessment: MACKENZIE - likely due to NSAID and recent Rhabdo - avoid additional nephrotoxic agents - IVF - Consult nephro - Maintain adequate blood pressure - repeat BMP in AM - obtain records from [place] Acute toxic encepahlopathy - suspect due to decreased metabolism of morphine and polypharmacy - neuro checks, supportive care - hold morphine, baclofen, DM 2 - remove insulin pump, start SSI, follow BS Recent right foot fracture - non weight bearing - fall precautions Anemia - chronic and at baseline - follow CBC - check iron studies Chronic pain - hold morphine, baclofen, klonopin - tylenol as need for pain until more awake Seizure disorder - keppra, topamax The patient is admitted with an anticipated greater than 2 midnight stay for evaluation of MACKENZIE and altered mentation. Surrogate decision-maker: CODE STATUS:Full by defult DVT prophylaxis: heparin Discussed with: patient Anticipated discharge date: 2-[address]: home A total of 65 minutes was spent on the care of this complex patient more than 50% of the time was spent in counseling and care coordination.
[2019-04-13] MEDS: INSULIN ASPART (NovoLOG) 100 UNIT/ML VIAL SQ SCH ×2 (18:12→21:46)
[2019-04-13 20:36] LABS: Glucose,Whole Blood 136 mg/dL (75-99)
[2019-04-13] MEDS ORDERED: MELATONIN 10 MG PO SCH (21:00)
[2019-04-13] MEDS: levETIRAcetam 500 MG TAB PO SCH (21:45)
[2019-04-13] MEDS: levETIRAcetam 250 MG TAB PO SCH (21:46)
[2019-04-13] MEDS: TOPIRAMATE 25 MG TAB PO SCH (21:46)
[2019-04-13] MEDS: GABAPENTIN 300 MG CAP PO SCH (21:46)
[2019-04-13] MEDS: Dimethyl Fumarate [Tecfidera] PO SCH (21:50)
[2019-04-14 04:45] LABS: HCT 31.1 % (34.0-46.0); HGB 9.9 gm/dL (11.4-16.0); Hypochromasia Slight; MCH 30.4 pg (25.0-35.0); MCHC 31.9 g/dL (31.0-37.0); MCV 95.4 fL (80.0-100.0); Mean Platelet Volume 8.6; Platelet Count 201 k/uL (150-450); RBC 3.25 m/uL (3.80-5.40); RDW 13.1 % (11.5-15.5); WBC 7.9 k/uL (3.8-10.6)
[2019-04-14 04:57] LABS: Albumin 3.3 g/dL (3.5-5.0); Calcium 8.3 mg/dL (8.4-10.2); Phosphorus 3.1 mg/dL (2.5-4.5); Potassium 4.5 mmol/L (3.5-5.1); Total Bilirubin 0.4 mg/dL (0.2-1.3); Total Protein 5.8 g/dL (6.3-8.2)
[2019-04-14 06:13] LABS: Glucose,Whole Blood 229 mg/dL (75-99)
[2019-04-14] MEDS: PANTOPRAZOLE 40 MG TABLET PO SCH (06:43)
[2019-04-14] MEDS: CITALOPRAM HYDROBROMIDE 20 MG TAB PO SCH (06:43)
[2019-04-14] MEDS: INSULIN ASPART (NovoLOG) 100 UNIT/ML VIAL SQ SCH ×4 (06:43→21:57)
[2019-04-14] MEDS: Dimethyl Fumarate [Tecfidera] PO SCH ×2 (07:19→22:42)
[2019-04-14] MEDS: HEPARIN SODIUM,PORCINE 5,000 UNIT/ML 1 ML VIAL SQ SCH ×3 (07:27→23:40)
[2019-04-14] MEDS: TOPIRAMATE 25 MG TAB PO SCH ×2 (07:28→21:58)
[2019-04-14] MEDS: levETIRAcetam 500 MG TAB PO SCH ×2 (07:28→21:58)
[2019-04-14] MEDS: levETIRAcetam 250 MG TAB PO SCH ×2 (07:28→21:58)
[2019-04-14] MEDS: SODIUM CHLORIDE 0.9% 1,000 ML IV SCH ×2 (07:29→15:04)
[2019-04-14] MEDS: GABAPENTIN 300 MG CAP PO SCH (07:29)
[2019-04-14] MEDS: POTASSIUM CHLORIDE ER 10 MEQ TAB.ER.PRT PO SCH (07:29)
[2019-04-14] MEDS: NICOTINE 21MG/24HR PATCH TRANSDERM SCH (07:29)
--- NOTE | 2019-04-14 10:05 | P.NPCON ---
History of Present Illness - Reason for Consult acute renal failure - History of Present Illness Reason for consultation: Acute kidney injury History of present illness: Patient is a 53-year-old female seen in renal consultation for acute kidney injury. Patient presented to the hospital due to weakness and lethargy. Patient states she was having [place] family get together yesterday and her noticed that she was more lethargic and weak. He therefore brought to the hospital. Patient states she was discharged from [facility] about a week ago and at that time was admitted for nausea and weakness. She had sustained a fall and has a right ankle fracture. She is currently maintained on IV fluids. Creatinine was 3.34 on admission and is down to 1.04 today. She denies chest pain or shortness of breath. Urine output is good. No hematuria or dysuria. Patient states she's been taking Toradol 3 times daily for the pain. She denies family history of renal disease. No vomiting or diarrhea. Oral intake has been fair. Patient does have history of diabetes mellitus. She is maintained on insulin. She was also on lisinopril which is currently held. Blood pressure was low in the systolic 80s on admission but is better now. She denies any dizziness or syncopal episodes. Vital signs are stable. General: The patient appeared well nourished and normally developed. HEENT: Head exam is unremarkable. Neck is without jugular venous distension. LUNGS: Lungs are clear to auscultation and percussion. Breath sounds decreased. HEART: Rate and Rhythm are regular. First and second heart sounds normal. No murmurs, rubs or gallops. ABDOMEN: Abdominal exam reveals normal bowel sounds. Non-tender and non- distended. No evidence of peritonitis. EXTREMITITES: No clubbing, cyanosis, or edema. Past Medical History Past Medical History: Diabetes Mellitus, Seizure Disorder Additional Past Medical History / Comment(s): MS, migraine headaches History of Any Multi-Drug Resistant Organisms: None Reported Past Surgical History: Appendectomy, Cholecystectomy, Hysterectomy, Orthopedic Surgery Additional Past Surgical History / Comment(s): cervical surgery, right ear reconstruction from defect Past Anesthesia/Blood Transfusion Reactions: No Reported Reaction Smoking Status: Current every day smoker - Past Family History Mother Family Medical History: Diabetes Mellitus Brother(s) Family Medical History: Diabetes Mellitus Medications and Allergies Home Medications Medication Instructions Recorded Confirmed Type Citalopram Hydrobromide [CeleXA] 60 mg PO DAILY 09/19/13 04/13/19 History Dimethyl Fumarate [Tecfidera] 240 mg PO BID 05/27/17 04/13/19 History Modafinil [Provigil] 200 mg PO DAILY PRN 05/27/17 04/13/19 History Omeprazole [PriLOSEC] 20 mg PO DAILY 05/27/17 04/13/19 History INSULIN LISPRO (For Pump) [humaLOG 0.01 units SQ-PUMP CONTINUOUS 11/29/17 04/13/19 History (For Pump)] Lisinopril [Zestril] 5 mg PO DAILY 11/29/17 04/13/19 History Potassium 198 mg PO DAILY 11/29/17 04/13/19 History levETIRAcetam [Keppra] 1,000 mg PO BID 11/29/17 04/13/19 History Baclofen [Lioresal] 10 mg PO BID 04/13/19 04/13/19 History Cholecalciferol [Vitamin D3 (25 2,000 unit PO DAILY 04/13/19 04/13/19 History Mcg = 1000 Iu)] Diphenox-Atrop 2.5-0.025 mg 1 tab PO QID PRN 04/13/19 04/13/19 History [Lomotil] Estradiol Cream [Estrace Cream 1 gm VAGINAL Q48H 04/13/19 04/13/19 History 0.01%] Gabapentin 600 mg PO HS 04/13/19 04/13/19 History Gabapentin [Neurontin] 300 mg PO DAILY 04/13/19 04/13/19 History Hyoscyamine Sulfate [Hyoscyamine 0.125 mg SL QID PRN 04/13/19 04/13/19 History Sulfate SL] Melatonin 10 mg PO HS 04/13/19 04/13/19 History Morphine Sulfate [Ms Contin] 60 mg PO Q12HR PRN 04/13/19 04/13/19 History Ondansetron HCl [Zofran] 8 mg PO Q8H PRN 04/13/19 04/13/19 History Topiramate [Topamax] 50 mg PO BID 04/13/19 04/13/19 History cloNIDine HCL [Catapres] 0.1 mg PO TID 04/13/19 04/13/19 History clonazePAM [KlonoPIN] 1 mg PO HS 04/13/19 04/13/19 History levETIRAcetam [Keppra] 250 mg PO BID 04/13/19 04/13/19 History traZODone HCL [Desyrel] 100 mg PO HS 04/13/19 04/13/19 History Allergies Allergy/AdvReac Type Severity Reaction Status Date / Time divalproex sodium Allergy Unknown Verified 04/13/19 17:14 [From Depakote] prochlorperazine edisylate Allergy Unknown Verified 04/13/19 17:14 [From Compazine] prochlorperazine maleate Allergy Unknown Verified 04/13/19 17:14 [From Compazine] vancomycin Allergy Unknown Verified 04/13/19 17:14 steroids AdvReac Confusion Uncoded 05/27/17 17:21 Physical Exam Vitals: Vital Signs Temp Pulse Pulse Resp BP BP Pulse Ox 04/14/19 08:00 100 18 134/71 95 04/14/19 04:00 98.8 F 100 18 101/58 94 L 04/13/19 23:59 99.1 F 108 H 18 105/79 91 L 04/13/19 21:50 98.6 F 92 18 108/53 93 L 04/13/19 20:00 92 18 04/13/19 17:18 90 14 101/67 98 04/13/19 17:09 98.2 F 92 18 105/65 98 04/13/19 17:05 92 18 100/61 96 04/13/19 16:00 91 13 123/76 97 04/13/19 15:30 98 12 99 04/13/19 15:17 102 H 18 04/13/19 15:12 12 04/13/19 15:00 101 H 13 95 04/13/19 14:30 93 12 107/64 98 04/13/19 14:00 110 H 13 122/71 99 04/13/19 13:47 12 04/13/19 13:35 101 H 12 123/75 98 04/13/19 13:31 98 13 121/73 100 04/13/19 13:30 108 H 13 125/76 99 04/13/19 13:23 98 12 126/78 98 04/13/19 13:01 100/69 04/13/19 13:00 85 8 L 85/60 100 04/13/19 12:55 87 13 04/13/19 12:52 98.3 F 87 16 85/60 94 L Intake and Output 04/13/19 04/14/19 04/14/19 22:59 06:59 14:59 Intake Total 125 360 Output Total 500 Balance 125 -500 360 Intake: Intake, IV Titration 125 Amount Sodium Chloride 0.9% 1, 125 000 ml @ 125 mls/hr IV . Q8H [facility] Rx#:[id number] Oral 360 Output: Urine 500 Other: Voiding Method Bedpan Bedpan Bedpan # Voids 3 1 Weight 84.822 kg 79.5 kg Results - Lab Results Most recent lab results Calcium 8.3 mg/dL (8.4-10.2) L 04/14/19 04:07 Phosphorus 3.1 mg/dL (2.5-4.5) 04/14/19 04:07 Magnesium 2.0 mg/dL (1.6-2.3) 04/14/19 04:07 04/14/19 04:07 04/14/19 04:07 Assessment and Plan Plan: Assessment: 1. Acute kidney injury mostly prerenal secondary to hypotension and nonsteroidals. Creatinine was 2.34 on admission and is down to 1.04 today. Trace proteinuria on UA. 2. Metabolic acidosis secondary to acute kidney injury and IV fluids. 3. Insulin-dependent diabetes mellitus. 4. Benign hypertension. Controlled. Plan: Decrease rate of normal saline to 75 mL an hour. Hold antihypertensives. Encouraged oral intake. Avoid nephrotoxins. Repeat electrolytes in the morning. Thank you for the consultation. I will continue to follow the patient with you during her hospital stay.
[2019-04-14] MEDS: MORPHINE SULFATE ER 15 MG TABLET PO SCH ×2 (10:18→21:58)
[2019-04-14] MEDS: MODAFINIL 200 MG TAB PO SCH (10:18)
[2019-04-14 11:57] LABS: Glucose,Whole Blood 206 mg/dL (75-99)
[2019-04-14] MEDS: ONDANSETRON 4 MG/2 ML VIAL IVP PRN (16:02)
[2019-04-14 16:47] LABS: Glucose,Whole Blood 183 mg/dL (75-99)
--- NOTE | 2019-04-14 17:00 | P.PN ---
Subjective Progress Note Date: 04/14/19 (delayed charting patient seen at 0945) Principal diagnosis: altered mentation Patient is a 53-year-old female with a past medical history of multiple sclerosis on Tecfidera and baclofen, diabetes mellitus type 2 requiring an insulin pump, chronic pain, and seizure disorder who presented to the emergency department via EMS for altered mentation. On arrival to the emergency department she was somewhat hypotensive with blood pressure 85/60. Initial laboratory analysis showed slightly elevated white blood cell count at 10.9, hemoglobin 10.9, BUN of 69, creatinine 3.34, glucose 100, calcium 8.3, urinalysis did not show any definitive signs of infection. Urine drug screen is positive for opiates and THC. She underwent a chest x-ray which showed some ca rdiomegaly and venous stasis changes but no acute pneumonia. CT of the brain demonstrated post surgical changes but no acute process. She was given narcan in the emergency department with improvement in her mentation. She was admitted due to altered mentation and MACKENZIE. Her insulin pump was stopped and she was started on sliding scale. Her sedative medications were held and she was started on IVF. On the morning after admission her Cr was improved and she was awake alert and oriented. Nephrology consulted and recommended continued IVF. Patient seen and examined at bedside. She reports that she is taking her medications appropriately, has been using Toradol for pain secondary to her recent foot fracture. Reports that she was eating and drinking well and was not sick at home prior to admission. She reports that she gets upset when people ask her she's been missed taking her medications as these in a lock placed. With a long discussion that she is on multiple sedative medications including morphine, baclofen, Klonopin, trazodone and then she takes Provigil to reverse effects. She is currently working with her neurologist to decrease her amount of Klonopin. I encouraged her continued to continue to do this as this, I explained that these medications are not a good combination and constitute polypharmacy and she is likely to experience adverse outcomes from polypharmacy multiple times in the future as she has already in the past. Objective - Vital Signs Vital signs: Vital Signs Temp 98.9 F 04/14/19 14:53 Pulse 104 H 04/14/19 15:56 Resp 18 04/14/19 15:56 BP 150/82 04/14/19 15:56 Pulse Ox 98 04/14/19 15:56 Intake & Output 04/13/19 04/14/19 04/14/19 18:59 06:59 18:59 Intake Total 125 1170 Output Total 500 500 Balance 125 -500 670 Weight 84.822 kg 79.5 kg Intake: Intake, IV Titration 125 450 Amount Sodium Chloride 0.9% 1, 125 450 000 ml @ 75 mls/hr IV . [id number] [facility] Rx#:[id number] Oral 720 Output: Urine 500 500 Other: Voiding Method Bedpan Bedpan # Voids 3 2 # Bowel Movements 1 - Exam General: non toxic, no distress, appears older than stated age Derm: warm, dry Head: atraumatic, normocephalic, symmetric Eyes: EOMI, no lid lag, anicteric sclera Mouth: no lip lesion, mucus membranes moist Cardiovascular: S1S2 reg, no murmur, positive posterior tibial pulse bilateral, Lungs: CTA bilateral, no rhonchi, no rales , no accessory muscle use Abdominal: soft, nontender to palpation, no guarding, no appreciable organomegaly Ext: no gross muscle atrophy, no edema, no contractures Neuro: CN II-XI grossly intact, no focal neuro deficits Psych: Alert, oriented, appropriate affect - Labs CBC & Chem 7: 04/14/19 04:07 04/14/19 04:07 Labs: Abnormal Lab Results - Last 24 Hours (Table) 04/13/19 04/13/19 04/14/19 Range/Units 19:46 20:34 01:42 RBC (3.80-5.40) m/uL Hgb (11.4-16.0) gm/dL Hct (34.0-46.0) % Chloride (98-107) mmol/L Carbon Dioxide (22-30) mmol/L BUN (7-17) mg/dL Glucose (74-99) mg/dL POC Glucose (mg/dL) 136 H (75-99) mg/dL Calcium (8.4-10.2) mg/dL Creatine Kinase 233 H 257 H (30-135) U/L Total Protein (6.3-8.2) g/dL Albumin (3.5-5.0) g/dL 04/14/19 04/14/19 04/14/19 Range/Units 04:07 04:07 06:12 RBC 3.25 L (3.80-5.40) m/uL Hgb 9.9 L (11.4-16.0) gm/dL Hct 31.1 L (34.0-46.0) % Chloride 115 H (98-107) mmol/L Carbon Dioxide 20 L (22-30) mmol/L BUN 41 H (7-17) mg/dL Glucose 202 H (74-99) mg/dL POC Glucose (mg/dL) 229 H (75-99) mg/dL Calcium 8.3 L (8.4-10.2) mg/dL Creatine Kinase 242 H (30-135) U/L Total Protein 5.8 L (6.3-8.2) g/dL Albumin 3.3 L (3.5-5.0) g/dL 04/14/19 04/14/19 Range/Units 11:52 16:38 RBC (3.80-5.40) m/uL Hgb (11.4-16.0) gm/dL Hct (34.0-46.0) % Chloride (98-107) mmol/L Carbon Dioxide (22-30) mmol/L BUN (7-17) mg/dL Glucose (74-99) mg/dL POC Glucose (mg/dL) 206 H 183 H (75-99) mg/dL Calcium (8.4-10.2) mg/dL Creatine Kinase (30-135) U/L Total Protein (6.3-8.2) g/dL Albumin (3.5-5.0) g/dL Assessment and Plan Assessment: MACKENZIE, improving - likely due to NSAID and recent Rhabdo - avoid additional nephrotoxic agents - IVF decreased - Nephro recs appreciated - Maintain adequate blood pressure - repeat BMP in AM - Cr 0.88 on discharge from [facility] on 04/08/19 Acute toxic encepahlopathy, resolved - resumed gabapentin, baclofen, and provigil, - resume morphine at a lower dose - continue to hold trazodone and klonopin - need to eliminate polypharmacy as outpatient DM 2 - SSI, follow BS - Levemir 8 untis tonight - anticipate to resume insulin pump in AM - await A1C Recent right foot fracture - non weight bearing - fall precautions Anemia - chronic and at baseline - follow CBC - Await iron studies Chronic pain - resume morphine at a lower dose - tylenol as need for pain until more awake Seizure disorder - sultana diane Transfer to medical floor, likely home in AM if Cr stay stable. DVT prophylaxis: heparin Discussed with: patient Anticipated discharge date: in AM Anticipated discharge place: home A total of 25 minutes was spent on the care of this complex patient more than 50% of the time was spent in counseling and care coordination.
[2019-04-14 20:59] LABS: Glucose,Whole Blood 219 mg/dL (75-99)
[2019-04-14] MEDS ORDERED: GABAPENTIN 300 MG CAP PO SCH (21:00)
[2019-04-14] MEDS ORDERED: INSULIN DETEMIR (LEVEMIR) 100 UNIT/ML SYR SQ SCH (21:00)
[2019-04-14] MEDS: BACLOFEN 10 MG TAB PO SCH (21:58)
[2019-04-14 22:42] VITALS: RESP 16
[2019-04-14 23:22] LABS: Appearance,Urine Clear (Clear); Bilirubin,Urine Negative (Negative); Blood,Urine Negative (Negative); Color,Urine Colorless; Glucose,Urine (UA) 3+ (Negative); Ketones,Urine Negative (Negative); Leukocyte Esterase,Urine Negative (Negative); Nitrite,Urine Negative (Negative); PH, Urine 7.5 (5.0-8.0); Protein,Urine Negative (Negative); Specific Gravity,Urine 1.007 (1.001-1.035); Urobilinogen,Urine <2.0 mg/dL (<2.0)
[2019-04-15 06:18] LABS: Glucose,Whole Blood 145 mg/dL (75-99)
[2019-04-15] MEDS: CITALOPRAM HYDROBROMIDE 20 MG TAB PO SCH (06:35)
[2019-04-15] MEDS: SODIUM CHLORIDE 0.9% 1,000 ML IV SCH (06:36)
[2019-04-15] MEDS: INSULIN ASPART (NovoLOG) 100 UNIT/ML VIAL SQ SCH (06:36)
[2019-04-15 06:48] VITALS: PULSE 93
[2019-04-15 08:38] LABS: Basophils % (A) 0 %; Eosinophils # (A) 0.1 k/uL (0-0.7); Eosinophils % (A) 2 %; HCT 34.3 % (34.0-46.0); Lymphocytes % (A) 18 %; MCH 29.5 pg (25.0-35.0); MCHC 32.1 g/dL (31.0-37.0); Mean Platelet Volume 8.4; Monocytes # (A) 0.4 k/uL (0-1.0); Monocytes % (A) 7 %; Neutrophils # (A) 3.9 k/uL (1.3-7.7); Neutrophils % (A) 70 %; Platelet Count 184 k/uL (150-450); RBC 3.73 m/uL (3.80-5.40); RDW 12.9 % (11.5-15.5); WBC 5.6 k/uL (3.8-10.6)
[2019-04-15 08:55] LABS: ALT 21 U/L (4-34); AST 29 U/L (14-36); African American GFR (CKD) >90 (>60 ml/min/1.73 sqM); Albumin 3.8 g/dL (3.5-5.0); Alkaline Phosphatase 86 U/L (38-126); Anion Gap 5 mmol/L; Blood Urea Nitrogen 12 mg/dL (7-17); Calcium 9.3 mg/dL (8.4-10.2); Carbon Dioxide 25 mmol/L (22-30); Chloride 114 mmol/L (98-107); Glucose 136 mg/dL (74-99); Non-African American GFR(CKD) >90 (>60 ml/min/1.73 sqM); Potassium 4.2 mmol/L (3.5-5.1); Sodium 144 mmol/L (137-145); Total Bilirubin 0.9 mg/dL (0.2-1.3); Total Protein 6.6 g/dL (6.3-8.2)
[2019-04-15] MEDS: NICOTINE 21MG/24HR PATCH TRANSDERM SCH (08:57)
[2019-04-15] MEDS ORDERED: GABAPENTIN 300 MG CAP PO SCH (09:00)
[2019-04-15] MEDS: BACLOFEN 10 MG TAB PO SCH (09:10)
[2019-04-15] MEDS: levETIRAcetam 500 MG TAB PO SCH (09:10)
[2019-04-15] MEDS: HEPARIN SODIUM,PORCINE 5,000 UNIT/ML 1 ML VIAL SQ SCH (09:10)
[2019-04-15] MEDS: TOPIRAMATE 25 MG TAB PO SCH (09:10)
[2019-04-15] MEDS: POTASSIUM CHLORIDE ER 10 MEQ TAB.ER.PRT PO SCH (09:10)
[2019-04-15] MEDS: MORPHINE SULFATE ER 15 MG TABLET PO SCH (09:11)
[2019-04-15] MEDS: levETIRAcetam 250 MG TAB PO SCH (09:12)
[2019-04-15] MEDS: MODAFINIL 200 MG TAB PO SCH ×2 (09:12→09:15)
[2019-04-15] MEDS: Dimethyl Fumarate [Tecfidera] PO SCH (09:12)
[2019-04-15 09:13] LABS: Hemoglobin A1C 5.9 % (4.0-6.0)
[2019-04-15] MEDS: ONDANSETRON 4 MG/2 ML VIAL IVP PRN (09:20)
[2019-04-15 10:53] LABS: % Iron Saturation 11.51 (12.00-45.00)
[2019-04-15 11:02] LABS: Ferritin 34.4 ng/mL (10.0-291.0)
[2019-04-15 11:28] VITALS: BP 136/78; TEMP 99.2
--- NOTE | 2019-04-15 11:50 | P.DS ---
Providers Date of admission: 04/13/19 15:45 Attending physician: Rekha Stearns DO Consults: 04/13/19 15:47 Consult Physician Routine Consulting Provider: Magi Milan Consult Reason/Comments: Acute kidney injury Do you want consulting provider notified?: Yes Primary care physician: Jm Astudillo [facility] Course: Date of admission: 04/13/2019 Date of discharge: 04/15/1019 Consultants: Dr. Fields nephrology Reason for admission: Alteration in mental status Discharge diagnosis: 1. Acute toxic metabolic encephalopathy 2. Polypharmacy 3. Acute kidney injury 4. Multiple sclerosis 5. Seizure disorder Reason for hospitalization Hospital course: Patient is a 53-year-old female with a past medical history of multiple sclerosis on Tecfidera and baclofen, diabetes mellitus type 2 requiring an insulin pump, chronic pain, and seizure disorder who presented to the emergency department via EMS for altered mentation. On arrival to the emergency department she was somewhat hypotensive with blood pressure 85/60. Initial laboratory analysis showed slightly elevated white blood cell count at 10.9, hemoglobin 10.9, BUN of 69, creatinine 3.34, glucose 100, calcium 8.3, urinalysis did not show any definitive signs of infection. Urine drug screen is positive for opiates and THC. She underwent a chest x-ray which showed some cardiomegaly and venous stasis changes but no acute pneumonia. CT of the brain demonstrated post surgical changes but no acute process. She was given narcan in the emergency department with improvement in her mentation. She was admitted due to altered mentation and MACKENZIE. Her insulin pump was stopped and she was started on sliding scale. Her sedative medications were held and she was started on IVF. On the morning after admission her Cr was improved and she was awake alert and oriented. Nephrology consulted and recommended continued IVF. On the day of discharge patient was doing very well she was at her baseline energetic with normal lites appetite. Her renal function normalized. Her creatinine was 1.04 and discharge and she was given urine output without any signs of fluid overload or electrolyte responses. Physical exam: Vital Signs: I have reviewed the vital signs. GENERAL: Well-nourished, Well-developed , no apparent distress, cooperative Eyes: PERRL, extraoculry movements intact, clear conjunctiva Head: : Atraumatic external nose and ears, oropharyngeal mucosa is moist without lesions or exudates Neck: Symmetric, trachea midline, No thyromegaly, no masses or neck vain pulsation, no neck rigidity CVS: +S1/S2, No murmurs or gallops. Peripheral pulses 2+ and equal in all extremities. RESP: Unlabored respiratory effort. Clear to auscultation bilaterally. Abdomen: Bowel sounds present in all 4 quadrants, Soft to palpation, Nontender/Nondistended, No hepatosplenomegaly, no hernias or masses, no CVA tnderness Musculoskeletal: Extremities w/o deformity, No cyanosis or clubbing, no joint swelling Skin: Warm, Dry. 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 Follow-up with PCP and nephrology 2. BMP in 3 days 3. MS Contin dose decreased from 60 mg twice a day to 15 mg twice a day and patient was educated on this She was instructed to safely discarded old MS Contin since pills cannot be cut her crushed which is already known to the patient. 4. Hold lisinopril Recheck blood pressure in this appears office a few days 5. Advised to wean off from Klonopin and if possible baclofen. 45 minutes spent on this discharge Patient Condition at Discharge: Fair Plan - Discharge Summary Discharge Rx Participant: No New Discharge Prescriptions: New Morphine Sulfate ER [Ms Contin] 15 mg PO Q12HR #10 tablet Continue Citalopram Hydrobromide [CeleXA] 60 mg PO DAILY Omeprazole [PriLOSEC] 20 mg PO DAILY Modafinil [Provigil] 200 mg PO DAILY PRN PRN Reason: SLEEP APNEA Dimethyl Fumarate [Tecfidera] 240 mg PO BID levETIRAcetam [Keppra] 1,000 mg PO BID INSULIN LISPRO (For Pump) [humaLOG (For Pump)] 0.01 units SQ-PUMP CONTINUOUS Potassium 198 mg PO DAILY Cholecalciferol [Vitamin D3 (25 Mcg = 1000 Iu)] 2,000 unit PO DAILY Melatonin 10 mg PO HS Hyoscyamine Sulfate [Hyoscyamine Sulfate SL] 0.125 mg SL QID PRN PRN Reason: Gi Upset Diphenox-Atrop 2.5-0.025 mg [Lomotil] 1 tab PO QID PRN PRN Reason: Diarrhea Estradiol Cream [Estrace Cream 0.01%] 1 gm VAGINAL Q48H cloNIDine HCL [Catapres] 0.1 mg PO TID Topiramate [Topamax] 50 mg PO BID Gabapentin [Neurontin] 300 mg PO DAILY Gabapentin 600 mg PO HS levETIRAcetam [Keppra] 250 mg PO BID Discontinued Lisinopril [Zestril] 5 mg PO DAILY Ondansetron HCl [Zofran] 8 mg PO Q8H PRN PRN Reason: Nausea And Vomiting Morphine Sulfate [Ms Contin] 60 mg PO Q12HR PRN PRN Reason: Pain traZODone HCL [Desyrel] 100 mg PO HS clonazePAM [KlonoPIN] 1 mg PO HS Baclofen [Lioresal] 10 mg PO BID Discharge Medication List Citalopram Hydrobromide [CeleXA] 60 mg PO DAILY 09/19/13 [History] Dimethyl Fumarate [Tecfidera] 240 mg PO BID 05/27/17 [History] Modafinil [Provigil] 200 mg PO DAILY PRN 05/27/17 [History] Omeprazole [PriLOSEC] 20 mg PO DAILY 05/27/17 [History] INSULIN LISPRO (For Pump) [humaLOG (For Pump)] 0.01 units SQ-PUMP CONTINUOUS 11/29/17 [History] Potassium 198 mg PO DAILY 11/29/17 [History] levETIRAcetam [Keppra] 1,000 mg PO BID 11/29/17 [History] Cholecalciferol [Vitamin D3 (25 Mcg = 1000 Iu)] 2,000 unit PO DAILY 04/13/19 [History] Diphenox-Atrop 2.5-0.025 mg [Lomotil] 1 tab PO QID PRN 04/13/19 [History] Estradiol Cream [Estrace Cream 0.01%] 1 gm VAGINAL Q48H 04/13/19 [History] Gabapentin 600 mg PO HS 04/13/19 [History] Gabapentin [Neurontin] 300 mg PO DAILY 04/13/19 [History] Hyoscyamine Sulfate [Hyoscyamine Sulfate SL] 0.125 mg SL QID PRN 04/13/19 [History] Melatonin 10 mg PO HS 04/13/19 [History] Topiramate [Topamax] 50 mg PO BID 04/13/19 [History] cloNIDine HCL [Catapres] 0.1 mg PO TID 04/13/19 [History] levETIRAcetam [Keppra] 250 mg PO BID 04/13/19 [History] Morphine Sulfate ER [Ms Contin] 15 mg PO Q12HR #10 tablet 04/15/19 [Rx] Follow up Appointment(s)/Referral(s): Nonstaff,Physician [REFERRING] - As Needed Jm Torres MD [Primary Care Provider] - 04/17/19 3:15 pm (need BMP) Juan Fields DO [STAFF PHYSICIAN] - 05/03/19 1:20 pm (please do BMP blood work prior coming to the appointment) Ambulatory/Diagnostic Orders: Basic Metabolic Panel [LAB.AMB] Time Frame: 3 Days, Location: None Selected Patient Instructions/Handouts: Morphine, Slow Release (By mouth), Dehydration (DC), Acute Kidney Injury (DC), Opioid Safety (DC) Activity/Diet/Wound Care/Special Instructions: Regular diet The dose of your MS Contin has been changed from 60 mg twice a day to 15 mg twice a day. Please do not take him home MS Contin pills and discard them in a safe manner. MS Contin tabs cannot be split or crashed hence she will have to take a new medication until await the old one. We send a prescription that reflects the new dose today of pharmacy. Call your PCP for refill. Discharge Disposition: HOME SELF-CARE Plan of Treatment: Follow with PCP 1-2 days BMP blood work in 3 days
[2019-04-15 12:08] LABS: Glucose,Whole Blood 201 mg/dL (75-99)
--- NOTE | 2019-04-15 15:49 | PN ---
PROGRESS NOTE Patient is seen for followup for acute kidney injury. Her renal function has improved significantly, with creatinine down to 0.6 mg/dL today from 3.3 on initial admission. The patient has had good urine output. She is maintained on IV fluids. She was on NSAIDs prior to admission. I do not see any ALBERTO inhibitors on board. PHYSICAL EXAMINATION: On examination today, blood pressure was 136/78, heart rate 93 per minute. Patient is afebrile. EXAMINATION OF THE HEART: S1 and S2. EXAMINATION OF LUNGS: Bilateral breath sounds are heard. ABDOMEN: Soft, non-tender. Examination of lower extremities shows no significant edema. 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 LABS: Sodium 144, potassium 4.2, chloride 114, BUN 12, creatinine 0.6, hemoglobin 11.0 g/dL. UA was benign with glycosuria noted. ASSESSMENT: 1. Acute kidney injury secondary to non-steroidal anti-inflammatories and hypovolemia, currently improved. 2. Metabolic acidosis associated with renal failure and IV fluids, now resolved. 3. Benign hypertension. 4. Type 2 diabetes, maintained on insulin. PLAN: Patient can be discharged from nephrology standpoint. She is advised to follow up as outpatient, given the recurrent episodes of acute kidney injury. Patient is also advised to avoid use of NSAIDs. She is not maintained on any ALBERTO inhibitors or angiotensin receptor blockers at home. I do not see any other nephrotoxic medications on her home med list. MMODL / IJN: [id number] /
== END 2019-04-15 15:13 | disposition home or self-care (01) | DRG 682 ==
LOC: EC 12:49 → 3SCARD 15:45
PROVIDERS: ADMIT Internal Medicine; ATTEND Internal Medicine
DX: N17.9 Acute kidney failure, unspecified (principal); G92 Toxic encephalopathy; E87.2 Acidosis; M62.82 Rhabdomyolysis; F11.20 Opioid dependence, uncomplicated; I95.9 Hypotension, unspecified; I11.9 Hypertensive heart disease without heart failure; E11.9 Type 2 diabetes mellitus without complications; D64.9 Anemia, unspecified; E86.0 Dehydration; E86.1 Hypovolemia; G89.29 Other chronic pain; G35 Multiple sclerosis; F32.9 Major depressive disorder, single episode, unspecified; G40.909 Epilepsy, unspecified, not intractable, without status epilepticus; G43.909 Migraine, unspecified, not intractable, without status migrainosus; T39.395A Adverse effect of other nonsteroidal anti-inflammatory drugs [NSAID], initial encounter; S92.901D Unspecified fracture of right foot, subsequent encounter for fracture with routine healing; F17.210 Nicotine dependence, cigarettes, uncomplicated; Z71.6 Tobacco abuse counseling; Z79.4 Long term (current) use of insulin; Z79.1 Long term (current) use of non-steroidal anti-inflammatories (NSAID); Z79.899 Other long term (current) drug therapy; Z88.1 Allergy status to other antibiotic agents; Z88.8 Allergy status to other drugs, medicaments and biological substances; Z85.42 Personal history of malignant neoplasm of other parts of uterus; Z90.710 Acquired absence of both cervix and uterus; Z96.41 Presence of insulin pump (external) (internal); Z90.49 Acquired absence of other specified parts of digestive tract; Z98.890 Other specified postprocedural states; Z83.3 Family history of diabetes mellitus
CPT/HCPCS: 36415; 70450; 71045; 80053; 80306; 81001; 81003; 82140; 82550; 82728; 83036; 83540; 83550; 83605; 83735; 84100; 84484; 85025; 85027; 85610; 85730; 93005; 94760; 96361; 96372; 96374; 96376; 99291

== ENCOUNTER 2019-10-14 17:16 | Emergency (ER) | payer MEDICARE, OTHER ==
[2019-10-14 17:23] VITALS: RESP 18
[2019-10-14] MEDS ORDERED: SODIUM CHLORIDE 0.9% 1,000 ML IV STA (17:30)
[2019-10-14 17:53] LABS: Basophils # (A) 0.1 k/uL (0-0.2); Basophils % (A) 1 %; Eosinophils # (A) 0.3 k/uL (0-0.7); Eosinophils % (A) 3 %; HCT 38.8 % (34.0-46.0); HGB 12.5 gm/dL (11.4-16.0); Lymphocytes # (A) 2.3 k/uL (1.0-4.8); Lymphocytes % (A) 21 %; MCH 29.8 pg (25.0-35.0); MCHC 32.2 g/dL (31.0-37.0); MCV 92.5 fL (80.0-100.0); Mean Platelet Volume 8.2; Monocytes # (A) 0.5 k/uL (0-1.0); Monocytes % (A) 5 %; Neutrophils # (A) 7.3 k/uL (1.3-7.7); Neutrophils % (A) 69 %; Platelet Count 174 k/uL (150-450); RBC 4.19 m/uL (3.80-5.40); WBC 10.6 k/uL (3.8-10.6)
[2019-10-14 17:54] LABS: Appearance,Urine Clear (Clear); Bilirubin,Urine Negative (Negative); Blood,Urine Negative (Negative); Color,Urine Light Yellow; Glucose,Urine (UA) Negative (Negative); Ketones,Urine Negative (Negative); Leukocyte Esterase,Urine Negative (Negative); Nitrite,Urine Negative (Negative); PH, Urine 6.5 (5.0-8.0); Protein,Urine Negative (Negative); Specific Gravity,Urine 1.007 (1.001-1.035); Urobilinogen,Urine <2.0 mg/dL (<2.0)
[2019-10-14] MEDS ORDERED: ONDANSETRON 4 MG/2 ML VIAL IVP STA (17:57)
[2019-10-14] MEDS ORDERED: HYDROmorphone 0.5 MG/0.5 ML SYRINGE IVP STA ×2 (17:57→19:37)
--- NOTE | 2019-10-14 18:11 | CT ---
EXAMINATION TYPE: CT brain cspine wo con, CT facial bones wo con DATE OF EXAM: 10/14/2019 COMPARISON: CT brain April 13, 2019. HISTORY: Seizure today. Abrasions to left side of head. Neck and facial pain. CT DLP: 1274.6 mGycm. Automated Exposure Control for Dose Reduction was Utilized. TECHNIQUE: CT scan of the head , facial bones, and cervical spine are performed without contrast. FINDINGS: There is no acute intracranial hemorrhage, mass effect, or midline shift identified. The ventricles and sulci are within normal limits in size for patient's age. The calvarium is intact. The mandible is intact. Temporomandibular joints are maintained bilaterally. Nasal bones are intact. Orbital floors and cherry are intact. Globes are intact bilaterally. Intraconal fat is preserved. Zygo matic arches are intact. Pterygoid plates are intact. Evidence of prior paranasal sinus surgery. Sinu ses are noted clear. Cervical spine is visualized in its entirety from C1 through upper thoracic levels and demonstrates a nterior fusion plate and metallic disc material C5-C6 level. Slight grade 1 retrolisthesis C5 on C6. Vertebral body heights and disc space heights satisfactory above and below these levels. C1-C2 articu lation satisfactory on coronal images. No acute fracture or dislocation. Spinal canal preserved. Thyr oid gland within normal limits. Lung apices show no pneumothorax. IMPRESSION: 1. There is no acute fracture or dislocation evident in the cervical spine. 2. No acute intracranial hemorrhage or midline shift is seen. 3. No acute facial bone fracture.
[2019-10-14 18:18] LABS: ALT 110 U/L (4-34); AST 35 U/L (14-36); African American GFR (CKD) >90 (>60 ml/min/1.73 sqM); Albumin 4.2 g/dL (3.5-5.0); Alkaline Phosphatase 114 U/L (38-126); Anion Gap 5 mmol/L; Blood Urea Nitrogen 16 mg/dL (7-17); Calcium 9.4 mg/dL (8.4-10.2); Carbon Dioxide 27 mmol/L (22-30); Chloride 106 mmol/L (98-107); Glucose 254 mg/dL (74-99); Non-African American GFR(CKD) >90 (>60 ml/min/1.73 sqM); Potassium 4.1 mmol/L (3.5-5.1); Sodium 138 mmol/L (137-145); Total Bilirubin 0.4 mg/dL (0.2-1.3); Total Protein 6.5 g/dL (6.3-8.2)
--- NOTE | 2019-10-14 18:43 | XR ---
EXAMINATION TYPE: XR wrist complete RT DATE OF EXAM: 10/14/2019 CLINICAL HISTORY: Pain after fall injury. TECHNIQUE: Frontal, lateral, scaphoid, and oblique images of the right wrist are obtained. COMPARISON: None FINDINGS: Overlying fiberglass cast material is seen which is noted to lower radiographic sensitivity . Persistent horizontal lucency proximal one third of radius suspicious for minimally displaced acute fracture. The joint spaces in the right wrist appear within normal limits. IMPRESSION: There is probable acute minimally displaced transverse fracture proximal one third of th e scaphoid. Correlate clinically.
--- NOTE | 2019-10-14 19:08 | ED ---
Seizure HPI - General Chief Complaint: Seizure Stated Complaint: ms, seizure,fall Time Seen by Provider: 10/14/19 17:25 Source: patient, family Mode of arrival: wheelchair Limitations: physical limitation - History of Present Illness Initial Comments: 53-year-old female patient with past medical history significant for seizures presents to the emergency department today for evaluation after having a seizure with a fall. Patient states that she took a walk outside was being driven home on the back of her neighbors golf cart when she went into a seizure and fell. states he witnessed the fall and went over she was exhibiting seizure like activity with generalized body shaking with her eyes rolling back in her head. States that it lasted approximately 1 minute. Patient did regain consciousness after the seizures that seemed a little drowsy. She is reporting increased right wrist pain, headache, and left facial pain. states it did appear that she hit the left side of her face and head on the ground. She did not lose consciousness area patient does take Keppra for seizures and has been taking the medication as directed. Her last seizure was about one month ago. She denies use of anticoagulant or antiplatelet medications. Patient does have a known right wrist fracture, she is currently wearing a cast. She is reporting increased pain to this area. Denies numbness or tingling to the hand or fingers. Patient denies any neck pain, back pain, chest pain, shortness of breath, dizziness, weakness, abdominal pain, nausea, vomiting, or difficulties with bowel movements or urination. - Related Data Home Medications Medication Instructions Recorded Confirmed Citalopram Hydrobromide [CeleXA] 60 mg PO DAILY 09/19/13 10/14/19 Dimethyl Fumarate [Tecfidera] 240 mg PO BID 05/27/17 10/14/19 Modafinil [Provigil] 200 mg PO DAILY PRN 05/27/17 10/14/19 Potassium 198 mg PO DAILY 11/29/17 10/14/19 levETIRAcetam [Keppra] 1,000 mg PO BID 11/29/17 10/14/19 Cholecalciferol [Vitamin D3 (25 1,000 unit PO DAILY 04/13/19 10/14/19 Mcg = 1000 Iu)] Diphenox-Atrop 2.5-0.025 mg 1 tab PO BID PRN 04/13/19 10/14/19 [Lomotil] Gabapentin 600 mg PO HS 04/13/19 10/14/19 Gabapentin [Neurontin] 300 mg PO DAILY 04/13/19 10/14/19 Hyoscyamine Sulfate [Hyoscyamine 0.125 mg SL BID PRN 04/13/19 10/14/19 Sulfate SL] Melatonin 10 mg PO HS PRN 04/13/19 10/14/19 Topiramate [Topamax] 75 mg PO BID 04/13/19 10/14/19 levETIRAcetam [Keppra] 250 mg PO BID 04/13/19 10/14/19 Acetaminophen [Tylenol] 325 mg PO Q6H PRN 10/14/19 10/14/19 Baclofen [Lioresal] 10 mg PO BID 10/14/19 10/14/19 Insulin Lispro [humaLOG] 10 units INJ DAILY 10/14/19 10/14/19 Methocarbamol [Robaxin-750] 750 mg PO Q6H PRN 10/14/19 10/14/19 Ondansetron HCl [Zofran] 8 mg PO Q8H PRN 10/14/19 10/14/19 Turmeric Root Extract [Turmeric] 500 mg PO BID 10/14/19 10/14/19 clonazePAM [KlonoPIN] 1 mg PO HS 10/14/19 10/14/19 oxyCODONE HCL/ACETAMINOPHEN 1 tab PO QID PRN 10/14/19 10/14/19 [Percocet 10-325 mg] traZODone HCL [Desyrel] 100 mg PO HS 10/14/19 10/14/19 Allergies Allergy/AdvReac Type Severity Reaction Status Date / Time divalproex sodium Allergy Unknown Verified 10/14/19 19:27 [From Depakote] prochlorperazine edisylate Allergy Seizures Verified 10/14/19 19:27 [From Compazine] prochlorperazine maleate Allergy Seizures Verified 10/14/19 19:27 [From Compazine] vancomycin Allergy Unknown Verified 10/14/19 19:27 acetazolamide AdvReac Headaches Verified 10/14/19 19:27 Iodinated Contrast Media AdvReac Burning & Verified 10/14/19 19:27 Infections ketorolac [From Toradol] AdvReac Unknown Verified 10/14/19 19:27 NSAIDS (Non-Steroidal AdvReac Unknown Verified 10/14/19 19:27 Anti-Inflamma steroids Allergy Confusion Uncoded 10/14/19 19:27 Review of Systems ROS Statement: Those systems with pertinent positive or pertinent negative responses have been documented in the HPI. ROS Other: All systems not noted in ROS Statement are negative. Past Medical History Past Medical History: Diabetes Mellitus, Seizure Disorder Additional Past Medical History / Comment(s): MS, migraine headaches History of Any Multi-Drug Resistant Organisms: None Reported Past Surgical History: Appendectomy, Cholecystectomy, Hysterectomy, Orthopedic Surgery Additional Past Surgical History / Comment(s): cervical surgery, right ear reconstruction from defect Past Anesthesia/Blood Transfusion Reactions: No Reported Reaction Past Psychological History: Depression Past Alcohol Use History: None Reported Past Drug Use History: None Reported - Past Family History Mother Family Medical History: Diabetes Mellitus Brother(s) Family Medical History: Diabetes Mellitus General Exam Limitations: physical limitation General appearance: alert, in no apparent distress, other (This is a well- developed, well-nourished adult female patient in no acute distress. Vital signs upon presentation are temperature 99.0F, pulse 108, respirations 18, blood pressure 137/73, pulse ox 97% on room air.) Eye exam: Present: normal appearance, PERRL, EOMI. Absent: scleral icterus, conjunctival injection, nystagmus, periorbital swelling ENT exam: Present: normal exam, normal oropharynx, mucous membranes moist Neck exam: Present: normal inspection, full ROM, other (Nontender, no step-off, no deformity to firm midline palpation of the posterior cervical spine. Full range of motion without pain or limitation.). Absent: tenderness, meningismus, lymphadenopathy Respiratory exam: Present: normal lung sounds bilaterally. Absent: respiratory distress, wheezes, rales, rhonchi, stridor Cardiovascular Exam: Present: normal rhythm, tachycardia, normal heart sounds. Absent: systolic murmur, diastolic murmur, rubs, gallop, clicks GI/Abdominal exam: Present: soft, normal bowel sounds. Absent: distended, tenderness, guarding, rebound, rigid Extremities exam: Present: full ROM, normal capillary refill, other (There is a glass cast noted to the right wrist. Skin to the fingers is pink, warm, dry. Cap refills less than 3 seconds. No elbow tenderness or swelling noted. No shoulder tenderness or swelling.). Absent: tenderness, pedal edema, joint swelling, calf tenderness Back exam: Present: normal inspection, other (Nontender, no step-off, no deformity to firm midline palpation of the thoracic and lumbar vertebrae. Full range of motion without pain or limitation.). Absent: vertebral tenderness Neurological exam: Present: alert, oriented X3, CN II-XII intact Psychiatric exam: Present: normal affect, normal mood Skin exam: Present: warm, dry, intact, normal color. Absent: rash Course Vital Signs 10/14/19 10/14/19 10/14/19 17:18 19:15 19:48 Temperature 99 F 98.6 F Pulse Rate 108 H 87 83 Respiratory 18 18 18 Rate Blood Pressure 137/73 122/76 118/67 O2 Sat by Pulse 97 97 97 Oximetry Medical Decision Making - Medical Decision Making 53-year-old female patient presents to the emergency department today for evaluation of head injury after having a seizure from the back of a parked golf cart. She is also reporting increased right wrist pain. Physical examination did reveal some mild soft tissue swelling over the left side of the face. She had tenderness over the left temporal region and left periorbital region. She is neurologically intact with no focal deficits. Labs reviewed and are unremarkable. CT brain, C-spine, and facial bones were negative for any acute abnormalities. Did perform x-ray of the right wrist which showed evidence for acute scaphoid fracture. Patient is splinted appropriately for this injury. She'll be discharged to follow-up with her neurologist, mis specialist, and her primary care physician. Return parameters were discussed in detail. She verbalizes understanding and agrees with this plan. - Lab Data Result diagrams: 10/14/19 17:40 10/14/19 17:40 Lab Results 10/14/19 10/14/19 10/14/19 Range/Units 17:40 17:40 17:40 WBC 10.6 (3.8-10.6) k/uL RBC 4.19 (3.80-5.40) m/uL Hgb 12.5 (11.4-16.0) gm/dL Hct 38.8 (34.0-46.0) % MCV 92.5 (80.0-100.0) fL MCH 29.8 (25.0-35.0) pg MCHC 32.2 (31.0-37.0) g/dL RDW 13.0 (11.5-15.5) % Plt Count 174 (150-450) k/uL Neutrophils % 69 % Lymphocytes % 21 % Monocytes % 5 % Eosinophils % 3 % Basophils % 1 % Neutrophils # 7.3 (1.3-7.7) k/uL Lymphocytes # 2.3 (1.0-4.8) k/uL Monocytes # 0.5 (0-1.0) k/uL Eosinophils # 0.3 (0-0.7) k/uL Basophils # 0.1 (0-0.2) k/uL Sodium 138 (137-145) mmol/L Potassium 4.1 (3.5-5.1) mmol/L Chloride 106 (98-107) mmol/L Carbon Dioxide 27 (22-30) mmol/L Anion Gap 5 mmol/L BUN 16 (7-17) mg/dL Creatinine 0.71 (0.52-1.04) mg/dL Est GFR (CKD-EPI)AfAm >90 (>60 ml/min/1.73 sqM) Est GFR (CKD-EPI)NonAf >90 (>60 ml/min/1.73 sqM) Glucose 254 H (74-99) mg/dL Calcium 9.4 (8.4-10.2) mg/dL Total Bilirubin 0.4 (0.2-1.3) mg/dL AST 35 (14-36) U/L ALT 110 H (4-34) U/L Alkaline Phosphatase 114 (38-126) U/L Total Protein 6.5 (6.3-8.2) g/dL Albumin 4.2 (3.5-5.0) g/dL Urine Color Light Yellow Urine Appearance Clear (Clear) Urine pH 6.5 (5.0-8.0) Ur Specific [place] 1.007 (1.001-1.035) Urine Protein Negative (Negative) Urine Glucose (UA) Negative (Negative) Urine Ketones Negative (Negative) Urine Blood Negative (Negative) Urine Nitrite Negative (Negative) Urine Bilirubin Negative (Negative) Urine Urobilinogen <2.0 (<2.0) mg/dL Ur Leukocyte Esterase Negative (Negative) - EKG Data -: EKG Interpreted by Ca EKG Comments: EKG obtained at 1826 shows normal sinus rhythm with a ventricular rate of 87, IN interval 124, QRS duration 94, QT 396, QTc 476. No evidence of ST elevation or depression. - Radiology Data Radiology results: report reviewed, image reviewed CT brain C-spine, facial bones were obtained. Report was reviewed in its entirety. Impression by Dr. Lyons shows no acute fracture dislocation evident in the cervical spine. No acute intracranial hemorrhage or midline shift is seen. No acute facial bone fracture. Disposition Clinical Impression: Seizure, Head injury, Facial contusion Disposition: HOME SELF-CARE Condition: Good Instructions (If sedation given, give patient instructions): Head Injury (ED), Recurrent Seizures in Adults (ED), Facial Contusion (ED) Additional Instructions: Rest. Increase fluids. Follow up with your primary care physician for recheck in 1-2 days. Follow-up with your neurologist for further evaluation as soon as possible. Return to the emergency department immediately for any new, worsening, or concerning symptoms. Is patient prescribed a controlled substance at d/c from ED?: No Referrals: Jm Torres MD [Primary Care Provider] - 1-2 days Time of Disposition: 19:26
[2019-10-14 19:16] VITALS: TEMP 98.6
[2019-10-14 19:51] VITALS: BP 118/67; PULSE 83
== END 2019-10-14 19:52 | disposition home or self-care (01) ==
LOC: EC 17:16
DX: G40.909 Epilepsy, unspecified, not intractable, without status epilepticus (principal); S00.83XA Contusion of other part of head, initial encounter; S62.031A Displaced fracture of proximal third of navicular [scaphoid] bone of right wrist, initial encounter for closed fracture; E11.9 Type 2 diabetes mellitus without complications; G35 Multiple sclerosis; G43.909 Migraine, unspecified, not intractable, without status migrainosus; F32.9 Major depressive disorder, single episode, unspecified; Z88.8 Allergy status to other drugs, medicaments and biological substances; Z88.6 Allergy status to analgesic agent; Z91.041 Radiographic dye allergy status; Z88.1 Allergy status to other antibiotic agents; Z79.4 Long term (current) use of insulin; Z79.899 Other long term (current) drug therapy; W18.39XA Other fall on same level, initial encounter; Y93.01 Activity, walking, marching and hiking; Y92.89 Other specified places as the place of occurrence of the external cause
CPT/HCPCS: 36415; 93005; 80053; 80177; 85025; 81003; 73110; 72125; 70486; 70450; 99285; 96374; 96375; 96376; 96361; J2405; J1170

== ENCOUNTER → 2019-11-26 | Outpatient (CLI) | payer MEDICARE, OTHER ==
--- NOTE | 2019-11-26 07:39 | CT ---
EXAMINATION TYPE: CT sinus wo con DATE OF EXAM: 11/26/2019 COMPARISON: CT facial bones October 14, 2019 HISTORY: Chronic sinusitis per order. Facial pain. CT DLP: 635.1 mGycm. Automated Exposure Control for Dose Reduction was Utilized. TECHNIQUE: CT scan of the sinuses is performed without contrast, axial images are obtained, coronal r eformatted images are also reviewed. FINDINGS: Evidence of prior surgery at level of the ostiomeatal complex bilaterally. Mild mucosal thi ckening involving the treated ethmoid sinuses bilaterally along their level of the maxillary antrum. No new suspicious opacification or air-fluid levels. The surgically treated ostiomeatal complex is pa tent bilaterally on the coronal images. Nasal septum remains slightly deviated to the left of midline . Visualized portion of mastoid air cells show no abnormal opacification. The globes are intact bilate rally. Visualized portion of brain parenchyma is unremarkable. IMPRESSION: Evidence of prior paranasal sinus surgery. No recurrent acute sinusitis.
== END | disposition home or self-care (01) ==
LOC: RADCTMAIN 06:57
PROVIDERS: ATTEND Family Medicine
DX: J32.9 Chronic sinusitis, unspecified (principal); Z98.890 Other specified postprocedural states
CPT/HCPCS: 70486

== ENCOUNTER → 2019-12-12 | Outpatient (CLI) | payer MEDICARE, OTHER ==
--- NOTE | 2019-12-13 09:53 | CT ---
EXAMINATION TYPE: CT wrist RT wo con DATE OF EXAM: 12/12/2019 COMPARISON: X-ray 10/14/2019 HISTORY: Nondisplaced fracture of scaphoid. Injury -2019. CT DLP: 96.9 mGycm Automated exposure control for dose reduction was used. FINDINGS: The scaphoid is diminutive in size and there is a fracture across the waist of the scaphoid with mild displacement. Sagittal view suggest a degree of comminution. Fracture line measures approximately 1. 5 mm. This type of fracture of the scaphoid can be associated with osteonecrosis correlate clinically . Mild narrowing of the radiocarpal joint noted. Remaining osseous structures intact. No evidence of di slocation. IMPRESSION: FRACTURE WITH DISPLACEMENT WAIST OF THE SCAPHOID DISCUSSED ABOVE
== END | disposition home or self-care (01) ==
LOC: RADCTMAIN 15:58
PROVIDERS: ATTEND Physician Assistant
DX: S62.001A Unspecified fracture of navicular [scaphoid] bone of right wrist, initial encounter for closed fracture (principal)

== ENCOUNTER → 2020-02-15 | Outpatient (CLI) | payer MEDICARE, OTHER ==
--- NOTE | 2020-02-16 12:40 | MR ---
EXAMINATION TYPE: MR brain wo/w con DATE OF EXAM: 02/15/2020 COMPARISON: Prior brain MRI 12 March 2019 HISTORY: MS TECHNIQUE: Multiplanar, multisequence images of the brain and brainstem is performed without and with IV contras t, utilizing 7.5 mL intravenous Gadavist . FINDINGS: Diffusion weighted images demonstrate no evidence of a recent infarct or other diffusion ab normality. There is no extra-axial fluid collection or significant interval change in white matter s ignal abnormality, previous identified left frontal lesion is less conspicuous on today's exam, ponti ne hyperintensity is again seen and is stable. The ventricular system and cisternal spaces are niall l in size and appearance. The brain volume is age appropriate. Midline structures demonstrate stable morphology, there is a partially empty sella. The fluid signal seen along the optic nerves and T2-weighted sequences is stable as described in prior report The and rescue fire fighter crash fire niocervical junction appears within normal limits. Post contrast images demonstrate no abnormal enha ncement. The dural venous sinuses appear patent. The visualized sinuses are remarkable for some mild inflammatory change in the maxillary sinus on the right, mucosal thickening in the ethmoid air cells and the globes are intact. IMPRESSION: Essentially stable exam. Mild sinus disease.
== END | disposition home or self-care (01) ==
LOC: RADMRIMAIN 11:05
PROVIDERS: ATTEND Psychiatry & Neurology Neurology
DX: J32.8 Other chronic sinusitis (principal); G35 Multiple sclerosis
CPT/HCPCS: 70553; A9585

== ENCOUNTER → 2020-02-17 | Outpatient (CLI) | payer MEDICARE, OTHER ==
--- NOTE | 2020-02-18 02:52 | MR ---
EXAMINATION TYPE: MR cspine/tspine/lspine wo con DATE OF EXAM: 02/17/2020 COMPARISON: CT cervical spine 10/14/2019. MR scan lumbar spine 03/18/2015 HISTORY: Mati extremity pain and weakness TECHNIQUE: Multiplanar, multisequence imaging of the lumbar spine is performed without IV contrast. FINDINGS: Multiplanar multiecho imaging of the cervical thoracic and lumbar spine was performed with no contrast. There is extensive metal artifact obscuring most of the cervical spine. C3 C4 C5 C6-C7 vertebra are n ot well seen. C1 and C2 vertebra appear intact. Cervical spinal cord has normal signal pattern withou t evidence of edema. The cord is obscured from C4 to C7 due to metal artifact. There is no evidence o f cervical spinal stenosis. The thoracic vertebra have normal spacing and alignment. Thoracic spinal cord appears normal. There i s no compression fracture. There is no thoracic spinal stenosis. There is no evidence of thoracic par aspinal mass. There is no significant thoracic disc space narrowing. Lumbar vertebra have fairly normal spacing and alignment. There is slight decreased signal at L3-4 di sc and posterior disc bulging. There is slight narrowing of L3-4 disc space. There is developmentally adequate spinal canal in the lumbar region without evidence of spinal stenosis. There is no bony jina tructive process. There is no lumbar paraspinal mass. The visualized sacroiliac joints appear intact. There is no lumba r spinal stenosis. There is no thoracic spinal stenosis. IMPRESSION: Metal artifact obscures to a large extent the cervical spine. No abnormality demonstrated in the cerv ical spine. Thoracic spine appears fairly normal for age. No thoracic disc herniation or spinal stenosis. Mild degenerative disc changes at L3-4 and posterior disc bulging which is slightly worse than last e xam. No spinal stenosis. No fracture. There is mild left side neural foraminal impingement at L3-4 du e to disc space mild narrowing and facet arthropathy. No evidence of demyelinating disease.
== END | disposition home or self-care (01) ==
LOC: RADMRIMAIN 17:52
PROVIDERS: ATTEND Neurological Surgery
DX: M47.816 Spondylosis without myelopathy or radiculopathy, lumbar region (principal); M51.26 Other intervertebral disc displacement, lumbar region; M48.061 Spinal stenosis, lumbar region without neurogenic claudication; G35 Multiple sclerosis; M54.12 Radiculopathy, cervical region
CPT/HCPCS: 72141; 72146; 72148

== ENCOUNTER → 2020-09-15 | Outpatient (CLI) | payer MEDICARE ==
--- NOTE | 2020-09-15 09:17 | XR ---
EXAMINATION TYPE: XR cervical spine w flex/ext DATE OF EXAM: 09/15/2020 TECHNIQUE: Frontal, lateral, oblique, swimmers, and open mouth view, flexion and extension views of t he cervical spine are obtained. HISTORY: M54.12 Radiculopathy, cervical region COMPARISON: 07/17/2013 FINDINGS: The patient is status post anterior fusion of C5-6 with mild retrolisthesis of C5 on C6 measuring 4 m m, new since the prior study. No enlargement of the prevertebral soft tissues. There is no definite a bnormal motion on flexion and extension imaging. There is multilevel uncovertebral arthropathy with b althea encroachment upon the left C5-6 and C6-7 and right C5-6 and C6-7 neural foramen. Vertebral body h eights are preserved. IMPRESSION: 1. Status post anterior fusion of C5-6 with mild retrolisthesis of C5 on C6 without abnormal motion o n flexion and extension imaging. 2. Multilevel uncovertebral arthropathy with bony encroachment upon the bilateral C5-6 and C6-7 neura l foramen.
--- NOTE | 2020-09-15 10:21 | CT ---
EXAMINATION TYPE: CT cervical spine wo con DATE OF EXAM: 09/15/2020 COMPARISON: Plain film same date, MR cervical spine 02/17/2020 HISTORY: Radiculopathy CT DLP: 489.3 mGycm Automated exposure control for dose reduction was used. TECHNIQUE: CT scan of the cervical spine is obtained without contrast, axial images are obtained, sagittal and c oronal reformatted images are also reviewed. FINDINGS: Patient is status post anterior cervical fusion and discectomy at C5-6, there is artifact associated with patient's hardware. The retrolisthesis described and plain film of C5 on C6 is noted at approxim ately 3-4 mm. Cervical spine is visualized in its entirety from C1 through upper thoracic levels, there is mild for aminal encroachment at C5-6, C6-7. No evident disc herniation. Without evidence of acute fracture or dislocation. Prevertebral soft tissue appears within normal limits. The C1-C2 articulation is withi n normal limits on the coronal images. IMPRESSION: Postop changes as described.
== END | disposition home or self-care (01) ==
LOC: RADCTMAIN 08:00
PROVIDERS: ATTEND Neurological Surgery
DX: M12.88 Other specific arthropathies, not elsewhere classified, other specified site (principal); M54.12 Radiculopathy, cervical region; Z98.1 Arthrodesis status
CPT/HCPCS: 72052; 72125

== ENCOUNTER → 2021-02-08 | Outpatient (CLI) | payer MEDICARE ==
[2021-02-08 12:02] LABS: Partial Thromboplastin Time 24.3 sec (22.0-30.0); Prothrombin Time 10.4 sec (9.0-12.0)
[2021-02-08 19:57] LABS: Basophils # (A) 0.05 X 10*3/uL (0.00-0.10); Basophils % (A) 0.8 %; Eosinophils # (A) 0.07 X 10*3/uL (0.04-0.35); Eosinophils % (A) 1.1 %; HCT 39.4 % (37.2-46.3); HGB 12.7 g/dL (12.0-15.0); Lymphocytes # (A) 1.44 X 10*3/uL (0.90-5.00); Lymphocytes % (A) 22.4 %; MCH 30.1 pg (27.0-32.0); MCHC 32.2 g/dL (32.0-37.0); MCV 93.4 fL (80.0-97.0); Mean Platelet Volume 11.1 fL (9.5-12.2); Monocytes # (A) 0.48 X 10*3/uL (0.20-1.00); Monocytes % (A) 7.5 %; Neutrophils # (A) 4.36 X 10*3/uL (1.80-7.70); Neutrophils % (A) 67.7 %; Platelet Count 212 X 10*3/uL (140-440); RBC 4.22 X 10*6/uL (4.10-5.20); RDW 12.7 % (11.5-14.5); WBC 6.43 X 10*3/uL (4.50-10.00)
[2021-02-09 00:42] LABS: African American GFR (CKD) 80.1 (60.0-200.0); Albumin 4.6 g/dL (3.8-4.9); Albumin/Globulin Ratio 2.04 (1.60-3.17); Anion Gap 10.9 mmol/L (4.00-12.00); BUN/Creat Ratio 25.78 Ratio (12.00-20.00); Calcium 9.2 mg/dL (8.7-10.3); Carbon Dioxide 20.6 mmol/L (21.6-31.8); Globulin 2.3 g/dL (1.6-3.3); Non-African American GFR(CKD) 69.1 (60.0-200.0); Potassium 4.3 mmol/L (3.5-5.5); Total Bilirubin 0.4 mg/dL (0.30-1.20); Total Protein 6.8 g/dL (6.2-8.2)
== END | disposition home or self-care (01) ==
LOC: LABWHC1 09:36
PROVIDERS: ATTEND Nurse Practitioner
DX: Z01.812 Encounter for preprocedural laboratory examination (principal)
CPT/HCPCS: 36415; 80053; 85025; 85610; 85730; 86850; 86900; 86901

== ENCOUNTER → 2021-04-02 | Outpatient (CLI) | payer MEDICARE ==
--- NOTE | 2021-04-02 12:57 | MR ---
EXAMINATION TYPE: MR brain wo/w con DATE OF EXAM: 04/02/2021 COMPARISON: 02/15/2020 HISTORY: 55-year-old female MS, follow up comparison to MRI 02-15-20. TECHNIQUE: Multiplanar, multisequence images of the brain and brainstem is performed without and with IV contrast, utilizing 7 mL intravenous Gadavist gadolinium contrast is administered intravenously. Demyelinating disease protocol with additional Sagittal Flair sequence performed. FINDINGS: T2 Lesions Present : Yes Approximate Number of Lesions: 3 Locations Identified : Anterior left frontal subcortical and bilateral paramedian joyce. Size of Reference Lesion(s): 1. 4 mm anterior left frontal. T1 Hypointense Lesion(s) Present: Yes Change from Prior: Stable Diffusion weighted images demonstrate no evidence of a recent infarct or other diffusion abnormality. There is no worrisome extra-axial fluid collection. The ventricular system and cisternal spaces are normal in size and appearance. The brain volume is a ge appropriate. Redemonstrated partially empty sella. Otherwise, the midline structures demonstrate normal morphology . The craniocervical junction appears within normal limits. Post contrast images demonstrate no abnormal enhancement. The dural venous sinuses appear patent. The visualized sinuses are clear and the globes are intact. IMPRESSION: Stable exam with a 4 mm bright white matter focus anterior left frontal lobe and also in the bilatera l paramedian joyce. No new or enhancing lesions
== END | disposition home or self-care (01) ==
LOC: RADMRIMAIN 11:16
PROVIDERS: ATTEND Psychiatry & Neurology Neurology
DX: G35 Multiple sclerosis (principal)
CPT/HCPCS: 70553; A9585

== ENCOUNTER → 2022-03-08 | Outpatient (CLI) | payer MEDICARE ==
--- NOTE | 2022-03-08 12:47 | MR ---
EXAMINATION TYPE: MR brain wo/w con DATE OF EXAM: 03/08/2022 COMPARISON: MR brain 04/02/2021, 02/15/2020. HISTORY: MS TECHNIQUE: Multiplanar, multisequence images of the brain and brainstem is performed without and with IV contras t, utilizing 6.5 mL intravenous Gadavist . FINDINGS: Diffusion weighted images demonstrate no evidence of a recent infarct or other diffusion ab normality. There is no extra-axial fluid collection. Stable 4 mm T2/FLAIR hyperintense lesion within the anterior left frontal lobe and bilateral paramedian joyce. No abnormal contrast enhancement. No n ew suspicious lesions. The ventricular system and cisternal spaces are normal in size and appearance. The brain volume is age appropriate. Redemonstrated partially empty sella. Midline structures demonstrate normal morphology. The craniocervical junction appears within normal limits. The dural venous sinuses appear patent. The visualized sinuses are clear and the globes are i ntact. IMPRESSION: Overall stable examination with T2/FLAIR hyperintense white matter foci within the anteri or left frontal lobe and bilateral paramedian joyce. No new or enhancing lesions.
== END | disposition home or self-care (01) ==
LOC: RADMRIMAIN 10:30
PROVIDERS: ATTEND Psychiatry & Neurology Neurology
DX: G35 Multiple sclerosis (principal); G93.89 Other specified disorders of brain
CPT/HCPCS: 70553; A9585

== ENCOUNTER → 2022-08-25 | Outpatient (CLI) | payer MEDICARE ==
--- NOTE | 2022-08-25 11:38 | MR ---
EXAMINATION TYPE: MR knee LT wo con DATE OF EXAM: 08/25/2022 COMPARISON: NONE HISTORY: Left knee pain, knee gave out 3 weeks ago. TECHNIQUE: Multiplanar, multisequence images of the knee is performed without IV contrast. FINDINGS: MEDIAL MENISCUS: There is faint horizontal increased signal. This does not definitively extend to art icular surface. LATERAL MENISCUS: Anterior and posterior horns are intact without tear. CRUCIATE LIGAMENTS: The anterior and posterior cruciate ligaments are intact and unremarkable. COLLATERAL LIGAMENTS: The medial collateral ligament and lateral collateral ligament complex are inta ct and unremarkable. EXTENSOR MECHANISM: Visualized quadriceps and patellar tendons are intact. EFFUSION: Small size suprapatellar joint effusion. POPLITEAL CYST: Small by popliteal/irwin cyst. TRICOMPARTMENT SPACES: Mild tricompartment joint space loss. No significant spurring. CARTILAGE: Tricompartmental articular cartilage is fairly well preserved. BONE MARROW SIGNAL: There is heterogeneous diminished T1 and increased T2 signal throughout the dista l femoral metaphysis lateral aspect. There is subtle linear T1 signal along the posterior distal late ral femoral condyle. Seen best sagittal image 9. OTHER: No additional significant abnormality is appreciated. IMPRESSION: 1. There is acute nondisplaced stress-type fracture through the posterior aspect of the distal latera l femoral condyle with significant surrounding osseous contusion injury. 2. Mild tricompartment degenerative changes as detailed above. 3. Small suprapatellar joint effusion. 4. Small popliteal cyst.
== END | disposition home or self-care (01) ==
LOC: RADMRIMAIN 10:28
PROVIDERS: ATTEND Family Medicine
DX: S80.02XA Contusion of left knee, initial encounter (principal); S89.92XA Unspecified injury of left lower leg, initial encounter; M17.12 Unilateral primary osteoarthritis, left knee; M25.462 Effusion, left knee; M71.22 Synovial cyst of popliteal space [Baker], left knee

== ENCOUNTER → 2022-10-12 | Outpatient (CLI) | payer MEDICARE, OTHER ==
--- NOTE | 2022-10-13 07:43 | BD ---
EXAMINATION TYPE: Axial Bone Density DATE OF EXAM: 10/12/2022 CLINICAL HISTORY: 56 years old Female. ICD-10 CODE: Z87.312 PERSONAL HISTORY OF (HEALED) STRESS FRAC TU Height: 5 ft 2 in Weight: 138 FRAX RISK QUESTIONS: Alcohol (3 or more units per day): no Family History (Parent hip fracture): no Glucocorticoids (More than 3mos): no (Ex: prednisone, prednisolone, methylprednisolone, dexamethasone, and hydrocortisone). History of Fracture in Adulthood: yes Secondary Osteoporosis: 1. Type 1 Diabetes: yes 2. Hyperthyroidism: no 3. Menopause before 45: yes 4. Malnutrition: no 5. Chronic liver disease: no Rheumatoid Arthritis: no Current Tobacco Use: no RISK FACTORS HISTORY OF: Surgery to Spine/Hip(right/left)/Wrist (right/left): rt wrist When: 2019 Family History of Osteoporosis: no Active: yes Diet low in dairy products/other sources of calcium: no Postmenopausal woman: yes Take estrogen and/or progesterone medications: estrace How lon years Lost more than 2 inches in height since high school: yes Frequent falls: yes pt has ms Poor Health: fair Hyperparathyroidism: no Adrenal Insufficiency: history of renal failure MEDICATIONS: Osteoporosis Medications: yes Which medication: fosamax How Lon years Additional Medications: fosamax, aldactone, baclofen, Buspar, Calcitriol, estradiol, hyoscyamine/lev asin, Klonopin, Keppra, Lipitor, Neurontin/gabapentin, pilocarpine, Protonix, Topamax, Toprol, trazod one, oxycodone, percocet, ocrevus infusions ev 6 months Additional History: EXAM MEASUREMENTS: Bone mineral densitometry was performed using the [employer]. Bone mineral density as measured about the Lumbar spine is: ----- L1-L4(G/cm2): 1.190 T Score Values are as follows: ----- L1: -0.4 ----- L2: -0.3 ----- L3: 0.6 ----- L4: 0.2 ----- L1-L4: 0.1 Z Score Values are as follows: ----- L1: 0.6 ----- L2: 0.7 ----- L3: 1.6 ----- L4: 1.3 ----- L1-L4: 1.1 baseline Bone mineral density about the R hip (g/cm2): 0.830 Bone mineral density about the L hip (g/cm2): 0.868 T Score values are as follows: -----R Neck: -1.5 -----L Neck: -1.2 -----R Total: -0.9 -----L Total: -0.9 Z Score values are as follows: -----R Neck: -0.4 -----L Neck: -0.1 -----R Total: -0.1 -----L Total: -0.1 baseline FRAX%s: The graph provided illustrates a 7.2 % chance for a major osteoporotic fx and a 0.6 % chance for the hips probability for fx in 10 years time. IMPRESSION: Osteopenia (T Score between -2.5 and -1). There is slightly increased risk of fracture and the patient may be considered for treatment. Re-Screen 2-5 years. NOTE: T-SCORE=SD OF THE YOUNG ADULT MEAN.
== END | disposition home or self-care (01) ==
LOC: RADBDWWP 11:10
PROVIDERS: ATTEND Family Medicine
DX: M85.89 Other specified disorders of bone density and structure, multiple sites (principal); E10.9 Type 1 diabetes mellitus without complications; Z78.0 Asymptomatic menopausal state; Z87.312 Personal history of (healed) stress fracture
CPT/HCPCS: 77080

== ENCOUNTER → 2022-11-08 | Outpatient (CLI) | payer MEDICARE, OTHER ==
--- NOTE | 2022-11-09 09:33 | US ---
EXAMINATION TYPE: US kidneys/renal and bladder DATE OF EXAM: 11/08/2022 COMPARISON: NONE CLINICAL INDICATION: Female, 57 years old with history of N18.2 CHRONIC KIDNEY DISEASE; CKD EXAM MEASUREMENTS: Right Kidney: 9.9 x 4.4 x 4.9 cm Left Kidney: 10.4 x 4.7 x 3.4 cm Right Kidney: no evidence of hydronephrosis Left Kidney: dense echogenic foci noted, largest = 1.1cm. No hydronephrosis. Bladder: wnl Bilateral Jets seen: yes IMPRESSION: No hydronephrosis on either side. A nonobstructive 1.1 cm lower pole left renal calculus.
== END | disposition home or self-care (01) ==
LOC: RADUSWWP 15:43
PROVIDERS: ATTEND Internal Medicine
DX: N18.2 Chronic kidney disease, stage 2 (mild) (principal); N20.0 Calculus of kidney
CPT/HCPCS: 76770

== ENCOUNTER → 2022-11-08 | Outpatient (CLI) | payer MEDICARE, OTHER ==
--- NOTE | 2022-11-09 09:46 | US ---
EXAMINATION TYPE: US groin RT DATE OF EXAM: 11/08/2022 COMPARISON: NONE CLINICAL INDICATION: Female, 57 years old with history of R10.2 PELVIC AND PERINEAL PAIN; Bilateral g roin pain, worse on the right TECHNIQUE AND FINDINGS: Functional Manager notes: Bilateral groin scanned within patient's area of pain. Unable to identify any disc rete abnormality by ultrasound at this time Provided images show no solid or cystic lesion. On the Valsalva images, no discrete hernia is identif ied. IMPRESSION: No specific abnormality identified in either groin by ultrasound.
--- NOTE | 2022-11-09 09:47 | US ---
EXAMINATION TYPE: US groin LT DATE OF EXAM: 11/08/2022 COMPARISON: NONE CLINICAL INDICATION: Female, 57 years old with history of R10.2 pelvic and perineal pain; bilateral g roin pain, worse on the right TECHNIQUE AND FINDINGS: Stripe Marker notes: Bilateral groin scanned within patient's area of pain. Unable to identify any disc rete abnormality by ultrasound at this time Provided images show no solid or cystic lesion. On the Valsalva images, no discrete hernia is identif ied. IMPRESSION: No specific abnormality identified in either groin by ultrasound.
== END | disposition home or self-care (01) ==
LOC: RADUSWWP 15:41
PROVIDERS: ATTEND Family Medicine
DX: R10.31 Right lower quadrant pain (principal); R10.32 Left lower quadrant pain

== ENCOUNTER → 2023-03-15 | Outpatient (CLI) | payer MEDICARE, OTHER ==
--- NOTE | 2023-03-15 18:27 | MR ---
EXAMINATION TYPE: MR brain wo/w con DATE OF EXAM: 03/15/2023 COMPARISON: 03/08/2022 HISTORY: MS, Hx seizures CONTRAST: Performed utilizing 6 mL intravenous Gadobutrol gadolinium contrast. TECHNIQUE: Multiplanar, multiecho imaging on a 3.0 Erlinda magnet is performed through the brain. Stud y is performed within 24 hours of arrival to the hospital. The craniovertebral junction is normal. The pituitary is normal. Diffusion-weighted imaging is performed. No abnormal hyperintensity is present to suggest an acute i ntracranial infarct or acute ischemic change. There is a 0.3 x 0.7 cm garcia radiata white matter change in the right frontal lobe. Series 802 imag e 20 . This is better visualized on current exam. There is a 0.5 cm subcortical white matter rounded area left frontal lobe. Series 802 image 22. This is better visualized on the current exam Ventricles and sulci are appropriate for the patient age. No suspicious enhancement is evident. Temporal lobes are symmetrical. IMPRESSION: 1. There is better visualization of frontal lobe white matter changes. These are nonspecific could be related to, but not limited to, multiple sclerosis, microvascular ischemic change, migraine headache s, vasculitis
== END | disposition home or self-care (01) ==
LOC: RADMRIMAIN 16:25
PROVIDERS: ATTEND Psychiatry & Neurology Neurology
DX: G35 Multiple sclerosis (principal); G93.89 Other specified disorders of brain
CPT/HCPCS: 70553; A9585

== ENCOUNTER → 2023-05-16 | Outpatient (CLI) | payer MEDICARE, OTHER ==
--- NOTE | 2023-05-17 13:22 | MM ---
Reason for Exam: Screening (asymptomatic). Last mammogram was performed 21 year(s) and 7 month(s) ago. Patient History: Menarche at age 10. First Full-Term at age 20. Left ovary removed at age 26. Right ovary removed at age 26. Hysterectomy at age 26. Postmenopausal. Patient used Estrogen for 10 years. Risk Values: Emelyn 5 year model risk: 1.3%. NCI Lifetime model risk: 7.7%. Prior Study Comparison: 07/12/1990 Screening Mammogram, Unknown. 10/22/2001 Bilateral Diagnostic Mammogram, [facility]. Tissue Density: There are scattered fibroglandular densities. Findings: Analyzed By CAD. There is no suspicious group of microcalcifications or new suspicious mass. Benign-appearing calcifications bilaterally. Overall Assessment: Benign, BI-RAD 2 Management: Screening Mammogram of both breasts in [address] [facility] will attempt to contact patient to return for supplemental views and ultrasound if indicated. Patient should continue monthly self-breast exams. A clinical breast exam by your physician is recommended on an annual basis. This exam should not preclude additional follow-up of suspicious palpable abnormalities. Note on Emelyn scores and lifetime risk: 1. A Emelyn score greater than 3% is considered moderate risk. If this is the case, consider specialist referral to assess eligibility for a risk reducing agent. 2. If overall lifetime risk for the development of breast cancer is 20% or higher, the patient may qualify for future screening with alternating mammogram and breast MRI. Electronically signed and approved by: Chi Tay DO
== END | disposition home or self-care (01) ==
LOC: RADMAMWWP 12:46
PROVIDERS: ATTEND Family Medicine
DX: Z12.31 Encounter for screening mammogram for malignant neoplasm of breast (principal); Z78.0 Asymptomatic menopausal state
CPT/HCPCS: 77063; 77067

== ENCOUNTER → 2023-06-16 | Outpatient (CLI) | payer MEDICARE, OTHER ==
--- NOTE | 2023-06-16 18:36 | CT ---
EXAMINATION TYPE: CT iac wo con CT DLP: 197 mGycm, Automated exposure control for dose reduction was used. DATE OF EXAM: 06/16/2023 1:29 PM INDICATION: Patient age:Female; 57 years old; Reason for study: H90.5 SENSORINEURAL HEARING LOSS; PHH. COMPARISON: 10/14/2019. 11/26/2019.. TECHNIQUE: Multiple thin axial images were obtained through the temporal bones and internal auditory canals. Additional coronal reformatted images were obtained. No IV contrast was utilized. STENVER a nd POSCHL views were created on a separate work station. CT Contrast: Contrast used: mL of , none. FINDINGS: Right Temporal Bone: External Ear: The external auditory canal is unremarkable, The tympanic membrane is mildly thickened more anteriorly possibly secondary to cerumen impaction.. Middle Ear: The ossicles demonstrate a normal appearance. There is erosion of Prussak's space withe soft tissue present. Scutum is eroded. The tegmen tympani is intact. Inner Ear: Cochlea, vestibule and semi circular canals are unremarkable. No evidence of carotid lasha l dehiscence. Two and a half turns of the cochlea are identified. The vestibular aqueduct is not enl arged. Mastoid Air Cells: The mastoid air cells are clear. The tegmen mastoideum is intact. The aditus ad an trum is clear. Internal Auditory Canal: The internal auditory canal is unremarkable. Left Temporal Bone: External Ear: The external auditory canal is unremarkable, The tympanic membrane is present and unrem arkable. Middle Ear: The ossicles demonstrate a normal appearance. Prussak's space is clear and the scutum i s intact. There is no evidence of osseous erosion and the tegmen tympani is intact. Inner Ear: Cochlea, vestibule and semi circular canals are unremarkable. No evidence of carotid lasha l dehiscence. Two and a half turns of the cochlea are identified. The vestibular aqueduct is not enl arged. Mastoid Air Cells: The mastoid air cells are clear. The tegmen mastoideum is intact. The aditus ad an trum is clear. Internal Auditory Canal: The internal auditory canal is unremarkable. Other: Antrostomy changes bilaterally. No significant mucosal thickening visualized. IMPRESSION: Minimal amount of soft tissue density in Prussak's space with the scutum eroded on the right.
== END | disposition home or self-care (01) ==
LOC: RADCTMAIN 12:55
PROVIDERS: ATTEND Otolaryngology
DX: H90.5 Unspecified sensorineural hearing loss (principal)
CPT/HCPCS: 70480

== ENCOUNTER → 2023-07-10 | Outpatient (CLI) | payer MEDICARE ==
--- NOTE | 2023-07-10 19:27 | XR ---
EXAMINATION TYPE: XR chest 2V DATE OF EXAM: 07/10/2023 8:24 AM CLINICAL INDICATION:Female, 57 years old with history of Z01.89 Encounter for special examinations; P HH COMPARISON: Chest radiographs from 04/13/2019 TECHNIQUE: XR chest 2V Frontal and lateral views of the chest. FINDINGS: Lungs/Pleura: There is no evidence of pleural effusion, focal consolidation, or pneumothorax. Pulmonary vascularity: Unremarkable. Heart/mediastinum: Cardiomediastinal silhouette is unremarkable. Musculoskeletal: No acute osseous pathology. There is fixation hardware in the lower cervical spine. Left rotator cuff repair anchor. IMPRESSION: No acute cardiopulmonary disease/process.
== END | disposition home or self-care (01) ==
LOC: RADXRMAIN 08:03
PROVIDERS: ATTEND Family Medicine
DX: Z01.89 Encounter for other specified special examinations (principal)
CPT/HCPCS: 71046

== ENCOUNTER → 2023-09-11 | Outpatient (CLI) | payer MEDICARE ==
[2023-09-11 15:28] LABS: Basophils # (A) 0.05 X 10*3/uL (0.00-0.10); Eosinophils # (A) 0.06 X 10*3/uL (0.04-0.35); Eosinophils % (A) 1.2 %; HCT 39.8 % (37.2-46.3); HGB 12.4 g/dL (12.0-15.0); Lymphocytes # (A) 1.11 X 10*3/uL (0.90-5.00); Lymphocytes % (A) 22.5 %; MCH 29.8 pg (27.0-32.0); MCHC 31.2 g/dL (32.0-37.0); MCV 95.7 FL (80.0-97.0); Mean Platelet Volume 11.1 FL (9.5-12.2); Monocytes # (A) 0.42 X 10*3/uL (0.20-1.00); Monocytes % (A) 8.5 %; NRBC Per 100 WBC 0 X 10*3/uL (0.00-0.01); Neutrophils # (A) 3.29 X 10*3/uL (1.80-7.70); Neutrophils % (A) 66.6 %; Platelet Count 155 X 10*3/uL (140-440); RBC 4.16 X 10*6/uL (4.10-5.20); RDW 12.4 % (11.5-14.5); WBC 4.94 X 10*3/uL (4.50-10.00)
[2023-09-11 16:15] LABS: ALT 26 U/L (8-44); AST 22 U/L (13-35); Albumin 4.8 g/dL (3.8-4.9); Albumin/Globulin Ratio 2.53 Ratio (1.60-3.17); Alkaline Phosphatase 78 U/L (41-126); BUN/Creat Ratio 20.89 Ratio (12.00-20.00); Blood Urea Nitrogen 18.8 mg/dL (9.0-27.0); Calcium 9.6 mg/dL (8.7-10.3); Carbon Dioxide 24.3 mmol/L (21.6-31.8); Chloride 110 mmol/L (96-109); Chol/HDL Ratio 2.45 Ratio; Globulin 1.9 g/dL (1.6-3.3); Glucose 121 mg/dL (70-110); LDL Cholesterol,Calculated 53.8 mg/dL (0.0-131.0); Sodium 144 mmol/L (135-145); Total Bilirubin <0.2 mg/dL (0.3-1.2); Total Protein 6.7 g/dL (6.2-8.2)
== END | disposition home or self-care (01) ==
LOC: LABWHC1 08:06
PROVIDERS: ATTEND Nurse Practitioner Family
DX: Z00.00 Encounter for general adult medical examination without abnormal findings (principal); Z13.6 Encounter for screening for cardiovascular disorders; E10.9 Type 1 diabetes mellitus without complications
CPT/HCPCS: 36415; 80053; 80061; 83036; 84443; 85025

== ENCOUNTER → 2023-11-28 | Outpatient (CLI) | payer MEDICARE ==
[2023-11-28 18:49] LABS: Immunoglobulin M <35.0 mg/dL (40.0-280.0)
== END ==
LOC: LABWHC1 09:49
PROVIDERS: ATTEND Psychiatry & Neurology Neurology
DX: G35 Multiple sclerosis (principal); D84.9 Immunodeficiency, unspecified
CPT/HCPCS: 36415; 82784; 86355; 86357; 86359; 86360

== ENCOUNTER → 2024-08-14 | Outpatient (CLI) | payer MEDICARE ==
[2024-08-14 14:51] LABS: Basophils # (A) 0.06 X 10*3/uL (0.00-0.10); Basophils % (A) 0.9 %; Eosinophils # (A) 0.08 X 10*3/uL (0.04-0.35); Eosinophils % (A) 1.2 %; HCT 37.8 % (37.2-46.3); HGB 12.5 g/dL (12.0-15.0); Lymphocytes # (A) 1.34 X 10*3/uL (0.90-5.00); Lymphocytes % (A) 20.1 %; MCH 30.5 pg (27.0-32.0); MCHC 33.1 g/dL (32.0-37.0); MCV 92.2 FL (80.0-97.0); Mean Platelet Volume 10.7 FL (9.5-12.2); Monocytes # (A) 0.61 X 10*3/uL (0.20-1.00); Monocytes % (A) 9.2 %; NRBC Per 100 WBC 0 X 10*3/uL (0.00-0.01); Neutrophils # (A) 4.55 X 10*3/uL (1.80-7.70); Neutrophils % (A) 68.3 %; Platelet Count 163 X 10*3/uL (140-440); RDW 11.8 % (11.5-14.5); WBC 6.66 X 10*3/uL (4.50-10.00)
[2024-08-14 15:31] LABS: ALT 40 U/L (8-44); AST 28 U/L (13-35); Albumin 4.4 g/dL (3.8-4.9); Alkaline Phosphatase 81 U/L (41-126); BUN/Creat Ratio 22.64 Ratio (12.00-20.00); Blood Urea Nitrogen 24.9 mg/dL (9.0-27.0); Calcium 9.8 mg/dL (8.7-10.3); Carbon Dioxide 23.7 mmol/L (21.6-31.8); Chloride 109 mmol/L (96-109); Globulin 2.1 g/dL (1.6-3.3); Glucose 167 mg/dL (70-110); LDL Cholesterol,Calculated 50.8 mg/dL (0.0-131.0); Potassium 3.8 mmol/L (3.5-5.5); Sodium 144 mmol/L (135-145); Total Bilirubin 0.2 mg/dL (0.3-1.2); Total Protein 6.5 g/dL (6.2-8.2)
== END | disposition home or self-care (01) ==
LOC: LABWHC1 10:02
PROVIDERS: ATTEND Family Medicine
DX: I10 Essential (primary) hypertension (principal); Z79.4 Long term (current) use of insulin
CPT/HCPCS: 36415; 80053; 80061; 83036; 84439; 84443; 85025

== ENCOUNTER → 2024-10-14 | Outpatient (CLI) | payer MEDICARE ==
--- NOTE | 2024-10-14 13:23 | BD ---
EXAMINATION TYPE: Axial Bone Density DATE OF EXAM: 10/14/2024 CLINICAL HISTORY: 58 years old Female. ICD-10 CODE: M81.0 AGE RELATED OSTEOPOROSIS , Additional Hist ory: Height: 62.5 Weight: 140.9 FRAX RISK QUESTIONS: Alcohol (3 or more units per day): no Family History (Parent hip fracture): no Glucocorticoids (More than 3mos): no (Ex: prednisone, prednisolone, methylprednisolone, dexamethasone, and hydrocortisone). History of Fracture in Adulthood: yes Secondary Osteoporosis: 1. Type 1 Diabetes: yes 2. Hyperthyroidism: no 3. Menopause before 45: yes 4. Malnutrition: no 5. Chronic liver disease: no Rheumatoid Arthritis: no Current Tobacco Use: yes RISK FACTORS HISTORY OF: Surgery to Spine/Hip(right/left)/Wrist (right/left): no MEDICATIONS: Osteoporosis Medications: fosamax How Lon years EXAM MEASUREMENTS: Bone mineral densitometry was performed using the [employer]. Bone mineral density as measured about the Lumbar spine is: ----- L1-L4(G/cm2): 1.206 T Score Values are as follows: ----- L1: -0.9 ----- L2: 0.0 ----- L3: 0.6 ----- L4: 0.8 ----- L1-L4: 0.2 Z Score Values are as follows: ----- L1: 0.3 ----- L2: 1.1 ----- L3: 1.8 ----- L4: 1.9 ----- L1-L4: 1.4 Bone mineral density has: increased 1.3 % since study of: 10.12.2022 Bone mineral density about the R hip (g/cm2): 0.914 Bone mineral density about the L hip (g/cm2): 0.885 T Score values are as follows: -----R Neck: -1.0 -----L Neck: -1.5 -----R Total: -0.7 -----L Total: -1.0 Z Score values are as follows: -----R Neck: 0.2 -----L Neck: -0.3 -----R Total: 0.1 -----L Total: -0.1 Bone mineral density has: increased 1.0 % since study of: 10.12.2022 FRAX%s: The graph provided illustrates a 7.8% chance for a major osteoporotic fx and a 1.2% chance fo r the hips probability for fx in 10 years time. IMPRESSION: Normal (Values between +1 and -1 indicate normal bone mass). Consider repeating this study in 5 year s or sooner if there is some new clinical indication. NOTE: T-SCORE=SD OF THE YOUNG ADULT MEAN. [facility], , 10/14/2024 1:20 PM
== END | disposition home or self-care (01) ==
LOC: RADBDWWP 12:40
PROVIDERS: ATTEND Family Medicine
DX: M81.0 Age-related osteoporosis without current pathological fracture (principal); Z78.0 Asymptomatic menopausal state
CPT/HCPCS: 77080